=== PATIENT | male | born 1945 | race Caucasian/White ===

== ENCOUNTER → 2018-02-27 | Outpatient (CLI) | payer MEDICARE ==
[2018-02-27 18:03] LABS: Hemoglobin A1C 5.1 % (4.0-6.0)
== END | disposition home or self-care (01) ==
LOC: LABWHC1 11:28
PROVIDERS: ATTEND Podiatrist
DX: I87.2 Venous insufficiency (chronic) (peripheral) (principal)
CPT/HCPCS: 36415; 83036

== ENCOUNTER → 2018-03-05 | Outpatient (CLI) | payer MEDICARE ==
--- NOTE | 2018-03-05 16:19 | US ---
EXAMINATION TYPE: US venous doppler duplex LE DATE OF EXAM: 03/05/2018 2:00 PM COMPARISON: NONE CLINICAL HISTORY: M79.604,M79.605. Slow to heal lower extremity ulcerations x 6 months with left leg worse than right leg. SIDE PERFORMED: Bilateral Exam is technically limited due to very large body habitus at HT 6'3, and WT 459lbs. TECHNIQUE: The lower extremity deep venous system is examined utilizing real time linear array sonog robert with graded compression, Doppler sonography and color-flow sonography. VESSELS IMAGED: Common Femoral Vein Deep Femoral Vein Greater Saphenous Vein * Femoral Vein Popliteal Vein - limited left popliteal vein access due to very large leg Small Saphenous Vein * Proximal Calf Veins (* superficial vessels) Right Leg: Venous reflux noted in Right Greater Saphenous Vein. Left Leg: Venous reflux is noted in Left Greater Saphenous Vein. IMPRESSION: 1. Lower extremity ultrasound with bilateral greater saphenous vein reflux. 2. Popliteal vein on the left is limited due to the patient's body habitus.
--- NOTE | 2018-03-10 10:46 | P.ARTDOP ---
Arterial Doppler LOWER EXTREMITY ARTERIAL DOPPLER: DATE OF SERVICE: 03/05/2018 Reason for study: Bilateral lower leg ulcers. Doppler waveforms: Doppler waveforms only done at femoral and dorsalis pedis level bilaterally. At the left femoral it is multiphasic. At the right femoral and dorsalis pedis it is blunted but multiphasic. The left dorsalis pedis is more monophasic.. Pulse volume recording:. Pressure gradients: None recorded. Ankle-brachial indices: Greater than 1 bilaterally. Toe pressures:. Impression: Suspect at least moderate disease on the left. Cannot be more specific due to limitations of the study. Clinical correlation recommended..
== END | disposition home or self-care (01) ==
LOC: RADUSWWP 13:17
PROVIDERS: ATTEND Podiatrist
DX: I87.2 Venous insufficiency (chronic) (peripheral) (principal); M79.604 Pain in right leg
CPT/HCPCS: 93922; 93970

== ENCOUNTER 2020-12-31 12:47 | Inpatient (IN) | payer MEDICARE ==
[2020-12-31] MEDS ORDERED: FUROSEMIDE 10 MG/ML 4 ML VIAL IV STA (13:00)
--- NOTE | 2020-12-31 13:05 | ED ---
SOB HPI - General Chief Complaint: Shortness of Breath Stated Complaint: MARIELA Time Seen by Provider: 12/31/20 12:47 Source: patient, EMS, RN notes reviewed, old records reviewed Mode of arrival: EMS Limitations: no limitations - History of Present Illness Initial Comments: This is a 75-year-old male who presents by EMS with complaints of shortness of breath. His been getting progressively worse over the last 2 months. EMS was called today for lift assist he could not get up off the floor he could not seem he cannot ambulate he has exertional dyspnea. He denies any fevers chills or sweats was found upon arrival have a temperature 101.2. Initially had a pulse oximetry of 62% on room air. This did improve after oxygen was applied. He denies any chest pain he does have peripheral edema which she states is fairly chronic. Patient does state that he had the 'which shot Alexandre and Alexandre about a month ago MD Complaint: shortness of breath - Related Data Home Medications Medication Instructions Recorded Confirmed Furosemide [Lasix] 40 mg PO BID 12/09/14 12/31/20 Potassium Chloride [K-Tab ER] 20 meq PO DAILY 12/09/14 12/31/20 Atenolol [Tenormin] 50 mg PO BID 12/31/20 12/31/20 Multivitamins, Thera [Multivitamin 1 tab PO DAILY 12/31/20 12/31/20 (formulary)] Allergies Allergy/AdvReac Type Severity Reaction Status Date / Time No Known Allergies Allergy Verified 12/31/20 13:41 Review of Systems ROS Statement: Those systems with pertinent positive or pertinent negative responses have been documented in the HPI. ROS Other: All systems not noted in ROS Statement are negative. Past Medical History Past Medical History: Cancer, Hypertension, Skin Disorder Additional Past Medical History / Comment(s): hx prostate cancer, , hx rheumatic fever; lymphedema to bilateral legs. History of Any Multi-Drug Resistant Organisms: None Reported Past Surgical History: Hernia Repair, Tonsillectomy Additional Past Surgical History / Comment(s): pacemaker, heart ablation Past Anesthesia/Blood Transfusion Reactions: No Reported Reaction Past Psychological History: No Psychological Hx Reported Past Alcohol Use History: None Reported Past Drug Use History: None Reported - Past Family History Father Family Medical History: Cancer Mother Family Medical History: Cancer General Exam - General Exam Comments Initial Comments: Is a well-developed well-nourished awake alert oriented times 3 male Limitations: no limitations General appearance: alert, anxious, in distress Head exam: Present: atraumatic, normocephalic, normal inspection Eye exam: Present: normal appearance, PERRL, EOMI. Absent: scleral icterus, conjunctival injection, periorbital swelling ENT exam: Present: normal exam, mucous membranes moist Neck exam: Present: normal inspection. Absent: tenderness, meningismus, lymphadenopathy Respiratory exam: Present: rales, rhonchi, accessory muscle use, decreased breath sounds, other (Tachypnea). Absent: respiratory distress, wheezes, stridor Cardiovascular Exam: Present: regular rate, normal rhythm, normal heart sounds. Absent: systolic murmur, diastolic murmur, rubs, gallop, clicks GI/Abdominal exam: Present: soft, normal bowel sounds. Absent: distended, tenderness, guarding, rebound, rigid Extremities exam: Present: normal inspection, full ROM, normal capillary refill, pedal edema. Absent: tenderness, joint swelling, calf tenderness Back exam: Present: normal inspection Neurological exam: Present: alert, oriented X3, CN II-XII intact Psychiatric exam: Present: normal affect, normal mood Skin exam: Present: warm, dry, intact, normal color. Absent: rash Course Vital Signs 12/31/20 12/31/20 12/31/20 12:55 13:53 13:58 Temperature 101.2 F H Pulse Rate 96 95 Respiratory 28 H 26 H 26 H Rate Blood Pressure 124/92 117/70 O2 Sat by Pulse 85 L 89 L Oximetry 12/31/20 14:37 Temperature 100.1 F H Pulse Rate 93 Respiratory 26 H Rate Blood Pressure 149/73 O2 Sat by Pulse 92 L Oximetry Medical Decision Making - Medical Decision Making I did discuss findings with the patient also with Dr. Glaser patient will be admitted with pulmonary consultation presentation consistent with Coban 19 pneumonia additionally evidence of CHF - Lab Data Result diagrams: 12/31/20 13:06 12/31/20 13:06 Lab Results 12/31/20 12/31/20 12/31/20 Range/Units 13:06 13:06 13:06 WBC 11.4 H (3.8-10.6) k/uL RBC 4.58 (4.30-5.90) m/uL Hgb 13.4 (13.0-17.5) gm/dL Hct 40.6 (39.0-53.0) % MCV 88.8 (80.0-100.0) fL MCH 29.4 (25.0-35.0) pg MCHC 33.1 (31.0-37.0) g/dL RDW 13.6 (11.5-15.5) % Plt Count 72 L (150-450) k/uL MPV 11.8 Neutrophils % (Manual) 76 % Band Neuts % (Manual) 2 % Lymphocytes % (Manual) 5 % Monocytes % (Manual) 14 % Eosinophils % (Manual) 1 % Metamyelocytes % 1 % Myelocytes % 3 % Promyelocytes % 1 % Other Cells % % Neutrophils # (Manual) 8.80 H (1.3-7.7) k/uL Lymphocytes # (Manual) 0.57 L (1.0-4.8) k/uL Monocytes # (Manual) 1.60 H (0-1.0) k/uL Eosinophils # (Manual) 0.11 (0-0.7) k/uL Metamyelocytes # (Man) 0.11 H (0) k/uL Myelocytes # (Manual) 0.34 H (0) k/uL Promyelocytes # (Man) 0.11 H (0) k/uL Nucleated RBCs 1 H (0-0) /100 WBC Manual Slide Review Performed Polychromasia Present Poikilocytosis (manual Present Anisocytosis (manual) Present PT 13.0 H (9.0-12.0) sec INR 1.3 H (<1.2) APTT 27.0 (22.0-30.0) sec Sodium 133 L (137-145) mmol/L Potassium 4.7 (3.5-5.1) mmol/L Chloride 98 (98-107) mmol/L Carbon Dioxide 26 (22-30) mmol/L Anion Gap 9 mmol/L BUN 51 H (9-20) mg/dL Creatinine 1.51 H (0.66-1.25) mg/dL Est GFR (CKD-EPI)AfAm 52 (>60 ml/min/1.73 sqM) Est GFR (CKD-EPI)NonAf 45 (>60 ml/min/1.73 sqM) Glucose 128 H (74-99) mg/dL Plasma Lactic Acid Mumtaz (0.7-2.0) mmol/L Calcium 9.1 (8.4-10.2) mg/dL Magnesium 2.6 H (1.6-2.3) mg/dL Total Bilirubin 1.6 H (0.2-1.3) mg/dL AST 81 H (17-59) U/L ALT 47 (4-49) U/L Alkaline Phosphatase 76 (38-126) U/L Creatine Kinase 418 H (55-170) U/L Troponin I (0.000-0.034) ng/mL NT-Pro-B Natriuret Pep pg/mL Total Protein 6.7 (6.3-8.2) g/dL Albumin 3.8 (3.5-5.0) g/dL Urine Color Urine Appearance (Clear) Urine pH (5.0-8.0) Ur Specific [place] (1.001-1.035) Urine Protein (Negative) Urine Glucose (UA) (Negative) Urine Ketones (Negative) Urine Blood (Negative) Urine Nitrite (Negative) Urine Bilirubin (Negative) Urine Urobilinogen (<2.0) mg/dL Ur Leukocyte Esterase (Negative) Urine RBC (0-5) /hpf Urine WBC (0-5) /hpf Ur Squamous Epith Cells (0-4) /hpf Urine Bacteria (None) /hpf Hyaline Casts (0-2) /lpf Granular Casts (0) /lpf Urine Mucus (None) /hpf Coronavirus (PCR) (Not Detectd) 12/31/20 12/31/20 12/31/20 Range/Units 13:06 13:06 13:06 WBC (3.8-10.6) k/uL RBC (4.30-5.90) m/uL Hgb (13.0-17.5) gm/dL Hct (39.0-53.0) % MCV (80.0-100.0) fL MCH (25.0-35.0) pg MCHC (31.0-37.0) g/dL RDW (11.5-15.5) % Plt Count (150-450) k/uL MPV Neutrophils % (Manual) % Band Neuts % (Manual) % Lymphocytes % (Manual) % Monocytes % (Manual) % Eosinophils % (Manual) % Metamyelocytes % % Myelocytes % % Promyelocytes % % Other Cells % % Neutrophils # (Manual) (1.3-7.7) k/uL Lymphocytes # (Manual) (1.0-4.8) k/uL Monocytes # (Manual) (0-1.0) k/uL Eosinophils # (Manual) (0-0.7) k/uL Metamyelocytes # (Man) (0) k/uL Myelocytes # (Manual) (0) k/uL Promyelocytes # (Man) (0) k/uL Nucleated RBCs (0-0) /100 WBC Manual Slide Review Polychromasia Poikilocytosis (manual Anisocytosis (manual) PT (9.0-12.0) sec INR (<1.2) APTT (22.0-30.0) sec Sodium (137-145) mmol/L Potassium (3.5-5.1) mmol/L Chloride (98-107) mmol/L Carbon Dioxide (22-30) mmol/L Anion Gap mmol/L BUN (9-20) mg/dL Creatinine (0.66-1.25) mg/dL Est GFR (CKD-EPI)AfAm (>60 ml/min/1.73 sqM) Est GFR (CKD-EPI)NonAf (>60 ml/min/1.73 sqM) Glucose (74-99) mg/dL Plasma Lactic Acid Mumtaz 1.8 (0.7-2.0) mmol/L Calcium (8.4-10.2) mg/dL Magnesium (1.6-2.3) mg/dL Total Bilirubin (0.2-1.3) mg/dL AST (17-59) U/L ALT (4-49) U/L Alkaline Phosphatase (38-126) U/L Creatine Kinase (55-170) U/L Troponin I 0.074 H* (0.000-0.034) ng/mL NT-Pro-B Natriuret Pep 5860 pg/mL Total Protein (6.3-8.2) g/dL Albumin (3.5-5.0) g/dL Urine Color Urine Appearance (Clear) Urine pH (5.0-8.0) Ur Specific [place] (1.001-1.035) Urine Protein (Negative) Urine Glucose (UA) (Negative) Urine Ketones (Negative) Urine Blood (Negative) Urine Nitrite (Negative) Urine Bilirubin (Negative) Urine Urobilinogen (<2.0) mg/dL Ur Leukocyte Esterase (Negative) Urine RBC (0-5) /hpf Urine WBC (0-5) /hpf Ur Squamous Epith Cells (0-4) /hpf Urine Bacteria (None) /hpf Hyaline Casts (0-2) /lpf Granular Casts (0) /lpf Urine Mucus (None) /hpf Coronavirus (PCR) (Not Detectd) 12/31/20 12/31/20 Range/Units 13:06 13:22 WBC (3.8-10.6) k/uL RBC (4.30-5.90) m/uL Hgb (13.0-17.5) gm/dL Hct (39.0-53.0) % MCV (80.0-100.0) fL MCH (25.0-35.0) pg MCHC (31.0-37.0) g/dL RDW (11.5-15.5) % Plt Count (150-450) k/uL MPV Neutrophils % (Manual) % Band Neuts % (Manual) % Lymphocytes % (Manual) % Monocytes % (Manual) % Eosinophils % (Manual) % Metamyelocytes % % Myelocytes % % Promyelocytes % % Other Cells % % Neutrophils # (Manual) (1.3-7.7) k/uL Lymphocytes # (Manual) (1.0-4.8) k/uL Monocytes # (Manual) (0-1.0) k/uL Eosinophils # (Manual) (0-0.7) k/uL Metamyelocytes # (Man) (0) k/uL Myelocytes # (Manual) (0) k/uL Promyelocytes # (Man) (0) k/uL Nucleated RBCs (0-0) /100 WBC Manual Slide Review Polychromasia Poikilocytosis (manual Anisocytosis (manual) PT (9.0-12.0) sec INR (<1.2) APTT (22.0-30.0) sec Sodium (137-145) mmol/L Potassium (3.5-5.1) mmol/L Chloride (98-107) mmol/L Carbon Dioxide (22-30) mmol/L Anion Gap mmol/L BUN (9-20) mg/dL Creatinine (0.66-1.25) mg/dL Est GFR (CKD-EPI)AfAm (>60 ml/min/1.73 sqM) Est GFR (CKD-EPI)NonAf (>60 ml/min/1.73 sqM) Glucose (74-99) mg/dL Plasma Lactic Acid Mumtaz (0.7-2.0) mmol/L Calcium (8.4-10.2) mg/dL Magnesium (1.6-2.3) mg/dL Total Bilirubin (0.2-1.3) mg/dL AST (17-59) U/L ALT (4-49) U/L Alkaline Phosphatase (38-126) U/L Creatine Kinase (55-170) U/L Troponin I (0.000-0.034) ng/mL NT-Pro-B Natriuret Pep pg/mL Total Protein (6.3-8.2) g/dL Albumin (3.5-5.0) g/dL Urine Color Yellow Urine Appearance Cloudy (Clear) Urine pH 5.5 (5.0-8.0) Ur Specific [place] 1.021 (1.001-1.035) Urine Protein 1+ H (Negative) Urine Glucose (UA) Negative (Negative) Urine Ketones Negative (Negative) Urine Blood Small H (Negative) Urine Nitrite Negative (Negative) Urine Bilirubin 1+ H (Negative) Urine Urobilinogen 8.0 (<2.0) mg/dL Ur Leukocyte Esterase Negative (Negative) Urine RBC 1 (0-5) /hpf Urine WBC <1 (0-5) /hpf Ur Squamous Epith Cells <1 (0-4) /hpf Urine Bacteria Rare H (None) /hpf Hyaline Casts 17 H (0-2) /lpf Granular Casts 3 (0) /lpf Urine Mucus Rare H (None) /hpf Coronavirus (PCR) Detected A (Not Detectd) - EKG Data -: EKG Interpreted by Me EKG Comments: Rate of 97 FL interval 350 to QRS 128 QT since QTC 350/444 left exodeviation LVH nonspecific lateral and anterior configuration's - Radiology Data Radiology results: report reviewed (Reviewing she bilateral infiltrates noted area please see complete report), image reviewed Critical Care Time Critical Care Time: Yes Total Critical Care Time: 35 Critical Care Time: Critical care time includes initial presentation with history physical labs x- rays discussed with paramedics upon arrival multiple reevaluation the patient discussed with the patient regarding findings discussed with the admitting physician review of old charting was available admission orders documentation the above Disposition Clinical Impression: Pneumonia due to COVID-19 virus, Hypoxemia, Febrile illness, acute, Congestive heart failure, Elevated troponin Disposition: ADMITTED IP TO THIS [facility] Condition: Fair Referrals: Uriah Tsang DO [Primary Care Provider] - 1-2 days
[2020-12-31 13:48] LABS: Albumin 3.8 g/dL (3.5-5.0); Calcium 9.1 mg/dL (8.4-10.2); Magnesium 2.6 mg/dL (1.6-2.3); Potassium 4.7 mmol/L (3.5-5.1); Total Bilirubin 1.6 mg/dL (0.2-1.3); Total Protein 6.7 g/dL (6.3-8.2)
[2020-12-31 13:54] LABS: HCT 40.6 % (39.0-53.0); HGB 13.4 gm/dL (13.0-17.5); MCH 29.4 pg (25.0-35.0); MCHC 33.1 g/dL (31.0-37.0); MCV 88.8 fL (80.0-100.0); RBC 4.58 m/uL (4.30-5.90); RDW 13.6 % (11.5-15.5)
--- NOTE | 2020-12-31 13:54 | XR ---
EXAMINATION TYPE: XR chest 2V DATE OF EXAM: 12/31/2020 COMPARISON: Chest x-ray 12/31/2014 HISTORY: Difficulty breathing, shortness breath TECHNIQUE: Frontal and lateral views of the chest are obtained. FINDINGS: There is no focal air space opacity, pleural effusion, or pneumothorax seen. The cardiac silhouette size is within normal limits. There is a generator present in the left pectoral region. Le ads are again noted within the right atrium and ventricle. Patient is rotated. Bilateral airspace dis ease has developed. There is no pneumothorax or pleural effusion. Cardiac mediastinal silhouette is l ikely stable. The osseous structures are intact. IMPRESSION: Correlate for pneumonia, edema.
[2020-12-31 14:07] LABS: Appearance,Urine Cloudy (Clear); Bacteria,Urine Rare /hpf; Bilirubin,Urine 1+ (Negative); Blood,Urine Small (Negative); Color,Urine Yellow; Glucose,Urine (UA) Negative (Negative); Granular Casts,Urine 3 /lpf (0); Hyaline Casts,Urine 17 /lpf (0-2); Ketones,Urine Negative (Negative); Leukocyte Esterase,Urine Negative (Negative); Mucus,Urine Rare /hpf; Nitrite,Urine Negative (Negative); PH, Urine 5.5 (5.0-8.0); Protein,Urine 1+ (Negative); RBC,Urine 1 /hpf (0-5); Specific Gravity,Urine 1.021 (1.001-1.035); Squamous Epithelial Cell,Urine <1 /hpf (0-4); WBC,Urine <1 /hpf (0-5)
[2020-12-31 14:18] LABS: INR 1.3 (<1.2)
[2020-12-31 14:24] LABS: Band Neutrophils % 2 %; Eosinophils # (M) 0.11 k/uL (0-0.7); Lymphocytes # (M) 0.57 k/uL (1.0-4.8); Metamyelocytes # (M) 0.11 k/uL (0); Metamyelocytes % 1 %; Myelocytes # (M) 0.34 k/uL (0); Myelocytes % 3 %; Neutrophils % (M) 76 %; Nucleated Red Blood Cells 1 /100 WBC (0-0); Promyelocytes # (M) 0.11 k/uL (0); Promyelocytes % 1 %; Total Cells Counted 200; WBC 11.4 k/uL (3.8-10.6)
[2020-12-31 14:25] LABS: Polychromasia Present
[2020-12-31 14:26] LABS: Anisocytosis (M) Present; Poikilocytosis (M) Present
[2020-12-31] MEDS ORDERED: PNEUMONIA PROTOCOL UTILIZED 1 EACH MISC PO PRN (15:05)
[2020-12-31] MEDS ORDERED: dexAMETHasone 2 MG TAB PO STA (15:10)
[2020-12-31] MEDS: SODIUM CHLORIDE 0.9% 1,000 ML IV SCH (15:34)
[2020-12-31] MEDS: ALBUTEROL HFA INHALER INHALATION SCH ×3 (18:30→19:19)
[2020-12-31 19:17] LABS: Glucose,Whole Blood 156 mg/dL (75-99)
[2020-12-31] MEDS: FUROSEMIDE 40 MG TAB PO SCH (20:00)
[2020-12-31] MEDS: atenoloL 50 MG TAB PO SCH (22:05)
--- NOTE | 2020-12-31 22:45 | HP ---
HISTORY AND PHYSICAL CHIEF COMPLAINT: Shortness of breath and cough. HISTORY OF PRESENT ILLNESS: This 75-year-old gentleman with a past medical history of hypertension, history of prostate cancer, history of rheumatic fever, history of lymphedema of the legs being followed by Dr. Tsang in the outpatient setting. The patient apparently took Alexandre and Alexandre vaccine in end of November. The patient is complaining of apparently shortness of breath and some cough worsening over the last 2 months. The exact date of the onset of current symptoms are unknown. In any case, the patient had paroxysmal exertional dyspnea and pulse ox only 62 percent on room air. The patient taken to [facility] and patient had extensive bilateral pneumonia, which is highly suggestive of Covid 19 pneumonia. Covid 19 test was positive and patient admitted to the hospital for further evaluation and treatment. Currently the patient is on non- rebreather mask, saturating around 90%. There is no history of fever, rigors or chills. No history of headache, loss of consciousness, seizures at this time. PAST MEDICAL HISTORY: Hypertension, history of prostate cancer, rheumatic fever. MEDICATIONS: Prior to admission include home medications are: K-Tab ER 20 mg p.o. daily, multivitamins and Lasix, Tenormin. ALLERGIES: None. FAMILY HISTORY: History of cancer in the family. SOCIAL HISTORY: Previous history of smoking. No history of current smoking or alcohol. REVIEW OF SYSTEMS: ENT: No diminished vision. No diminished hearing. CARDIOVASCULAR system: As mentioned earlier. Respiration as mentioned earlier. GI no nausea. No vomiting. : No dysuria. NERVOUS SYSTEM: No numbness or weakness. ALLERGY/IMMUNOLOGY: No asthma or hayfever. MUSCULOSKELETAL as mentioned earlier. HEMATOLOGY/ONCOLOGY: No history of anemia. ENDOCRINE: No history of diabetes or hypothyroidism. CONSTITUTIONAL: As mentioned earlier. DERMATOLOGY: Negative. RHEUMATOLOGY: Negative. PSYCHIATRY as mentioned earlier. PHYSICAL EXAMINATION: Alert and oriented x3. Pulse 85. Blood pressure 127/90, respirations 22, temperature 99.9, pulse ox 98% on 15 L nonrebreather mask. HEENT: Conjunctivae normal. NECK: No JVD. CARDIOVASCULAR: S1, S2 muffled. RESPIRATORY SYSTEM: Breath sounds diminished at the bases. Bilateral scattered rhonchi and crackles. ABDOMEN: Soft, obese, nontender. LEGS: No edema. No swelling. NERVOUS SYSTEM: Higher functions as mentioned earlier. Moves all 4 limbs. No focal motor or sensory deficits. LYMPHATICS: No lymph nodes palpable in the neck, axillae or groin. SKIN: No ulcer, rashes or bleeding. JOINTS: No active deforming arthropathy. LABS: At this time shows: WBC 11.4, platelets 72, and INR is 1.3. D-dimer is not available. Creatinine is 1.51. Other labs are noted. Troponin 0.074. ASSESSMENT: 1. Acute COVID-19 infection with acute bilateral interstitial pneumonia with acute hypoxic respiratory failure with sepsis, present on admission. 2. Increased WBC. 3. Thrombocytopenia. 4. Lymphopenia. 5. Elevated PT/INR. 6. Hyponatremia. 7. Increased creatinine with acute renal failure with acute tubular necrosis. 8. Increased random blood sugar. 9. Elevated bilirubin. 10.Increased AST. 11.Troponin 0.075, indeterminate. 12.Elevated creatinine kinase. 13.Hypertension. 14.History of prostate cancer. 15.History of rheumatic fever. 16.History of lymphedema. 17.History of tonsillectomy. 18.Morbid obesity with BMI 52.5. 19.FULL CODE. RECOMMENDATIONS AND DISCUSSION: This 75-year-old gentleman who presented with multiple complex medical issues, we will monitor the patient closely. Continue the current medications, management and symptomatic treatment. We will initiate the patient with Lovenox. The patient is definitely out of the window for Remdesivir. Steroids will be initiated. Broad- spectrum IV antibiotics and zinc and other conservative line of management also will be initiated. I would also consult Dr. Browne and Dr. Guzman also. The patient had multiple features suggestive of acute COVID-19 infection inflammatory markers. The troponin is also elevated. Exact etiology unknown. I would also recommend a 2D echo with Doppler to rule out myocardial involvement. Otherwise, overall prognosis guarded. Further recommendations to follow. A copy of dictation forwarded to Dr. Tsang who is the primary physician. We will also consider Actemra in this patient after consulting with Infectious Disease. MMODL / IJN: [id number] /
[2020-12-31] MEDS: DEXAMETHASONE SOD PHOSPHATE 10 MG/ML 1 ML VIAL IV SCH (23:37)
--- NOTE | 2021-01-01 08:06 | XR ---
EXAMINATION TYPE: XR chest 1V DATE OF EXAM: 01/01/2021 COMPARISON: Chest x-ray 12/31/2020 HISTORY: Pneumonia, Covid TECHNIQUE: Single frontal view of the chest is obtained. FINDINGS: Bilateral airspace disease is present but improved. Cardiac mediastinal silhouette is stab le. Generator is present in left pectoral region, there are leads in right atrium and ventricle. No p neumothorax or pleural effusion. IMPRESSION: There is some improvement in patient's airspace disease. Correlate for pneumonia versus edema.
[2021-01-01 08:19] LABS: Calcium 9.2 mg/dL (8.4-10.2); Potassium 4.9 mmol/L (3.5-5.1)
[2021-01-01] MEDS: ALBUTEROL HFA INHALER INHALATION SCH ×4 (08:25→20:25)
[2021-01-01 08:43] LABS: HCT 41.9 % (39.0-53.0); HGB 13.5 gm/dL (13.0-17.5); MCH 29.4 pg (25.0-35.0); MCHC 32.1 g/dL (31.0-37.0); MCV 91.6 fL (80.0-100.0); Mean Platelet Volume 11.8; RBC 4.58 m/uL (4.30-5.90); RDW 13.6 % (11.5-15.5)
[2021-01-01 08:44] LABS: Platelet Count 74 k/uL (150-450)
[2021-01-01] MEDS: POTASSIUM CHLORIDE ER 20 MEQ TAB.ER PO SCH (08:56)
[2021-01-01] MEDS: ZINC SULFATE 220 MG CAP PO SCH (08:56)
[2021-01-01] MEDS: atenoloL 50 MG TAB PO SCH ×2 (08:56→20:24)
[2021-01-01] MEDS: DEXAMETHASONE SOD PHOSPHATE 10 MG/ML 1 ML VIAL IV SCH ×2 (08:56→20:23)
[2021-01-01] MEDS: ASCORBIC ACID 500 MG TAB PO SCH (08:56)
[2021-01-01] MEDS: CHOLECALCIFEROL 25 MCG (1000 IU) TABLET PO SCH (08:56)
[2021-01-01] MEDS: FUROSEMIDE 40 MG TAB PO SCH ×2 (08:56→18:11)
[2021-01-01] MEDS: MULTIVITAMINS, THERA 1 EACH TAB PO SCH (08:56)
[2021-01-01 09:11] LABS: C Reactive Protein 22.7 mg/dL (<1.0)
[2021-01-01 09:31] LABS: Band Neutrophils % 4 %; Metamyelocytes # (M) 0.14 k/uL (0); Metamyelocytes % 1 %; Myelocytes # (M) 0.14 k/uL (0); Myelocytes % 1 %; Neutrophils % (M) 82 %; Promyelocytes # (M) 0.14 k/uL (0); Promyelocytes % 1 %
[2021-01-01 09:33] LABS: Nucleated Red Blood Cells 4 /100 WBC (0-0); Total Cells Counted 200
[2021-01-01 09:34] LABS: Blast Cells # (M) 0.27 k/uL (0); Lymphocytes # (M) 0.69 k/uL (1.0-4.8); Monocytes # (M) 0.82 k/uL (0-1.0); WBC 13.7 k/uL (3.8-10.6)
[2021-01-01 09:35] LABS: Polychromasia Present
[2021-01-01 09:36] LABS: Anisocytosis (M) Present; Poikilocytosis (M) Present
--- NOTE | 2021-01-01 09:54 | P.CNPUL ---
History of Present Illness Consult date: 01/01/21 Reason for consult: dyspnea, hypoxemia, pneumonia History of present illness: 75-year-old male patient was being seen for acute hypoxic respiratory failure and COVID-19 associated pneumonia. The patient came into the emergency department because of worsening shortness of breath is been going on for the past month. He is not sure of the exact timing of his symptoms. He is been sick for several weeks probably a month or 2 according to him. He did not realize his breathing was this bad. On the day of his admission condition got worse to the point where he was unable to ambulate. He came into the hospital accordingly. Denies having any fever chills or sweats. Nevertheless, he was found to have a temperature of 101.2. Initial pulse ox was 62% on room air oxygen. He was placed on 100% on a beta facemask. No angina. No palpitations. Apparently has taken BCKSTGR showed approximately a month ago. He has a white cell count of 11, lymphocyte count of 0.5, normal coagulation profile, d-dimer of 3.3, troponin 0.07, his proBNP level was 5860, sodium level was 133, BUN was 51 with a creatinine of 1.5. Lactic acid level was 1.8. 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 Other comorbidities include prostate cancer, obesity and chronic lower extremity edema/lymphedema with venous ulcers being treated at the wound center in the past. Review of Systems Constitutional: Reports fatigue, Reports fever, Reports weakness Eyes: denies as per HPI, denies blurred vision, denies bulging eye, denies dec reased vision, denies diplopia, denies discharge, denies dry eye, denies irritation, denies itching, denies pain, denies photophobia, denies loss of peripheral vision, denies loss of vision, denies tunnel vision/blind spots Ears: deny: decreased hearing, ear discharge, earache, tinnitus Ears, nose, mouth and throat: Reports as per HPI Breasts: absent: as per HPI, gynecomastia Cardiovascular: Reports decreased exercise tolerance, Reports dyspnea on exertion, Reports edema Respiratory: Reports dyspnea Gastrointestinal: Reports as per HPI Genitourinary: Reports as per HPI Musculoskeletal: Reports as per HPI Musculoskeletal: bilateral: ankle swelling, absent: ankle pain, ankle stiffness Integumentary: Reports as per HPI, Reports darkening of skin, Reports wounds Neurological: Reports as per HPI Psychiatric: Reports as per HPI Endocrine: Reports as per HPI Hematologic/Lymphatic: Reports as per HPI Allergic/Immunologic: Reports as per HPI Past Medical History Past Medical History: Cancer, Hypertension, Skin Disorder Additional Past Medical History / Comment(s): hx prostate cancer, , hx rheumatic fever; lymphedema to bilateral legs. History of Any Multi-Drug Resistant Organisms: None Reported Past Surgical History: Hernia Repair, Tonsillectomy Additional Past Surgical History / Comment(s): pacemaker, heart ablation Past Anesthesia/Blood Transfusion Reactions: No Reported Reaction Past Psychological History: No Psychological Hx Reported Smoking Status: Former smoker Past Alcohol Use History: None Reported Additional Past Alcohol Use History / Comment(s): smoked from teens until 30's; started up again when 61 until 63 Past Drug Use History: None Reported - Past Family History Father Family Medical History: Cancer Mother Family Medical History: Cancer Medications and Allergies Home Medications Medication Instructions Recorded Confirmed Type Furosemide [Lasix] 40 mg PO BID 12/09/14 12/31/20 History Potassium Chloride [K-Tab ER] 20 meq PO DAILY 12/09/14 12/31/20 History Atenolol [Tenormin] 50 mg PO BID 12/31/20 12/31/20 History Multivitamins, Thera [Multivitamin 1 tab PO DAILY 12/31/20 12/31/20 History (formulary)] Allergies Allergy/AdvReac Type Severity Reaction Status Date / Time No Known Allergies Allergy Verified 12/31/20 13:41 Physical Exam Vitals: Vital Signs Temp Pulse Pulse Resp BP BP Pulse Ox 01/01/21 04:00 99.0 F 61 24 129/71 92 L 01/01/21 02:00 78 24 01/01/21 00:00 97.8 F 78 24 117/69 89 L 12/31/20 20:00 98.0 F 85 80 22 127/90 127/74 94 L 12/31/20 19:00 99.9 F H 89 24 116/85 92 L 12/31/20 16:00 83 24 152/75 93 L 12/31/20 15:32 98.0 F 80 22 127/74 94 L 12/31/20 15:30 99.3 F 90 24 140/77 90 L 12/31/20 14:37 100.1 F H 93 26 H 149/73 92 L 12/31/20 13:58 26 H 12/31/20 13:53 95 26 H 117/70 89 L 12/31/20 12:55 101.2 F H 96 28 H 124/92 85 L Intake and Output 12/31/20 01/01/21 01/01/21 22:59 06:59 14:59 Intake Total 100 Output Total 700 500 Balance -600 -500 Intake: Oral 100 Output: Urine 700 500 Other: Weight 180 kg 179.5 kg General appearance: alert, anxious, in distress mild degree of respiratory distress because of his underlying pneumonia currently on on the percent nonrebreather facemask Head exam: Present: atraumatic, normocephalic, normal inspection Eye exam: Present: normal appearance, PERRL, EOMI. Absent: scleral icterus, conjunctival injection, periorbital swelling ENT exam: Present: normal exam, mucous membranes moist Neck exam: Present: normal inspection. Absent: tenderness, meningismus, lymphadenopathy Respiratory exam: Present: rales, rhonchi, accessory muscle use, decreased nasir th sounds, other (Tachypnea). Absent: respiratory distress, wheezes, stridor Cardiovascular Exam: Present: regular rate, normal rhythm, normal heart sounds. Absent: systolic murmur, diastolic murmur, rubs, gallop, clicks GI/Abdominal exam: Present: soft, normal bowel sounds. Absent: distended, tenderness, guarding, rebound, rigid Extremities exam: Present: normal inspection, full ROM, normal capillary refill, pedal edema. Absent: tenderness, joint swelling, calf tenderness Back exam: Present: normal inspection Neurological exam: Present: alert, oriented X3, CN II-XII intact Psychiatric exam: Present: normal affect, normal mood Skin exam: Present: warm, dry, intact, normal color. Absent: rash Results - Laboratory Findings CBC and BMP: 01/01/21 07:35 01/01/21 07:35 PT/INR, D-dimer PT 13.0 sec (9.0-12.0) H 12/31/20 13:06 INR 1.3 (<1.2) H 12/31/20 13:06 D-Dimer 3.32 mg/L FEU (<0.60) H 12/31/20 20:25 Abnormal lab findings: Abnormal Labs 12/31/20 12/31/20 12/31/20 13:06 13:06 13:06 WBC 11.4 H Plt Count 72 L Neutrophils # (Manual) 8.80 H Lymphocytes # (Manual) 0.57 L Monocytes # (Manual) 1.60 H Metamyelocytes # (Man) 0.11 H Myelocytes # (Manual) 0.34 H Promyelocytes # (Man) 0.11 H Nucleated RBCs 1 H PT 13.0 H INR 1.3 H D-Dimer Sodium 133 L Carbon Dioxide BUN 51 H Creatinine 1.51 H Glucose 128 H POC Glucose (mg/dL) Magnesium 2.6 H Total Bilirubin 1.6 H AST 81 H Lactate Dehydrogenase Creatine Kinase 418 H Troponin I C-Reactive Protein Urine Protein Urine Blood Urine Bilirubin Urine Bacteria Hyaline Casts Urine Mucus Coronavirus (PCR) 12/31/20 12/31/20 12/31/20 13:06 13:06 13:22 WBC Plt Count Neutrophils # (Manual) Lymphocytes # (Manual) Monocytes # (Manual) Metamyelocytes # (Man) Myelocytes # (Manual) Promyelocytes # (Man) Nucleated RBCs PT INR D-Dimer Sodium Carbon Dioxide BUN Creatinine Glucose POC Glucose (mg/dL) Magnesium Total Bilirubin AST Lactate Dehydrogenase Creatine Kinase Troponin I 0.074 H* C-Reactive Protein Urine Protein 1+ H Urine Blood Small H Urine Bilirubin 1+ H Urine Bacteria Rare H Hyaline Casts 17 H Urine Mucus Rare H Coronavirus (PCR) Detected A 12/31/20 12/31/20 01/01/21 19:16 20:25 07:35 WBC Plt Count Neutrophils # (Manual) Lymphocytes # (Manual) Monocytes # (Manual) Metamyelocytes # (Man) Myelocytes # (Manual) Promyelocytes # (Man) Nucleated RBCs PT INR D-Dimer 3.32 H Sodium Carbon Dioxide 31 H BUN 53 H Creatinine 1.40 H Glucose 149 H POC Glucose (mg/dL) 156 H Magnesium Total Bilirubin AST Lactate Dehydrogenase 2111 H Creatine Kinase Troponin I C-Reactive Protein 22.7 H Urine Protein Urine Blood Urine Bilirubin Urine Bacteria Hyaline Casts Urine Mucus Coronavirus (PCR) - Diagnostic Findings Chest x-ray: image reviewed Assessment and Plan Plan: 1 acute hypoxic respiratory failure currently on the percent nonrebreather facemask due to bilateral diffuse pneumonia attributed to COVID-19 infection. The exact onset of symptoms is not known as the patient is not clear when he started having the symptoms. Limited is been progressively getting worse over the past several weeks. He apparently took his Alexandre & Alexandre vaccination and end of November 2020. 2 acute COVID-19 infection, post vaccination with a Alexandre & Alexandre COVID-19 vaccine 3 shortness of breath secondary to above 4 acute kidney injury, likely secondary to intravascular volume depletion 5 chronic lymphedema involving lower extremities 6 obesity 7 history of SVT post-ablation, post ablation induced bradyarrhythmia requiring permanent pacemaker insertion 8 prostate cancer 9 chronic thrombocytopenia Plan Keep the patient 100% nonrebreather facemask and titrate FiO2 to maintain a saturation above 90% Check inflammatory markers including LDH and CRP Put the patient Decadron 6 mg IV every 12 hours Put the patient on Lovenox 40 mg subcu every 24 hours Check pro calcitonin level Not candidate for Remdesivir May consider anti-interleukin therapy, although he seems to be out of the window for that knowing that his symptoms have been present for more than 2 weeks. Monitor renal function Monitor electrolytes Monitor platelet count
[2021-01-01 10:23] LABS: Platelet Count 72 k/uL (150-450)
[2021-01-01 10:25] LABS: Mean Platelet Volume 11.8
[2021-01-01] MEDS: ENOXAPARIN 40 MG/0.4 ML SYRINGE SQ SCH (13:25)
--- NOTE | 2021-01-01 13:39 | P.CRDCN ---
History of Present Illness Consult date: 01/01/21 Reason for Consult (text): Cardiac history History of present illness: The patient is a 75-year-old male with past medical history of hypertension, SVT status post ablation, and heart block status post permanent pacemaker, who presents to the hospital with worsening shortness of breath and Covid pneumonia. We are consulted for congestive heart failure and elevated troponins. DIAGNOSTICS: EKG shows prolonged MO interval and left axis deviation. Patient has biventricular pacemaker Telemetry shows paced rhythm Chest x-ray shows bilateral airspace disease Laboratory data: WBC 13.7, hemoglobin 13.5, hematocrit 41.9, platelets 74, d- dimer 3.32, sodium 139, potassium 4.9, BUN 53, creatinine 1.40, magnesium 2.6, AST 81, ALT 47, lactate dehydrogenase 2111, CK 418, troponin 0.07 CRP 22, BNP 5860, Mcwilliams PCR positive Vitals: Blood pressure 129/73, respiratory rate 20, pulse rate 65, temperature 98.0F, SpO2 91% on nonrebreather Extensive chart review. Exam limited to COVID-19 pandemic. FINAL ASSESSMENT AND PLAN: Congestive heart failure, elevated BNP Acute hypoxic respiratory failure, on nonrebreather Covid 19 pneumonia Elevated troponin, likely secondary to acute infection Elevated d-dimer Hypertension Acute kidney injury Thrombocytopenia PLAN: Continue Lasix per pulmonology Continue DVT prophylaxis with enoxaparin Limited echocardiogram to assess LV function Further recommendations will be on clinical course The patient has been seen and evaluated. Plan of care has been reviewed and agreed upon by Dr Leahy. Past Medical History Past Medical History: Cancer, Hypertension, Skin Disorder Additional Past Medical History / Comment(s): hx prostate cancer, , hx rheumatic fever; lymphedema to bilateral legs. History of Any Multi-Drug Resistant Organisms: None Reported Past Surgical History: Hernia Repair, Tonsillectomy Additional Past Surgical History / Comment(s): pacemaker, heart ablation Past Anesthesia/Blood Transfusion Reactions: No Reported Reaction Past Psychological History: No Psychological Hx Reported Smoking Status: Former smoker Past Alcohol Use History: None Reported Additional Past Alcohol Use History / Comment(s): smoked from teens until 30's; started up again when 61 until 63 Past Drug Use History: None Reported - Past Family History Father Family Medical History: Cancer Mother Family Medical History: Cancer Medications and Allergies Home Medications Medication Instructions Recorded Confirmed Type Furosemide [Lasix] 40 mg PO BID 05/08/15 05/30/21 History Potassium Chloride [K-Tab ER] 20 meq PO DAILY 12/09/14 12/31/20 History Atenolol [Tenormin] 50 mg PO BID 12/31/20 12/31/20 History Multivitamins, Thera [Multivitamin 1 tab PO DAILY 12/31/20 12/31/20 History (formulary)] Allergies Allergy/AdvReac Type Severity Reaction Status Date / Time No Known Allergies Allergy Verified 12/31/20 13:41 Physical Exam Vitals: Vital Signs Temp Pulse Pulse Resp BP BP Pulse Ox 01/01/21 08:00 98.0 F 65 20 129/73 91 L 01/01/21 04:00 99.0 F 61 24 129/71 92 L 01/01/21 02:00 78 24 01/01/21 00:00 97.8 F 78 24 117/69 89 L 12/31/20 20:00 98.0 F 85 80 22 127/90 127/74 94 L 12/31/20 19:00 99.9 F H 89 24 116/85 92 L 12/31/20 16:00 83 24 152/75 93 L 12/31/20 15:32 98.0 F 80 22 127/74 94 L 12/31/20 15:30 99.3 F 90 24 140/77 90 L 12/31/20 14:37 100.1 F H 93 26 H 149/73 92 L 12/31/20 13:58 26 H 12/31/20 13:53 95 26 H 117/70 89 L Intake and Output 12/31/20 01/01/21 01/01/21 22:59 06:59 14:59 Intake Total 100 240 Output Total 700 500 Balance -600 -500 240 Intake: Oral 100 240 Output: Urine 700 500 Other: Voiding Method Indwelling Catheter Weight 180 kg 179.5 kg Results 01/01/21 07:35 01/01/21 07:35 Cardiac Enzymes 12/31/20 12/31/20 01/01/21 Range/Units 13:06 13:06 07:35 AST 81 H (17-59) U/L Lactate Dehydrogenase 2111 H (313-618) U/L Troponin I 0.074 H* (0.000-0.034) ng/mL Coagulation 12/31/20 Range/Units 13:06 PT 13.0 H (9.0-12.0) sec APTT 27.0 (22.0-30.0) sec CBC 12/31/20 01/01/21 Range/Units 13:06 07:35 WBC 11.4 H 13.7 H (3.8-10.6) k/uL RBC 4.58 4.58 (4.30-5.90) m/uL Hgb 13.4 13.5 (13.0-17.5) gm/dL Hct 40.6 41.9 (39.0-53.0) % Plt Count 72 L 74 L (150-450) k/uL Comprehensive Metabolic Panel 12/31/20 01/01/21 Range/Units 13:06 07:35 Sodium 133 L 139 (137-145) mmol/L Potassium 4.7 4.9 (3.5-5.1) mmol/L Chloride 98 101 (98-107) mmol/L Carbon Dioxide 26 31 H (22-30) mmol/L BUN 51 H 53 H (9-20) mg/dL Creatinine 1.51 H 1.40 H (0.66-1.25) mg/dL Glucose 128 H 149 H (74-99) mg/dL Calcium 9.1 9.2 (8.4-10.2) mg/dL AST 81 H (17-59) U/L ALT 47 (4-49) U/L Alkaline Phosphatase 76 (38-126) U/L Total Protein 6.7 (6.3-8.2) g/dL Albumin 3.8 (3.5-5.0) g/dL Current Medications Generic Name Dose Route Start Last Admin Trade Name Freq PRN Reason Stop Dose Admin Albuterol Sulfate 2 puff 12/31/20 20:00 01/01/21 11:52 Albuterol Hfa Inhaler INHALATION 2 puff RT-QID CATHERINE Administration Ascorbic Acid 1,000 mg 01/01/21 09:00 01/01/21 08:56 Ascorbic Acid 500 Mg Tab PO 1,000 mg DAILY CATHERINE Administration Atenolol 50 mg 12/31/20 21:00 01/01/21 08:56 Atenolol 50 Mg Tab PO 50 mg BID CATHERINE Administration Cholecalciferol 125 mcg 01/01/21 09:00 01/01/21 08:56 Cholecalciferol 25 Mcg (1000 Iu) Tablet PO 125 mcg DAILY CATHERINE Administration Dexamethasone Sodium Phosphate 6 mg 12/31/20 22:15 01/01/21 08:56 Dexamethasone Sod Phosphate 10 Mg/Ml 1 Ml Vial IV 6 mg Q12H CATHERINE Administration Enoxaparin Sodium 40 mg 01/01/21 10:00 01/01/21 13:25 Enoxaparin 40 Mg/0.4 Ml Syringe SQ 40 mg DAILY CATHERINE Administration Furosemide 40 mg 12/31/20 18:00 01/01/21 08:56 Furosemide 40 Mg Tab PO 40 mg 0900,1800 CATHERINE Administration Sodium Chloride 1,000 mls @ 75 mls/hr 12/31/20 15:15 12/31/20 15:34 Saline 0.9% IV 20 mls/hr .[id number] CATHERINE Administration Tocilizumab 800 mg/ Sodium 100 mls @ 100 mls/hr 01/01/21 14:00 Chloride IV 01/01/21 14:59 ONCE ONE Miscellaneous Information 1 each 12/31/20 15:05 Pneumonia Protocol Utilized 1 Each Misc PO ONCE PRN Per Protocol Multivitamins 1 each 01/01/21 09:00 01/01/21 08:56 Multivitamins, Thera 1 Each Tab PO 1 each DAILY CATHERINE Administration Potassium Chloride 20 meq 01/01/21 09:00 01/01/21 08:56 Potassium Chloride Er 20 Meq Tab.Er PO 20 meq DAILY CATHERINE Administration Zinc Sulfate 220 mg 01/01/21 09:00 01/01/21 08:56 Zinc Sulfate 220 Mg Cap PO 220 mg DAILY CATHERINE Administration Intake and Output 12/31/20 01/01/21 01/01/21 22:59 06:59 14:59 Intake Total 100 240 Output Total 700 500 Balance -600 -500 240 Intake: Oral 100 240 Output: Urine 700 500 Other: Voiding Method Indwelling Catheter Weight 180 kg 179.5 kg 01/01/21 07:35 01/01/21 07:35
[2021-01-01] MEDS ORDERED: TOCILIZUMAB 800 MG in SODIUM CHLORIDE 0.9% 60 ML IV ONE (14:00)
[2021-01-01] MEDS: SODIUM CHLORIDE 0.9% 1,000 ML IV SCH (17:07)
[2021-01-01 20:34] LABS: Albumin 3.3 g/dL (3.5-5.0); Calcium 9.1 mg/dL (8.4-10.2); Potassium 4.8 mmol/L (3.5-5.1); Total Protein 6.2 g/dL (6.3-8.2)
--- NOTE | 2021-01-01 22:28 | PN ---
PROGRESS NOTE DATE OF SERVICE: January 01, 2021 This 75-year-old gentleman who was admitted with shortness of breath and cough had significant bilateral pneumonia suggestive of acute COVID-19 pneumonia. The patient apparently had Covid 19 Alexandre and Alexandre vaccination about 2 months ago. According to the , the patient asymptomatic for the last 9 days. No chest pain. No palpitations. No fever. The patient is extremely short of breath. The patient is on nonrebreather mask at this time. The chest x-ray showed bilateral lesions. The patient also had some 2 blast cells also. D-dimer is 3.32. PAST MEDICAL HISTORY: Reviewed. REVIEW OF SYSTEMS: CARDIOVASCULAR SYSTEM: No angina. RESPIRATION: As mentioned. GI: As mentioned earlier. as mentioned. NERVOUS SYSTEM: No numbness or weakness. CURRENT MEDICATIONS: Reviewed and include: Ventolin, vitamin C, Tenormin, Decadron Lovenox, Lasix, oral zinc. PHYSICAL EXAMINATION: Patient is alert, oriented x3. Pulse 62. Blood pressure 130/60, respiration 20, temperature 98.2, pulse ox 94% on room air. HEENT: Conjunctivae normal. NECK: No JVD. CARDIOVASCULAR: S1, S2 muffled. RESPIRATORY: Breath sounds diminished in the bases. A few scattered rhonchi and crackles. ABDOMEN: Soft, obese, nontender. LEGS: Bilateral leg edema and varicose lesions also present. NERVOUS SYSTEM: Higher functions as mentioned. Moves all four limbs. No focal motor or sensory deficits. LYMPHATICS: No lymph nodes palpable in the neck, axillae or groin. SKIN: No ulcers, rashes or bleeding. JOINTS: No active deforming arthropathy. LABS: WBC 13.7, hemoglobin 13.5, sodium 139, potassium 4.9. Creatinine is 1.4. D-dimer is 3.32. COVID-19 is positive. ASSESSMENT: 1. Acute COVID-19 infection with acute bilateral interstitial pneumonia with acute hypoxic respiratory failure with sepsis present on admission on nonrebreather mask. 2. Increased WBC. 3. Thrombocytopenia. 4. Lymphopenia. 5. Elevated PT/INR. 6. Elevated D-dimer. 7. Hyponatremia. 8. Increased creatinine with acute renal failure with acute tubular necrosis. 9. Increased random blood glucose. 10.Elevated bilirubin. 11.Increased AST. 12.Troponin 0.07, indeterminate. 13.Elevated creatinine kinase. 14.Hypertension. 15.History of prostate cancer. 16.History of rheumatic fever. 17.History of lymphedema. 18.History of tonsillectomy. 19.Morbid obesity with body mass index of 52.6. 20.FULL CODE. RECOMMENDATIONS AND DISCUSSION: Continue the current medications, continue symptomatic treatment. Continue Lovenox. Continue steroids. I would also recommend a V/Q scan and CT chest without any contrast because of elevated creatinine. Prognosis guarded because of multiple complex medical history. Procalcitonin is elevated. Cultures are obtained which is negative at this time. The patient also recommended Infectious Disease evaluation for possible Actemra or Remdesivir. The prognosis is guarded. Further recommendations to follow. See orders for details. MMODL / IJN: [id number] /
[2021-01-01] MEDS ORDERED: LEVOFLOXACIN 750MG-D5W PMX 750 MG in DEXTROSE/WATER 1 150ML.BAG IVPB STA (23:31)
[2021-01-02] MEDS: SODIUM CHLORIDE 0.9% 1,000 ML IV SCH ×2 (01:35→17:25)
--- NOTE | 2021-01-02 06:37 | CONS ---
CONSULTATION DATE OF SERVICE: 01/01/2021 REASON FOR CONSULTATION: Pneumonia. HISTORY OF PRESENT ILLNESS: The patient is a 75-year-old male who apparently did have his COVID-19 vaccination on October 31, 2020. The patient was brought into the ER at [facility] yesterday afternoon for evaluation of generalized weakness and shortness of breath. Apparently the patient has been progressively getting worse for the last 2 months. EMS was called to the home for lift assist, as the patient was unable to get up off the floor. Patient complaining he cannot ambulate and has exertional dyspnea. Denies having any chest pain. Did have a cough, moderate in intensity, not bringing up any sputum. No vomiting or choking on food. No abdominal pain or diarrhea. The patient on arrival to the ER did have fever of 101.2 degrees Fahrenheit and he was hypoxic with O2 sats of 62% on room air. Further workup in the ER did include the patient did have white count of 11.4, and did have a left shift with some lymphopenia. D-dimer was elevated at 3.32 and BUN of 51, creatinine 1.51. Liver enzymes are mildly elevated. Troponin was mildly elevated. CRP is 22.7. Procalcitonin 0.45. Mcwilliams PCR came back positive. Chest x-ray with bilateral multifocal infiltrate concerning for pneumonia. The patient did have COVID-19 that came back positive. The patient was admitted to the hospital and has been started on dexamethasone, Lovenox, zinc and ascorbic acid and received a dose of Actemra per Pulmonary. Infectious Disease was consulted for further management. Most of the information has been obtained from review of the chart. The patient was not a very good historian. REVIEW OF SYSTEMS: Positive points have been mentioned in HPI. Complete review could not be obtain. PAST MEDICAL HISTORY: Significant for a hypertension, history of prostate cancer, rheumatic fever. PAST SURGICAL HISTORY: Hernia repair, tonsillectomy, pacemaker placement. SOCIAL HISTORY: No history of smoking, drinking or drug use. FAMILY HISTORY: Both parents with history of cancer. ALLERGIES: No known drug allergies. MEDICATIONS: The patient is currently on vitamin C, Tenormin, vitamin D3, Decadron, Lovenox, Lasix, Theragran, K-Dur, and received a dose of Rocephin and Actemra. PHYSICAL EXAMINATION: VITAL SIGNS: Blood pressure 151/67, pulse of 63, temperature 96.9. He is 93% on 15 L high-flow oxygen. GENERAL DESCRIPTION: Patient is an elderly male lying in bed in no distress. No tachypnea or accessory muscles of respiration use. HEENT: Examination shows slight pallor, no scleral icterus. Oral mucous membrane is dry. NECK: Trachea central, no thyromegaly. LUNGS: Unlabored breathing, coarse breath sounds bilaterally, no wheeze. HEART: S1-S2, regular rate and rhythm. ABDOMEN: Soft, no tenderness. No guarding or rigidity. EXTREMITIES: Some swelling, no redness. SKIN: No rash or mass palpable. NEUROLOGICAL: Patient is lethargic, arousable. Orientation could not be determined. LAB: Hemoglobin is 13.5, white count of 13.7, BUN of 53, creatinine 1.40. Mcwilliams PCR is positive. Chest x-ray report as mentioned above. DIAGNOSTIC IMPRESSION: 1. Patient presented to hospital with sepsis in this patient who did have a fever, elevated white count, tachycardia with evidence of pneumonia likely related to COVID-19 infection. It is really hard to get the exact timing of his symptom onset. However, in view of significant hypoxemia requiring high-flow nasal oxygen, the patient was considered not to be a candidate for Remdesivir and has received a dose of Actemra per Pulmonary. 2. With the elevated white count and left shift, possible Gram-negative bacteremia not excluded either. PLAN: 1. We will check sputum for Gram stain and culture and check urine for Legionella antigen. 2. We will start the patient on Levaquin 750 mg daily while waiting for the workup to be completed. 3. Continue with Lovenox, Decadron, zinc, ascorbic acid and respiratory support. 4. We will follow up on clinical condition to further adjust medication if needed. Thank you for this consultation. Will follow this patient along with you. MMODL / IJN: [id number] / [facility]ITAL[facility]artha
[2021-01-02] MEDS: MULTIVITAMINS, THERA 1 EACH TAB PO SCH (07:57)
[2021-01-02] MEDS: ASCORBIC ACID 500 MG TAB PO SCH (07:57)
[2021-01-02] MEDS: FUROSEMIDE 40 MG TAB PO SCH ×2 (07:57→17:25)
[2021-01-02] MEDS: ENOXAPARIN 40 MG/0.4 ML SYRINGE SQ SCH (07:57)
[2021-01-02] MEDS: POTASSIUM CHLORIDE ER 20 MEQ TAB.ER PO SCH (07:57)
[2021-01-02] MEDS: atenoloL 50 MG TAB PO SCH ×2 (07:58→21:27)
[2021-01-02] MEDS: CHOLECALCIFEROL 25 MCG (1000 IU) TABLET PO SCH (07:58)
[2021-01-02] MEDS: ZINC SULFATE 220 MG CAP PO SCH (07:58)
[2021-01-02 08:53] LABS: HCT 36.7 % (39.0-53.0); HGB 12.4 gm/dL (13.0-17.5); MCH 30.8 pg (25.0-35.0); MCHC 33.7 g/dL (31.0-37.0); MCV 91.4 fL (80.0-100.0); Mean Platelet Volume 11.5; RBC 4.01 m/uL (4.30-5.90); RDW 13.3 % (11.5-15.5)
[2021-01-02 08:55] LABS: Platelet Count 77 k/uL (150-450)
[2021-01-02] MEDS: ALBUTEROL HFA INHALER INHALATION SCH ×4 (09:49→20:14)
[2021-01-02] MEDS: DEXAMETHASONE SOD PHOSPHATE 10 MG/ML 1 ML VIAL IV SCH ×2 (10:16→21:27)
--- NOTE | 2021-01-02 10:51 | CT ---
EXAMINATION TYPE: CT chest wo con DATE OF EXAM: 01/02/2021 COMPARISON: X-ray 01/01/2021 HISTORY: COVID CT DLP: 1088 mGycm. Automated Exposure Control for Dose Reduction was Utilized. TECHNIQUE: CT scan of the thorax is performed without IV contrast. FINDINGS: LUNGS: There are diffuse bilateral infiltrates correlate for multifocal no sizable pneumothorax. Trac e amount of pleural fluid bilaterally.. MEDIASTINUM: Lack of IV contrast is noted to limit evaluation for mediastinal and especially hilar ad enopathy. There are no definitive greater than 1 cm hilar or mediastinal lymph nodes. Cardiac device noted. Assessment for adenopathy limited due to lack of contrast. OTHER: Correlate for cholelithiasis. Hypertrophic and degenerative changes of the spine. Chronic rib cage deformity in the right suggestive of remote trauma. IMPRESSION: 1. Diffuse bilateral infiltrate correlate for multifocal pneumonia. ARDS or pulmonary edema also in t he differential diagnosis. 2. Cholelithiasis.
--- NOTE | 2021-01-02 13:35 | P.PN ---
Subjective Progress Note Date: 01/02/21 HISTORY OF PRESENT ILLNESS: The patient is a 75-year-old male with past medical history of hypertension, SVT status post ablation, and heart block status post permanent pacemaker, who presents to the hospital with worsening shortness of breath and Covid pneumonia. We are consulted for congestive heart failure and elevated troponins. DIAGNOSTICS: EKG shows prolonged HI interval and left axis deviation. Patient has biventricular pacemaker Telemetry shows paced rhythm Chest x-ray shows bilateral airspace disease Laboratory data: WBC 13.7, hemoglobin 13.5, hematocrit 41.9, platelets 74, d- dimer 3.32, sodium 139, potassium 4.9, BUN 53, creatinine 1.40, magnesium 2.6, AST 81, ALT 47, lactate dehydrogenase 2111, CK 418, troponin 0.07 CRP 22, BNP 5860, Mcwilliams PCR positive Vitals: Blood pressure 129/73, respiratory rate 20, pulse rate 65, temperature 98.0F, SpO2 91% on nonrebreather 01/02/2021 Patient examined this morning at the bedside. Patient states he had a good night and is "bored" this morning. Patient denies chest pain or pressure. He reports shortness of breath. He is on 15L NC with oxygen saturations greater than 90%. Blood pressure 146/69. PHYSICAL EXAM: VITAL SIGNS: Reviewed. GENERAL: Well-developed in no acute distress. NECK: Supple. No JVD or thyromegaly LUNGS: Respirations even and unlabored. Lungs essentially clear to auscultation bilaterally. HEART: Regular rate and rhythm. S1 and S2 heard. EXTREMITIES: Normal range of motion. No clubbing or cyanosis. Peripheral pulses intact. No lower extremity edema ASSESSMENT: Acute on chronic congestive heart failure, type unknown echo pending Acute hypoxic respiratory failure Covid 19 pneumonia Elevated troponin, likely secondary to acute infection Elevated d-dimer Hypertension Acute kidney injury Thrombocytopenia History of biventricular pacemaker PLAN: Continue current cardiac medications 2D echo ordered. Await results. Wean oxygen as tolerated. Pulmonary following Further recommendations pending patient course Nurse practitioner note has been reviewed by physician. Signing provider agrees with the documented findings, assessment, and plan of care. Objective - Vital Signs Vital signs: Vital Signs Temp 96.7 F L 01/02/21 12:00 Pulse 63 01/02/21 12:00 Resp 18 01/02/21 12:00 BP 146/69 01/02/21 12:00 Pulse Ox 90 L 01/02/21 12:00 Intake & Output 01/01/21 01/02/21 01/02/21 18:59 06:59 18:59 Intake Total 1050 Output Total 1100 625 475 Balance -875 655 Weight 162 kg Intake: Intake, IV Titration 810 Amount Sodium Chloride 0.9% 1, 750 000 ml @ 20 mls/hr IV . Q24H [facility] Rx#:[id number] Tocilizumab 800 mg In 60 Sodium Chloride 0.9% 60 ml @ 100 mls/hr IV ONCE ONE Rx#:[id number] Oral 240 Output: Urine 1100 625 475 Other: Voiding Method Indwelling Catheter Indwelling Catheter Indwelling Catheter - Labs CBC & Chem 7: 01/02/21 07:32 01/01/21 19:37 Labs: Abnormal Lab Results - Last 24 Hours (Table) 12/31/20 01/01/21 01/02/21 Range/Units 13:06 19:37 07:32 WBC 12.3 H (3.8-10.6) k/uL RBC 4.01 L (4.30-5.90) m/uL Hgb 12.4 L (13.0-17.5) gm/dL Hct 36.7 L (39.0-53.0) % Plt Count 77 L (150-450) k/uL BUN 54 H (9-20) mg/dL Glucose 142 H (74-99) mg/dL Total Protein 6.2 L (6.3-8.2) g/dL Albumin 3.3 L (3.5-5.0) g/dL Procalcitonin 0.45 H (0.02-0.09) ng/mL Microbiology - Last 24 Hours (Table) 12/31/20 13:06 Blood Culture - Preliminary Blood No Growth after 24 hours 12/31/20 13:06 Blood Culture - Preliminary Blood No Growth after 24 hours
--- NOTE | 2021-01-02 13:38 | P.PN ---
Subjective Progress Note Date: 01/02/21 Principal diagnosis: Acute gastric perforation, status post laparotomy antrectomy and gastrojejunostomy postoperative day #1 A 57-year-old alcoholic male patient who arrived from the operating room after having a complicated gastric surgery. The patient underwent expiratory lap arotomy and appendectomy and Gastro jejunostomy as the surgeon was unable to oversew the perforated gastric ulcer. Currently the patient is sedated with propofol and is calm and comfortable and propofol is running at 50 mcg/kg per minute. He is hemodynamically stable with a BP of 120/70. Pulse ox is 89% and he is on a mechanical ventilator on assist control mode at the rate of 12 with tidal volume of 450 and FiO2 of 100% with a PEEP of 5. Chest x-ray showing adequate expansion of both lungs. No pneumothorax. ET tube is in a good location. There is adequate expansion of both lungs and there is some limited atelectatic changes/effusion in the left lung base. Right lung is essentially c lear. Currently is receiving IV fluids 125 cc/hr LR and he has received 2 liters fluid in the OR. The patient is currently producing adequate amount of urine output. No pressors are being utilized Patient was evaluated today in the ICU on 01/02/2021, patient is still in the ICU, intubated, and mechanically ventilated. Sedated, on propofol at 60 mcg/kg/m. Not requiring any other sedatives, but he is on pain medication when necessary. He is on assist control rate of 12 tidal volume 450 FiO2 40% PEEP of 5 his ABG showed a pO2 of 123 pCO2 of 34 pH of 7.45 and this is on 40% FiO2. His FiO2 was decreased down to 35%. Patient is sedated, however when the sedation is cut down the patient wakes up and gets extremely agitated hence I decided not to wean him and extubate him today. I will let him rest for the next 24 hours, patient is known to have history of alcoholic abuse, and I have a feeling he will not do well if extubated today. Antibiotics wells the patient is on Diflucan and Zosyn. His CBC today showed hemoglobin of 7.3, no plans to transfuse him yet, however if his hemoglobin goes below 7 patient will receive at least a unit of packed RBCs. He is hemodynamically stable, not requiring any pressors. We will address TPN on this patient, possibly in the next 24 hours patient is known to have history of alcoholism, he drinks on the average of 8-10 drinks per day. Hence it is best to keep him sedated for now. Chest x-ray today showed no evidence of active disease. Minimal atelectasis. WBC count is 23.9 hemoglobin is 7 hematocrit is 21.4. Lactic acid is 2.3. Electrolytes are normal renal profile is normal. Serum alcohol on admission was 129. Patient is receiving lactated Ringer's at 1 25 mL per hour. Objective - Vital Signs Vital signs: Vital Signs Temp 97.3 F L 01/02/21 12:14 Pulse 63 01/02/21 12:00 Resp 18 01/02/21 12:00 BP 146/69 01/02/21 12:00 Pulse Ox 90 L 01/02/21 12:00 Intake & Output 01/01/21 01/02/21 01/02/21 18:59 06:59 18:59 Intake Total 1050 Output Total 1100 625 475 Balance -50 -713 -600 Weight 162 kg Intake: Intake, IV Titration 810 Amount Sodium Chloride 0.9% 1, 750 000 ml @ 20 mls/hr IV . Q24H [facility] Rx#:[id number] Tocilizumab 800 mg In 60 Sodium Chloride 0.9% 60 ml @ 100 mls/hr IV ONCE ONE Rx#:[id number] Oral 240 Output: Urine 1100 625 475 Other: Voiding Method Indwelling Catheter Indwelling Catheter Indwelling Catheter - Exam Physical Exam: Revealed a 75-year-old white male intubated and mechanically ventilated, Head: Atraumatic, normocephalic. Endotracheal tube and orogastric tube are in tact. HEENT:[Neck is supple.] [No neck masses.] [No thyromegaly.] [No JVD.] Chest: [[employer] P[employer] breath sounds and crackles at the bases, symmetrical chest expansion. Cardiac Exam: [Normal S1 and S2, no S3 gallop, no murmur.] Abdomen: Post surgical, surgical site is dry and clean, KAVON drain is in place, bowel sounds are hypoactive. Extremities: [No clubbing, no edema, no cyanosis.] Neurological Exam: Could not be fully assessed, patient is sedated, however as we cut down on the sedation he became extremely agitated and restless, had to increase the sedation back again. Psychiatric: Could not assess. Skin: No rashes. - Labs CBC & Chem 7: 01/02/21 07:32 01/01/21 19:37 Labs: Abnormal Lab Results - Last 24 Hours (Table) 12/31/20 01/01/21 01/01/21 Range/Units 13:06 07:35 19:37 WBC (3.8-10.6) k/uL RBC (4.30-5.90) m/uL Hgb (13.0-17.5) gm/dL Hct (39.0-53.0) % Plt Count (150-450) k/uL Pathologist Review See comment A BUN 54 H (9-20) mg/dL Glucose 142 H (74-99) mg/dL Total Protein 6.2 L (6.3-8.2) g/dL Albumin 3.3 L (3.5-5.0) g/dL Procalcitonin 0.45 H (0.02-0.09) ng/mL 01/02/21 Range/Units 07:32 WBC 12.3 H (3.8-10.6) k/uL RBC 4.01 L (4.30-5.90) m/uL Hgb 12.4 L (13.0-17.5) gm/dL Hct 36.7 L (39.0-53.0) % Plt Count 77 L (150-450) k/uL Pathologist Review BUN (9-20) mg/dL Glucose (74-99) mg/dL Total Protein (6.3-8.2) g/dL Albumin (3.5-5.0) g/dL Procalcitonin (0.02-0.09) ng/mL Microbiology - Last 24 Hours (Table) 12/31/20 13:06 Blood Culture - Preliminary Blood No Growth after 24 hours 12/31/20 13:06 Blood Culture - Preliminary Blood No Growth after 24 hours Assessment and Plan Assessment: Impression: Perforated gastric ulcer, status post exploratory laparotomy, antrectomy, gastrojejunostomy, postoperative day #1. Acute hypoxic respiratory failure, post surgery as noted above, expected. History of alcoholism. Questionable history of CVA. Acute blood loss anemia Will monitor and likely transfuse if hemoglobin below 7. This is expected Recommendation: Continue ventilatory support, patient is not quite ready to be fully weaned and extubated this point mostly because of the extreme agitation and history of underlying alcoholism. Continue antibiotics and antifungal in the form of Diflucan and Zosyn. CIWA protocol. Transfuse if hemoglobin below 7. GI and DVT prophylaxis. Address nutritional support/TPN with surgery and the cook ship on the case. Patient will likely benefit from TPN. Cut down her FiO2 to 35%. Continue IV fluids, INR at 1 25 mL per hour. Daily assessment for weaning, but not today. Continue propofol for now and use Dilaudid when necessary. Patient is critically ill. not ready for weaning. Slight weaning today was done however patient was noted to be extremely agitated and restless hence had to be placed back on propofol. We'll continue to follow. Critical care time is over 30 minutes. Time with Patient: Greater than 30
[2021-01-02 14:10] LABS: Band Neutrophils % 4 %; Blast Cells # (M) 0.12 k/uL (0); Eosinophils # (M) 0.12 k/uL (0-0.7); Metamyelocytes % 2 %; Myelocytes % 3 %; Neutrophils % (M) 74 %; Nucleated Red Blood Cells 3 /100 WBC (0-0); Promyelocytes # (M) 0.12 k/uL (0); Promyelocytes % 1 %; Total Cells Counted 200
[2021-01-02 14:17] LABS: Metamyelocytes # (M) 0.24 k/uL (0); Monocytes # (M) 1.31 k/uL (0-1.0); Myelocytes # (M) 0.36 k/uL (0); WBC 11.9 k/uL (3.8-10.6)
[2021-01-02 14:19] LABS: Poikilocytosis (M) Present; Polychromasia Present
--- NOTE | 2021-01-02 15:21 | P.PN ---
Subjective Progress Note Date: 01/02/21 Principal diagnosis: Dyspnea, hypoxia, pneumonia 75-year-old male patient was being seen for acute hypoxic respiratory failure and COVID-19 associated pneumonia. The patient came into the emergency department because of worsening shortness of breath is been going on for the past month. He is not sure of the exact timing of his symptoms. He is been sick for several weeks probably a month or 2 according to him. He did not realize his breathing was this bad. On the day of his admission condition got worse to the point where he was unable to ambulate. He came into the hospital accordingly. Denies having any fever chills or sweats. Nevertheless, he was found to have a temperature of 101.2. Initial pulse ox was 62% on room air oxygen. He was placed on 100% on a beta facemask. No angina. No palpitations. Apparently has taken Alexandre DocDep Alexandre showed approximately a month ago. He has a white cell count of 11, lymphocyte count of 0.5, normal coagulation profile, d-dimer of 3.3, troponin 0.07, his proBNP level was 5860, sodium level was 133, BUN was 51 with a creatinine of 1.5. Lactic acid level was 1.8. 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 Other comorbidities include prostate cancer, obesity and chronic lower extremity edema/lymphedema with venous ulcers being treated at the wound center in the past. On 01/02/2021 patient seen in follow-up on selective care unit, he is awake and alert, oriented 3, he is currently on 15 L of oxygen has pulse ox is ranging between 90-94%, his been afebrile, hemodynamically has been stable. His CT chest without contrast was completed showing diffuse bilateral infiltrates related to possibility of ARDS and possibly pulmonary edema in the differential diagnosis. There was cholelithiasis noted. Patient is currently on Decadron 6 mg every 12 hours, he status post Tocilizumab 800 mg on 01/01/2021, later in the evening antibiotics in the form of Levaquin were added by ID service. Patient continues on his home dose of Lasix 40 mg twice daily. Today's labs have been reviewed showing white blood cell count of 11.9, hemoglobin is 12.4, his last d- dimer from a 12/31/2020 was 3.31, his electrolytes were unremarkable, BUN was 54, and creatinine has improved and is down to 1.2 on today's labs, his last LDH yesterday was 2110, and CRP was 22.7. Objective - Vital Signs Vital signs: Vital Signs Temp 97.9 F 01/02/21 14:27 Pulse 63 01/02/21 12:00 Resp 18 01/02/21 14:27 BP 146/69 01/02/21 12:00 Pulse Ox 94 L 01/02/21 14:27 Intake & Output 01/01/21 01/02/21 01/02/21 18:59 06:59 18:59 Intake Total 1050 60 Output Total 1100 625 475 Balance -50 -625 -415 Weight 162 kg Intake: Intake, IV Titration 810 Amount Sodium Chloride 0.9% 1, 750 000 ml @ 20 mls/hr IV . Q24H [facility] Rx#:[id number] Tocilizumab 800 mg In 60 Sodium Chloride 0.9% 60 ml @ 100 mls/hr IV ONCE ONE Rx#:[id number] Oral 240 60 Output: Urine 1100 625 475 Other: Voiding Method Indwelling Catheter Indwelling Catheter Indwelling Catheter - Exam GENERAL EXAM: Alert, pleasant, cooperative, 75-year-old morbidly obese white male, on 15 L of high flow oxygen, with a pulse ox of 90-94% comfortable in no apparent distress. HEAD: Normocephalic/atraumatic. EYES: Normal reaction of pupils, equal size. Conjunctiva pink, sclera white. NOSE: Clear with pink turbinates. THROAT: No erythema or exudates. NECK: No masses, no JVD, no thyroid enlargement, no adenopathy. CHEST: No chest wall deformity. Symmetrical expansion. LUNGS: Equal air entry with diminished breath sounds with diffuse crackles CVS: Regular rate and rhythm, normal S1 and S2, no gallops, no murmurs, no rubs ABDOMEN: Soft, nontender. No hepatosplenomegaly, normal bowel sounds, no guarding or rigidity. EXTREMITIES: No clubbing, chronic lower extremity edema with chronic lymphedema involving his feet no cyanosis, 2+ pulses and upper and lower extremities. MUSCULOSKELETAL: Muscle strength and tone normal. SPINE: No scoliosis or deformity SKIN: No rashes CENTRAL NERVOUS SYSTEM: Alert and oriented -3. No focal deficits, tone is normal in all 4 extremities. PSYCHIATRIC: Alert and oriented -3. Appropriate affect. Intact judgment and insight. - Labs CBC & Chem 7: 01/02/21 07:32 01/01/21 19:37 Labs: Abnormal Lab Results - Last 24 Hours (Table) 01/01/21 01/01/21 01/02/21 Range/Units 07:35 19:37 07:32 WBC 11.9 H (3.8-10.6) k/uL RBC 4.01 L (4.30-5.90) m/uL Hgb 12.4 L (13.0-17.5) gm/dL Hct 36.7 L (39.0-53.0) % Plt Count 77 L (150-450) k/uL Blast Cells % 1 H* % Neutrophils # (Manual) 9.20 H (1.3-7.7) k/uL Lymphocytes # (Manual) 0.60 L (1.0-4.8) k/uL Monocytes # (Manual) 1.31 H (0-1.0) k/uL Metamyelocytes # (Man) 0.24 H (0) k/uL Myelocytes # (Manual) 0.36 H (0) k/uL Promyelocytes # (Man) 0.12 H (0) k/uL Blast Cells # (Man) 0.12 H (0) k/uL Nucleated RBCs 3 H (0-0) /100 WBC Pathologist Review See comment A BUN 54 H (9-20) mg/dL Glucose 142 H (74-99) mg/dL Total Protein 6.2 L (6.3-8.2) g/dL Albumin 3.3 L (3.5-5.0) g/dL Microbiology - Last 24 Hours (Table) 12/31/20 13:06 Blood Culture - Preliminary Blood No Growth after 24 hours 12/31/20 13:06 Blood Culture - Preliminary Blood No Growth after 24 hours Assessment and Plan Plan: Assessment: #1. acute hypoxic respiratory failure currently on the percent nonrebreather facemask due to bilateral diffuse pneumonia attributed to COVID-19 infection. The exact onset of symptoms is not known as the patient is not clear when he started having the symptoms. Limited is been progressively getting worse over the past several weeks. He apparently took his Alexandre & Alexandre vaccination and end of November 2020. status post Tocilizumab on 01/01/2021, currently on Decadron 6 mg twice daily #2. acute COVID-19 infection, post vaccination with a Alexandre & Alexandre COVID-19 vaccine #3. shortness of breath secondary to above #4. acute kidney injury, likely secondary to intravascular volume depletion #5. chronic lymphedema involving lower extremities #6. obesity #7. history of SVT post-ablation, post ablation induced bradyarrhythmia requirin g permanent pacemaker insertion #8. prostate cancer #9. chronic thrombocytopenia #10. Mildly elevated procalcitonin, rule out possibility of Legionella pneumonia Plan: Continue Decadron Patient is on Levaquin for possibility of Legionella pneumonia Continue home dose Lasix Currently at 15 L of oxygen Patient is a high risk for further worsening of his oxygenation May require BiPAP support or Airvo We'll continue to closely follow his clinical course Overall prognosis is guarded I performed a history & physical examination of the patient and discussed their management with my nurse practitioner, Barbara Juarez. I reviewed the nurse practitioner's note and agree with the documented findings and plan of care. Lung sounds are positive for diminished breath sounds. The findings and the impression was discussed with the patient. I attest to the documentation by the nurse practitioner. Time with Patient: Less than 30
[2021-01-02 17:12] LABS: Glucose,Whole Blood 123 mg/dL (75-99)
--- NOTE | 2021-01-02 17:53 | PN ---
PROGRESS NOTE DATE OF SERVICE: 01/02/2021 This 75-year-old gentleman who was admitted with acute COVID-19 infection with bilateral interstitial pneumonia with hypoxic respiratory failure also had some blasts in the ( ). The possibility of myelodysplastic disease was considered by pathology. A CT scan of the chest showed diffuse bilateral infiltrates with multifocal interstitial COVID-19 pneumonia as well as cholelithiasis, which was reviewed personally by me. The patient is on supplemental oxygen at this time. Dr. Guzman and as well as Dr. Cee is following the patient closely. The patient is given tocilizumab. PAST MEDICAL HISTORY: Reviewed. REVIEW OF SYSTEMS: CARDIOVASCULAR SYSTEM: As mentioned earlier. RESPIRATORY: As mentioned earlier. GI: No nausea. NERVOUS SYSTEM: No numbness or weakness. CURRENT MEDICATIONS: Reviewed include Ventolin, Tenormin, vitamin D3, Lovenox, Lasix, Levaquin, multivitamins, K-Dur. Doses are reviewed. PHYSICAL EXAMINATION: Alert and oriented x3. Pulse 63, blood pressure 114/60, respiration 18, temperature 98.7, pulse ox 90% on 15 L. HEENT: Conjunctivae normal. Oral mucosa moist. NECK: No jugular venous distention. No lymph node enlargement. CARDIOVASCULAR: S1, S2, muffled. No S3, no S4, RESPIRATORY: Diminished breath sounds at the bases. A few scattered rhonchi. ABDOMEN: Soft, obese, nontender. LEGS: Bilateral leg edema. NERVOUS SYSTEM: No focal deficits. LABS: WBC 12.2, hemoglobin 12.6. Otherwise, the differential count is noted. Albumin is 3.3. ASSESSMENT: 1. Acute COVID-19 infection with acute bilateral interstitial pneumonia with acute hypoxic respiratory failure with possible sepsis, present on admission, on non- rebreather mask. Status post tocilizumab. 2. Increased WBC. 3. Thrombocytopenia. 4. Lymphopenia. 5. Rule out myelodysplastic syndrome with blasts in the peripheral smear. 6. Elevated PT/INR. 7. Elevated D-dimer. 8. Hyponatremia. 9. Increased creatinine with acute renal failure with acute tubular necrosis. 10.Increased random glucose. 11.Elevated bilirubin. 12.Increased AST. 13.Troponin 0.06, indeterminate. 14.Elevated creatine kinase. 15.Hypertension. 16.History of prostate cancer. 17.History rheumatic fever. 18.History of lymphedema. 19.History of tonsillectomy. 20.Morbid obesity with body mass index of 52.6. 21.FULL CODE. RECOMMENDATIONS AND DISCUSSION: I recommend to continue current management and continue empiric antibiotics. Follow the cultures. The patient also received tocilizumab. The patient is probably not a candidate for Remdesivir at this time. The peripheral blood smear abnormality is also concerning. I would recommend consultation with Dr. Magana to rule out the possibility of primary hematological issue. Could be related to extreme COVID as well. Otherwise, continue to monitor. Prognosis guarded because of multiple complex medical issues as listed above. Repeat labs. Further recommendations to follow. MMODL / IJN: [id number] /
--- NOTE | 2021-01-02 17:53 | ECHOF ---
Referral Reason:chf MEASUREMENTS -------- HEIGHT: 190.5 cm WEIGHT: 161.9 kg BP: 108/51 IVSd: 1.5 cm (0.6 - 1.1) LVIDd: 3.8 cm (3.9 - 5.3) LVPWd: 2.5 cm (0.6 - 1.1) IVSs: 1.8 cm LVIDs: 2.9 cm LVPWs: 2.0 cm MV E Shabbir: 1.03 m/s MV DecT: 235 ms MV A Shabbir: 0.72 m/s MV E/A Ratio: 1.43 FINDINGS -------- This was a technically difficult study with suboptimal views. The left ventricular size is normal. There is moderate concentric left ventricular hypertrophy. O verall left ventricular systolic function is low-normal with, an EF between 50 - 55 %. The RV was not well visualized. The left atrium was not well visualized. The right atrium was not well visualized. 5.0mg of Lumason was utilized for enhancement of images The aortic valve was not well visualized. There is no evidence of aortic regurgitation. There is no evidence of aortic stenosis. The mitral valve was not well visualized. No mitral regurgitation. The tricuspid valve was not well visualized. Unable to estimate RVSP due to inadequate TR jet spect ral doppler profile. The pulmonic valve was not well visualized. IVC Not well visulized. There is no pericardial effusion. CONCLUSIONS -------- 1. The left ventricular size is normal. 2. There is moderate concentric left ventricular hypertrophy. 3. Overall left ventricular systolic function is low-normal with, an EF between 50 - 55 %. TRAVEL SALES CONSULTANT: Juana Paul CAMILLE
[2021-01-02] MEDS: LEVOFLOXACIN 750 MG TAB PO SCH (21:27)
--- NOTE | 2021-01-03 02:13 | PN ---
PROGRESS NOTE DATE OF SERVICE: 01/02/2021 REASON FOR FOLLOWUP: Pneumonia. INTERVAL HISTORY: The patient is currently afebrile. The patient is more awake and alert. He is breathing slightly comfortably on high-flow nasal oxygen. Denies having any chest pain. Did have a cough, not bringing up any sputum. No abdominal pain, no diarrhea. PHYSICAL EXAMINATION: Blood pressure 134/70 with a pulse of 70, temperature 97.5. He is 90% on 15 L high- flow oxygen. General description is an elderly male lying in bed in no distress. Respiratory system: Unlabored breathing, decreased breath sounds in the bases. Heart S1, S2. Regular rate and rhythm. Abdomen soft, no tenderness. LABS: Hemoglobin is 12.4, white count of 11.9, BUN of 24, creatinine is 1.20. Blood culture has been negative. DIAGNOSTIC IMPRESSION AND PLAN: Patient admitted to the hospital with fever, shortness of breath and cough in this patient who did have a multifocal pneumonia secondary to Covid-19. Has received a dose of Actemra. Did have elevated procalcitonin, covered with Levaquin. Currently waiting for the sputum. Continue with current treatment protocol along with Levaquin and monitor clinical course closely. Continue supportive care. MMODL / IJN: [id number] / MTDD
[2021-01-03] MEDS: PANTOPRAZOLE 40 MG TABLET PO SCH ×2 (06:47→17:20)
[2021-01-03] MEDS: ZINC SULFATE 220 MG CAP PO SCH (09:48)
[2021-01-03] MEDS: atenoloL 50 MG TAB PO SCH ×2 (09:49→21:06)
[2021-01-03] MEDS: FUROSEMIDE 40 MG TAB PO SCH ×2 (09:49→17:20)
[2021-01-03] MEDS: CHOLECALCIFEROL 25 MCG (1000 IU) TABLET PO SCH (09:49)
[2021-01-03] MEDS: ASCORBIC ACID 500 MG TAB PO SCH (09:49)
[2021-01-03] MEDS: MULTIVITAMINS, THERA 1 EACH TAB PO SCH (09:49)
[2021-01-03] MEDS: POTASSIUM CHLORIDE ER 20 MEQ TAB.ER PO SCH (09:49)
[2021-01-03] MEDS: ENOXAPARIN 40 MG/0.4 ML SYRINGE SQ SCH (09:49)
[2021-01-03] MEDS: DEXAMETHASONE SOD PHOSPHATE 10 MG/ML 1 ML VIAL IV SCH ×2 (09:49→21:05)
--- NOTE | 2021-01-03 11:36 | P.PN ---
Subjective Progress Note Date: 01/03/21 HISTORY OF PRESENT ILLNESS: The patient is a 75-year-old male with past medical history of hypertension, SVT status post ablation, and heart block status post permanent pacemaker, who presents to the hospital with worsening shortness of breath and Covid pneumonia. We are consulted for congestive heart failure and elevated troponins. DIAGNOSTICS: EKG shows prolonged MD interval and left axis deviation. Patient has biventricular pacemaker Telemetry shows paced rhythm Chest x-ray shows bilateral airspace disease Laboratory data: WBC 13.7, hemoglobin 13.5, hematocrit 41.9, platelets 74, d- dimer 3.32, sodium 139, potassium 4.9, BUN 53, creatinine 1.40, magnesium 2.6, AST 81, ALT 47, lactate dehydrogenase 2111, CK 418, troponin 0.07 CRP 22, BNP 5860, Mcwilliams PCR positive Vitals: Blood pressure 129/73, respiratory rate 20, pulse rate 65, temperature 98.0F, SpO2 91% on nonrebreather 01/02/2021 Patient examined this morning at the bedside. Patient states he had a good night and is "bored" this morning. Patient denies chest pain or pressure. He reports shortness of breath. He is on 15L NC with oxygen saturations greater than 90%. Blood pressure 146/69. 01/03/2021 Patient examined this morning at bedside. Patient denies chest pain or pressure. He denies shortness of breath. He remains on 15 L nasal cannula. Echocardiogram revealed ejection fraction 50-55%. PHYSICAL EXAM: VITAL SIGNS: Reviewed. GENERAL: Well-developed in no acute distress. NECK: Supple. No JVD or thyromegaly LUNGS: Respirations even and unlabored. Lungs diminished bilaterally. HEART: Regular rate and rhythm. S1 and S2 heard. EXTREMITIES: Normal range of motion. No clubbing or cyanosis. Peripheral pulses intact. No lower extremity edema. Chronic skin changes noted. ASSESSMENT: Acute on chronic diastolic congestive heart failure Acute hypoxic respiratory failure Covid 19 pneumonia Elevated troponin, likely secondary to acute infection Elevated d-dimer Hypertension Acute kidney injury Thrombocytopenia History of biventricular pacemaker PLAN: Continue current cardiac medications Wean oxygen as tolerated. Pulmonary following We will sign off. Please reconsult if needed. Nurse practitioner note has been reviewed by physician. Signing provider agrees with the documented findings, assessment, and plan of care. Objective - Vital Signs Vital signs: Vital Signs Temp 97.1 F L 01/03/21 08:00 Pulse 75 01/03/21 08:00 Resp 20 01/03/21 08:00 BP 131/76 01/03/21 08:00 Pulse Ox 94 L 01/03/21 08:00 Intake & Output 01/02/21 01/03/21 01/03/21 18:59 06:59 18:59 Intake Total 60 Output Total 475 1620 Balance -415 -1620 Weight 185.5 kg Intake: Oral 60 Output: Urine 475 1620 Uretheral (Tanner) 500 Other: Voiding Method Indwelling Catheter Indwelling Catheter Indwelling Catheter - Labs CBC & Chem 7: 01/02/21 07:32 01/01/21 19:37 Labs: Abnormal Lab Results - Last 24 Hours (Table) 01/01/21 01/02/21 01/02/21 Range/Units 07:35 07:32 17:10 WBC 11.9 H (3.8-10.6) k/uL Blast Cells % 1 H* % Neutrophils # (Manual) 9.20 H (1.3-7.7) k/uL Lymphocytes # (Manual) 0.60 L (1.0-4.8) k/uL Monocytes # (Manual) 1.31 H (0-1.0) k/uL Metamyelocytes # (Man) 0.24 H (0) k/uL Myelocytes # (Manual) 0.36 H (0) k/uL Promyelocytes # (Man) 0.12 H (0) k/uL Blast Cells # (Man) 0.12 H (0) k/uL Nucleated RBCs 3 H (0-0) /100 WBC Pathologist Review See comment A POC Glucose (mg/dL) 123 H (75-99) mg/dL Microbiology - Last 24 Hours (Table) 01/01/21 19:37 Blood Culture - Preliminary Blood No Growth after 24 hours 12/31/20 13:06 Blood Culture - Preliminary Blood No Growth after 48 hours 12/31/20 13:06 Blood Culture - Preliminary Blood No Growth after 48 hours
[2021-01-03 12:14] LABS: Albumin 3.2 g/dL (3.5-5.0); Calcium 9.6 mg/dL (8.4-10.2); Potassium 4.8 mmol/L (3.5-5.1); Total Bilirubin 0.7 mg/dL (0.2-1.3); Total Protein 6.2 g/dL (6.3-8.2)
[2021-01-03 12:29] LABS: INR 1.3 (<1.2); Partial Thromboplastin Time 24.3 sec (22.0-30.0)
[2021-01-03] MEDS: ALBUTEROL HFA INHALER INHALATION SCH ×4 (12:33→19:47)
[2021-01-03 13:10] LABS: Basophils # (A) 0.1 k/uL (0-0.2); Basophils % (A) 2 %; Eosinophils % (A) 0 %; HCT 36.5 % (39.0-53.0); HGB 11.8 gm/dL (13.0-17.5); Lymphocytes # (A) 0.4 k/uL (1.0-4.8); Lymphocytes % (A) 5 %; MCH 29.9 pg (25.0-35.0); MCHC 32.4 g/dL (31.0-37.0); MCV 92.3 fL (80.0-100.0); Mean Platelet Volume 11.4; Monocytes # (A) 0.8 k/uL (0-1.0); Monocytes % (A) 10 %; Neutrophils # (A) 6.9 k/uL (1.3-7.7); Neutrophils % (A) 81 %; RBC 3.95 m/uL (4.30-5.90); RDW 13.7 % (11.5-15.5); WBC 8.5 k/uL (3.8-10.6)
[2021-01-03 13:22] LABS: Platelet Count 90 k/uL (150-450)
--- NOTE | 2021-01-03 14:41 | P.PN ---
Subjective Progress Note Date: 01/03/21 Principal diagnosis: Dyspnea, hypoxia, pneumonia 75-year-old male patient was being seen for acute hypoxic respiratory failure and COVID-19 associated pneumonia. The patient came into the emergency department because of worsening shortness of breath is been going on for the past month. He is not sure of the exact timing of his symptoms. He is been sick for several weeks probably a month or 2 according to him. He did not realize his breathing was this bad. On the day of his admission condition got worse to the point where he was unable to ambulate. He came into the hospital accordingly. Denies having any fever chills or sweats. Nevertheless, he was found to have a temperature of 101.2. Initial pulse ox was 62% on room air oxygen. He was placed on 100% on a beta facemask. No angina. No palpitations. Apparently has taken Alexandre [employer] Alexandre showed approximately a month ago. He has a white cell count of 11, lymphocyte count of 0.5, normal coagulation profile, d-dimer of 3.3, troponin 0.07, his proBNP level was 5860, sodium level was 133, BUN was 51 with a creatinine of 1.5. Lactic acid level was 1.8. 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 Other comorbidities include prostate cancer, obesity and chronic lower extremity edema/lymphedema with venous ulcers being treated at the wound center in the past. On 01/02/2021 patient seen in follow-up on selective care unit, he is awake and alert, oriented 3, he is currently on 15 L of oxygen has pulse ox is ranging between 90-94%, his been afebrile, hemodynamically has been stable. His CT chest without contrast was completed showing diffuse bilateral infiltrates related to possibility of ARDS and possibly pulmonary edema in the differential diagnosis. There was cholelithiasis noted. Patient is currently on Decadron 6 mg every 12 hours, he status post Tocilizumab 800 mg on 01/01/2021, later in the evening antibiotics in the form of Levaquin were added by ID service. Patient continues on his home dose of Lasix 40 mg twice daily. Today's labs have been reviewed showing white blood cell count of 11.9, hemoglobin is 12.4, his last d- dimer from a 12/31/2020 was 3.31, his electrolytes were unremarkable, BUN was 54, and creatinine has improved and is down to 1.2 on today's labs, his last LDH yesterday was 2110, and CRP was 22.7. On 01/03/2021 patient seen in follow-up on selective care unit. Patient is a bit more awake today, and a bit more interactive, she reports slight improvement in his breathing, he is still on high flow oxygen, currently on 15 L, his pulse ox is 94%, his status post Tocilizumab, and she remains on Decadron 6 mg twice daily. He is on oral Lasix 40 mg twice daily, she is also on Levaquin for possibility of underlying bacterial pneumonia, he has been afebrile, his blood pressure is been stable, no worsening dyspnea, no complaints of chest discomfort, or worsening cough. There is a echocardiogram that was completed sh owing low-normal EF of 50-55%, no evidence of aortic stenosis or aortic regurgitation, no mitral regurgitation. He remains on Lovenox 40 mg daily, his follow-up d-dimer has increased and is currently is at 6.07 on today's labs. He is urine Legionella antigen was found to be negative. His white count has improved and is down to 8.5, hemoglobin is 11.8, his platelet count is 90, CO2 is up to 35, the rest of the electrolytes are unremarkable, BUN is 46, creatinine is 1.15. Objective - Vital Signs Vital signs: Vital Signs Temp 97.6 F 01/03/21 12:00 Pulse 62 01/03/21 12:00 Resp 20 01/03/21 12:00 BP 129/67 01/03/21 12:00 Pulse Ox 94 L 01/03/21 12:00 Intake & Output 01/02/21 01/03/21 01/03/21 18:59 06:59 18:59 Intake Total 60 340 Output Total 475 1620 Balance -415 -1620 340 Weight 185.5 kg Intake: Intake, IV Titration 100 Amount Sodium Chloride 0.9% 1, 100 000 ml @ 20 mls/hr IV . Q24H [facility] Rx#:[id number] Oral 60 240 Output: Urine 475 1620 Uretheral (Tanner) 500 Other: Voiding Method Indwelling Catheter Indwelling Catheter Indwelling Catheter - Exam GENERAL EXAM: Alert, pleasant, cooperative, 75-year-old morbidly obese white male, on 15 L of high flow oxygen, with a pulse ox of 90-94% comfortable in no apparent distress. HEAD: Normocephalic/atraumatic. EYES: Normal reaction of pupils, equal size. Conjunctiva pink, sclera white. NOSE: Clear with pink turbinates. THROAT: No erythema or exudates. NECK: No masses, no JVD, no thyroid enlargement, no adenopathy. CHEST: No chest wall deformity. Symmetrical expansion. LUNGS: Equal air entry with diminished breath sounds with diffuse crackles CVS: Regular rate and rhythm, normal S1 and S2, no gallops, no murmurs, no rubs ABDOMEN: Soft, nontender. No hepatosplenomegaly, normal bowel sounds, no guarding or rigidity. EXTREMITIES: No clubbing, chronic lower extremity edema with chronic lymphedema involving his feet no cyanosis, 2+ pulses and upper and lower extremities. MUSCULOSKELETAL: Muscle strength and tone normal. SPINE: No scoliosis or deformity SKIN: No rashes CENTRAL NERVOUS SYSTEM: Alert and oriented -3. No focal deficits, tone is normal in all 4 extremities. PSYCHIATRIC: Alert and oriented -3. Appropriate affect. Intact judgment and insight. - Labs CBC & Chem 7: 01/03/21 11:18 01/03/21 11:18 Labs: Abnormal Lab Results - Last 24 Hours (Table) 01/02/21 01/03/21 01/03/21 Range/Units 17:10 11:18 11:18 RBC 3.95 L (4.30-5.90) m/uL Hgb 11.8 L (13.0-17.5) gm/dL Hct 36.5 L (39.0-53.0) % Plt Count 90 L (150-450) k/uL Lymphocytes # 0.4 L (1.0-4.8) k/uL PT 13.0 H (9.0-12.0) sec INR 1.3 H (<1.2) D-Dimer 6.07 H (<0.60) mg/L FEU Carbon Dioxide (22-30) mmol/L BUN (9-20) mg/dL Glucose (74-99) mg/dL POC Glucose (mg/dL) 123 H (75-99) mg/dL Magnesium (1.6-2.3) mg/dL ALT (4-49) U/L Total Protein (6.3-8.2) g/dL Albumin (3.5-5.0) g/dL 01/03/21 Range/Units 11:18 RBC (4.30-5.90) m/uL Hgb (13.0-17.5) gm/dL Hct (39.0-53.0) % Plt Count (150-450) k/uL Lymphocytes # (1.0-4.8) k/uL PT (9.0-12.0) sec INR (<1.2) D-Dimer (<0.60) mg/L FEU Carbon Dioxide 35 H (22-30) mmol/L BUN 46 H (9-20) mg/dL Glucose 108 H (74-99) mg/dL POC Glucose (mg/dL) (75-99) mg/dL Magnesium 3.0 H (1.6-2.3) mg/dL ALT 50 H (4-49) U/L Total Protein 6.2 L (6.3-8.2) g/dL Albumin 3.2 L (3.5-5.0) g/dL Microbiology - Last 24 Hours (Table) 01/01/21 19:37 Blood Culture - Preliminary Blood No Growth after 24 hours 12/31/20 13:06 Blood Culture - Preliminary Blood No Growth after 48 hours 12/31/20 13:06 Blood Culture - Preliminary Blood No Growth after 48 hours Assessment and Plan Plan: Assessment: #1. acute hypoxic respiratory failure currently on the percent nonrebreather facemask due to bilateral diffuse pneumonia attributed to COVID-19 infection. The exact onset of symptoms is not known as the patient is not clear when he started having the symptoms. Limited is been progressively getting worse over the past several weeks. He apparently took his [employer] Alexandre vaccination and end of November 2020. status post Tocilizumab on 01/01/2021, currently on Decadron 6 mg twice daily #2. acute COVID-19 infection, post vaccination with a [employer] Alexandre COVID-19 vaccine #3. shortness of breath secondary to above #4. acute kidney injury, likely secondary to intravascular volume depletion #5. chronic lymphedema involving lower extremities #6. obesity #7. 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 prostate cancer #9. chronic thrombocytopenia #10. Mildly elevated procalcitonin, Legionella pneumonia has been ruled out. Negative Legionella urine antigen #11. Elevated d-dimer, rule out possibility of DVT, Doppler of lower extremities has been ordered and pending at this time, in the meantime patient will continue on Lovenox, we will increase the dose to 50 mg subcutaneously twice daily Plan: Continue Decadron Continue Lasix We will increase the Lovenox to 50 mg twice daily Lower extremity Dopplers will be checked Follow-up d-dimer tomorrow, follow up inflammatory markers Continues on Levaquin, Legionella pneumonia was ruled out We'll continue to closely follow We'll continue to closely follow his clinical course I performed a history & physical examination of the patient and discussed their management with my nurse practitioner, Barbara Juarez. I reviewed the nurse practitioner's note and agree with the documented findings and plan of care. Lung sounds are positive for diminished breath sounds. The findings and the impression was discussed with the patient. I attest to the documentation by the nurse practitioner. Time with Patient: Less than 30
--- NOTE | 2021-01-03 15:32 | US ---
EXAMINATION TYPE: US venous doppler duplex LE BI DATE OF EXAM: 01/03/2021 3:18 PM COMPARISON: 03/05/2018 CLINICAL HISTORY: elevated d-dimer. SOB, Covid, elevated D-Dimer SIDE PERFORMED: Bilateral TECHNIQUE: The lower extremity deep venous system is examined utilizing real time linear array sonog robert with graded compression, doppler sonography and color-flow sonography. VESSELS IMAGED: Common Femoral Vein Deep Femoral Vein Greater Saphenous Vein * Femoral Vein Popliteal Vein Small Saphenous Vein * Proximal Calf Veins (* superficial vessels) Right Leg: Positive for DVT, Mid-Distal popliteal vein to proximal calf veins Left Leg: Negative for DVT IMPRESSION: 1. There is acute deep venous thrombosis at the mid to distal popliteal vein to the proximal calf vei ns of the right lower extremity. 2. No evidence of deep venous thrombosis of the left lower extremity veins.
[2021-01-03] MEDS: SODIUM CHLORIDE 0.9% 1,000 ML IV SCH (16:23)
--- NOTE | 2021-01-03 19:50 | P.CONS ---
History of Present Illness - Reason for Consult Consult date: 01/02/21 HIgh Blasts Requesting physician: Jeff Bansal - Chief Complaint COVID - History of Present Illness We were asked to evaluate this patient with COVID 19 infection for abnormal CBC, POsitive blasts in peripheral blood and immature blood cells Review of Systems All systems: negative Constitutional: Reports as per HPI Past Medical History Past Medical History: Cancer, Hypertension, Skin Disorder Additional Past Medical History / Comment(s): hx prostate cancer, , hx rheumatic fever; lymphedema to bilateral legs. History of Any Multi-Drug Resistant Organisms: None Reported Past Surgical History: Hernia Repair, Tonsillectomy Additional Past Surgical History / Comment(s): pacemaker, heart ablation Past Anesthesia/Blood Transfusion Reactions: No Reported Reaction Past Psychological History: No Psychological Hx Reported Smoking Status: Former smoker Past Alcohol Use History: None Reported Additional Past Alcohol Use History / Comment(s): smoked from teens until 30's; started up again when 61 until 63 Past Drug Use History: None Reported - Past Family History Father Family Medical History: Cancer Mother Family Medical History: Cancer Medications and Allergies Home Medications Medication Instructions Recorded Confirmed Type Furosemide [Lasix] 40 mg PO BID 12/09/14 12/31/20 History Potassium Chloride [K-Tab ER] 20 meq PO DAILY 12/09/14 12/31/20 History Atenolol [Tenormin] 50 mg PO BID 12/31/20 12/31/20 History Multivitamins, Thera [Multivitamin 1 tab PO DAILY 12/31/20 12/31/20 History (formulary)] Allergies Allergy/AdvReac Type Severity Reaction Status Date / Time No Known Allergies Allergy Verified 12/31/20 13:41 Physical Exam Vitals: Vital Signs Temp Pulse Resp BP Pulse Ox 01/02/21 16:00 97.3 F L 67 16 139/64 94 L 01/02/21 15:00 94 L 01/02/21 14:27 97.9 F 18 94 L 01/02/21 12:14 97.3 F L 01/02/21 12:00 96.7 F L 63 18 146/69 90 L 01/02/21 08:00 97.2 F L 63 22 137/63 94 L 01/02/21 04:00 96.8 F L 60 22 108/51 92 L 06/01/21 01:54 61 22 01/02/21 00:00 96.3 F L 61 22 131/61 93 L 01/01/21 20:00 96.2 F L 62 24 129/60 94 L Intake and Output 01/02/21 01/02/21 01/02/21 06:59 14:59 22:59 Intake Total 60 Output Total 625 475 Balance -625 -415 Intake: Oral 60 Output: Urine 625 475 Other: Voiding Method Indwelling Catheter Indwelling Catheter Weight 162 kg - Constitutional General appearance: cooperative, no acute distress - EENT Eyes: EOMI - Respiratory Respiratory: bilateral: diminished (hi flow oxygen) - Cardiovascular Rhythm: regularly irregular - Gastrointestinal General gastrointestinal: soft - Integumentary Integumentary: pale - Neurologic Neurologic: CNII-XII intact - Musculoskeletal Musculoskeletal: generalized weakness - Psychiatric Psychiatric: A&O x's 3, appropriate affect Results CBC & Chem 7: 01/03/21 11:18 01/03/21 11:18 Labs: Abnormal Lab Results - Last 24 Hours (Table) 01/01/21 01/01/21 01/02/21 Range/Units 07:35 19:37 07:32 WBC 11.9 H (3.8-10.6) k/uL RBC 4.01 L (4.30-5.90) m/uL Hgb 12.4 L (13.0-17.5) gm/dL Hct 36.7 L (39.0-53.0) % Plt Count 77 L (150-450) k/uL Blast Cells % 1 H* % Neutrophils # (Manual) 9.20 H (1.3-7.7) k/uL Lymphocytes # (Manual) 0.60 L (1.0-4.8) k/uL Monocytes # (Manual) 1.31 H (0-1.0) k/uL Metamyelocytes # (Man) 0.24 H (0) k/uL Myelocytes # (Manual) 0.36 H (0) k/uL Promyelocytes # (Man) 0.12 H (0) k/uL Blast Cells # (Man) 0.12 H (0) k/uL Nucleated RBCs 3 H (0-0) /100 WBC Pathologist Review See comment A BUN 54 H (9-20) mg/dL Glucose 142 H (74-99) mg/dL POC Glucose (mg/dL) (75-99) mg/dL Total Protein 6.2 L (6.3-8.2) g/dL Albumin 3.3 L (3.5-5.0) g/dL 01/02/21 Range/Units 17:10 WBC (3.8-10.6) k/uL RBC (4.30-5.90) m/uL Hgb (13.0-17.5) gm/dL Hct (39.0-53.0) % Plt Count (150-450) k/uL Blast Cells % % Neutrophils # (Manual) (1.3-7.7) k/uL Lymphocytes # (Manual) (1.0-4.8) k/uL Monocytes # (Manual) (0-1.0) k/uL Metamyelocytes # (Man) (0) k/uL Myelocytes # (Manual) (0) k/uL Promyelocytes # (Man) (0) k/uL Blast Cells # (Man) (0) k/uL Nucleated RBCs (0-0) /100 WBC Pathologist Review BUN (9-20) mg/dL Glucose (74-99) mg/dL POC Glucose (mg/dL) 123 H (75-99) mg/dL Total Protein (6.3-8.2) g/dL Albumin (3.5-5.0) g/dL Microbiology - Last 24 Hours (Table) 12/31/20 13:06 Blood Culture - Preliminary Blood No Growth after 48 hours 12/31/20 13:06 Blood Culture - Preliminary Blood No Growth after 48 hours Chest x-ray: report reviewed CT scan - chest: report reviewed Assessment and Plan (1) Febrile illness, acute Current Visit: Yes Status: Acute Code(s): R50.9 - FEVER, UNSPECIFIED SNOMED Code(s): 244768093 (2) Lymphedema of both lower extremities Current Visit: No Status: Acute Code(s): I89.0 - LYMPHEDEMA, NOT ELSEWHERE CLASSIFIED SNOMED Code(s): 02635476317660321 (3) COVID-19 Current Visit: Yes Status: Acute Code(s): U07.1 - COVID-19 SNOMED Code(s): 811793560 Plan: Assessment and Recommendations: COVID-19: - Per ID, Pulmonary and Primary Teams Abnormal CBC with immature cells on peripheral blood - Patient cbc reveals myelocytes, blasts and other immature WBC that are likely representing a reactive scenario - Further work-up has been ordered and will continue to monitor and evaluate. Thrombocytopenia: - Likely secondary to COVID infection - Hold AC therapy if platelet count less than 50K - HIT ANtibodies.
--- NOTE | 2021-01-03 19:51 | PN ---
PROGRESS NOTE DATE OF SERVICE: 01/03/2021 This 75-year-old gentleman was admitted with acute COVID-19 infection, acute bilateral interstitial pneumonia and hypoxia. Patient also had change in mental status. A CT scan showed bilateral interstitial shadows highly suggestive of Covid 19 pneumonia. The patient has received tocilizumab. No chest pain. No palpitations. No fever. PHYSICAL EXAMINATION: Alert and oriented. Pulse 69. PAST MEDICAL HISTORY: Reviewed. REVIEW OF SYSTEMS: CARDIOVASCULAR: No angina. RESPIRATION: As mentioned earlier. GI: As mentioned earlier. : No dysuria. NERVOUS SYSTEM: No numbness or weakness. CURRENT MEDICATIONS: Reviewed and include: Vitamin C, Ventolin, Tenormin. Vitamin D3, dexamethasone, Lovenox, Lasix, Levaquin, doses reviewed. PHYSICAL EXAMINATION: Patient is alert, oriented x2. Pulse 69. Blood pressure 120/64, respiration 20, temperature 97.6, pulse ox 97% on 15 L high-flow nasal cannula. HEENT: Conjunctivae normal. NECK: No JVD. CARDIOVASCULAR: S1, S2 muffled. RESPIRATORY: Breath sounds diminished in the bases. A few scattered rhonchi and crackles. ABDOMEN: Soft, obese. LEGS: Bilateral leg edema. Lymphedema present. LABS: WBC 8.3, hemoglobin 11.8. Otherwise, sodium 140, potassium 4.8. INR is 1.3. AST and ALT noted. ASSESSMENT: 1. Acute COVID-19 infection with acute bilateral interstitial pneumonia with acute hypoxic respiratory failure with possible sepsis, present on admission on high-flow oxygen, status post tocilizumab. 2. Increased WBC. 3. Thrombocytopenia. 4. Change in mental status, acute metabolic encephalopathy multifactorial. 5. Lymphopenia. 6. Rule out myelodysplastic syndrome with blasts in the peripheral smear. 7. Elevated PT/INR. 8. Increased D-dimer. 9. Hyponatremia. 10.Increased creatinine with mild acute tubular necrosis and acute renal failure. 11.Increased random glucose. 12.Elevated bilirubin. 13.Increased AST with troponin 0.06 indeterminate. 14.Elevated creatinine kinase. 15.Hypertension. 16.History of prostate cancer. 17.History of rheumatic fever. 18.History of lymphedema. 19.History of tonsillectomy. 20.Morbid obesity with body mass index of 52.6. 21.FULL CODE. RECOMMENDATIONS AND DISCUSSION: I recommend to continue current medications, continue with monitoring, symptomatic treatment. Otherwise at this time, I would recommend continue the bronchodilators. Empiric antibiotics. The cultures are negative so far. The labs showed hemoglobin 11.8. Otherwise, the peripheral smear shows some blasts. Remote possibility of myelodysplastic syndrome and Hematology/Oncology consultation has been sought. Otherwise, overall prognosis still extremely guarded because of multiple complex medical issues and severe hypoxia as documented above and further recommendations to follow. Closely follow with multiple consultants. NAOMY / ABRAHAMN: [id number] /
--- NOTE | 2021-01-03 19:57 | P.PN ---
Subjective Progress Note Date: 01/03/21 Principal diagnosis: COVID and Thrombocytopenia platelets have started to trend up today 90K Objective - Vital Signs Vital signs: Vital Signs Temp 97.6 F 01/03/21 12:00 Pulse 69 01/03/21 16:00 Resp 20 01/03/21 16:00 BP 120/65 01/03/21 16:00 Pulse Ox 96 01/03/21 16:00 Intake & Output 01/03/21 01/03/21 01/04/21 06:59 18:59 06:59 Intake Total 340 Output Total 1620 650 Balance -1620 -310 Weight 185.5 kg Intake: Intake, IV Titration 100 Amount Sodium Chloride 0.9% 1, 100 000 ml @ 20 mls/hr IV . Q24H [facility] Rx#:[id number] Oral 240 Output: Urine 1620 650 Uretheral (Tanner) 500 Other: Voiding Method Indwelling Catheter Indwelling Catheter - Exam - Constitutional General appearance: cooperative, no acute distress - EENT Eyes: EOMI - Respiratory Respiratory: bilateral: diminished (hi flow oxygen) - Cardiovascular Rhythm: regularly irregular - Gastrointestinal General gastrointestinal: soft - Integumentary Integumentary: pale - Neurologic Neurologic: CNII-XII intact - Musculoskeletal Musculoskeletal: generalized weakness - Psychiatric Psychiatric: A&O x's 3, appropriate affect - Labs CBC & Chem 7: 01/03/21 11:18 01/03/21 11:18 Labs: Abnormal Lab Results - Last 24 Hours (Table) 01/03/21 01/03/21 01/03/21 Range/Units 11:18 11:18 11:18 RBC 3.95 L (4.30-5.90) m/uL Hgb 11.8 L (13.0-17.5) gm/dL Hct 36.5 L (39.0-53.0) % Plt Count 90 L (150-450) k/uL Lymphocytes # 0.4 L (1.0-4.8) k/uL PT 13.0 H (9.0-12.0) sec INR 1.3 H (<1.2) D-Dimer 6.07 H (<0.60) mg/L FEU Carbon Dioxide 35 H (22-30) mmol/L BUN 46 H (9-20) mg/dL Glucose 108 H (74-99) mg/dL Magnesium 3.0 H (1.6-2.3) mg/dL ALT 50 H (4-49) U/L Total Protein 6.2 L (6.3-8.2) g/dL Albumin 3.2 L (3.5-5.0) g/dL Microbiology - Last 24 Hours (Table) 12/31/20 13:06 Blood Culture - Preliminary Blood No Growth after 72 hours 12/31/20 13:06 Blood Culture - Preliminary Blood No Growth after 72 hours 01/01/21 19:37 Blood Culture - Preliminary Blood No Growth after 24 hours Assessment and Plan (1) Febrile illness, acute Current Visit: Yes Status: Acute Code(s): R50.9 - FEVER, UNSPECIFIED SNOMED Code(s): 634523423 (2) Lymphedema of both lower extremities Current Visit: No Status: Acute Code(s): I89.0 - LYMPHEDEMA, NOT ELSEWHERE CLASSIFIED SNOMED Code(s): 66650953310821262 (3) COVID-19 Current Visit: Yes Status: Acute Code(s): U07.1 - COVID-19 SNOMED Code(s): 909871258 Plan: Assessment and Recommendations: COVID-19: - Per ID, Pulmonary and Primary Teams Abnormal CBC with immature cells on peripheral blood - Patient cbc reveals myelocytes, blasts and other immature WBC that are likely representing a reactive scenario - Further work-up has been ordered and will continue to monitor and evaluate. Thrombocytopenia: - Likely secondary to COVID infection - Hold AC therapy if platelet count less than 50K - Improved today 90K MOnitor daily CBC, and for s/s DIC. Periodic D-dimer, COags Physician attest: I have completed the full history and physical and agree with above dictation, dictated as a ascribe.
[2021-01-03] MEDS: ENOXAPARIN 60 MG/0.6 ML SYRINGE SQ SCH (21:05)
[2021-01-03] MEDS: LEVOFLOXACIN 750 MG TAB PO SCH (21:06)
--- NOTE | 2021-01-03 22:39 | PN ---
PROGRESS NOTE DATE OF SERVICE: 01/03/2021 REASON FOR FOLLOWUP: Pneumonia. INTERVAL HISTORY: The patient is afebrile. The patient is breathing slightly comfortably, however, still requiring 15 L high-flow oxygen. Denies any chest pain. He continues to have a cough and is bringing up some sputum. He did collect a sample, however, has not been sent down to the lab. No nausea, no vomiting. No abdominal pain. No diarrhea. PHYSICAL EXAMINATION: Blood pressure is 123/56, pulse of 66. Temperature of 98. He is 95% on 15 L high-flow oxygen. General description is an elderly male lying in bed in no distress. Respiratory system: Unlabored breathing, decreased breath sounds in the bases. No wheeze. Heart S1, S2. Regular rate and rhythm. Abdomen soft, No tenderness. Extremities: No edema of the feet. LABS: Hemoglobin is 11.8, white count 8.5, BUN of 46, creatinine 1.15. DIAGNOSTIC IMPRESSION/PLAN: Patient with admission to the hospital with pneumonia in this patient who did have a COVID-19 infection, concern for possible secondary bacterial pneumonia. Unfortunately sputum was not sent though collected. Urine cultures were negative. Patient to continue with current treatment protocol, Dexamethasone, Lovenox, Levaquin and monitor clinical course closely. MMODL / IJN: [id number] /
[2021-01-04] MEDS: PANTOPRAZOLE 40 MG TABLET PO SCH ×2 (06:46→17:51)
[2021-01-04 09:01] LABS: C Reactive Protein 2.8 mg/dL (<1.0)
[2021-01-04] MEDS: ALBUTEROL HFA INHALER INHALATION SCH ×4 (09:17→20:28)
[2021-01-04] MEDS: ENOXAPARIN 60 MG/0.6 ML SYRINGE SQ SCH (09:49)
[2021-01-04] MEDS: POTASSIUM CHLORIDE ER 20 MEQ TAB.ER PO SCH (09:49)
[2021-01-04] MEDS: ASCORBIC ACID 500 MG TAB PO SCH (09:49)
[2021-01-04] MEDS: FUROSEMIDE 40 MG TAB PO SCH ×2 (09:49→17:51)
[2021-01-04] MEDS: ZINC SULFATE 220 MG CAP PO SCH (09:49)
[2021-01-04] MEDS: MULTIVITAMINS, THERA 1 EACH TAB PO SCH (09:49)
[2021-01-04] MEDS: CHOLECALCIFEROL 25 MCG (1000 IU) TABLET PO SCH (09:49)
[2021-01-04] MEDS: atenoloL 50 MG TAB PO SCH ×2 (09:49→20:51)
[2021-01-04] MEDS: DEXAMETHASONE SOD PHOSPHATE 10 MG/ML 1 ML VIAL IV SCH ×2 (09:51→20:51)
[2021-01-04] MEDS: APIXABAN 5 MG TAB PO SCH ×2 (12:50→20:50)
--- NOTE | 2021-01-04 13:37 | PN ---
PROGRESS NOTE DATE OF SERVICE: 01/04/2021 REASON FOR FOLLOWUP: Pneumonia. INTERVAL HISTORY: The patient is currently afebrile. The patient is breathing comfortably. Still requiring 15 L high -flow oxygen. Patient complaining of significant cough with occasional sputum. However, sputum sample has not been sent. No nausea, no vomiting. No abdominal pain. No diarrhea. PHYSICAL EXAMINATION: Blood pressure 136/56, pulse of 62, temperature 97.5. He is 97% on 2 L high-flow oxygen. General description is an elderly male lying in in no distress. Respiratory system: Unlabored breathing, decreased intensity of breath sounds. No wheeze. Heart S1, S2. Regular rate and rhythm. Abdomen soft, no tenderness. LABS: Hemoglobin 11.1, white count 8.5. BUN of 46, creatinine 1.15, did have a slightly elevated, LDH is down. DIAGNOSTIC IMPRESSION AND PLAN: Patient with acute respiratory failure secondary to COVID-19 infection possible component secondary bacterial pneumonia. The patient has received dose of Actemra. Currently on Decadron, Lovenox, zinc and ascorbic acid along with Levaquin to continue. We will monitor to clinical course closely. Continue supportive care. MMODL / IJN: [id number] /
--- NOTE | 2021-01-04 13:45 | P.PN ---
Subjective Progress Note Date: 01/04/21 Principal diagnosis: Dyspnea, hypoxia, pneumonia 75-year-old male patient was being seen for acute hypoxic respiratory failure and COVID-19 associated pneumonia. The patient came into the emergency department because of worsening shortness of breath is been going on for the past month. He is not sure of the exact timing of his symptoms. He is been sick for several weeks probably a month or 2 according to him. He did not realize his breathing was this bad. On the day of his admission condition got worse to the point where he was unable to ambulate. He came into the hospital accordingly. Denies having any fever chills or sweats. Nevertheless, he was found to have a temperature of 101.2. Initial pulse ox was 62% on room air oxygen. He was placed on 100% on a beta facemask. No angina. No palpitations. Apparently has taken Alexandre Dep-Xplora Alexandre showed approximately a month ago. He has a white cell count of 11, lymphocyte count of 0.5, normal coagulation profile, d-dimer of 3.3, troponin 0.07, his proBNP level was 5860, sodium level was 133, BUN was 51 with a creatinine of 1.5. Lactic acid level was 1.8. 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 Other comorbidities include prostate cancer, obesity and chronic lower extremity edema/lymphedema with venous ulcers being treated at the wound center in the past. On 01/02/2021 patient seen in follow-up on selective care unit, he is awake and alert, oriented 3, he is currently on 15 L of oxygen has pulse ox is ranging between 90-94%, his been afebrile, hemodynamically has been stable. His CT chest without contrast was completed showing diffuse bilateral infiltrates related to possibility of ARDS and possibly pulmonary edema in the differential diagnosis. There was cholelithiasis noted. Patient is currently on Decadron 6 mg every 12 hours, he status post Tocilizumab 800 mg on 01/01/2021, later in the evening antibiotics in the form of Levaquin were added by ID service. Patient continues on his home dose of Lasix 40 mg twice daily. Today's labs have been reviewed showing white blood cell count of 11.9, hemoglobin is 12.4, his last d- dimer from a 12/31/2020 was 3.31, his electrolytes were unremarkable, BUN was 54, and creatinine has improved and is down to 1.2 on today's labs, his last LDH yesterday was 2110, and CRP was 22.7. On 01/03/2021 patient seen in follow-up on selective care unit. Patient is a bit more awake today, and a bit more interactive, she reports slight improvement in his breathing, he is still on high flow oxygen, currently on 15 L, his pulse ox is 94%, his status post Tocilizumab, and she remains on Decadron 6 mg twice daily. He is on oral Lasix 40 mg twice daily, she is also on Levaquin for possibility of underlying bacterial pneumonia, he has been afebrile, his blood pressure is been stable, no worsening dyspnea, no complaints of chest discomfort, or worsening cough. There is a echocardiogram that was completed sh owing low-normal EF of 50-55%, no evidence of aortic stenosis or aortic regurgitation, no mitral regurgitation. He remains on Lovenox 40 mg daily, his follow-up d-dimer has increased and is currently is at 6.07 on today's labs. He is urine Legionella antigen was found to be negative. His white count has improved and is down to 8.5, hemoglobin is 11.8, his platelet count is 90, CO2 is up to 35, the rest of the electrolytes are unremarkable, BUN is 46, creatinine is 1.15. On 01/04/2021 patient seen in follow-up on selective care unit. He is resting in bed, currently on 15 L of oxygen, pulse ox was 97%, with cutback his FiO2 to 10 L and patient continues with O2 saturations at 93-95%, no worsening dyspnea, he appears fatigued, but appears to be in no respiratory distress. Afebrile, hemodynamically stable. No chest discomfort, occasional cough. No phlegm production. Yesterday his d-dimer was found to be uptrending and was up to 6.07. Lower extremity Dopplers showed evidence of acute right leg DVT, yesterday we increased the patient's Lovenox to 50 mg twice daily. His follow-up d-dimer remains elevated at 6.17, patient also continues on Levaquin, oral Lasix, and Decadron 6 mg twice daily. Inflammatory markers are improving Objective - Vital Signs Vital signs: Vital Signs Temp 97.5 F L 01/04/21 08:00 Pulse 61 01/04/21 12:00 Resp 18 01/04/21 12:00 BP 134/60 01/04/21 12:00 Pulse Ox 93 L 01/04/21 12:00 Intake & Output 01/03/21 01/04/21 01/04/21 18:59 06:59 18:59 Intake Total 340 Output Total 650 1420 Balance -310 -1420 Weight 181.5 kg Intake: Intake, IV Titration 100 Amount Sodium Chloride 0.9% 1, 100 000 ml @ 20 mls/hr IV . Q24H [facility] Rx#:[id number] Oral 240 Output: Urine 650 1420 Other: Voiding Method Indwelling Catheter Indwelling Catheter Indwelling Catheter - Exam GENERAL EXAM: Alert, pleasant, cooperative, 75-year-old morbidly obese white male, on 15 L of high flow oxygen, with a pulse ox of 97% comfortable in no apparent distress. HEAD: Normocephalic/atraumatic. EYES: Normal reaction of pupils, equal size. Conjunctiva pink, sclera white. NOSE: Clear with pink turbinates. THROAT: No erythema or exudates. NECK: No masses, no JVD, no thyroid enlargement, no adenopathy. CHEST: No chest wall deformity. Symmetrical expansion. LUNGS: Equal air entry with diminished breath sounds with diffuse crackles CVS: Regular rate and rhythm, normal S1 and S2, no gallops, no murmurs, no rubs ABDOMEN: Soft, nontender. No hepatosplenomegaly, normal bowel sounds, no guarding or rigidity. EXTREMITIES: No clubbing, chronic lower extremity edema with chronic lymphedema involving his feet no cyanosis, 2+ pulses and upper and lower extremities. MUSCULOSKELETAL: Muscle strength and tone normal. SPINE: No scoliosis or deformity SKIN: No rashes CENTRAL NERVOUS SYSTEM: Alert and oriented -3. No focal deficits, tone is normal in all 4 extremities. PSYCHIATRIC: Alert and oriented -3. Appropriate affect. Intact judgment and insight. - Labs CBC & Chem 7: 01/03/21 11:18 01/03/21 11:18 Labs: Abnormal Lab Results - Last 24 Hours (Table) 01/04/21 01/04/21 Range/Units 07:42 07:42 D-Dimer 6.17 H (<0.60) mg/L FEU Lactate Dehydrogenase 1391 H (313-618) U/L C-Reactive Protein 2.8 H (<1.0) mg/dL Microbiology - Last 24 Hours (Table) 01/01/21 19:37 Blood Culture - Preliminary Blood No Growth after 48 hours 12/31/20 13:06 Blood Culture - Preliminary Blood No Growth after 72 hours 12/31/20 13:06 Blood Culture - Preliminary Blood No Growth after 72 hours Assessment and Plan Plan: Assessment: #1. acute hypoxic respiratory failure currently on the percent nonrebreather facemask due to bilateral diffuse pneumonia attributed to COVID-19 infection. The exact onset of symptoms is not known as the patient is not clear when he started having the symptoms. Limited is been progressively getting worse over the past several weeks. He apparently took his Alexandre & Alexandre vaccination and end of November 2020. status post Tocilizumab on 01/01/2021, currently on Dec adron 6 mg twice daily #2. acute COVID-19 infection, post vaccination with a Alexandre & Alexandre COVID-19 vaccine #3. shortness of breath secondary to above #4. acute kidney injury, likely secondary to intravascular volume depletion #5. chronic lymphedema involving lower extremities #6. obesity #7. 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 prostate cancer #9. chronic thrombocytopenia #10. Mildly elevated procalcitonin, Legionella pneumonia has been ruled out. Negative Legionella urine antigen #11. Elevated d-dimer, rule out possibility of DVT, Doppler of lower extremities has been ordered and pending at this time, in the meantime patient will continue on Lovenox, we will increase the dose to 50 mg subcutaneously twice daily Plan: Continue Decadron 6 milligram twice daily Continue oral Lasix We'll start the patient on Eliquis 10 mg twice daily for 7 days, and 5 mg twice daily thereafter for evidence of acute right lower extremity DVT No need to proceed with VQ scan, the patient will be placed on anticoagulation anyway Inflammatory markers are improving Continue with Levaquin We'll continue to closely follow his clinical course I performed a history & physical examination of the patient and discussed their management with my nurse practitioner, Barbara Juarez. I reviewed the nurse practitioner's note and agree with the documented findings and plan of care. Lung sounds are positive for diminished breath sounds. The findings and the impression was discussed with the patient. I attest to the documentation by the nurse practitioner. Time with Patient: Less than 30
[2021-01-04 16:07] LABS: Folate, Serum 11.8 ng/mL
[2021-01-04] MEDS: SODIUM CHLORIDE 0.9% 1,000 ML IV SCH (17:51)
--- NOTE | 2021-01-04 20:39 | PN ---
PROGRESS NOTE DATE OF SERVICE: 01/04/2021 This 75-year-old gentleman was admitted acute COVID-19 infection with interstitial pneumonia, significant acute hypoxic respiratory failure. Venous Doppler study was done today. Infectious Disease and Pulmonary following the patient closely. Venous Doppler showed acute DVT of the distal part of the proximal calf veins of the right lower extremity. The patient is being closely monitored at this time. The patient is currently on 10 L high-flow oxygen. The patient received tocilizumab. The patient is also being treated with the usual current medications. Apixaban and ( ) were also started. PAST MEDICAL HISTORY: Reviewed. REVIEW OF SYSTEMS: CARDIOVASCULAR: No angina. RESPIRATORY: As mentioned earlier. GI: As mentioned earlier. : No dysuria. NEURO: No numbness or weakness. CURRENT MEDICATIONS: Reviewed include Ventolin, Eliquis, vitamin C, Tenormin, vitamin D3, Lasix Levaquin. Doses reviewed. PHYSICAL EXAMINATION: Patient is alert and oriented x2. Pulse 67, blood pressure 130/60, respiration 18, temperature normal, pulse ox 94% on 10 L high-flow oxygen. HEENT: Conjunctivae normal. Oral mucosa moist. NECK: No jugular venous distention. No lymph node enlargement. CARDIOVASCULAR: S1, S2, muffled. No S3, no S4, RESPIRATORY: Diminished breath sounds at the bases. Scattered rhonchi and crackles. ABDOMEN: Soft, nontender, obese. LEGS: Bilateral leg edema. NERVOUS SYSTEM: No focal deficits. LABS: WBC 8.2, hemoglobin 11.8, and D-dimer is 6.07. ASSESSMENT: 1. Acute COVID-19 infection with acute bilateral interstitial pneumonia with acute hypoxic respiratory failure with possible sepsis, present on admission with high- flow oxygen status post tocilizumab. 2. Right leg deep vein thrombosis. 3. Increased WBC. 4. Elevated D-dimer. 5. Thrombocytopenia. 6. Change in mental status, acute metabolic encephalopathy, multifactorial. 7. Lymphedema. 8. Rule out myelodysplastic syndrome with blasts in the peripheral smear. 9. Elevated PT/INR. 10.Hyponatremia. 11.Increased creatinine with mild acute tubular necrosis, acute renal failure, present on admission. 12.Increased random glucose. 13.Increased bilirubin. 14.Increased AST with troponin 0.06, indeterminate. 15.Elevated creatine kinase. 16.Hypertension. 17.History of prostate cancer. 18.History of rheumatic fever. 19.History of lymphedema. 20.History of tonsillectomy. 21.Cholelithiasis. 22.Morbid obesity with body mass index of 52.6. 23.FULL CODE. RECOMMENDATIONS AND DISCUSSION: I recommend to continue current medications, continue to monitor, continue symptomatic treatment. Otherwise, at this time continue with Eliquis. Continue the rest of medications. Continue bronchodilators. The patient is on extremely high level of oxygen. Prognosis guarded. Further recommendations to follow. We will repeat a chest x-ray as well. Chest CT showed cholelithiasis. A 2D echo with Doppler showed ejection fraction about 50-55%. MMODL / IJN: [id number] /
[2021-01-04] MEDS: LEVOFLOXACIN 750 MG TAB PO SCH (20:51)
[2021-01-05] MEDS: PANTOPRAZOLE 40 MG TABLET PO SCH ×2 (06:44→17:05)
[2021-01-05] MEDS: ALBUTEROL HFA INHALER INHALATION SCH ×5 (08:15→20:03)
[2021-01-05 09:32] LABS: African American GFR (CKD) >90 (>60 ml/min/1.73 sqM); Anion Gap 1 mmol/L; Blood Urea Nitrogen 39 mg/dL (9-20); Calcium 9.7 mg/dL (8.4-10.2); Carbon Dioxide 37 mmol/L (22-30); Chloride 102 mmol/L (98-107); Glucose 113 mg/dL (74-99); Non-African American GFR(CKD) 85 (>60 ml/min/1.73 sqM); Sodium 140 mmol/L (137-145)
[2021-01-05 09:34] LABS: HCT 38.3 % (39.0-53.0); HGB 12.8 gm/dL (13.0-17.5); MCH 30.9 pg (25.0-35.0); MCHC 33.4 g/dL (31.0-37.0); MCV 92.7 fL (80.0-100.0); Mean Platelet Volume 10.6; Platelet Count 82 k/uL (150-450); RBC 4.14 m/uL (4.30-5.90); RDW 13.4 % (11.5-15.5)
[2021-01-05] MEDS: ASCORBIC ACID 500 MG TAB PO SCH (09:34)
[2021-01-05] MEDS: POTASSIUM CHLORIDE ER 20 MEQ TAB.ER PO SCH (09:34)
[2021-01-05] MEDS: CHOLECALCIFEROL 25 MCG (1000 IU) TABLET PO SCH (09:34)
[2021-01-05] MEDS: FUROSEMIDE 40 MG TAB PO SCH ×2 (09:34→17:05)
[2021-01-05] MEDS: APIXABAN 5 MG TAB PO SCH ×2 (09:34→20:21)
[2021-01-05] MEDS: MULTIVITAMINS, THERA 1 EACH TAB PO SCH (09:34)
[2021-01-05] MEDS: ZINC SULFATE 220 MG CAP PO SCH (09:34)
[2021-01-05] MEDS: atenoloL 50 MG TAB PO SCH ×2 (09:34→20:22)
[2021-01-05] MEDS: DEXAMETHASONE SOD PHOSPHATE 10 MG/ML 1 ML VIAL IV SCH ×2 (09:35→20:22)
[2021-01-05 09:51] LABS: Potassium 6.5 mmol/L (3.5-5.1)
[2021-01-05 12:38] LABS: Band Neutrophils % 5 %; Eosinophils # (M) 0.12 k/uL (0-0.7); Metamyelocytes # (M) 0.18 k/uL (0); Metamyelocytes % 3 %; Monocytes # (M) 0.24 k/uL (0-1.0); Myelocytes # (M) 0.18 k/uL (0); Myelocytes % 3 %; Neutrophils % (M) 73 %; Nucleated Red Blood Cells 1 /100 WBC (0-0); Total Cells Counted 200
--- NOTE | 2021-01-05 12:40 | P.PN ---
Subjective Progress Note Date: 01/05/21 Principal diagnosis: Dyspnea, hypoxia, pneumonia 75-year-old male patient was being seen for acute hypoxic respiratory failure and COVID-19 associated pneumonia. The patient came into the emergency department because of worsening shortness of breath is been going on for the past month. He is not sure of the exact timing of his symptoms. He is been sick for several weeks probably a month or 2 according to him. He did not realize his breathing was this bad. On the day of his admission condition got worse to the point where he was unable to ambulate. He came into the hospital accordingly. Denies having any fever chills or sweats. Nevertheless, he was found to have a temperature of 101.2. Initial pulse ox was 62% on room air oxygen. He was placed on 100% on a beta facemask. No angina. No palpitations. Apparently has taken Alexandre e-channel Alexandre showed approximately a month ago. He has a white cell count of 11, lymphocyte count of 0.5, normal coagulation profile, d-dimer of 3.3, troponin 0.07, his proBNP level was 5860, sodium level was 133, BUN was 51 with a creatinine of 1.5. Lactic acid level was 1.8. 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 Other comorbidities include prostate cancer, obesity and chronic lower extremity edema/lymphedema with venous ulcers being treated at the wound center in the past. On 01/02/2021 patient seen in follow-up on selective care unit, he is awake and alert, oriented 3, he is currently on 15 L of oxygen has pulse ox is ranging between 90-94%, his been afebrile, hemodynamically has been stable. His CT chest without contrast was completed showing diffuse bilateral infiltrates related to possibility of ARDS and possibly pulmonary edema in the differential diagnosis. There was cholelithiasis noted. Patient is currently on Decadron 6 mg every 12 hours, he status post Tocilizumab 800 mg on 01/01/2021, later in the evening antibiotics in the form of Levaquin were added by ID service. Patient continues on his home dose of Lasix 40 mg twice daily. Today's labs have been reviewed showing white blood cell count of 11.9, hemoglobin is 12.4, his last d- dimer from a 12/31/2020 was 3.31, his electrolytes were unremarkable, BUN was 54, and creatinine has improved and is down to 1.2 on today's labs, his last LDH yesterday was 2110, and CRP was 22.7. On 01/03/2021 patient seen in follow-up on selective care unit. Patient is a bit more awake today, and a bit more interactive, she reports slight improvement in his breathing, he is still on high flow oxygen, currently on 15 L, his pulse ox is 94%, his status post Tocilizumab, and she remains on Decadron 6 mg twice daily. He is on oral Lasix 40 mg twice daily, she is also on Levaquin for possibility of underlying bacterial pneumonia, he has been afebrile, his blood pressure is been stable, no worsening dyspnea, no complaints of chest discomfort, or worsening cough. There is a echocardiogram that was completed sh owing low-normal EF of 50-55%, no evidence of aortic stenosis or aortic regurgitation, no mitral regurgitation. He remains on Lovenox 40 mg daily, his follow-up d-dimer has increased and is currently is at 6.07 on today's labs. He is urine Legionella antigen was found to be negative. His white count has improved and is down to 8.5, hemoglobin is 11.8, his platelet count is 90, CO2 is up to 35, the rest of the electrolytes are unremarkable, BUN is 46, creatinine is 1.15. On 01/04/2021 patient seen in follow-up on selective care unit. He is resting in bed, currently on 15 L of oxygen, pulse ox was 97%, with cutback his FiO2 to 10 L and patient continues with O2 saturations at 93-95%, no worsening dyspnea, he appears fatigued, but appears to be in no respiratory distress. Afebrile, hemodynamically stable. No chest discomfort, occasional cough. No phlegm production. Yesterday his d-dimer was found to be uptrending and was up to 6.07. Lower extremity Dopplers showed evidence of acute right leg DVT, yesterday we increased the patient's Lovenox to 50 mg twice daily. His follow-up d-dimer remains elevated at 6.17, patient also continues on Levaquin, oral Lasix, and Decadron 6 mg twice daily. Inflammatory markers are improving On 01/06/2000, patient seen in follow-up on selective care unit. He is resting comfortably in bed, FiO2 down to 6 L, pulse ox is 93%, he is afebrile, hemodynamically stable, he just appears weak and fatigued, but no evidence of any respiratory distress, lung sounds are diminished at the bases, occasional nonproductive cough, no hemoptysis, no chest discomfort. Remains on IV Decadron 6 mg twice daily, yesterday we started him on Eliquis for evidence of DVT in his right lower extremity. Lovenox has been discontinued, he remains on Levaquin fo r possibility of secondary bacterial infection. His inflammatory markers were improving, no acute events overnight. Objective - Vital Signs Vital signs: Vital Signs Temp 97.4 F L 01/05/21 08:00 Pulse 66 01/05/21 11:54 Resp 20 01/05/21 11:54 BP 136/81 01/05/21 11:54 Pulse Ox 90 L 01/05/21 11:54 Intake & Output 01/04/21 01/05/21 01/05/21 18:59 06:59 18:59 Intake Total 380 118 Output Total 450 2480 Balance -70 -2480 118 Weight 178 kg Intake: Intake, IV Titration 140 Amount Sodium Chloride 0.9% 1, 140 000 ml @ 20 mls/hr IV . Q24H [facility] [place] Rx#:[id number] Oral 240 118 Output: Urine 450 2480 Other: Voiding Method Indwelling Catheter Indwelling Catheter Indwelling Catheter - Exam GENERAL EXAM: Alert, pleasant, cooperative, 75-year-old morbidly obese white male, on 6 L of high flow oxygen, with a pulse ox of 93% comfortable in no apparent distress. HEAD: Normocephalic/atraumatic. EYES: Normal reaction of pupils, equal size. Conjunctiva pink, sclera white. NOSE: Clear with pink turbinates. THROAT: No erythema or exudates. NECK: No masses, no JVD, no thyroid enlargement, no adenopathy. CHEST: No chest wall deformity. Symmetrical expansion. LUNGS: Equal air entry with diminished breath sounds with diffuse crackles CVS: Regular rate and rhythm, normal S1 and S2, no gallops, no murmurs, no rubs ABDOMEN: Soft, nontender. No hepatosplenomegaly, normal bowel sounds, no guarding or rigidity. EXTREMITIES: No clubbing, chronic lower extremity edema with chronic lymphedema involving his feet no cyanosis, 2+ pulses and upper and lower extremities. MUSCULOSKELETAL: Muscle strength and tone normal. SPINE: No scoliosis or deformity SKIN: No rashes CENTRAL NERVOUS SYSTEM: Alert and oriented -3. No focal deficits, tone is normal in all 4 extremities. PSYCHIATRIC: Alert and oriented -3. Appropriate affect. Intact judgment and insight. - Labs CBC & Chem 7: 01/05/21 08:35 01/05/21 10:13 Labs: Abnormal Lab Results - Last 24 Hours (Table) 01/03/21 01/05/21 01/05/21 Range/Units 11:18 08:04 08:35 RBC 4.14 L (4.30-5.90) m/uL Hgb 12.8 L (13.0-17.5) gm/dL Hct 38.3 L (39.0-53.0) % Plt Count 82 L (150-450) k/uL Potassium 6.5 H* (3.5-5.1) mmol/L Carbon Dioxide 37 H (22-30) mmol/L BUN 39 H (9-20) mg/dL Glucose 113 H (74-99) mg/dL Vitamin B12 1334.0 H (200.0-944.0) pg/mL Microbiology - Last 24 Hours (Table) 01/01/21 19:37 Blood Culture - Preliminary Blood No Growth after 72 hours 12/31/20 13:06 Blood Culture - Preliminary Blood No Growth after 96 hours 12/31/20 13:06 Blood Culture - Preliminary Blood No Growth after 96 hours Assessment and Plan Plan: Assessment: #1. acute hypoxic respiratory failure currently on the percent nonrebreather facemask due to bilateral diffuse pneumonia attributed to COVID-19 infection. The exact onset of symptoms is not known as the patient is not clear when he started having the symptoms. Limited is been progressively getting worse over the past several weeks. He apparently took his Alexandre & Alexandre vaccination and end of November 2020. status post Tocilizumab on 01/01/2021, currently on Decadron 6 mg twice daily #2. acute COVID-19 infection, post vaccination with a Alexandre & Alexandre COVID-19 vaccine #3. shortness of breath secondary to above #4. acute kidney injury, likely secondary to intravascular volume depletion #5. chronic lymphedema involving lower extremities #6. obesity #7. 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 prostate cancer #9. chronic thrombocytopenia #10. Mildly elevated procalcitonin, Legionella pneumonia has been ruled out. Negative Legionella urine antigen #11. Elevated d-dimer, rule out possibility of DVT, Doppler of lower extremities has been ordered and pending at this time, in the meantime patient will continue on Lovenox, we will increase the dose to 50 mg subcutaneously twice daily Plan: Oxygenation is improving, and FiO2 is currently down to 6 L Continue weaning FiO2 to maintain O2 saturation at or above 90% Continue Decadron 6 milligram twice daily Continue oral Lasix Continue oral anticoagulation Inflammatory markers are improving Continue with Levaquin Follow-up chest x-ray in the morning We'll continue to closely follow his clinical course I performed a history & physical examination of the patient and discussed their management with my nurse practitioner, Barbara Juarez. I reviewed the nurse practitioner's note and agree with the documented findings and plan of care. Lung sounds are positive for diminished breath sounds. The findings and the impression was discussed with the patient. I attest to the documentation by the nurse practitioner. Time with Patient: Less than 30
[2021-01-05 12:42] LABS: Lymphocytes # (M) 0.78 k/uL (1.0-4.8)
[2021-01-05] MEDS: SODIUM CHLORIDE 0.9% 1,000 ML IV SCH (17:31)
--- NOTE | 2021-01-05 17:58 | P.PN ---
Subjective Progress Note Date: 01/05/21 Principal diagnosis: COVID and Thrombocytopenia Platelet count 82K today, family at bedside. No signs of bleeding. COntinue to monitor cbc and signs of DIC. Currently stable Objective - Vital Signs Vital signs: Vital Signs Temp 97.0 F L 01/05/21 16:00 Pulse 60 01/05/21 16:00 Resp 18 01/05/21 16:00 BP 141/65 01/05/21 16:00 Pulse Ox 91 L 01/05/21 16:00 Intake & Output 01/04/21 01/05/21 01/05/21 18:59 06:59 18:59 Intake Total 380 278 Output Total 450 2480 900 Balance -70 -2480 -622 Weight 178 kg 178 kg Intake: IV 160 Sodium Chloride 0.9% 1, 160 000 ml @ 20 mls/hr IV . Q24H [facility] Rx#:[id number] Intake, IV Titration 140 Amount Sodium Chloride 0.9% 1, 140 000 ml @ 20 mls/hr IV . Q24H [facility] Rx#:[id number] Oral 240 118 Output: Urine 450 2480 900 Other: Voiding Method Indwelling Catheter Indwelling Catheter Indwelling Catheter - Exam - Constitutional General appearance: cooperative, no acute distress - EENT Eyes: EOMI - Respiratory Respiratory: bilateral: diminished (hi flow oxygen) - Cardiovascular Rhythm: regularly irregular - Gastrointestinal General gastrointestinal: soft - Integumentary Integumentary: pale - Neurologic Neurologic: CNII-XII intact - Musculoskeletal Musculoskeletal: generalized weakness - Psychiatric Psychiatric: A&O x's 3, appropriate affect - Labs CBC & Chem 7: 01/05/21 08:35 01/05/21 10:13 Labs: Abnormal Lab Results - Last 24 Hours (Table) 01/05/21 01/05/21 Range/Units 08:04 08:35 RBC 4.14 L (4.30-5.90) m/uL Hgb 12.8 L (13.0-17.5) gm/dL Hct 38.3 L (39.0-53.0) % Plt Count 82 L (150-450) k/uL Lymphocytes # (Manual) 0.78 L (1.0-4.8) k/uL Metamyelocytes # (Man) 0.18 H (0) k/uL Myelocytes # (Manual) 0.18 H (0) k/uL Nucleated RBCs 1 H (0-0) /100 WBC Potassium 6.5 H* (3.5-5.1) mmol/L Carbon Dioxide 37 H (22-30) mmol/L BUN 39 H (9-20) mg/dL Glucose 113 H (74-99) mg/dL Microbiology - Last 24 Hours (Table) 12/31/20 13:06 Blood Culture - Preliminary Blood No Growth after 120 hours 12/31/20 13:06 Blood Culture - Preliminary Blood No Growth after 120 hours 01/01/21 19:37 Blood Culture - Preliminary Blood No Growth after 72 hours Assessment and Plan (1) Febrile illness, acute Current Visit: Yes Status: Acute Code(s): R50.9 - FEVER, UNSPECIFIED SNOMED Code(s): 755816008 (2) Lymphedema of both lower extremities Current Visit: No Status: Acute Code(s): I89.0 - LYMPHEDEMA, NOT ELSEWHERE CLASSIFIED SNOMED Code(s): 76321834273141460 (3) COVID-19 Current Visit: Yes Status: Acute Code(s): U07.1 - COVID-19 SNOMED Code(s): 476256541 Plan: Assessment and Recommendations: COVID-19: - Per ID, Pulmonary and Primary Teams Hypoxic Respiratory Failure due to COVID: - HIgh flow and this was improved slightly today with oxygenation >90% 6-7 lite rs Abnormal CBC with immature cells on peripheral blood - Patient cbc reveals myelocytes, blasts and other immature WBC that are likely representing a reactive scenario - Further work-up has been ordered and will continue to monitor and evaluate. Thrombocytopenia: - Likely secondary to COVID infection - Hold AC therapy if platelet count less than 50K - stable no intervention needed 82K today Monitor daily CBC, and for s/s DIC. Periodic D-dimer, COags
--- NOTE | 2021-01-05 18:53 | PN ---
PROGRESS NOTE DATE OF SERVICE: 01/05/2021 REASON FOR FOLLOWUP: Pneumonia. INTERVAL HISTORY: The patient is afebrile. The patient is breathing more comfortably. The patient down to 5 L nasal cannula. The patient denies having any chest pain. He did have a cough which is mostly dry in nature. No nausea, no vomiting. No abdominal pain. No diarrhea. PHYSICAL EXAMINATION: Blood pressure 136/81, pulse of 66, temperature 97.4. He is 90% on 5 L nasal cannula. General description is an elderly male lying in bed in no distress. Respiratory system: Unlabored breathing, decreased intensity of breath sounds. No wheeze. HEART: S1, S2. Regular rate and rhythm. ABDOMEN: Soft, no tenderness. LABS: Hemoglobin is 12.1, white count 6.0. Blood culture negative. Sputum unfortunately not obtained. DIAGNOSTIC IMPRESSION AND PLAN: Patient with acute COVID-19 pneumonia in this patient has received a dose of Actemra. Patient is currently on dexamethasone, Lovenox, zinc and ascorbic acid to continue along with respiratory support. Monitor clinical course closely. MMODL / IJN: [id number] /
--- NOTE | 2021-01-05 19:26 | PN ---
PROGRESS NOTE DATE OF SERVICE: 01/25/2021 This 75-year-old gentleman admitted with COVID-19 pneumonia also had acute hypoxic respiratory failure. The patient also had acute DVT. Patient is being closely monitored. No chest pain. No palpitations. No fever. The patient is saturating about 93% on 5 L high-flow. HEENT: Conjunctivae normal. Oral mucosa moist. NECK: No jugular venous distention. No lymph node enlargement. CARDIOVASCULAR: S1, S2, muffled. No S3, no S4, RESPIRATORY: Diminished breath sounds at the bases. A few scattered rhonchi. ABDOMEN: Soft, obese. LEGS: Bilateral leg edema. NERVOUS SYSTEM: No focal deficits. LABS: WBC 6, hemoglobin 12.8, potassium 6.3, improved to 4.8. ASSESSMENT: 1. Acute COVID-19 infection with acute bilateral interstitial pneumonia with acute hypoxic respiratory failure with possible sepsis present on admission, on the high- flow oxygen, status post tocilizumab. 2. Right leg acute DVT. 3. Gait dysfunction. 4. Increased WBC. 5. Elevated D-dimer. 6. Thrombocytopenia. 7. Change in mental status, acute metabolic encephalopathy, multifactorial. 8. Lymphedema. 9. Rule out myelodysplastic syndrome with blasts in the peripheral smear or due to COVID-19. 10.Elevated PT/INR. 11.Hyponatremia. 12.Increased creatinine with mild acute tubular necrosis acute renal failure, present on admission. 13.Increased random glucose. 14.Increased bilirubin. 15.Increased AST with troponin 0.06, indeterminate. 16.Elevated creatine kinase. 17.Hypertension. 18.History of prostate cancer. 19.History of rheumatic fever. 20.History of lymphedema. 21.History of tonsillectomy. 22.Cholelithiasis. 23.Morbid obesity with body mass index 52.6. 24.FULL CODE. RECOMMENDATIONS: Recommend to continue current management, continue symptomatic treatment. Continue the bronchodilators. Continue the rest of medications. Repeat labs. PT/OT evaluation, possible ECF re[facility]. Guarded prognosis. Further recommendations to follow. MMODL / IJN: [id number] /
[2021-01-05] MEDS: LEVOFLOXACIN 750 MG TAB PO SCH (20:21)
[2021-01-06] MEDS: PANTOPRAZOLE 40 MG TABLET PO SCH ×2 (06:15→17:00)
--- NOTE | 2021-01-06 07:33 | XR ---
EXAMINATION TYPE: XR chest 1V portable DATE OF EXAM: 01/06/2021 COMPARISON: 01/01/2021 HISTORY: Covid TECHNIQUE: Single frontal view of the chest is obtained. FINDINGS: There are diffuse interstitial and airspace opacities right greater than left but unchange d compared to the prior study. There is no pneumothorax. No definite large pleural effusions although small left effusion cannot be excluded. Heart size is normal. There is a 2-lead cardiac pacemaker. Osteophytic change of the left glenohumeral joint otherwise the osseous structures are intact IMPRESSION: Acute bilateral infiltrates unchanged compared to the prior study. Infiltrates are worse on the right than the left.
[2021-01-06] MEDS: CHOLECALCIFEROL 25 MCG (1000 IU) TABLET PO SCH (10:08)
[2021-01-06] MEDS: POTASSIUM CHLORIDE ER 20 MEQ TAB.ER PO SCH (10:08)
[2021-01-06] MEDS: ASCORBIC ACID 500 MG TAB PO SCH (10:08)
[2021-01-06] MEDS: FUROSEMIDE 40 MG TAB PO SCH ×2 (10:09→17:00)
[2021-01-06] MEDS: atenoloL 50 MG TAB PO SCH ×2 (10:09→21:03)
[2021-01-06] MEDS: ZINC SULFATE 220 MG CAP PO SCH (10:09)
[2021-01-06] MEDS: DEXAMETHASONE SOD PHOSPHATE 10 MG/ML 1 ML VIAL IV SCH ×2 (10:09→21:03)
[2021-01-06] MEDS: APIXABAN 5 MG TAB PO SCH ×2 (10:09→21:03)
[2021-01-06] MEDS: MULTIVITAMINS, THERA 1 EACH TAB PO SCH (10:09)
[2021-01-06 10:50] LABS: HCT 39.5 % (39.0-53.0); HGB 12.7 gm/dL (13.0-17.5); MCH 29.5 pg (25.0-35.0); MCHC 32.1 g/dL (31.0-37.0); MCV 92.1 fL (80.0-100.0); Mean Platelet Volume 10.9; Platelet Count 107 k/uL (150-450); RBC 4.29 m/uL (4.30-5.90)
[2021-01-06 10:59] LABS: INR 1.4 (<1.2); Partial Thromboplastin Time 24.9 sec (22.0-30.0); Prothrombin Time 14.4 sec (9.0-12.0)
[2021-01-06] MEDS: ALBUTEROL HFA INHALER INHALATION SCH ×3 (11:09→19:11)
--- NOTE | 2021-01-06 12:19 | P.PN ---
Subjective Progress Note Date: 01/06/21 Principal diagnosis: COVID-19 pneumonia 75-year-old male patient was being seen for acute hypoxic respiratory failure and COVID-19 associated pneumonia. The patient came into the emergency department because of worsening shortness of breath is been going on for the past month. He is not sure of the exact timing of his symptoms. He is been sick for several weeks probably a month or 2 according to him. He did not realize his breathing was this bad. On the day of his admission condition got worse to the point where he was unable to ambulate. He came into the hospital accordingly. Denies having any fever chills or sweats. Nevertheless, he was found to have a temperature of 101.2. Initial pulse ox was 62% on room air oxygen. He was placed on 100% on a beta facemask. No angina. No palpitations. Apparently has taken Alexandre [employer] Alexandre showed approximately a month ago. He has a white cell count of 11, lymphocyte count of 0.5, normal coagulation profile, d-dimer of 3.3, troponin 0.07, his proBNP level was 5860, sodium level was 133, BUN was 51 with a creatinine of 1.5. Lactic acid level was 1.8. 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 Other comorbidities include prostate cancer, obesity and chronic lower extremity edema/lymphedema with venous ulcers being treated at the wound center in the past. On 01/02/2021 patient seen in follow-up on selective care unit, he is awake and alert, oriented 3, he is currently on 15 L of oxygen has pulse ox is ranging between 90-94%, his been afebrile, hemodynamically has been stable. His CT chest without contrast was completed showing diffuse bilateral infiltrates related to possibility of ARDS and possibly pulmonary edema in the differential diagnosis. There was cholelithiasis noted. Patient is currently on Decadron 6 mg every 12 hours, he status post Tocilizumab 800 mg on 01/01/2021, later in the evening antibiotics in the form of Levaquin were added by ID service. Patient continues on his home dose of Lasix 40 mg twice daily. Today's labs have been reviewed showing white blood cell count of 11.9, hemoglobin is 12.4, his last d- dimer from a 12/31/2020 was 3.31, his electrolytes were unremarkable, BUN was 54, and creatinine has improved and is down to 1.2 on today's labs, his last LDH yesterday was 2110, and CRP was 22.7. On 01/03/2021 patient seen in follow-up on selective care unit. Patient is a bit more awake today, and a bit more interactive, she reports slight improvement in his breathing, he is still on high flow oxygen, currently on 15 L, his pulse ox is 94%, his status post Tocilizumab, and she remains on Decadron 6 mg twice daily. He is on oral Lasix 40 mg twice daily, she is also on Levaquin for possibility of underlying bacterial pneumonia, he has been afebrile, his blood pressure is been stable, no worsening dyspnea, no complaints of chest discomfort, or worsening cough. There is a echocardiogram that was completed showing low-normal EF of 50-55%, no evidence of aortic stenosis or aortic regurgitation, no mitral regurgitation. He remains on Lovenox 40 mg daily, his follow-up d-dimer has increased and is currently is at 6.07 on today's labs. He is urine Legionella antigen was found to be negative. His white count has improved and is down to 8.5, hemoglobin is 11.8, his platelet count is 90, CO2 is up to 35, the rest of the electrolytes are unremarkable, BUN is 46, creatinine is 1.15. On 01/04/2021 patient seen in follow-up on selective care unit. He is resting in bed, currently on 15 L of oxygen, pulse ox was 97%, with cutback his FiO2 to 10 L and patient continues with O2 saturations at 93-95%, no worsening dyspnea, he appears fatigued, but appears to be in no respiratory distress. Afebrile, hemodynamically stable. No chest discomfort, occasional cough. No phlegm production. Yesterday his d-dimer was found to be uptrending and was up to 6.07. Lower extremity Dopplers showed evidence of acute right leg DVT, yesterday we increased the patient's Lovenox to 50 mg twice daily. His follow- up d-dimer remains elevated at 6.17, patient also continues on Levaquin, oral Lasix, and Decadron 6 mg twice daily. Inflammatory markers are improving On 01/06/2000, patient seen in follow-up on selective care unit. He is resting comfortably in bed, FiO2 down to 6 L, pulse ox is 93%, he is afebrile, hemody namically stable, he just appears weak and fatigued, but no evidence of any respiratory distress, lung sounds are diminished at the bases, occasional nonproductive cough, no hemoptysis, no chest discomfort. Remains on IV Decadron 6 mg twice daily, yesterday we started him on Eliquis for evidence of DVT in his right lower extremity. Lovenox has been discontinued, he remains on Levaquin for possibility of secondary bacterial infection. His inflammatory markers were improving, no acute events overnight. The patient is seen today 01/06/2021 in follow-up on the selective care unit. He is currently sitting up in bed. Awake and alert in no acute distress. He is breathing easier today compared to yesterday. Continues with a loose nonproductive cough. He is maintaining O2 saturations in the low 90s on 5 L high flow nasal cannula. He's afebrile. Hemodynamically stable. Chest x-ray reveals acute bilateral infiltrates right greater than left, unchanged compared to previous. Blood cultures reveal no growth. White count 8.4. Hemoglobin 12.7. Platelets 107. INR 1.4. D-dimer 4.98. He is anticoagulated with Eliquis. Remains on Decadron, vitamin supplements. Antibiotics in the form of Levaquin. Working well with the incentive spirometer. Pulling approximately 1000 mls. Objective - Vital Signs Vital signs: Vital Signs Temp 97.0 F L 01/06/21 10:03 Pulse 63 01/06/21 10:03 Resp 18 01/06/21 10:03 BP 118/59 01/06/21 10:03 Pulse Ox 92 L 01/06/21 10:03 Intake & Output 01/05/21 01/06/21 01/06/21 18:59 06:59 18:59 Intake Total 396 118 Output Total 900 820 Balance -504 -820 118 Weight 178 kg 181 kg Intake: IV 160 Sodium Chloride 0.9% 1, 160 000 ml @ 20 mls/hr IV . Q24H [facility] Rx#:[id number] Oral 236 118 Output: Urine 900 820 Other: Voiding Method Indwelling Catheter Indwelling Catheter Indwelling Catheter - Exam GENERAL EXAM: Alert, pleasant 75-year-old morbidly obese male patient, on 5 L of high flow oxygen, with a pulse ox of 92% comfortable in no apparent distress. HEAD: Normocephalic/atraumatic. EYES: Normal reaction of pupils, equal size. Conjunctiva pink, sclera white. NOSE: Clear with pink turbinates. THROAT: No erythema or exudates. NECK: No masses, no JVD, no thyroid enlargement, no adenopathy. CHEST: No chest wall deformity. Symmetrical expansion. LUNGS: Equal air entry with diminished breath sounds with diffuse crackles CVS: Regular rate and rhythm, normal S1 and S2, no gallops, no murmurs, no rubs ABDOMEN: Soft, nontender. No hepatosplenomegaly, normal bowel sounds, no guarding or rigidity. EXTREMITIES: No clubbing, chronic lower extremity edema with chronic lymphedema involving his feet no cyanosis, 2+ pulses and upper and lower extremities. MUSCULOSKELETAL: Muscle strength and tone normal. SPINE: No scoliosis or deformity SKIN: No rashes CENTRAL NERVOUS SYSTEM: No focal deficits, tone is normal in all 4 extremities. PSYCHIATRIC: Alert and oriented -3. Appropriate affect. Intact judgment and insight. - Labs CBC & Chem 7: 01/06/21 09:46 01/05/21 10:13 Labs: Abnormal Lab Results - Last 24 Hours (Table) 01/05/21 01/06/21 01/06/21 Range/Units 08:35 09:46 09:46 RBC 4.29 L (4.30-5.90) m/uL Hgb 12.7 L (13.0-17.5) gm/dL Plt Count 107 L (150-450) k/uL Lymphocytes # (Manual) 0.78 L (1.0-4.8) k/uL Metamyelocytes # (Man) 0.18 H (0) k/uL Myelocytes # (Manual) 0.18 H (0) k/uL Nucleated RBCs 1 H (0-0) /100 WBC PT 14.4 H (9.0-12.0) sec INR 1.4 H (<1.2) D-Dimer 4.98 H (<0.60) mg/L FEU Microbiology - Last 24 Hours (Table) 01/01/21 19:37 Blood Culture - Preliminary Blood No Growth after 96 hours 12/31/20 13:06 Blood Culture - Preliminary Blood No Growth after 120 hours 12/31/20 13:06 Blood Culture - Preliminary Blood No Growth after 120 hours Assessment and Plan Assessment: 1 Acute hypoxic respiratory failure currently on the percent nonrebreather facemask due to bilateral diffuse pneumonia attributed to COVID-19 infection. The exact onset of symptoms is not known as the patient is not clear when he started having the symptoms. Limited is been progressively getting worse over the past several weeks. He apparently took his Alexandre [employer] Alexandre vaccination and end of November 2020. status post Tocilizumab on 01/01/2021, currently on Decadron 6 mg twice daily 2 Acute COVID-19 infection, post vaccination with a [employer]re COVID-19 vaccine 3 Shortness of breath secondary to above 4 Acute kidney injury, likely secondary to intravascular volume depletion 5 Chronic lymphedema involving lower extremities 6 Obesity 7 History of SVT post-ablation, post ablation induced bradyarrhythmia requiring permanent pacemaker insertion 8 Prostate cancer 9 Chronic thrombocytopenia 10 Mildly elevated procalcitonin, Legionella pneumonia has been ruled out. Negative Legionella urine antigen 11 Elevated d-dimer, positive for right lower extremity DVT, anticoagulated with Eliquis Plan: The patient was seen and evaluated by Dr. South Oxygen requirements continued to improve Continue Decadron, Eliquis, vitamin supplement Remains on antibiotics in the form of Levaquin Continue diuretics Increase his activity as tolerate Encourage increased use of the incentive spirometer We will continue to follow I, the cosigning physician, performed a history & physical examination of the patient. Lungs sounds bibasilar crackles. Maintaining good O2 saturations in the 90s on 5 L high flow nasal cannula. I discussed the assessment and plan of care with my nurse practitioner, Coral Epps. I attest to the above note as dictated by her.
--- NOTE | 2021-01-06 12:25 | PN ---
PROGRESS NOTE DATE OF SERVICE: 01/06/2021 CHIEF COMPLAINT: Short of breath. INTERVAL HISTORY: Viraj is seen today as a followup. He still has some shortness of breath, but overall he feels better. No fever or chills. His shortness of breath is better and his cough is better. CURRENT MEDICATION: Reviewed in electronic medical records. PHYSICAL EXAMINATION: He is alert and x3. No distress. Temperature 98, afebrile, pulse 63, regular, respirations 18, blood pressure 118/59. HEENT: Normocephalic, atraumatic. CHEST: Equal expansion bilaterally. LUNGS: Clear. HEART: Regular. ABDOMEN: Soft. EXTREMITIES: Reveal trace edema. LABORATORY DATA: From today, WBC of 6.0, hemoglobin 12.8, hematocrit 38.1, platelets are 82. IMPRESSION: Thrombocytopenia and also he has a left shift on his peripheral blood smear. Although this all could be related to recent COVID-19 infection however his left shift on peripheral smear is also concerning that he may have underlying bone marrow pathologies such as in particular myelodysplastic syndrome. Upon reviewing the previous blood count in his electronic medical records, he has had thrombocytopenia even prior to his diagnosis of COVID-19. His platelet count back in May of 2020 was 77 as well. Based on that I believed he would require further outpatient workup to rule out underlying myelodysplastic syndrome. Once the patient is fully recovered from COVID- 19, we can evaluate him in the outpatient setting and consider a bone marrow evaluation. The above was discussed in detail with the patient. I have answered all his questions. MMODL / IJN: [id number] /
[2021-01-06 14:27] LABS: Band Neutrophils % 3 %; Metamyelocytes # (M) 0.25 k/uL (0); Metamyelocytes % 3 %; Myelocytes % 9 %; Neutrophils % (M) 65 %; Nucleated Red Blood Cells 1 /100 WBC (0-0); Total Cells Counted 200
[2021-01-06 14:28] LABS: Lymphocytes # (M) 0.75 k/uL (1.0-4.8); Myelocytes # (M) 0.75 k/uL (0); WBC 8.3 k/uL (3.8-10.6)
[2021-01-06] MEDS: SODIUM CHLORIDE 0.9% 1,000 ML IV SCH (17:00)
--- NOTE | 2021-01-06 17:26 | PN ---
PROGRESS NOTE DATE OF SERVICE: 01/06/2021. HISTORY: This 75-year-old gentleman was admitted with acute recurrent pneumonia with acute respiratory failure. Most recent chest x-ray showed acute bilateral interstitial shadows highly suggestive of COVID-19. The patient has also had gait dysfunction. PT/OT evaluated the patient for possible ECF rehab at this time. Dr. Taylor is following the patient regarding left as well as possible myelodysplastic syndrome. Recommend outpatient followup. No chest pain. No palpitations. No fever. PHYSICAL EXAMINATION: Alert, oriented x3. VITAL SIGNS: Pulse 61, blood pressure 120/56, respirations 18, temperature 97.9, pulse ox 98% on 8 L. HEENT: Normocephalic. NECK: No lymph node enlargement. CHEST: Respirations diminished at the bases. Bilateral scattered rhonchi and crackles. ABDOMEN: Soft nontender. NERVOUS: No focal deficits. LABS: D-dimer is 4.98. ASSESSMENT: 1. Acute COVID-19 infection with bilateral interstitial pneumonia with acute hypoxic respiratory failure with possible sepsis present on admission, on high-flow oxygen, status post . 2. Right leg acute DVT. 3. Gait dysfunction. 4. Increased WBC. 5. Elevated D-dimer. 6. Thrombocytopenia. 7. Change in mental status secondary to metabolic encephalopathy multifactorial. 8. Lymphedema of bilateral legs. 9. Possible myelodysplastic syndrome with blast with left-shift in the peripheral smear or hematology changes due to. 10.Elevated PT/INR. 11.Hyponatremia. 12.Increased creatinine with mild acute tubular necrosis with acute renal failure present on admission. 13.Increased random glucose. 14.Increased bilirubin. 15.Increased AST with troponin 0.06 indeterminate. 16.Elevated creatine kinase. 17.Hypertension. 18.History of prostate cancer. 19.History of rheumatic fever. 20.History of lymphedema. 21.History of tonsillectomy. 22.Cholelithiasis. 23.Morbid obesity with body mass index of 50.6. 24.Full code. RECOMMENDATIONS: Continue current management and treatment. Otherwise at this time PT OT evaluation. Potassium improved to 4.8. Repeat labs in the morning. Otherwise possible ECF rehab per Dr. Taylor's opinion. The patient will require outpatient followup regarding evaluation for MDS and peripheral smear which might include a bone marrow. Otherwise, currently we are working with the patient for possible ECF rehab. Prognosis extremely guarded. Patient is on high-flow oxygen as mentioned earlier, but symptomatically the patient seems to be slightly better from time of admission and sensorium is also improved. MMODL / IJN: [id number] / MTDD
--- NOTE | 2021-01-06 19:50 | PN ---
PROGRESS NOTE DATE OF SERVICE: 01/06/2021 REASON FOR FOLLOWUP: COVID-19 pneumonia. INTERVAL HISTORY: Patient is afebrile. The patient is breathing more comfortably today. The patient denies having any chest pain. He did have a cough, not bringing up any sputum. No vomiting. No abdominal pain or diarrhea. PHYSICAL EXAMINATION: Blood pressure is 118/59, pulse of 73, temperature 97. He is 92% on 2 L nasal cannula. General description is an elderly male lying in in no distress. Respiratory system: Unlabored breathing with diminished breath sounds on the bases. Heart: S1-S2 regular rate and rhythm. ABDOMEN: Soft, no tenderness. EXTREMITIES: 2+ edema. LABS: Hemoglobin is 12.1, white count 8.3. DIAGNOSTIC IMPRESSION AND PLAN: Patient with acute pneumonia secondary to Covid 19 infection, has received a dose of Actemra, currently on Dexamethasone, Eliquis, zinc and ascorbic acid. Continue along with respiratory support. Monitor clinical course closely. Continue supportive care. MMODL / IJN: [id number] /
[2021-01-06] MEDS: LEVOFLOXACIN 750 MG TAB PO SCH (21:03)
[2021-01-07] MEDS: PANTOPRAZOLE 40 MG TABLET PO SCH ×2 (06:48→17:42)
[2021-01-07] MEDS: ALBUTEROL HFA INHALER INHALATION SCH ×4 (07:43→21:15)
[2021-01-07] MEDS: POTASSIUM CHLORIDE ER 20 MEQ TAB.ER PO SCH (08:27)
[2021-01-07] MEDS: MULTIVITAMINS, THERA 1 EACH TAB PO SCH (08:27)
[2021-01-07] MEDS: FUROSEMIDE 40 MG TAB PO SCH ×2 (08:27→17:42)
[2021-01-07] MEDS: CHOLECALCIFEROL 25 MCG (1000 IU) TABLET PO SCH (08:27)
[2021-01-07] MEDS: atenoloL 50 MG TAB PO SCH ×2 (08:27→21:04)
[2021-01-07] MEDS: ZINC SULFATE 220 MG CAP PO SCH (08:27)
[2021-01-07] MEDS: ASCORBIC ACID 500 MG TAB PO SCH (08:27)
[2021-01-07] MEDS: APIXABAN 5 MG TAB PO SCH ×2 (08:28→21:04)
[2021-01-07 08:55] LABS: Potassium 4.6 mmol/L (3.5-5.1)
[2021-01-07 08:56] LABS: Calcium 10.1 mg/dL (8.4-10.2)
[2021-01-07 09:19] LABS: HCT 41.1 % (39.0-53.0); MCH 29.4 pg (25.0-35.0); MCHC 31.7 g/dL (31.0-37.0); MCV 92.7 fL (80.0-100.0); Platelet Count 107 k/uL (150-450); RBC 4.43 m/uL (4.30-5.90); RDW 14.1 % (11.5-15.5); WBC 9.5 k/uL (3.8-10.6)
[2021-01-07 10:23] LABS: Band Neutrophils % 5 %; Lymphocytes # (M) 1.05 k/uL (1.0-4.8); Metamyelocytes # (M) 0.48 k/uL (0); Metamyelocytes % 5 %; Monocytes # (M) 0.57 k/uL (0-1.0); Myelocytes # (M) 0.57 k/uL (0); Myelocytes % 6 %; Neutrophils % (M) 68 %; Nucleated Red Blood Cells 0 /100 WBC (0-0); Total Cells Counted 200
[2021-01-07] MEDS: DEXAMETHASONE SOD PHOSPHATE 10 MG/ML 1 ML VIAL IV SCH ×2 (10:27→21:04)
--- NOTE | 2021-01-07 13:36 | P.PN ---
Subjective Progress Note Date: 01/07/21 Principal diagnosis: COVID-19 pneumonia 75-year-old male patient was being seen for acute hypoxic respiratory failure and COVID-19 associated pneumonia. The patient came into the emergency department because of worsening shortness of breath is been going on for the past month. He is not sure of the exact timing of his symptoms. He is been sick for several weeks probably a month or 2 according to him. He did not realize his breathing was this bad. On the day of his admission condition got worse to the point where he was unable to ambulate. He came into the hospital accordingly. Denies having any fever chills or sweats. Nevertheless, he was found to have a temperature of 101.2. Initial pulse ox was 62% on room air oxygen. He was placed on 100% on a beta facemask. No angina. No palpitations. Apparently has taken [employer] showed approximately a month ago. He has a white cell count of 11, lymphocyte count of 0.5, normal coagulation profile, d-dimer of 3.3, troponin 0.07, his proBNP level was 5860, sodium level was 133, BUN was 51 with a creatinine of 1.5. Lactic acid level was 1.8. 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 Other comorbidities include prostate cancer, obesity and chronic lower extremity edema/lymphedema with venous ulcers being treated at the wound center in the past. On 01/02/2021 patient seen in follow-up on selective care unit, he is awake and alert, oriented 3, he is currently on 15 L of oxygen has pulse ox is ranging between 90-94%, his been afebrile, hemodynamically has been stable. His CT chest without contrast was completed showing diffuse bilateral infiltrates related to possibility of ARDS and possibly pulmonary edema in the differential diagnosis. There was cholelithiasis noted. Patient is currently on Decadron 6 mg every 12 hours, he status post Tocilizumab 800 mg on 01/01/2021, later in the evening antibiotics in the form of Levaquin were added by ID service. Patient continues on his home dose of Lasix 40 mg twice daily. Today's labs have been reviewed showing white blood cell count of 11.9, hemoglobin is 12.4, his last d- dimer from a 12/31/2020 was 3.31, his electrolytes were unremarkable, BUN was 54, and creatinine has improved and is down to 1.2 on today's labs, his last LDH yesterday was 2110, and CRP was 22.7. On 01/03/2021 patient seen in follow-up on selective care unit. Patient is a bit more awake today, and a bit more interactive, she reports slight improvement in his breathing, he is still on high flow oxygen, currently on 15 L, his pulse ox is 94%, his status post Tocilizumab, and she remains on Decadron 6 mg twice daily. He is on oral Lasix 40 mg twice daily, she is also on Levaquin for possibility of underlying bacterial pneumonia, he has been afebrile, his blood pressure is been stable, no worsening dyspnea, no complaints of chest discomfort, or worsening cough. There is a echocardiogram that was completed showing low-normal EF of 50-55%, no evidence of aortic stenosis or aortic regurgitation, no mitral regurgitation. He remains on Lovenox 40 mg daily, his follow-up d-dimer has increased and is currently is at 6.07 on today's labs. He is urine Legionella antigen was found to be negative. His white count has improved and is down to 8.5, hemoglobin is 11.8, his platelet count is 90, CO2 is up to 35, the rest of the electrolytes are unremarkable, BUN is 46, creatinine is 1.15. On 01/04/2021 patient seen in follow-up on selective care unit. He is resting in bed, currently on 15 L of oxygen, pulse ox was 97%, with cutback his FiO2 to 10 L and patient continues with O2 saturations at 93-95%, no worsening dyspnea, he appears fatigued, but appears to be in no respiratory distress. Afebrile, hemodynamically stable. No chest discomfort, occasional cough. No phlegm production. Yesterday his d-dimer was found to be uptrending and was up to 6.07. Lower extremity Dopplers showed evidence of acute right leg DVT, yesterday we increased the patient's Lovenox to 50 mg twice daily. His follow- up d-dimer remains elevated at 6.17, patient also continues on Levaquin, oral Lasix, and Decadron 6 mg twice daily. Inflammatory markers are improving On 01/06/2000, patient seen in follow-up on selective care unit. He is resting comfortably in bed, FiO2 down to 6 L, pulse ox is 93%, he is afebrile, hemody namically stable, he just appears weak and fatigued, but no evidence of any respiratory distress, lung sounds are diminished at the bases, occasional nonproductive cough, no hemoptysis, no chest discomfort. Remains on IV Decadron 6 mg twice daily, yesterday we started him on Eliquis for evidence of DVT in his right lower extremity. Lovenox has been discontinued, he remains on Levaquin for possibility of secondary bacterial infection. His inflammatory markers were improving, no acute events overnight. The patient is seen today 01/06/2021 in follow-up on the selective care unit. He is currently sitting up in bed. Awake and alert in no acute distress. He is breathing easier today compared to yesterday. Continues with a loose nonproductive cough. He is maintaining O2 saturations in the low 90s on 5 L high flow nasal cannula. He's afebrile. Hemodynamically stable. Chest x-ray reveals acute bilateral infiltrates right greater than left, unchanged compared to previous. Blood cultures reveal no growth. White count 8.4. Hemoglobin 12.7. Platelets 107. INR 1.4. D-dimer 4.98. He is anticoagulated with Eliquis. Remains on Decadron, vitamin supplements. Antibiotics in the form of Levaquin. Working well with the incentive spirometer. Pulling approximately 1000 mls. The patient is seen today 01/07/2021 in follow-up on the selective care unit. Remains awake, alert in no acute distress. He is requiring 8 L high flow nasal cannula to maintain O2 saturation in the 90s. He has a loose nonproductive cough. Working with the incentive spirometer. No fever, chills or night sweats. Blood cultures reveal no growth. White count 9.5. Hemoglobin 13.0. Platelets 107. Lymphocytes 1.05. D-dimer 4.98. Sodium 136. Potassium 4.6. Creatinine 1.11. He remains on dexamethasone, Eliquis, vitamin supplements. Antibiotics in the form of Levaquin. Objective - Vital Signs Vital signs: Vital Signs Temp 97.5 F L 01/07/21 08:05 Pulse 61 01/07/21 08:05 Resp 20 01/07/21 08:05 BP 118/56 01/07/21 08:05 Pulse Ox 94 L 01/07/21 08:05 Intake & Output 01/06/21 01/07/21 01/07/21 18:59 06:59 18:59 Intake Total 354 240 Output Total 200 2440 250 Balance 154 -2440 -10 Weight 180.5 kg Intake: Oral 354 240 Output: Urine 200 2440 250 Other: Voiding Method Indwelling Catheter Indwelling Catheter Indwelling Catheter - Exam GENERAL EXAM: Alert, pleasant 75-year-old morbidly obese male patient, on 8 L of high flow oxygen, with a pulse ox of 94% comfortable in no apparent distress. HEAD: Normocephalic/atraumatic. EYES: Normal reaction of pupils, equal size. Conjunctiva pink, sclera white. NOSE: Clear with pink turbinates. THROAT: No erythema or exudates. NECK: No masses, no JVD, no thyroid enlargement, no adenopathy. CHEST: No chest wall deformity. Symmetrical expansion. LUNGS: Equal air entry with diminished breath sounds with diffuse crackles CVS: Regular rate and rhythm, normal S1 and S2, no gallops, no murmurs, no rubs ABDOMEN: Soft, nontender. No hepatosplenomegaly, normal bowel sounds, no guar ding or rigidity. EXTREMITIES: No clubbing, chronic lower extremity edema with chronic lymphedema involving his feet no cyanosis, 2+ pulses and upper and lower extremities. MUSCULOSKELETAL: Muscle strength and tone normal. SPINE: No scoliosis or deformity SKIN: No rashes CENTRAL NERVOUS SYSTEM: No focal deficits, tone is normal in all 4 extremities. PSYCHIATRIC: Alert and oriented -3. Appropriate affect. Intact judgment and insight. - Labs CBC & Chem 7: 01/07/21 08:08 01/07/21 08:08 Labs: Abnormal Lab Results - Last 24 Hours (Table) 01/06/21 01/07/21 01/07/21 Range/Units 09:46 08:08 08:08 Plt Count 107 L (150-450) k/uL Lymphocytes # (Manual) 0.75 L (1.0-4.8) k/uL Metamyelocytes # (Man) 0.25 H 0.48 H (0) k/uL Myelocytes # (Manual) 0.75 H 0.57 H (0) k/uL Nucleated RBCs 1 H (0-0) /100 WBC Sodium 136 L (137-145) mmol/L Chloride 94 L (98-107) mmol/L Carbon Dioxide 39 H (22-30) mmol/L BUN 40 H (9-20) mg/dL Glucose 123 H (74-99) mg/dL Microbiology - Last 24 Hours (Table) 01/01/21 19:37 Blood Culture - Preliminary Blood No Growth after 120 hours 12/31/20 13:06 Blood Culture - Final Blood No Growth after 144 hours 12/31/20 13:06 Blood Culture - Final Blood No Growth after 144 hours Assessment and Plan Assessment: 1 Acute hypoxic respiratory failure currently on the percent nonrebreather facemask due to bilateral diffuse pneumonia attributed to COVID-19 infection. The exact onset of symptoms is not known as the patient is not clear when he started having the symptoms. Limited is been progressively getting worse over the past several weeks. He apparently took his [employer] vaccination and end of November 2020. 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 Negative Legionella urine antigen 11 Elevated d-dimer, positive for right lower extremity DVT, anticoagulated with Eliquis Plan: The patient was seen and evaluated by Dr. South Oxygen requirements waxing and waning Back up to 8 L high flow nasal cannula Continue Decadron, Eliquis, vitamin supplement Remains on antibiotics in the form of Levaquin Continue diuretics Increase his activity as tolerated Increase use of the incentive spirometer We will continue to follow I, the cosigning physician, performed a history & physical examination of the patient. Lungs sounds bibasilar crackles. Maintaining good O2 saturations in the 90s on 8 L high flow nasal cannula. I discussed the assessment and plan of care with my nurse practitioner, Coral Epps. I attest to the above note as dictated by her.
[2021-01-07] MEDS: SODIUM CHLORIDE 0.9% 1,000 ML IV SCH (16:28)
--- NOTE | 2021-01-07 18:45 | PN ---
PROGRESS NOTE DATE OF SERVICE: 01/07/2021 REASON FOR FOLLOWUP: COVID-19 pneumonia. INTERVAL HISTORY: Patient is afebrile. The patient is breathing comfortably on nasal cannula oxygen. Patient denies having any chest pain. He did have a cough, not bringing any sputum. No vomiting. No abdominal pain. No diarrhea. PHYSICAL EXAMINATION: Blood pressure is 118/56, pulse of 61. Temperature 97.5. He is 94% on 2 L nasal cannula. General description is an elderly male lying in bed in no distress. Respiratory system: Unlabored breathing with diminished breath sounds. Occasional crackles. Heart S1-S2 regular rate and rhythm. Abdomen: Soft. No tenderness. LABS: Hemoglobin 13.1, white count 9.5, BUN of 40, creatinine 1.11. DIAGNOSTIC IMPRESSION/PLAN: Patient with acute COVID-19 pneumonia in this patient seems to have shown overall clinical improvement, has received dose of Actemra. Currently on dexamethasone, Eliquis, zinc and ascorbic acid to continue and monitor clinical course closely. Continue supportive care. MMODL / IJN: [id number] /
--- NOTE | 2021-01-07 20:39 | PN ---
PROGRESS NOTE DATE OF SERVICE: 01/07/2021 INTERVAL HISTORY: This is a 75-year-old gentleman who was admitted with acute COVID-19 infection with bilateral interstitial pneumonia and acute hypoxic respiratory failure is being closely monitored at this time. No chest pain. No palpitations. No fever. The patient is requiring about 8 L nasal cannula. Chest x-ray noted. No chest. No palpitations. No fever. The patient is being closely monitored. PT OT to evaluate the patient for possible ECF rehab. PHYSICAL EXAMINATION: GENERAL: Patient is alert and oriented times three. VITAL SIGNS: Pulse 64, blood pressure 136/70, respirations 20, temperature 98.1, pulse ox 94% on 6 liters. HEENT: Conjunctivae normal. NECK: No jugular venous distention. No carotid bruits. No lymph node enlargement. RESPIRATORY: Breath sounds diminished at the bases. A few scattered rhonchi and crackles. HEART: S1 and S2, muffled. ABDOMEN: Soft, no tenderness. EXTREMITIES: No edema, no swelling. NERVOUS: No focal deficits. LAB: D-dimer is 4.98, otherwise other labs are noted. Potassium is improved to 4.6, sodium 133. ASSESSMENT: 1. Acute COVID-19 infection with bilateral interstitial pneumonia with acute hypoxic respiratory failure with possible sepsis present on admission, high-flow oxygen, status post. 2. Right leg the acute deep venous thrombosis. 3. Gait dysfunction. 4. Increased WBC. 5. Elevated D-dimer. 6. Thrombocytopenia. 7. Change in mental status secondary to acute metabolic encephalopathy, multifactorial. 8. Lymphedema of bilateral legs. 9. Possible myelodysplastic syndrome with blast and left-shifted in the peripheral smear or hematology changes due to COVID-19. 10.Elevated PT/INR. 11.Hyponatremia. 12.Increased creatinine with mild acute tubular necrosis, acute renal failure present on admission. 13.Increased random blood glucose. 14.Increased bilirubin. 15.Increased AST with troponin 0.06, indeterminate. 16.Elevated creatine kinase. 17.Hypertension. 18.History of prostate cancer. 19.History of rheumatic fever. 20.History of lymphedema. 21.History of tonsillectomy. 22.History of cholelithiasis. 23.Morbid obesity with body mass index of 50.6. 24.FULL CODE. RECOMMENDATION AND DISCUSSION: Continue current management and continue symptomatic treatment. Continue with incentive spirometer and bronchodilators. Otherwise ensure oxygenation. I will add albuterol. We will also add Advair to the current regimen. Further recommendations to follow. The patient is also on Eliquis. MMODL / IJN: [id number] /
[2021-01-07] MEDS: LEVOFLOXACIN 750 MG TAB PO SCH (21:04)
[2021-01-07] MEDS: SYMBICORT 160-4.5 MCG INHALER INHALATION SCH (21:15)
[2021-01-08] MEDS: PANTOPRAZOLE 40 MG TABLET PO SCH ×2 (06:21→18:14)
[2021-01-08] MEDS: FUROSEMIDE 40 MG TAB PO SCH ×2 (07:58→18:14)
[2021-01-08] MEDS: CHOLECALCIFEROL 25 MCG (1000 IU) TABLET PO SCH (07:58)
[2021-01-08] MEDS: ZINC SULFATE 220 MG CAP PO SCH (07:58)
[2021-01-08] MEDS: MULTIVITAMINS, THERA 1 EACH TAB PO SCH (07:58)
[2021-01-08] MEDS: ASCORBIC ACID 500 MG TAB PO SCH (07:59)
[2021-01-08] MEDS: atenoloL 50 MG TAB PO SCH ×2 (07:59→20:18)
[2021-01-08] MEDS: POTASSIUM CHLORIDE ER 20 MEQ TAB.ER PO SCH (07:59)
[2021-01-08] MEDS: APIXABAN 5 MG TAB PO SCH ×2 (07:59→20:18)
[2021-01-08] MEDS: ALBUTEROL HFA INHALER INHALATION SCH ×4 (08:27→19:13)
[2021-01-08] MEDS: SYMBICORT 160-4.5 MCG INHALER INHALATION SCH ×2 (08:28→19:13)
[2021-01-08] MEDS ORDERED: TAMSULOSIN 0.4 MG CAP.ER.24H PO STA (10:02)
--- NOTE | 2021-01-08 10:04 | XR ---
EXAMINATION TYPE: XR chest 1V portable DATE OF EXAM: 01/08/2021 COMPARISON: 01/06/2021 HISTORY: Cough TECHNIQUE: Single frontal view of the chest is obtained. FINDINGS: A cardiac device seen with bilateral consolidation and small effusion. There is a coarsene d interstitial pattern with no pneumothorax. Arthropathy of the shoulders. IMPRESSION: 1. Bilateral infiltrate and small effusion stable.
[2021-01-08] MEDS: DEXAMETHASONE SOD PHOSPHATE 10 MG/ML 1 ML VIAL IV SCH ×2 (10:51→11:19)
--- NOTE | 2021-01-08 13:35 | P.DS ---
Providers Date of admission: 12/31/20 15:05 Expected date of discharge: 01/08/21 Attending physician: Naga Glaser MD Consults: 12/31/20 15:05 Consult Physician Routine Consulting Provider: Veronica Browne Consult Reason/Comments: COVID-19 pneumonia Do you want consulting provider notified?: Yes 12/31/20 20:39 Consult Physician Routine Consulting Provider: Hansel Guzman Consult Reason/Comments: coivd, actemra? Do you want consulting provider notified?: Yes 01/02/21 13:01 Consult Physician Routine Consulting Provider: Jj Magana Consult Reason/Comments: high blasts, ? mds per path [email or web address] Do you want consulting provider notified?: Yes Primary care physician: Uriah Tsang Hospital Course: Final diagnosis Acute COVID-19 infection with bilateral interstitial pneumonia with acute hypoxic respiratory failure with possible sepsis, present on admission, status post high flow oxygen Right leg acute DVT Gait dysfunction increased white blood count elevated d-dimer Thrombocytopenia Change in mental status secondary to acute metabolic encephalopathy, multifactorial Lymphedema bilateral legs Possible myelodysplastic syndrome with blast and left shifted in the peripheral smear hematology changes due to COVID-19 Elevated PT/INR Hyponatremia increased creatinine with mild acute tubular necrosis, acute renal failure, present on admission Increased random blood sugar Increased bilirubin Increased AST with troponin 0.06, indeterminate Elevated creatinine kinase Hypertension History of prostate cancer history of rheumatic fever history of lymphedema History of tonsillectomy History of cholelithiasis morbid obesity with a BMI of 50.6 Full code Discharge disposition Patient is being discharged in a stable condition with guarded prognosis to [facility] for continued PT/OT therapy. Patient will follow-up with Dr. Tsang in the outpatient setting upon discharge. Patient will follow-up with pulmonary Dr. South in the outpatient setting. Patient also to follow-up with Dr. Taylor outpatient. Continue with Levaquin daily for the next 5 days and then may discontinue. Patient also to continue with breathing inhalational treatments along with Decadron upon discharge. He should continue with Decadron for the next 4 days to complete the course and then may discontinue. Also continue with vitamin C and D supplements along with zinc supplements in the outpatient setting. Recommend repeat labs to monitor CBC along with BMP. Total time taken is greater than 35 minutes. Hospital course This is an 75-year-old male who was recently admitted with acute hypoxic respiratory failure and was found to have acute COVID-19 infection with bilateral interstitial pneumonia and was being closely monitored. Patient being followed by pulmonary and infectious disease and will be following up with pulmonary outpatient. Patient is to continue with oral antibiotics in the form of Levaquin daily for the next 5 days along with dexamethasone 6 mg daily for the next 4 days and then may discontinue outpatient. Recommended repeat labs in a few days to monitor kidney functions and CBC. Continue continue with breathing inhalational treatments scheduled and as needed. Patient is also on Eliquis 10 mg twice daily and will continue until 01/11/2021 and then may start decreased dose of 5 mg twice daily thereafter. Patient continues to be weak and was evaluated by PT/OT therapy recommending rehab for continued PT/OT therapy. Patient will continue to be on oxygen via nasal cannula at 4 L and continue to wean as tolerated. Currently no reports of chest pain, worsening shortness of breath, or palpitations. Patient is afebrile. No reports of nausea or vomiting and patient is tolerating diet. Patient will be going to [facility] today. On exam vital signs are stable. Cardio S1, S2 are muffled. Respiratory system shows diminished breath sounds at the bases with no wheezing or rhonchi noted. Abdomen is soft and obese, and nontender. Nervous system shows diffuse weakness. Please refer to medication reconciliation sheet for a list of medications. Patient Condition at Discharge: Fair Plan - Discharge Summary Discharge Rx Participant: No New Discharge Prescriptions: New Levofloxacin [Levaquin] 750 mg PO DAILY@2200 5 Days #5 tab Zinc Sulfate [Orazinc] 220 mg PO DAILY cap Pantoprazole [Protonix] 40 mg PO AC-BID tablet. Albuterol Inhaler [Ventolin Hfa Inhaler] 2 puff INHALATION RT-QID puff Cholecalciferol [Vitamin D3 (25 Mcg = 1000 Iu)] 125 mcg PO DAILY tablet Dexamethasone [Decadron] 6 mg PO DAILY 4 Days #4 tablet Apixaban [Eliquis] 10 mg PO BID tab Budesonide-Formot 160-4.5 Mcg [Symbicort 160-4.5 Mcg Inhaler] 2 puff INHALATION RT-BID puff Ascorbic Acid [Vitamin C] 1,000 mg PO DAILY tab Continue Furosemide [Lasix] 40 mg PO BID Potassium Chloride [K-Tab ER] 20 meq PO DAILY Atenolol [Tenormin] 50 mg PO BID Multivitamins, Thera [Multivitamin (formulary)] 1 tab PO DAILY Discharge Medication List Furosemide [Lasix] 40 mg PO BID 12/09/14 [History] Potassium Chloride [K-Tab ER] 20 meq PO DAILY 12/09/14 [History] Atenolol [Tenormin] 50 mg PO BID 12/31/20 [History] Multivitamins, Thera [Multivitamin (formulary)] 1 tab PO DAILY 12/31/20 [History] Albuterol Inhaler [Ventolin Hfa Inhaler] 2 puff INHALATION RT-QID puff 01/08/21 [Rx] Apixaban [Eliquis] 10 mg PO BID tab 01/08/21 [Rx] Ascorbic Acid [Vitamin C] 1,000 mg PO DAILY tab 01/08/21 [Rx] Budesonide-Formot 160-4.5 Mcg [Symbicort 160-4.5 Mcg Inhaler] 2 puff INHALATION RT-BID puff 01/08/21 [Rx] Cholecalciferol [Vitamin D3 (25 Mcg = 1000 Iu)] 125 mcg PO DAILY tablet 01/08/21 [Rx] Dexamethasone [Decadron] 6 mg PO DAILY 4 Days #4 tablet 01/08/21 [Rx] Levofloxacin [Levaquin] 750 mg PO DAILY@2200 5 Days #5 tab 01/08/21 [Rx] Pantoprazole [Protonix] 40 mg PO AC-BID tablet. 01/08/21 [Rx] Zinc Sulfate [Orazinc] 220 mg PO DAILY cap 01/08/21 [Rx] Follow up Appointment(s)/Referral(s): Coleman South MD [STAFF PHYSICIAN] - 02/09/21 1:00 pm Uriah Tsang DO [Primary Care Provider] - 01/11/21 9:20 am (Appointment is with Kristina in [place].) Jaja Taylor MD [STAFF PHYSICIAN] - 4 Weeks (The office will give you a call with appointment date and time.) Ambulatory/Diagnostic Orders: Complete Blood Count w/diff [LAB.AMB] Time Frame: 2 Days, Location: None Selected Activity/Diet/Wound Care/Special Instructions: Patient is going to [facility] Activity as tolerated Continue with antibiotics for the next 5 days and then may discontinue Continue with Decadron 6 mg daily for the next 4 days and then may discontinue Continue with oxygen via nasal cannula and wean as tolerated Follow-up with primary care provider upon discharge Follow-up with Dr. Beyer outpatient in 4 weeks Follow-up with pulmonary outpatient in 2-3 weeks Continue with incentive spirometer at least 10 times every hour while awake Continue heart healthy diet Continue with ensure enliv 3 times a day with meals, patient prefers chocolate Repeat labs in 2-3 days to monitor CBC and BMP Continue with Eliquis 10 mg twice daily until 01/11/2021 and then decrease the dose to 5 mg twice a day thereafter Discharge Disposition: TRANSFER TO SNF/ECF
--- NOTE | 2021-01-08 13:46 | P.PN ---
Subjective Progress Note Date: 01/08/21 Principal diagnosis: Dyspnea, hypoxia, pneumonia 75-year-old male patient was being seen for acute hypoxic respiratory failure and COVID-19 associated pneumonia. The patient came into the emergency department because of worsening shortness of breath is been going on for the past month. He is not sure of the exact timing of his symptoms. He is been sick for several weeks probably a month or 2 according to him. He did not realize his breathing was this bad. On the day of his admission condition got worse to the point where he was unable to ambulate. He came into the hospital accordingly. Denies having any fever chills or sweats. Nevertheless, he was found to have a temperature of 101.2. Initial pulse ox was 62% on room air oxygen. He was placed on 100% on a beta facemask. No angina. No palpitations. Apparently has taken Alexandre Wakozi Alexandre showed approximately a month ago. He has a white cell count of 11, lymphocyte count of 0.5, normal coagulation profile, d-dimer of 3.3, troponin 0.07, his proBNP level was 5860, sodium level was 133, BUN was 51 with a creatinine of 1.5. Lactic acid level was 1.8. 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 Other comorbidities include prostate cancer, obesity and chronic lower extremity edema/lymphedema with venous ulcers being treated at the wound center in the past. On 01/02/2021 patient seen in follow-up on selective care unit, he is awake and alert, oriented 3, he is currently on 15 L of oxygen has pulse ox is ranging between 90-94%, his been afebrile, hemodynamically has been stable. His CT chest without contrast was completed showing diffuse bilateral infiltrates related to possibility of ARDS and possibly pulmonary edema in the differential diagnosis. There was cholelithiasis noted. Patient is currently on Decadron 6 mg every 12 hours, he status post Tocilizumab 800 mg on 01/01/2021, later in the evening antibiotics in the form of Levaquin were added by ID service. Patient continues on his home dose of Lasix 40 mg twice daily. Today's labs have been reviewed showing white blood cell count of 11.9, hemoglobin is 12.4, his last d- dimer from a 12/31/2020 was 3.31, his electrolytes were unremarkable, BUN was 54, and creatinine has improved and is down to 1.2 on today's labs, his last LDH yesterday was 2110, and CRP was 22.7. On 01/03/2021 patient seen in follow-up on selective care unit. Patient is a bit more awake today, and a bit more interactive, she reports slight improvement in his breathing, he is still on high flow oxygen, currently on 15 L, his pulse ox is 94%, his status post Tocilizumab, and she remains on Decadron 6 mg twice daily. He is on oral Lasix 40 mg twice daily, she is also on Levaquin for possibility of underlying bacterial pneumonia, he has been afebrile, his blood pressure is been stable, no worsening dyspnea, no complaints of chest discomfort, or worsening cough. There is a echocardiogram that was completed sh owing low-normal EF of 50-55%, no evidence of aortic stenosis or aortic regurgitation, no mitral regurgitation. He remains on Lovenox 40 mg daily, his follow-up d-dimer has increased and is currently is at 6.07 on today's labs. He is urine Legionella antigen was found to be negative. His white count has improved and is down to 8.5, hemoglobin is 11.8, his platelet count is 90, CO2 is up to 35, the rest of the electrolytes are unremarkable, BUN is 46, creatinine is 1.15. On 01/04/2021 patient seen in follow-up on selective care unit. He is resting in bed, currently on 15 L of oxygen, pulse ox was 97%, with cutback his FiO2 to 10 L and patient continues with O2 saturations at 93-95%, no worsening dyspnea, he appears fatigued, but appears to be in no respiratory distress. Afebrile, hemodynamically stable. No chest discomfort, occasional cough. No phlegm production. Yesterday his d-dimer was found to be uptrending and was up to 6.07. Lower extremity Dopplers showed evidence of acute right leg DVT, yesterday we increased the patient's Lovenox to 50 mg twice daily. His follow-up d-dimer remains elevated at 6.17, patient also continues on Levaquin, oral Lasix, and Decadron 6 mg twice daily. Inflammatory markers are improving On 01/06/2000, patient seen in follow-up on selective care unit. He is resting comfortably in bed, FiO2 down to 6 L, pulse ox is 93%, he is afebrile, hemodynamically stable, he just appears weak and fatigued, but no evidence of any respiratory distress, lung sounds are diminished at the bases, occasional nonproductive cough, no hemoptysis, no chest discomfort. Remains on IV Decadron 6 mg twice daily, yesterday we started him on Eliquis for evidence of DVT in his right lower extremity. Lovenox has been discontinued, he remains on Levaquin fo r possibility of secondary bacterial infection. His inflammatory markers were improving, no acute events overnight. On 01/08/2021 patient seen in follow-up on selective care unit. He is currently down to 6 L of oxygen has pulse ox is 94-95%. Seems to be breathing comfortably, no evidence of any distress. He is afebrile, hemodynamically has been stable, his FiO2 has been continuously being weaned down. His chest x-ray today shows bilateral infiltrates and small pleural effusions that are stable in appearance. He is status post Toci, his been treated with IV Decadron 6 mg twice daily which we will cut back to once a day, he has completed empiric antibiotics in the form of Levaquin, his been started on Eliquis for oral anticoagulation for evidence of DVT in his right lower extremity. Yesterday's labs have been reviewed. This had no worsening dyspnea no cough and chest discomfort. His blood cultures have shown no growth. He has had no fever or chills. No nausea vomiting or diarrhea. Currently FiO2 has been brought down even further to 4 L, and patient is maintaining stable O2 saturation above 92%. Patient is awaiting discharge to [facility] today Objective - Vital Signs Vital signs: Vital Signs Temp 98 F 01/08/21 11:01 Pulse 61 01/08/21 11:01 Resp 16 01/08/21 11:01 BP 125/59 01/08/21 11:01 Pulse Ox 95 01/08/21 11:01 Intake & Output 01/07/21 01/08/21 01/08/21 18:59 06:59 18:59 Intake Total 660 240 360 Output Total 750 2024 0 Balance -90 -1785 360 Weight 180 kg Intake: Oral 660 240 360 Output: Urine 750 2024 0 Stool 0 Other: Voiding Method Indwelling Catheter Indwelling Catheter Indwelling Catheter # Voids 0 # Bowel Movements 0 - Exam GENERAL EXAM: Alert, pleasant, cooperative, 75-year-old morbidly obese white male, on 4 L of high flow oxygen, with a pulse ox of 95% comfortable in no apparent distress. HEAD: Normocephalic/atraumatic. EYES: Normal reaction of pupils, equal size. Conjunctiva pink, sclera white. NOSE: Clear with pink turbinates. THROAT: No erythema or exudates. NECK: No masses, no JVD, no thyroid enlargement, no adenopathy. CHEST: No chest wall deformity. Symmetrical expansion. LUNGS: Equal air entry with diminished breath sounds with diffuse crackles CVS: Regular rate and rhythm, normal S1 and S2, no gallops, no murmurs, no rubs ABDOMEN: Soft, nontender. No hepatosplenomegaly, normal bowel sounds, no guarding or rigidity. EXTREMITIES: No clubbing, chronic lower extremity edema with chronic lymphedema involving his feet no cyanosis, 2+ pulses and upper and lower extremities. MUSCULOSKELETAL: Muscle strength and tone normal. SPINE: No scoliosis or deformity SKIN: No rashes CENTRAL NERVOUS SYSTEM: Alert and oriented -3. No focal deficits, tone is normal in all 4 extremities. PSYCHIATRIC: Alert and oriented -3. Appropriate affect. Intact judgment and insight. - Labs CBC & Chem 7: 01/07/21 08:08 01/07/21 08:08 Labs: Microbiology - Last 24 Hours (Table) 01/01/21 19:37 Blood Culture - Final Blood No Growth after 144 hours Assessment and Plan Plan: Assessment: #1. acute hypoxic respiratory failure currently on the percent nonrebreather facemask due to bilateral diffuse pneumonia attributed to COVID-19 infection. The exact onset of symptoms is not known as the patient is not clear when he started having the symptoms. Limited is been progressively getting worse over the past several weeks. He apparently took his Alexandre & Alexandre vaccination and end of November 2020. status post Tocilizumab on 01/01/2021, currently on Decadron 6 mg twice daily #2. acute COVID-19 infection, post vaccination with a Alexandre & Alexandre COVID-19 vaccine #3. shortness of breath secondary to above #4. acute kidney injury, likely secondary to intravascular volume depletion #5. chronic lymphedema involving lower extremities #6. obesity #7. 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 prostate cancer #9. chronic thrombocytopenia #10. Mildly elevated procalcitonin, Legionella pneumonia has been ruled out. Negative Legionella urine antigen #11. Elevated d-dimer, rule out possibility of DVT, Doppler of lower extremities has been ordered and pending at this time, in the meantime patient will continue on Lovenox, we will increase the dose to 50 mg subcutaneously twice daily Plan: Oxygenation continues to improve, and FiO2 is currently down to 4 L Continue weaning FiO2 to maintain O2 saturation at or above 90% Decrease Decadron to 6 mg daily Continue oral anticoagulation Patient has completed Levaquin Clinically patient is improving Awaiting discharge to ECF I performed a history & physical examination of the patient and discussed their management with my nurse practitioner, Barbara Juarez. I reviewed the nurse practitioner's note and agree with the documented findings and plan of care. Lung sounds are positive for diminished breath sounds. The findings and the impression was discussed with the patient. I attest to the documentation by the nurse practitioner. Time with Patient: Less than 30
--- NOTE | 2021-01-08 14:20 | PN ---
PROGRESS NOTE DATE OF SERVICE: 01/08/2021 REASON FOR FOLLOWUP: COVID-19 pneumonia. INTERVAL HISTORY: The patient is afebrile. The patient is breathing comfortably on nasal cannula oxygen. Denies any chest pain. Minimal cough, not bringing any sputum. No nausea, no vomiting. No abdominal pain or diarrhea. PHYSICAL EXAMINATION: VITAL SIGNS: Blood pressure is 125/59, pulse of 61, temperature 98, he is 95% on 4 L nasal cannula. GENERAL DESCRIPTION: An elderly male lying in bed in no distress. RESPIRATORY SYSTEM: Unlabored breathing, decreased intensity of breath sounds. HEART: S1, S2. Regular rate and rhythm. ABDOMEN: Soft, no tenderness. LABS: Chest x-ray some effusion. No new changes. DIAGNOSTIC IMPRESSION AND PLAN: Patient admitted to the hospital with acute COVID-19 pneumonia. This patient has shown overall clinical improvement. The patient will be treated with a short course of steroids, Eliquis, zinc and ascorbic acid. No need for antibiotic on discharge. MMODL / IJN: [id number] / MTDD
--- NOTE | 2021-01-08 15:50 | P.PN ---
Subjective Progress Note Date: 01/08/21 This is a 75-year-old male who was recently admitted with acute COVID-19 infection with bilateral interstitial pneumonia with acute hypoxic respiratory failure and is being closely monitored. Pulmonary and infectious disease following As well. Patient is maintained on 4 L of oxygen via nasal cannula and maintaining oxygen saturations of 94-96% and will continue at this time with weaning FiO2 as tolerated. Patient continues to be weak and has been working with physical therapy and social work is following working on placement at an accepting facility along with insurance authorization. Patient is maintained on Eliquis 10 mg twice daily along with vitamin and zinc and dexamethasone and will continue. Review of systems: Constitutional: No reports of fatigue, fever, or chills Cardiovascular: No reports of chest pain or palpitations Respiratory: Reports intermittent shortness of breath with occasional cough and minimal phlegm production GI: No reports of nausea, vomiting, or diarrhea : No reports of dysuria or retention Neurovascular: Reports generalized weakness All medications have been reviewed Objective - Vital Signs Vital signs: Vital Signs Temp 98 F 01/08/21 11:01 Pulse 61 01/08/21 11:01 Resp 16 01/08/21 11:01 BP 125/59 01/08/21 11:01 Pulse Ox 95 01/08/21 11:01 Intake & Output 01/07/21 01/08/21 01/08/21 18:59 06:59 18:59 Intake Total 660 240 360 Output Total 750 5 1050 Balance -90 -1785 -690 Weight 180 kg Intake: Oral 660 240 360 Output: Urine 750 2024 1050 Stool 0 Other: Voiding Method Indwelling Catheter Indwelling Catheter Urinal # Voids 0 # Bowel Movements 0 - Exam Gen: This is a 75-year-old male awake and alert and oriented 3, well-developed, well-nourished, obese. There is 98F, pulse is 61, respirations are 16, blood pressure is 125/59, oxygen saturation is 95% on 4 L via nasal cannula. HEENT: Head is atraumatic, normocephalic. Pupils equal, round. Sclerae is ani cteric. NECK: Supple. No JVD. No lymphadenopathy. No thyromegaly. LUNGS: Diminished breath sounds at the bases with a few scattered rhonchi and crackles noted HEART: S1, S2 are muffled ABDOMEN: Soft. Bowel sounds are present. No masses. No tenderness. EXTREMITIES: No pedal edema. No calf tenderness. NEUROLOGICAL: Patient is awake, alert and oriented x3. Diffusely weak - Labs CBC & Chem 7: 01/07/21 08:08 01/07/21 08:08 Labs: Microbiology - Last 24 Hours (Table) 01/01/21 19:37 Blood Culture - Final Blood No Growth after 144 hours Assessment and Plan Assessment: Acute COVID-19 infection with bilateral interstitial pneumonia with acute hypoxic respiratory failure with possible sepsis, present on admission, status post high flow oxygen Right leg acute DVT Gait dysfunction increased white blood count elevated d-dimer Thrombocytopenia Change in mental status secondary to acute metabolic encephalopathy, multifactorial Lymphedema bilateral legs Possible myelodysplastic syndrome with blast and left shifted in the peripheral smear hematology changes due to COVID-19 Elevated PT/INR Hyponatremia increased creatinine with mild acute tubular necrosis, acute renal failure, present on admission Increased random blood sugar Increased bilirubin Increased AST with troponin 0.06, indeterminate Elevated creatinine kinase Hypertension History of prostate cancer history of rheumatic fever history of lymphedema History of tonsillectomy History of cholelithiasis morbid obesity with a BMI of 50.6 Full code Recommendations and discussion: Commend continue with current medications and current management. Pulmonary and infectious disease following. Patient is maintained on oral antibiotics along with oral anticoagulants and vitamin and zinc supplements and dexamethasone and will continue. Social work also following as patient continues to be weak requiring ECF placement for rehab and working on accepting facility along with authorization from insurance. We'll continue to monitor closely and continue to wean FIO2 as tolerated. Due to multiple complex medical issues, prognosis is guarded. Further recommendations to follow. Possible discharge in 24-48 hours.
[2021-01-08] MEDS: SODIUM CHLORIDE 0.9% 1,000 ML IV SCH (18:14)
[2021-01-08 23:36] VITALS: RESP 18
[2021-01-09 05:09] VITALS: PULSE 62
[2021-01-09] MEDS: PANTOPRAZOLE 40 MG TABLET PO SCH (06:36)
[2021-01-09] MEDS: ALBUTEROL HFA INHALER INHALATION SCH ×2 (09:14→11:47)
[2021-01-09] MEDS: SYMBICORT 160-4.5 MCG INHALER INHALATION SCH (09:14)
[2021-01-09] MEDS: DEXAMETHASONE SOD PHOSPHATE 10 MG/ML 1 ML VIAL IV SCH (09:27)
[2021-01-09] MEDS: FUROSEMIDE 40 MG TAB PO SCH (09:27)
[2021-01-09] MEDS: ZINC SULFATE 220 MG CAP PO SCH (09:28)
[2021-01-09] MEDS: atenoloL 50 MG TAB PO SCH (09:28)
[2021-01-09] MEDS: CHOLECALCIFEROL 25 MCG (1000 IU) TABLET PO SCH (09:28)
[2021-01-09] MEDS: MULTIVITAMINS, THERA 1 EACH TAB PO SCH (09:28)
[2021-01-09] MEDS: ASCORBIC ACID 500 MG TAB PO SCH (09:28)
[2021-01-09] MEDS: POTASSIUM CHLORIDE ER 20 MEQ TAB.ER PO SCH (09:28)
[2021-01-09] MEDS: APIXABAN 5 MG TAB PO SCH (09:34)
[2021-01-09 10:28] VITALS: BMI 48.6
[2021-01-09 10:30] VITALS: BP 116/57; TEMP 96.8
--- NOTE | 2021-01-09 10:36 | P.PN ---
Subjective Progress Note Date: 01/09/21 Principal diagnosis: Dyspnea, hypoxia, pneumonia 75-year-old male patient was being seen for acute hypoxic respiratory failure and COVID-19 associated pneumonia. The patient came into the emergency department because of worsening shortness of breath is been going on for the past month. He is not sure of the exact timing of his symptoms. He is been sick for several weeks probably a month or 2 according to him. He did not realize his breathing was this bad. On the day of his admission condition got worse to the point where he was unable to ambulate. He came into the hospital accordingly. Denies having any fever chills or sweats. Nevertheless, he was found to have a temperature of 101.2. Initial pulse ox was 62% on room air oxygen. He was placed on 100% on a beta facemask. No angina. No palpitations. Apparently has taken [facility] showed approximately a month ago. He has a white cell count of 11, lymphocyte count of 0.5, normal coagulation profile, d-dimer of 3.3, troponin 0.07, his proBNP level was 5860, sodium level was 133, BUN was 51 with a creatinine of 1.5. Lactic acid level was 1.8. 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 Other comorbidities include prostate cancer, obesity and chronic lower extremity edema/lymphedema with venous ulcers being treated at the wound center in the past. On 01/02/2021 patient seen in follow-up on selective care unit, he is awake and alert, oriented 3, he is currently on 15 L of oxygen has pulse ox is ranging between 90-94%, his been afebrile, hemodynamically has been stable. His CT chest without contrast was completed showing diffuse bilateral infiltrates related to possibility of ARDS and possibly pulmonary edema in the differential diagnosis. There was cholelithiasis noted. Patient is currently on Decadron 6 mg every 12 hours, he status post Tocilizumab 800 mg on 01/01/2021, later in the evening antibiotics in the form of Levaquin were added by ID service. Patient continues on his home dose of Lasix 40 mg twice daily. Today's labs have been reviewed showing white blood cell count of 11.9, hemoglobin is 12.4, his last d- dimer from a 12/31/2020 was 3.31, his electrolytes were unremarkable, BUN was 54, and creatinine has improved and is down to 1.2 on today's labs, his last LDH yesterday was 2110, and CRP was 22.7. On 01/03/2021 patient seen in follow-up on selective care unit. Patient is a bit more awake today, and a bit more interactive, she reports slight improvement in his breathing, he is still on high flow oxygen, currently on 15 L, his pulse ox is 94%, his status post Tocilizumab, and she remains on Decadron 6 mg twice daily. He is on oral Lasix 40 mg twice daily, she is also on Levaquin for possibility of underlying bacterial pneumonia, he has been afebrile, his blood pressure is been stable, no worsening dyspnea, no complaints of chest discomfort, or worsening cough. There is a echocardiogram that was completed sh owing low-normal EF of 50-55%, no evidence of aortic stenosis or aortic regurgitation, no mitral regurgitation. He remains on Lovenox 40 mg daily, his follow-up d-dimer has increased and is currently is at 6.07 on today's labs. He is urine Legionella antigen was found to be negative. His white count has improved and is down to 8.5, hemoglobin is 11.8, his platelet count is 90, CO2 is up to 35, the rest of the electrolytes are unremarkable, BUN is 46, creatinine is 1.15. On 01/04/2021 patient seen in follow-up on selective care unit. He is resting in bed, currently on 15 L of oxygen, pulse ox was 97%, with cutback his FiO2 to 10 L and patient continues with O2 saturations at 93-95%, no worsening dyspnea, he appears fatigued, but appears to be in no respiratory distress. Afebrile, hemodynamically stable. No chest discomfort, occasional cough. No phlegm production. Yesterday his d-dimer was found to be uptrending and was up to 6.07. Lower extremity Dopplers showed evidence of acute right leg DVT, yesterday we increased the patient's Lovenox to 50 mg twice daily. His follow-up d-dimer remains elevated at 6.17, patient also continues on Levaquin, oral Lasix, and Decadron 6 mg twice daily. Inflammatory markers are improving On 01/06/2000, patient seen in follow-up on [facility] care unit. He is resting comfortably in bed, FiO2 down to 6 L, pulse ox is 93%, he is afebrile, hemodynamically stable, he just appears weak and fatigued, but no evidence of any respiratory distress, lung sounds are diminished at the bases, occasional nonproductive cough, no hemoptysis, no chest discomfort. Remains on IV Decadron 6 mg twice daily, yesterday we started him on Eliquis for evidence of DVT in his right lower extremity. Lovenox has been discontinued, he remains on Levaquin fo r possibility of secondary bacterial infection. His inflammatory markers were improving, no acute events overnight. On 01/08/2021 patient seen in follow-up on [facility] care unit. He is currently down to 6 L of oxygen has pulse ox is 94-95%. Seems to be breathing comfortably, no evidence of any distress. He is afebrile, hemodynamically has been stable, his FiO2 has been continuously being weaned down. His chest x-ray today shows bilateral infiltrates and small pleural effusions that are stable in appearance. He is status post Toci, his been treated with IV Decadron 6 mg twice daily which we will cut back to once a day, he has completed empiric antibiotics in the form of Levaquin, his been started on Eliquis for oral anticoagulation for evidence of DVT in his right lower extremity. Yesterday's labs have been reviewed. This had no worsening dyspnea no cough and chest discomfort. His blood cultures have shown no growth. He has had no fever or chills. No nausea vomiting or diarrhea. Currently FiO2 has been brought down even further to 4 L, and patient is maintaining stable O2 saturation above 92%. Patient is awaiting discharge to [facility] today On 01/09/2021 patient seen in follow-up on [facility] care unit. He is currently resting comfortably in bed, he is down to 4 L of oxygen is pulse ox is 92-93%. Breathing comfortably, he is afebrile, hemodynamically his been stable. His follow-up chest x-ray yesterday showed bilateral infiltrates and small pleural effusions that are stable in appearance. A few chest x-rays and no new labs today. No cough, no chest discomfort. He has remained on bed rest for the most part. He was started on Eliquis 10 mg twice daily for anticoagulation and acute right lower extremity DVT, he remains on multivitamins. Objective - Vital Signs Vital signs: Vital Signs Temp 96.8 F L 01/09/21 08:00 Pulse 62 01/09/21 08:00 Resp 18 01/09/21 08:00 BP 116/57 01/09/21 08:00 Pulse Ox 92 L 01/09/21 08:00 Intake & Output 01/08/21 01/09/21 01/09/21 18:59 06:59 18:59 Intake Total 540 Output Total 1200 400 300 Balance -660 -400 -300 Weight 176.5 kg 176.5 kg Intake: Oral 540 Output: Urine 1200 400 300 Stool 0 Other: Voiding Method Urinal Urinal # Voids 0 1 # Bowel Movements 0 1 - Exam GENERAL EXAM: Alert, pleasant, cooperative, 75-year-old morbidly obese white male, on 4 L of high flow oxygen, with a pulse ox of 95% comfortable in no apparent distress. HEAD: Normocephalic/atraumatic. EYES: Normal reaction of pupils, equal size. Conjunctiva pink, sclera white. NOSE: Clear with pink turbinates. THROAT: No erythema or exudates. NECK: No masses, no JVD, no thyroid enlargement, no adenopathy. CHEST: No chest wall deformity. Symmetrical expansion. LUNGS: Equal air entry with diminished breath sounds with diffuse crackles CVS: Regular rate and rhythm, normal S1 and S2, no gallops, no murmurs, no rubs ABDOMEN: Soft, nontender. No hepatosplenomegaly, normal bowel sounds, no guarding or rigidity. EXTREMITIES: No clubbing, chronic lower extremity edema with chronic lymphedema involving his feet no cyanosis, 2+ pulses and upper and lower extremities. MUSCULOSKELETAL: Muscle strength and tone normal. SPINE: No scoliosis or deformity SKIN: No rashes CENTRAL NERVOUS SYSTEM: Alert and oriented -3. No focal deficits, tone is normal in all 4 extremities. PSYCHIATRIC: Alert and oriented -3. Appropriate affect. Intact judgment and insight. - Labs CBC & Chem 7: 01/07/21 08:08 01/07/21 08:08 Assessment and Plan Plan: Assessment: #1. acute hypoxic respiratory failure currently on the percent nonrebreather facemask due to bilateral diffuse pneumonia attributed to COVID-19 infection. The exact onset of symptoms is not known as the patient is not clear when he started having the symptoms. Limited is been progressively getting worse over the past several weeks. He apparently took his [employer] vaccination and end of November 2020. status post Tocilizumab on 01/01/2021, currently on Decadron 6 mg twice daily #2. acute COVID-19 infection, post vaccination with a [employer] COVID-19 vaccine #3. shortness of breath secondary to above #4. acute kidney injury, likely secondary to intravascular volume depletion #5. chronic lymphedema involving lower extremities #6. obesity #7. 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 prostate cancer #9. chronic thrombocytopenia #10. Mildly elevated procalcitonin, Legionella pneumonia has been ruled out. Negative Legionella urine antigen #11. Elevated d-dimer, rule out possibility of DVT, Doppler of lower extremities has been ordered and pending at this time, in the meantime patient will continue on Lovenox, we will increase the dose to 50 mg subcutaneously twice daily Plan: Continue weaning FiO2 to maintain O2 saturation at or above 90% Decrease Decadron to 6 mg daily Continue oral anticoagulation Patient has completed Levaquin Clinically patient is improving Awaiting discharge to [facility] I performed a history & physical examination of the patient and discussed their management with my nurse practitioner, Barbara Juarez. I reviewed the nurse practitioner's note and agree with the documented findings and plan of care. Lung sounds are positive for diminished breath sounds. The findings and the impression was discussed with the patient. I attest to the documentation by the nurse practitioner. Time with Patient: Less than 30
--- NOTE | 2021-01-09 11:15 | P.DS ---
Providers Date of admission: 12/31/20 15:05 Expected date of discharge: 01/09/21 Attending physician: Naga Glaser MD Consults: 12/31/20 15:05 Consult Physician Routine Consulting Provider: Veronica Browne Consult Reason/Comments: COVID-19 pneumonia Do you want consulting provider notified?: Yes 12/31/20 20:39 Consult Physician Routine Consulting Provider: Hansel Guzman Consult Reason/Comments: coivd, actemra? Do you want consulting provider notified?: Yes 01/02/21 13:01 Consult Physician Routine Consulting Provider: Jj Magana Consult Reason/Comments: high blasts, ? mds per path [email or web address] Do you want consulting provider notified?: Yes Primary care physician: Uriah Tsang Hospital Course: Final diagnosis Acute COVID-19 infection with bilateral interstitial pneumonia with acute hypoxic respiratory failure with possible sepsis, present on admission, status post high flow oxygen Right leg acute DVT Gait dysfunction increased white blood count elevated d-dimer Thrombocytopenia Change in mental status secondary to acute metabolic encephalopathy, multifactorial Lymphedema bilateral legs Possible myelodysplastic syndrome with blast and left shifted in the peripheral smear hematology changes due to COVID-19 Elevated PT/INR Hyponatremia increased creatinine with mild acute tubular necrosis, acute renal failure, present on admission Increased random blood sugar Increased bilirubin Increased AST with troponin 0.06, indeterminate Elevated creatinine kinase Hypertension History of prostate cancer history of rheumatic fever history of lymphedema History of tonsillectomy History of cholelithiasis morbid obesity with a BMI of 50.6 Full code Discharge disposition Patient is being discharged in a stable condition with guarded prognosis to [facility] for continued PT/OT therapy. Patient will soon transferred to [facility]. Patient will follow-up with Dr. Tsang in the outpatient setting upon discharge. Patient will follow-up with pulmonary Dr. South in the outpatient setting. Patient also to follow-up with Dr. Taylor outpatient. Continue with Levaquin daily for the next 5 days and then may discontinue. Patient also to continue with breathing inhalational treatments along with Decadron upon discharge. He should continue with Decadron for the next 4 days to complete the course and then may discontinue. Also continue with vitamin C and D supplements along with zinc supplements in the outpatient setting. Recommend repeat labs to monitor CBC along with BMP. Total time taken is greater than 35 minutes. Hospital course This is an 75-year-old male who was recently admitted with acute hypoxic respiratory failure and was found to have acute COVID-19 infection with bilateral interstitial pneumonia and was being closely monitored. Patient being followed by pulmonary and infectious disease and will be following up with pulmonary outpatient. Patient is to continue with oral antibiotics in the form of Levaquin daily for the next 5 days along with dexamethasone 6 mg daily for the next 4 days and then may discontinue outpatient. Recommended repeat labs in a few days to monitor kidney functions and CBC. Continue continue with breathing inhalational treatments scheduled and as needed. Patient is also on Eliquis 10 mg twice daily and will continue until 01/11/2021 and then may start decreased dose of 5 mg twice daily thereafter. Patient continues to be weak and was evaluated by PT/OT therapy recommending rehab for continued PT/OT therapy. Patient will continue to be on oxygen via nasal cannula at 4 L and continue to wean as tolerated. Currently no reports of chest pain, worsening shortness of breath, or palpitations. Patient is afebrile. No reports of nausea or vomiting and patient is tolerating diet. Patient was unable to be discharged on 01/08/2021 as originally planned as we're waiting for insurance authorization which was received this morning. Patient will be discharged to [facility] with possible transfer to [place] in the outpatient setting. On exam vital signs are stable. Cardio S1, S2 are muffled. Respiratory system shows diminished breath sounds at the bases with no wheezing or rhonchi noted. Abdomen is soft and obese, and nontender. Nervous system shows diffuse weakness. Please refer to medication reconciliation sheet for a list of medications. Patient Condition at Discharge: Fair Plan - Discharge Summary Discharge Rx Participant: No New Discharge Prescriptions: New Levofloxacin [Levaquin] 750 mg PO DAILY@2200 5 Days #5 tab Zinc Sulfate [Orazinc] 220 mg PO DAILY cap Pantoprazole [Protonix] 40 mg PO AC-BID tablet. Albuterol Inhaler [Ventolin Hfa Inhaler] 2 puff INHALATION RT-QID puff Cholecalciferol [Vitamin D3 (25 Mcg = 1000 Iu)] 125 mcg PO DAILY tablet Dexamethasone [Decadron] 6 mg PO DAILY 4 Days #4 tablet Apixaban [Eliquis] 10 mg PO BID tab Budesonide-Formot 160-4.5 Mcg [Symbicort 160-4.5 Mcg Inhaler] 2 puff INHALATION RT-BID puff Ascorbic Acid [Vitamin C] 1,000 mg PO DAILY tab Continue Furosemide [Lasix] 40 mg PO BID Potassium Chloride [K-Tab ER] 20 meq PO DAILY Atenolol [Tenormin] 50 mg PO BID Multivitamins, Thera [Multivitamin (formulary)] 1 tab PO DAILY Discharge Medication List Furosemide [Lasix] 40 mg PO BID 12/09/14 [History] Potassium Chloride [K-Tab ER] 20 meq PO DAILY 12/09/14 [History] Atenolol [Tenormin] 50 mg PO BID 12/31/20 [History] Multivitamins, Thera [Multivitamin (formulary)] 1 tab PO DAILY 12/31/20 [History] Albuterol Inhaler [Ventolin Hfa Inhaler] 2 puff INHALATION RT-QID puff 01/08/21 [Rx] Apixaban [Eliquis] 10 mg PO BID tab 01/08/21 [Rx] Ascorbic Acid [Vitamin C] 1,000 mg PO DAILY tab 01/08/21 [Rx] Budesonide-Formot 160-4.5 Mcg [Symbicort 160-4.5 Mcg Inhaler] 2 puff INHALATION RT-BID puff 01/08/21 [Rx] Cholecalciferol [Vitamin D3 (25 Mcg = 1000 Iu)] 125 mcg PO DAILY tablet 01/08/21 [Rx] Dexamethasone [Decadron] 6 mg PO DAILY 4 Days #4 tablet 01/08/21 [Rx] Levofloxacin [Levaquin] 750 mg PO DAILY@2200 5 Days #5 tab 01/08/21 [Rx] Pantoprazole [Protonix] 40 mg PO AC-BID tablet. 01/08/21 [Rx] Zinc Sulfate [Orazinc] 220 mg PO DAILY cap 01/08/21 [Rx] Follow up Appointment(s)/Referral(s): Coleman South MD [STAFF PHYSICIAN] - 02/09/21 1:00 pm Uriah Tsang DO [Primary Care Provider] - 01/11/21 9:20 am (Appointment is with Kristina in [place].) Jaja Taylor MD [STAFF PHYSICIAN] - 4 Weeks (The office will give you a call with appointment date and time.) Ambulatory/Diagnostic Orders: Complete Blood Count w/diff [LAB.AMB] Time Frame: 2 Days, Location: None Selected Activity/Diet/Wound Care/Special Instructions: Patient is going to [facility] Activity as tolerated Continue with antibiotics for the next 5 days and then may discontinue Continue with Decadron 6 mg daily for the next 4 days and then may discontinue Continue with oxygen via nasal cannula and wean as tolerated Follow-up with primary care provider upon discharge Follow-up with Dr. Beyer outpatient in 4 weeks Follow-up with pulmonary outpatient in 2-3 weeks Continue with incentive spirometer at least 10 times every hour while awake Continue heart healthy diet Continue with ensure enliv 3 times a day with meals, patient prefers chocolate Repeat labs in 2-3 days to monitor CBC and BMP Continue with Eliquis 10 mg twice daily until 01/11/2021 and then decrease the dose to 5 mg twice a day thereafter Discharge Disposition: TRANSFER TO [facility]
--- NOTE | 2021-01-09 17:48 | P.PN ---
Subjective Progress Note Date: 01/09/21 Principal diagnosis: covid infection, thrombocytopenia In f/u pt is starting to wean off O2, no bleeding to report. Objective - Vital Signs Vital signs: Vital Signs Temp 96.8 F L 01/09/21 08:00 Pulse 62 01/09/21 08:00 Resp 18 01/09/21 08:00 BP 116/57 01/09/21 08:00 Pulse Ox 92 L 01/09/21 08:00 Intake & Output 01/08/21 01/09/21 01/09/21 18:59 06:59 18:59 Intake Total 540 Output Total 1200 400 300 Balance -660 -400 -300 Weight 176.5 kg 176.5 kg Intake: Oral 540 Output: Urine 1200 400 300 Stool 0 Other: Voiding Method Urinal Urinal # Voids 0 1 # Bowel Movements 0 1 - Constitutional General appearance: Present: cooperative, mild distress, obese - EENT Eyes: Present: anicteric sclerae, edentulous ENT: Present: hearing grossly normal - Respiratory Respiratory: bilateral: diminished - Cardiovascular Heart sounds: normal: S1, S2 Abnormal Heart Sounds: Absent: systolic murmur, diastolic murmur, rub, S3 Gal lop, S4 Gallop, click, other - Peripheral edema leg Peripheral Edema: bilateral: None - Gastrointestinal General gastrointestinal: Present: normal bowel sounds, soft - Neurologic Neurologic: Present: CNII-XII intact - Musculoskeletal Musculoskeletal: Present: generalized weakness - Psychiatric Psychiatric: Present: A&O x's 3, appropriate affect, intact judgment & insight - Labs CBC & Chem 7: 01/07/21 08:08 01/07/21 08:08 Assessment and Plan (1) Thrombocytopenia Narrative/Plan: Present since prior to admission. Pt has not been below 50,000 in this medical record. Ok for anticoagulation as long as plt >50,000 Status: Chronic Priority: Medium Code(s): D69.6 - THROMBOCYTOPENIA, UNSPECIFIED SNOMED Code(s): 332199606 Plan: Blasts on Pathologists review of peripheral smear. Not progressive at this time on lab review Plan is for pt to f/u with Dr. Taylor after release from rehab for CBC review and possible Bone marrow biopsy. Pt verbalized understanding Recommend CBC monitoring while at rehab as pt is on anticoagulation.
== END 2021-01-09 11:50 | DRG 871 ==
LOC: EC 12:47 → 3SCARD 15:05
PROVIDERS: ADMIT Internal Medicine; ATTEND Internal Medicine
PROC: XW033H5 Introduction of Tocilizumab into Peripheral Vein, Percutaneous Approach, New Technology Group 5 (ICD-10-PCS; principal; 2021-01-01)
PROC: 5A0945A Assistance with Respiratory Ventilation, 24-96 Consecutive Hours, High Flow/Velocity Cannula (ICD-10-PCS; 2021-01-02)
DX: A41.89 Other specified sepsis (principal); U07.1 COVID-19; G93.41 Metabolic encephalopathy; I50.33 Acute on chronic diastolic (congestive) heart failure; J12.82 Pneumonia due to coronavirus disease 2019; J96.01 Acute respiratory failure with hypoxia; N17.0 Acute kidney failure with tubular necrosis; E87.1 Hypo-osmolality and hyponatremia; I82.431 Acute embolism and thrombosis of right popliteal vein; I82.4Z1 Acute embolism and thrombosis of unspecified deep veins of right distal lower extremity; Z68.43 Body mass index [BMI] 50.0-59.9, adult; L97.929 Non-pressure chronic ulcer of unspecified part of left lower leg with unspecified severity; L97.919 Non-pressure chronic ulcer of unspecified part of right lower leg with unspecified severity; D69.6 Thrombocytopenia, unspecified; D72.810 Lymphocytopenia; E66.01 Morbid (severe) obesity due to excess calories; E86.9 Volume depletion, unspecified; I11.0 Hypertensive heart disease with heart failure; R77.8 Other specified abnormalities of plasma proteins; R74.8 Abnormal levels of other serum enzymes; I89.0 Lymphedema, not elsewhere classified; I44.0 Atrioventricular block, first degree; Z85.46 Personal history of malignant neoplasm of prostate; R79.1 Abnormal coagulation profile; Z79.01 Long term (current) use of anticoagulants; Z79.899 Other long term (current) drug therapy; Z80.9 Family history of malignant neoplasm, unspecified; Z87.891 Personal history of nicotine dependence; Z95.0 Presence of cardiac pacemaker; Z98.890 Other specified postprocedural states; Z90.89 Acquired absence of other organs
CPT/HCPCS: 36415; 71045; 71046; 71250; 80048; 80053; 81001; 82306; 82550; 82607; 82746; 83605; 83615; 83735; 83880; 84132; 84145; 84484; 85025; 85379; 85384; 85610; 85730; 86140; 87040; 87449; 87635; 93005; 93306; 93970; 94640; 94760; 96374; 99291

== ENCOUNTER 2021-02-09 11:20 | Observation (INO) | payer MEDICARE ==
[2021-02-09] MEDS ORDERED: FUROSEMIDE 10 MG/ML 10 ML VIAL IV STA (11:58)
--- NOTE | 2021-02-09 12:05 | ED ---
General Adult HPI - General Chief complaint: Skin/Abscess/Foreign Body Stated complaint: leg swelling Time Seen by Provider: 02/09/21 11:25 Source: patient, EMS, RN notes reviewed, old records reviewed Mode of arrival: EMS Limitations: no limitations - History of Present Illness Initial comments: This is a 75-year-old male presents emergency department with past medical history significant for lymphedema. Patient states she was hospitalized for about a month with COVID and during that time as lymphedema got significantly worse. Patient states that this time he can barely stand up at all and the pain from the lymphedema is getting worse and he can't deal with at home anymore. Patient denies any shortness of breath or difficulty breathing. Patient has any palpitations. Patient denies any fever chills or cough per patient denies lightheadedness or dizziness. Patient denies any abdominal pain. Patient states the redness is about the same as it was but is getting bigger and is weeping a lot more. Patient states she's not able to sit at home with his legs up - Related Data Home Medications Medication Instructions Recorded Confirmed Furosemide [Lasix] 40 mg PO BID 12/09/14 12/31/20 Potassium Chloride [K-Tab ER] 20 meq PO DAILY 12/09/14 12/31/20 Atenolol [Tenormin] 50 mg PO BID 12/31/20 12/31/20 Multivitamins, Thera [Multivitamin 1 tab PO DAILY 12/31/20 12/31/20 (formulary)] Previous Rx's Medication Instructions Recorded Albuterol Inhaler [Ventolin Hfa 2 puff INHALATION RT-QID puff 01/08/21 Inhaler] Apixaban [Eliquis] 10 mg PO BID tab 01/08/21 Ascorbic Acid [Vitamin C] 1,000 mg PO DAILY tab 01/08/21 Budesonide-Formot 160-4.5 Mcg 2 puff INHALATION RT-BID puff 01/08/21 [Symbicort 160-4.5 Mcg Inhaler] Cholecalciferol [Vitamin D3 (25 125 mcg PO DAILY tablet 01/08/21 Mcg = 1000 Iu)] Dexamethasone [Decadron] 6 mg PO DAILY 4 Days #4 tablet 01/08/21 Levofloxacin [Levaquin] 750 mg PO DAILY@2200 5 Days #5 tab 01/08/21 Pantoprazole [Protonix] 40 mg PO AC-BID tablet. 01/08/21 Zinc Sulfate [Orazinc] 220 mg PO DAILY cap 01/08/21 Allergies Allergy/AdvReac Type Severity Reaction Status Date / Time No Known Allergies Allergy Verified 02/09/21 11:25 Review of Systems ROS Statement: Those systems with pertinent positive or pertinent negative responses have been documented in the HPI. ROS Other: All systems not noted in ROS Statement are negative. Past Medical History Past Medical History: Cancer, Hypertension, Skin Disorder Additional Past Medical History / Comment(s): hx prostate cancer, , hx rheumatic fever; lymphedema to bilateral legs. History of Any Multi-Drug Resistant Organisms: None Reported Past Surgical History: Hernia Repair, Tonsillectomy Additional Past Surgical History / Comment(s): pacemaker, heart ablation Past Anesthesia/Blood Transfusion Reactions: No Reported Reaction Past Psychological History: No Psychological Hx Reported Smoking Status: Former smoker Past Alcohol Use History: None Reported Past Drug Use History: None Reported - Past Family History Father Family Medical History: Cancer Mother Family Medical History: Cancer General Exam - General Exam Comments Initial Comments: GENERAL: Patient is well-developed and well-nourished. Patient is nontoxic and well- hydrated and is in mild distress. ENT: Neck is soft and supple. No significant lymphadenopathy is noted. Oropharynx is clear. Moist mucous membranes. Neck has full range of motion without eliciting any pain. EYES: The sclera were anicteric and conjunctiva were pink and moist. Extraocular movements were intact and pupils were equal round and reactive to light. Eyelids were unremarkable. PULMONARY: Unlabored respirations. Good breath sounds bilaterally. No audible rales rhonchi or wheezing was noted. CARDIOVASCULAR: There is a regular rate and rhythm without any murmurs gallops or rubs. ABDOMEN: Soft and nontender with normal bowel sounds. SKIN: Skin is clear with no lesions or rashes and otherwise unremarkable. NEUROLOGIC: Patient is alert and oriented x3. Cranial nerves II through XII are grossly intact. MUSCULOSKELETAL: Massive lymphedema bilaterally PSYCHIATRIC: Normal psychiatric evaluation Limitations: no limitations Course Vital Signs 02/09/21 11:25 Temperature 98.2 F Pulse Rate 64 Respiratory 16 Rate Blood Pressure 132/84 O2 Sat by Pulse 98 Oximetry Medical Decision Making - Medical Decision Making Patient received Lasix in the emergency department. I spoke with Dr. Wagner she agreed to admit the patient admitted the patient I consult infectious disease. - Lab Data Result diagrams: 02/09/21 11:58 02/09/21 11:58 Lab Results 02/09/21 02/09/21 Range/Units 11:58 11:58 WBC 7.4 (3.8-10.6) k/uL RBC 3.36 L (4.30-5.90) m/uL Hgb 10.2 L (13.0-17.5) gm/dL Hct 30.7 L (39.0-53.0) % MCV 91.3 (80.0-100.0) fL MCH 30.4 (25.0-35.0) pg MCHC 33.3 (31.0-37.0) g/dL RDW 14.9 (11.5-15.5) % Plt Count 158 (150-450) k/uL MPV 11.2 Neutrophils % 70 % Lymphocytes % 12 % Monocytes % 15 % Eosinophils % 1 % Basophils % 1 % Neutrophils # 5.1 (1.3-7.7) k/uL Lymphocytes # 0.9 L (1.0-4.8) k/uL Monocytes # 1.1 H (0-1.0) k/uL Eosinophils # 0.1 (0-0.7) k/uL Basophils # 0.1 (0-0.2) k/uL Sodium 136 L (137-145) mmol/L Potassium 4.2 (3.5-5.1) mmol/L Chloride 102 (98-107) mmol/L Carbon Dioxide 28 (22-30) mmol/L Anion Gap 6 mmol/L BUN 24 H (9-20) mg/dL Creatinine 1.14 (0.66-1.25) mg/dL Est GFR (CKD-EPI)AfAm 73 (>60 ml/min/1.73 sqM) Est GFR (CKD-EPI)NonAf 63 (>60 ml/min/1.73 sqM) Glucose 100 H (74-99) mg/dL Calcium 9.8 (8.4-10.2) mg/dL Magnesium 2.2 (1.6-2.3) mg/dL Total Bilirubin 0.8 (0.2-1.3) mg/dL AST 34 (17-59) U/L ALT 46 (4-49) U/L Alkaline Phosphatase 134 H (38-126) U/L Total Protein 6.4 (6.3-8.2) g/dL Albumin 3.5 (3.5-5.0) g/dL Disposition Clinical Impression: Lymphedema Disposition: ADMITTED IP TO THIS HOSP Referrals: Uriah Tsang DO [Primary Care Provider] - 1-2 days Time of Disposition: 13:13
[2021-02-09 12:25] LABS: Albumin 3.5 g/dL (3.5-5.0); Calcium 9.8 mg/dL (8.4-10.2); Magnesium 2.2 mg/dL (1.6-2.3); Potassium 4.2 mmol/L (3.5-5.1); Total Bilirubin 0.8 mg/dL (0.2-1.3); Total Protein 6.4 g/dL (6.3-8.2)
[2021-02-09 12:53] LABS: Basophils # (A) 0.1 k/uL (0-0.2); Basophils % (A) 1 %; Eosinophils # (A) 0.1 k/uL (0-0.7); Eosinophils % (A) 1 %; HCT 30.7 % (39.0-53.0); HGB 10.2 gm/dL (13.0-17.5); Lymphocytes # (A) 0.9 k/uL (1.0-4.8); Lymphocytes % (A) 12 %; MCH 30.4 pg (25.0-35.0); MCHC 33.3 g/dL (31.0-37.0); MCV 91.3 fL (80.0-100.0); Mean Platelet Volume 11.2; Monocytes # (A) 1.1 k/uL (0-1.0); Monocytes % (A) 15 %; Neutrophils # (A) 5.1 k/uL (1.3-7.7); Neutrophils % (A) 70 %; Platelet Count 158 k/uL (150-450); RBC 3.36 m/uL (4.30-5.90); RDW 14.9 % (11.5-15.5); WBC 7.4 k/uL (3.8-10.6)
[2021-02-09] MEDS: HYDROcodone/APAP 5-325MG 1 EACH TAB PO PRN (15:15)
[2021-02-09] MEDS ORDERED: BACLOFEN 10 MG TAB PO PRN (16:54)
[2021-02-09] MEDS ORDERED: ALBUTEROL NEBULIZED 2.5 MG/3 ML INHALATION PRN (16:54)
--- NOTE | 2021-02-09 17:10 | P.HPIM ---
History of Present Illness H&P Date: 02/09/21 Chief Complaint: Swelling of bilateral lower extremities Mr. Cooper is a 75-year-old male with a past medical history of prostate cancer, hypertension, skin disorder, coronary artery disease with pacemaker, status post ablation, chronic lymphedema of bilateral lower extremities, recent COVID 19 infection into the hospital with a chief complaint of increased swelling of bilateral lower extremities. Patient mentions he has history of chronic lymphedema bilateral lower ex tremities, he does wrap them and does physical therapy but since being hospitalized for Covid infection, he states he was not able to take good care of his legs and feet. Patient was hospitalized for almost 26 days(hospital and rehab) for COVID-19 infection in the last week of December. Since being discharged from the rehab facility patient noticed that the lower extremity swelling has worsened. He states he tried to take Keflex couple of days back but did not have any effect on his swelling so he came in to the hospital for further evaluation. Patient states that he lives with his who helps him with his daily activities since worsening of his condition. On reviewing the recent hospital visit, patient was found to have acute DVT in the right lower extremity and was discharged home on Eliquis 5 mg twice a day. In the ER patient's vitals at the time of admission temperature 98.2, heart rate 64, respiratory 16, blood pressure 132/84, saturating at 98% on room air. On reviewing labs white count of 7.4, hemoglobin 10.2, platelets 158. Sodium 1:30 systolic pressure 1.2, chloride 102, bicarbonate 28, B and 24, creatinine 1.14. AST 34, ALT 46, temp 34,albumin3.5. Review of Systems REVIEW OF SYSTEMS: CONSTITUTIONAL: No fever, no malaise, no fatigue. HEENT: No headache, no neck stiffness, no blurring of vision CARDIOVASCULAR: no chest pain or palpitations PULMONARY: No cough or difficulty in breathing GASTROINTESTINAL: No Abdominal pain nausea vomiting or diarrhea NEUROLOGICAL: No weakness of extremities HEMATOLOGICAL: Denies any bleeding or petechiae. GENITOURINARY: Denies any burning micturition, frequency, or urgency. MUSCULOSKELETAL/RHEUMATOLOGICAL: Chronic lymphedema ENDOCRINE: Denies polyuria polydipsia or heat or cold intolerance The rest of the 14-point review of systems is negative. Past Medical History Past Medical History: Cancer, Hypertension, Skin Disorder Additional Past Medical History / Comment(s): hx prostate cancer, , hx rheumatic fever; lymphedema to bilateral legs. History of Any Multi-Drug Resistant Organisms: None Reported Past Surgical History: Hernia Repair, Tonsillectomy Additional Past Surgical History / Comment(s): pacemaker, heart ablation Past Anesthesia/Blood Transfusion Reactions: No Reported Reaction Past Psychological History: No Psychological Hx Reported Smoking Status: Former smoker Past Alcohol Use History: None Reported Past Drug Use History: None Reported - Past Family History Father Family Medical History: Cancer Mother Family Medical History: Cancer Medications and Allergies Home Medications Medication Instructions Recorded Confirmed Type Potassium Chloride [K-Tab ER] 20 meq PO DAILY 12/09/14 02/09/21 History Atenolol [Tenormin] 50 mg PO BID@0400,1600 12/31/20 02/09/21 History Multivitamins, Thera [Multivitamin 1 tab PO DAILY 12/31/20 02/09/21 History (formulary)] Ascorbic Acid [Vitamin C] 1,000 mg PO DAILY tab 01/08/21 02/09/21 Rx Cholecalciferol [Vitamin D3 (25 125 mcg PO DAILY tablet 01/08/21 02/09/21 Rx Mcg = 1000 Iu)] Zinc Sulfate [Orazinc] 220 mg PO DAILY cap 01/08/21 02/09/21 Rx Albuterol Inhaler [Ventolin Hfa 2 puff INHALATION RT-QID PRN 02/09/21 02/09/21 History Inhaler] Apixaban [Eliquis] 5 mg PO BID@0400,1600 02/09/21 02/09/21 History Baclofen [Lioresal] 10 mg PO Q6H PRN 02/09/21 02/09/21 History Cephalexin [Keflex] 500 mg PO BID@0400,1600 02/09/21 02/09/21 History Furosemide [Lasix] 40 mg PO BID@0400,1600 02/09/21 02/09/21 History Pantoprazole [Protonix] 40 mg PO BID@0400,1600 02/09/21 02/09/21 History Allergies Allergy/AdvReac Type Severity Reaction Status Date / Time No Known Allergies Allergy Verified 02/09/21 13:44 Physical Exam Vitals: Vital Signs Temp Pulse Resp BP Pulse Ox 02/09/21 15:10 98.2 F 76 18 118/105 96 02/09/21 13:32 67 18 135/64 100 02/09/21 11:25 98.2 F 64 16 132/84 98 Intake and Output 02/09/21 02/09/21 02/09/21 06:59 14:59 22:59 Output Total 530 575 Balance -530 -575 Output: Urine 530 575 Other: # Voids 2 Weight 181.981 kg PHYSICAL EXAMINATION: GENERAL: no acute distress. Morbidly obese HEENT: Pupils are round and equally reacting to light. EOMI. No scleral icterus. No conjunctival pallor. CARDIOVASCULAR: S1 and S2 present. No murmurs, rubs, or gallops. PULMONARY: Bilateral breath sounds positive. Diminished at the lower lung bases ABDOMEN: Soft,non -tender, normal bowel sounds. No guarding or rigidity. MUSCULOSKELETAL: No joint swelling or deformity. EXTREMITIES: Redness, warmth, swelling of bilateral lower extremities with chronic lymphedematous changes Massive swelling with distortion of his toes embedded in the swelling Peeling of the skin, with serous discharge in both lower extremities NEUROLOGICAL: Gross neurological examination did not reveal any focal deficits. Results CBC & Chem 7: 02/09/21 11:58 02/09/21 11:58 Labs: Abnormal Lab Results - Last 24 Hours (Table) 02/09/21 02/09/21 Range/Units 11:58 11:58 RBC 3.36 L (4.30-5.90) m/uL Hgb 10.2 L (13.0-17.5) gm/dL Hct 30.7 L (39.0-53.0) % Lymphocytes # 0.9 L (1.0-4.8) k/uL Monocytes # 1.1 H (0-1.0) k/uL Sodium 136 L (137-145) mmol/L BUN 24 H (9-20) mg/dL Glucose 100 H (74-99) mg/dL Alkaline Phosphatase 134 H (38-126) U/L Assessment and Plan Assessment: ASSESSMENT Cellulitis bilateral lower extremities Chronic lymphedema of bilateral lower extremities Recent right lower extremity DVT on Eliquis Recent COVID-19 infection Anemia History of prostate cancer Former smoker Morbid obesity with BMI of 50 Mild protein calorie malnutrition PLAN Patient has cellulitis on chronic lymphedema of both his extremities-will consult ID Dr. Guzman for antibiotic stewardship Wound care consult Patient restarted on anticoagulation with Eliquis due to recent history of DVT Started on home medications GI DVT prophylaxis Further recommendations to follow depending on the progress of the patient
[2021-02-09] MEDS: ceFAZolin 3 GM in SODIUM CHLORIDE 0.9% 100 ML IVPB SCH (18:17)
[2021-02-10] MEDS: ceFAZolin 3 GM in SODIUM CHLORIDE 0.9% 100 ML IVPB SCH ×4 (01:06→23:49)
[2021-02-10] MEDS: PANTOPRAZOLE 40 MG TABLET PO SCH ×2 (05:14→16:06)
[2021-02-10] MEDS: APIXABAN 5 MG TAB PO SCH ×2 (05:15→16:06)
[2021-02-10] MEDS: atenoloL 50 MG TAB PO SCH ×2 (05:15→16:06)
[2021-02-10] MEDS: FUROSEMIDE 40 MG TAB PO SCH ×2 (05:15→16:06)
[2021-02-10] MEDS: HYDROcodone/APAP 5-325MG 1 EACH TAB PO PRN ×2 (05:22→13:21)
[2021-02-10 06:50] LABS: Basophils % (A) 0 %; Eosinophils # (A) 0.1 k/uL (0-0.7); Eosinophils % (A) 1 %; HCT 26.6 % (39.0-53.0); HGB 9.2 gm/dL (13.0-17.5); Lymphocytes # (A) 0.7 k/uL (1.0-4.8); Lymphocytes % (A) 10 %; MCH 31.6 pg (25.0-35.0); MCHC 34.7 g/dL (31.0-37.0); MCV 91.1 fL (80.0-100.0); Mean Platelet Volume 8.4; Monocytes # (A) 0.8 k/uL (0-1.0); Monocytes % (A) 13 %; Neutrophils # (A) 5.1 k/uL (1.3-7.7); Neutrophils % (A) 76 %; Platelet Count 132 k/uL (150-450); RBC 2.92 m/uL (4.30-5.90); RDW 14.4 % (11.5-15.5); WBC 6.7 k/uL (3.8-10.6)
[2021-02-10 07:04] LABS: African American GFR (CKD) 78 (>60 ml/min/1.73 sqM); Anion Gap 4 mmol/L; Blood Urea Nitrogen 22 mg/dL (9-20); Calcium 9.1 mg/dL (8.4-10.2); Carbon Dioxide 30 mmol/L (22-30); Chloride 103 mmol/L (98-107); Glucose 92 mg/dL (74-99); Non-African American GFR(CKD) 67 (>60 ml/min/1.73 sqM); Potassium 3.6 mmol/L (3.5-5.1); Sodium 137 mmol/L (137-145)
--- NOTE | 2021-02-10 07:40 | CONS ---
CONSULTATION DATE OF SERVICE: 02/09/2021 REASON FOR CONSULTATION: Bilateral lower extremity cellulitis. HISTORY OF PRESENT ILLNESS: Patient is a 75-year-old male with a past medical history significant for lymphedema. The patient mentioned apparently about a month ago he was hospitalized with COVID and during that time, the patient has been mostly bed-bound and did not get any treatment for his lymphedema. Subsequently the patient noticed to have worsening swelling of the lower extremity that has proceeded to get more swollen, red over the last 1 week becoming more painful. Describes the pain to be more sharp in nature about 7-8/10, no radiation. The patient did have multiple blisters that had ruptured and led to some superficial ulcerations and clear drainage. Did have some chills but denies high-grade fever. With these symptoms, the patient was evaluated by the ER physician. On arrival to the ER, the patient was afebrile. The patient did have a normal white count, slight lymphopenia. Creatinine was normal. The patient has been admitted to the hospital. Infectious Disease was consulted for further management of antibiotic therapy. REVIEW OF SYSTEMS: Positive points have been mentioned in HPI. Rest of systems are negative. PAST MEDICAL HISTORY: Lymphedema, chronic history of lower extremity cellulitis, prostate cancer, hypertension, rheumatic fever and COVID-19 infection. PAST SURGICAL HISTORY: Hernia repair, tonsillectomy, pacemaker, heart ablation. SOCIAL HISTORY: Remote history of smoking. No drinking or drug use. FAMILY HISTORY: No pertinent findings noticed. Both parents with history of history of cancer. ALLERGIES: No known drug allergies. MEDICATIONS: The patient is currently on [place], Ventolin, Eliquis, vitamin C, Tenormin, Baclofen, Lasix, Theragran, Protonix, iron sulfate. PHYSICAL EXAMINATION: VITAL SIGNS: Blood pressure 132/72 with a pulse of 61, temperature 98.8. He is 95% on room air. GENERAL DESCRIPTION: Patient is an elderly male lying in bed in no distress. No tachypnea or accessory muscles of respiration use. HEENT: Examination shows pallor, no scleral icterus. Oral mucous membrane is dry. NECK: Trachea central, no thyromegaly. LUNGS: Unlabored breathing, clear to auscultation anteriorly. HEART: S1-S2, regular rate and rhythm. ABDOMEN: Soft, no tenderness. No guarding or rigidity. EXTREMITIES: Bilateral lower extremities with significant swelling, redness and some superficial ulceration and drainage and warm to touch. NEUROLOGICAL: Patient is awake, alert, oriented times three. Mood and affect normal. LABS: Hemoglobin is 10.8, hemoglobin 7.5, BUN of 24, creatinine 1.14. DIAGNOSTIC IMPRESSION: Patient with bilateral lower extremity cellulitis in this patient who does have diffuse swelling and redness. The patient did have a component of cellulitis with diffuse swelling and redness, likely streptococcal cellulitis. Clinically doubt MRSA or any gram-negative infection. PLAN: 1. Rufus the area of redness. 2. Aquacel Silver dressing to the open area followed by Moshe wrap from just above the toe to below the knee. 3. We will follow on clinical condition and culture to further adjust medication if needed. Thank you for this consultation. Will follow this patient along with you. MMODL / IJN: [id number] /
[2021-02-10] MEDS: ASCORBIC ACID 500 MG TAB PO SCH (09:44)
[2021-02-10] MEDS: ZINC SULFATE 220 MG CAP PO SCH (09:44)
[2021-02-10] MEDS: MULTIVITAMINS, THERA 1 EACH TAB PO SCH (09:44)
[2021-02-10] MEDS: CHOLECALCIFEROL 25 MCG (1000 IU) TABLET PO SCH (09:44)
--- NOTE | 2021-02-10 14:52 | PN ---
PROGRESS NOTE DATE OF SERVICE: 02/10/2021 REASON FOR FOLLOWUP: Bilateral lower extremity cellulitis. INTERVAL HISTORY: Patient is afebrile. The patient is breathing comfortably. The patient denies having any chest pain, shortness of breath, abdominal pain. Overall pain ( ) in the leg has decreased. PHYSICAL EXAMINATION: Blood pressure 138/72 with a pulse of 63, temperature 98.7. He is 92% on room air. GENERAL DESCRIPTION: The patient is an elderly male, lying in bed, in no distress. RESPIRATORY SYSTEM: Unlabored breathing, clear to auscultation anteriorly. HEART: S1, S2. Regular rate and rhythm. EXTREMITIES: Bilateral leg swelling, has slightly decreased. No drainage. LABS: Hemoglobin 9.1, white count 6.7, creatinine 1.3. DIAGNOSTIC IMPRESSION AND PLAN: Patient with bilateral lower extremity cellulitis, diffuse swelling and lymphedema, likely streptococcal disease. Plan at this time is to continue with cefazolin 2 grams q.8 hours. Local care with Aquacel Silver and Moshe wrap. Continue supportive care. MMODL / IJN: [id number] /
--- NOTE | 2021-02-10 15:42 | P.PN ---
Subjective Chief Complaint: Swelling of bilateral lower extremities Mr. Cooper is a 75-year-old male with a past medical history of prostate cancer, hypertension, skin disorder, coronary artery disease with pacemaker, status post ablation, chronic lymphedema of bilateral lower extremities, recent COVID 19 infection into the hospital with a chief complaint of increased swelling of bilateral lower extremities. Patient mentions he has history of chronic lymphedema bilateral lower extremities, he does wrap them and does physical therapy but since being hospitalized for Covid infection, he states he was not able to take good care of his legs and feet. Patient was hospitalized for almost 26 days(hospital and rehab) for COVID-19 infection in the last week of December. Since being discharged from the rehab facility patient noticed that the lower extremity swelling has worsened. He states he tried to take Keflex couple of days back but did not have any effect on his swelling so he came in to the hospital for further evaluation. Patient states that he lives with his who helps him with his daily activities since worsening of his condition. On reviewing the recent hospital visit, patient was found to have acute DVT in the right lower extremity and was discharged home on Eliquis 5 mg twice a day. In the ER patient's vitals at the time of admission temperature 98.2, heart rate 64, respiratory 16, blood pressure 132/84, saturating at 98% on room air. On reviewing labs white count of 7.4, hemoglobin 10.2, platelets 158. Sodium 1:30 systolic pressure 1.2, chloride 102, bicarbonate 28, B and 24, creatinine 1.14. AST 34, ALT 46, temp 34,albumin3.5. 02/10/2021 Patient still has significant redness and bilateral lower extremities, patient is on ceftezolin, patient is on Lasix as well patient has significant de formities and chronic stasis dermatosis as well as extensive deformities of bilateral lower extremities because of lymphedema and soft tissue hypertrophy. Patient probably has sleep apnea as well patient is morbidly obese PHYSICAL EXAMINATION: GENERAL: no acute distress. Morbidly obese HEENT: Pupils are round and equally reacting to light. EOMI. No scleral icterus. No conjunctival pallor. CARDIOVASCULAR: S1 and S2 present. No murmurs, rubs, or gallops. PULMONARY: Bilateral breath sounds positive. Diminished at the lower lung bases ABDOMEN: Soft,non -tender, normal bowel sounds. No guarding or rigidity. MUSCULOSKELETAL: No joint swelling or deformity. EXTREMITIES: Redness, warmth, swelling of bilateral lower extremities with chronic lymphedematous changes Massive swelling with distortion of his toes embedded in the swelling Peeling of the skin, with serous discharge in both lower extremities NEUROLOGICAL: Gross neurological examination did not reveal any focal deficits. ASSESSMENT Cellulitis bilateral lower extremities Chronic lymphedema of bilateral lower extremities Recent right lower extremity DVT on Eliquis Recent COVID-19 infection Anemia History of prostate cancer Former smoker Morbid obesity with BMI of 50 PLAN Patient has cellulitis on chronic lymphedema of both his extremities-will consult ID Dr. Guzman for antibiotic stewardship Wound care consulted Patient is on anticoagulation with Eliquis due to recent history of DVT Started on home medications GI DVT prophylaxis Objective - Vital Signs Vital signs: Vital Signs Temp 98.2 F 02/10/21 14:00 Pulse 61 02/10/21 14:00 Resp 16 02/10/21 14:00 BP 145/64 02/10/21 14:00 Pulse Ox 90 L 02/10/21 14:00 Intake & Output 02/09/21 02/10/21 02/10/21 18:59 06:59 18:59 Intake Total 240 Output Total 1105 900 Balance -1105 -660 Weight 181.981 kg Intake: IV 240 0.9 NS 240 Output: Urine 1105 900 Other: Voiding Method Urinal Urinal Urinal # Voids 2 1 - Labs CBC & Chem 7: 02/10/21 06:08 02/10/21 06:08 Labs: Abnormal Lab Results - Last 24 Hours (Table) 02/10/21 02/10/21 Range/Units 06:08 06:08 RBC 2.92 L (4.30-5.90) m/uL Hgb 9.2 L (13.0-17.5) gm/dL Hct 26.6 L (39.0-53.0) % Plt Count 132 L (150-450) k/uL Lymphocytes # 0.7 L (1.0-4.8) k/uL BUN 22 H (9-20) mg/dL
[2021-02-11] MEDS: FUROSEMIDE 40 MG TAB PO SCH (04:43)
[2021-02-11] MEDS: APIXABAN 5 MG TAB PO SCH ×2 (04:43→16:08)
[2021-02-11] MEDS: HYDROcodone/APAP 5-325MG 1 EACH TAB PO PRN (04:43)
[2021-02-11] MEDS: atenoloL 50 MG TAB PO SCH ×2 (04:43→16:08)
[2021-02-11] MEDS: PANTOPRAZOLE 40 MG TABLET PO SCH ×2 (04:48→16:07)
[2021-02-11] MEDS: CHOLECALCIFEROL 25 MCG (1000 IU) TABLET PO SCH (09:37)
[2021-02-11] MEDS: ASCORBIC ACID 500 MG TAB PO SCH (09:37)
--- NOTE | 2021-02-11 09:37 | P.PN ---
Subjective Chief Complaint: Swelling of bilateral lower extremities Mr. Cooper is a 75-year-old male with a past medical history of prostate cancer, hypertension, skin disorder, coronary artery disease with pacemaker, status post ablation, chronic lymphedema of bilateral lower extremities, recent COVID 19 infection into the hospital with a chief complaint of increased swelling of bilateral lower extremities. Patient mentions he has history of chronic lymphedema bilateral lower extremities, he does wrap them and does physical therapy but since being hospitalized for Covid infection, he states he was not able to take good care of his legs and feet. Patient was hospitalized for almost 26 days(hospital and rehab) for COVID-19 infection in the last week of December. Since being discharged from the rehab facility patient noticed that the lower extremity swelling has worsened. He states he tried to take Keflex couple of days back but did not have any effect on his swelling so he came in to the hospital for further evaluation. Patient states that he lives with his who helps him with his daily activities since worsening of his condition. On reviewing the recent hospital visit, patient was found to have acute DVT in the right lower extremity and was discharged home on Eliquis 5 mg twice a day. In the ER patient's vitals at the time of admission temperature 98.2, heart rate 64, respiratory 16, blood pressure 132/84, saturating at 98% on room air. On reviewing labs white count of 7.4, hemoglobin 10.2, platelets 158. Sodium 1:30 systolic pressure 1.2, chloride 102, bicarbonate 28, B and 24, creatinine 1.14. AST 34, ALT 46, temp 34,albumin3.5. 02/10/2021 Patient still has significant redness and bilateral lower extremities, patient is on ceftezolin, patient is on Lasix as well patient has significant de formities and chronic stasis dermatosis as well as extensive deformities of bilateral lower extremities because of lymphedema and soft tissue hypertrophy. Patient probably has sleep apnea as well patient is morbidly obese 02/11/2021 The patient redness did improve compared to yesterday still has significant redness patient has some mild chronic venous stasis dermatosis as well. Patient still has significant swelling will try IV Lasix instead of oral Lasix. Lymphedema will not improve but some edema will improve with IV Lasix. Will monitor kidney function and electrolytes with IV Lasix. Will order basic metabolic profile for today and tomorrow. Constitutional: Denied any fatigue denied any fever. Cardio vascular: denied any chest pain, palpitations Gastrointestinal denied any nausea vomiting Pulmonary: Denied any shortness of breath cough Neurologic denied any new focal deficits All inpatient medications were reviewed and appropriate changes in these medications as dictated in the interval history and assessment and plan. PHYSICAL EXAMINATION: GENERAL: no acute distress. Morbidly obese HEENT: Pupils are round and equally reacting to light. EOMI. No scleral icterus. No conjunctival pallor. CARDIOVASCULAR: S1 and S2 present. No murmurs, rubs, or gallops. PULMONARY: Bilateral breath sounds positive. Diminished at the lower lung bases ABDOMEN: Soft,non -tender, normal bowel sounds. No guarding or rigidity. MUSCULOSKELETAL: No joint swelling or deformity. EXTREMITIES: Redness, warmth, swelling of bilateral lower extremities with chronic lymphedematous changes Massive swelling with distortion of his toes embedded in the swelling Peeling of the skin, with serous discharge in both lower extremities NEUROLOGICAL: Gross neurological examination did not reveal any focal deficits. ASSESSMENT Cellulitis bilateral lower extremities Chronic lymphedema of bilateral lower extremities Recent right lower extremity DVT on Eliquis Recent COVID-19 infection Anemia History of prostate cancer Former smoker Morbid obesity with BMI of 50 possibility of obstructive sleep apnea PLAN Patient has cellulitis on chronic lymphedema of both his patient is presently on Cafazolin Wound care consulted Patient is on anticoagulation with Eliquis due to recent history of DVT Started on home medications GI DVT prophylaxis Objective - Vital Signs Vital signs: Vital Signs Temp 98.8 F 02/11/21 07:44 Pulse 67 02/11/21 07:44 Resp 18 02/11/21 07:44 BP 130/64 02/11/21 07:44 Pulse Ox 95 02/11/21 07:44 Intake & Output 02/10/21 02/11/21 02/11/21 18:59 06:59 18:59 Output Total 750 600 Balance -750 -600 Output: Urine 750 600 Other: Voiding Method Urinal # Voids 1 - Labs CBC & Chem 7: 02/10/21 06:08 02/10/21 06:08
[2021-02-11] MEDS: MULTIVITAMINS, THERA 1 EACH TAB PO SCH (09:38)
[2021-02-11] MEDS: ZINC SULFATE 220 MG CAP PO SCH (09:38)
[2021-02-11] MEDS: FUROSEMIDE 10 MG/ML 4 ML VIAL IV SCH ×2 (09:38→19:38)
[2021-02-11] MEDS: ceFAZolin 3 GM in SODIUM CHLORIDE 0.9% 100 ML IVPB SCH ×3 (10:54→23:46)
[2021-02-11 11:10] LABS: African American GFR (CKD) 75 (>60 ml/min/1.73 sqM); Anion Gap 1 mmol/L; Blood Urea Nitrogen 21 mg/dL (9-20); Calcium 9.2 mg/dL (8.4-10.2); Carbon Dioxide 32 mmol/L (22-30); Chloride 102 mmol/L (98-107); Glucose 123 mg/dL (74-99); Non-African American GFR(CKD) 65 (>60 ml/min/1.73 sqM); Sodium 135 mmol/L (137-145)
[2021-02-12] MEDS: APIXABAN 5 MG TAB PO SCH ×2 (04:52→16:06)
[2021-02-12] MEDS: PANTOPRAZOLE 40 MG TABLET PO SCH ×2 (04:52→16:06)
[2021-02-12] MEDS: atenoloL 50 MG TAB PO SCH ×2 (04:52→16:06)
--- NOTE | 2021-02-12 07:01 | PN ---
PROGRESS NOTE DATE OF SERVICE: 02/11/2021 REASON FOR FOLLOWUP: Bilateral lower extremity ulcers and cellulitis. INTERIM HISTORY: Patient is afebrile. The patient is breathing comfortably. The patient denies having any chest pain, shortness of breath or cough. No nausea, vomiting, abdominal pain, or any worsening pain to the lower extremities. PHYSICAL EXAMINATION: Blood pressure 124/67, pulse of 65, temperature 98.4. He is 95% on 3 L nasal cannula. General description is an elderly male lying in bed in no distress. Respiratory system: Unlabored breathing, clear to auscultation anteriorly. Heart S1, S2. Regular rate and rhythm. Abdomen is soft, no tenderness. Legs are currently wrapped up. Overall redness has decreased. LABS: BUN of 21, creatinine 1.12. DIAGNOSTIC IMPRESSION AND PLAN: Patient with bilateral lower extremity cellulitis in this patient who did have diffuse swelling and redness with fluid overload, likely streptococcal disease, responding to cefepime and to continue for another 24 hours before transitioning to oral antibiotics. Continue local wound care with Aquacel Silver dressing and Moshe wrap. Continue supportive care. MMODL / IJN: [id number] /
[2021-02-12 07:41] LABS: HCT 25.5 % (39.0-53.0); HGB 8.8 gm/dL (13.0-17.5); MCH 31.6 pg (25.0-35.0); MCHC 34.5 g/dL (31.0-37.0); MCV 91.8 fL (80.0-100.0); Mean Platelet Volume 8.3; Platelet Count 158 k/uL (150-450); RBC 2.77 m/uL (4.30-5.90); RDW 14.7 % (11.5-15.5); WBC 8.8 k/uL (3.8-10.6)
[2021-02-12 08:05] LABS: African American GFR (CKD) 84 (>60 ml/min/1.73 sqM); Anion Gap 2 mmol/L; Blood Urea Nitrogen 22 mg/dL (9-20); Calcium 8.8 mg/dL (8.4-10.2); Carbon Dioxide 32 mmol/L (22-30); Chloride 102 mmol/L (98-107); Glucose 108 mg/dL (74-99); Non-African American GFR(CKD) 72 (>60 ml/min/1.73 sqM); Potassium 3.8 mmol/L (3.5-5.1); Sodium 136 mmol/L (137-145)
[2021-02-12] MEDS: FUROSEMIDE 10 MG/ML 4 ML VIAL IV SCH ×2 (08:17→21:06)
[2021-02-12] MEDS: ZINC SULFATE 220 MG CAP PO SCH (08:17)
[2021-02-12] MEDS: ceFAZolin 3 GM in SODIUM CHLORIDE 0.9% 100 ML IVPB SCH ×2 (08:17→16:05)
[2021-02-12] MEDS: CHOLECALCIFEROL 25 MCG (1000 IU) TABLET PO SCH (08:17)
[2021-02-12] MEDS: MULTIVITAMINS, THERA 1 EACH TAB PO SCH (08:18)
[2021-02-12] MEDS: ASCORBIC ACID 500 MG TAB PO SCH (08:18)
--- NOTE | 2021-02-12 12:45 | P.PN ---
Subjective Chief Complaint: Swelling of bilateral lower extremities Mr. Cooper is a 75-year-old male with a past medical history of prostate cancer, hypertension, skin disorder, coronary artery disease with pacemaker, status post ablation, chronic lymphedema of bilateral lower extremities, recent COVID 19 infection into the hospital with a chief complaint of increased swelling of bilateral lower extremities. Patient mentions he has history of chronic lymphedema bilateral lower extremities, he does wrap them and does physical therapy but since being hospitalized for Covid infection, he states he was not able to take good care of his legs and feet. Patient was hospitalized for almost 26 days(hospital and rehab) for COVID-19 infection in the last week of December. Since being discharged from the rehab facility patient noticed that the lower extremity swelling has worsened. He states he tried to take Keflex couple of days back but did not have any effect on his swelling so he came in to the hospital for further evaluation. Patient states that he lives with his who helps him with his daily activities since worsening of his condition. On reviewing the recent hospital visit, patient was found to have acute DVT in the right lower extremity and was discharged home on Eliquis 5 mg twice a day. In the ER patient's vitals at the time of admission temperature 98.2, heart rate 64, respiratory 16, blood pressure 132/84, saturating at 98% on room air. On reviewing labs white count of 7.4, hemoglobin 10.2, platelets 158. Sodium 1:30 systolic pressure 1.2, chloride 102, bicarbonate 28, B and 24, creatinine 1.14. AST 34, ALT 46, temp 34,albumin3.5. 02/10/2021 Patient still has significant redness and bilateral lower extremities, patient is on ceftezolin, patient is on Lasix as well patient has significant de formities and chronic stasis dermatosis as well as extensive deformities of bilateral lower extremities because of lymphedema and soft tissue hypertrophy. Patient probably has sleep apnea as well patient is morbidly obese 02/11/2021 The patient redness did improve compared to yesterday still has significant redness patient has some mild chronic venous stasis dermatosis as well. Patient still has significant swelling will try IV Lasix instead of oral Lasix. Lymphedema will not improve but some edema will improve with IV Lasix. Will monitor kidney function and electrolytes with IV Lasix. Will order basic metabolic profile for today and tomorrow. 02/12/2021 Patient is clinically doing well patient is on IV Lasix which will be continued and patient is serum sodium did improve after IV Lasix and patient's creatinine did improve as well. She remains on ceftezole and which will be continued. Constitutional: Denied any fatigue denied any fever. Cardio vascular: denied any chest pain, palpitations Gastrointestinal denied any nausea vomiting Pulmonary: Denied any shortness of breath cough Neurologic denied any new focal deficits All inpatient medications were reviewed and appropriate changes in these medications as dictated in the interval history and assessment and plan. PHYSICAL EXAMINATION: GENERAL: no acute distress. Morbidly obese HEENT: Pupils are round and equally reacting to light. EOMI. No scleral icterus. No conjunctival pallor. CARDIOVASCULAR: S1 and S2 present. No murmurs, rubs, or gallops. PULMONARY: Bilateral breath sounds positive. Diminished at the lower lung bases ABDOMEN: Soft,non -tender, normal bowel sounds. No guarding or rigidity. MUSCULOSKELETAL: No joint swelling or deformity. EXTREMITIES: Redness, warmth, swelling of bilateral lower extremities with chronic lymphedematous changes Massive swelling with distortion of his toes embedded in the swelling Peeling of the skin, with serous discharge in both lower extremities NEUROLOGICAL: Gross neurological examination did not reveal any focal deficits. ASSESSMENT Cellulitis bilateral lower extremities Chronic lymphedema of bilateral lower extremities Recent right lower extremity DVT on Eliquis Recent COVID-19 infection Anemia History of prostate cancer Former smoker Morbid obesity with BMI of 50 possibility of obstructive sleep apnea -Acute renal failure renal azotemia secondary to hypervolemia which is improving at this time with IV Lasix IV Lasix will be continued with close monitoring of kidney function. PLAN Patient has cellulitis on chronic lymphedema of both his patient is presently on Cafazolin Wound care consulted Patient is on anticoagulation with Eliquis due to recent history of DVT GI DVT prophylaxis Objective - Vital Signs Vital signs: Vital Signs Temp 98.5 F 02/12/21 07:46 Pulse 63 02/12/21 08:18 Resp 16 02/12/21 08:18 BP 115/53 02/12/21 07:46 Pulse Ox 94 L 02/12/21 07:46 Intake & Output 02/11/21 02/12/21 02/12/21 18:59 06:59 18:59 Intake Total 480 236 Output Total 550 600 Balance -70 -364 Intake: Oral 480 236 Output: Urine 550 600 Other: Voiding Method Urinal # Voids 1 - Labs CBC & Chem 7: 02/12/21 07:15 02/12/21 07:15 Labs: Abnormal Lab Results - Last 24 Hours (Table) 02/12/21 02/12/21 Range/Units 07:15 07:15 RBC 2.77 L (4.30-5.90) m/uL Hgb 8.8 L (13.0-17.5) gm/dL Hct 25.5 L (39.0-53.0) % Sodium 136 L (137-145) mmol/L Carbon Dioxide 32 H (22-30) mmol/L BUN 22 H (9-20) mg/dL Glucose 108 H (74-99) mg/dL
[2021-02-12] MEDS: HYDROcodone/APAP 5-325MG 1 EACH TAB PO PRN (16:09)
--- NOTE | 2021-02-12 23:21 | PN ---
PROGRESS NOTE DATE OF SERVICE: 02/12/2021 REASON FOR FOLLOWUP: Bilateral lower extremity venostasis ulcer and cellulitis. INTERVAL HISTORY: Patient is afebrile. The patient is breathing comfortably. The patient denies having any chest pain, shortness of breath or cough. No abdominal pain. Pain of leg has decreased. PHYSICAL EXAMINATION: Blood pressure 129/66, pulse of 80, temperature 98.1. He is 95% on 3 L nasal cannula. GENERAL DESCRIPTION: Is a middle-aged male, lying in bed, in no distress. RESPIRATORY SYSTEM: Unlabored breathing, clear to auscultation anteriorly. HEART: S1, S2. Regular. ABDOMEN: Soft, no tenderness. LEGS: Are currently wrapped up. Overall, redness has slightly decreased, no drainage. LABS: Creatinine is 8.8 with white count of 8.9, BUN of 22, creatinine 1.02. DIAGNOSTIC IMPRESSION AND PLAN: Patient with bilateral lower extremity venostasis ulcer and cellulitis. Overall improvement with cefazolin. Plan to finish therapy with oral Keflex 500 mg q.6 hours for 10 days. Local care with dry Aquacel dressing and Moshe wrap and close outpatient followup. MMODL / IJN: [id number] /
[2021-02-13] MEDS: ceFAZolin 3 GM in SODIUM CHLORIDE 0.9% 100 ML IVPB SCH ×2 (00:20→07:23)
[2021-02-13] MEDS: PANTOPRAZOLE 40 MG TABLET PO SCH (04:38)
[2021-02-13] MEDS: atenoloL 50 MG TAB PO SCH (04:38)
[2021-02-13] MEDS: APIXABAN 5 MG TAB PO SCH (04:38)
[2021-02-13] MEDS: ASCORBIC ACID 500 MG TAB PO SCH (07:23)
[2021-02-13] MEDS: ZINC SULFATE 220 MG CAP PO SCH (07:23)
[2021-02-13] MEDS: HYDROcodone/APAP 5-325MG 1 EACH TAB PO PRN (07:23)
[2021-02-13] MEDS: FUROSEMIDE 10 MG/ML 4 ML VIAL IV SCH (07:23)
[2021-02-13] MEDS: CHOLECALCIFEROL 25 MCG (1000 IU) TABLET PO SCH (07:24)
[2021-02-13] MEDS: MULTIVITAMINS, THERA 1 EACH TAB PO SCH (07:24)
--- NOTE | 2021-02-13 13:49 | PN ---
PROGRESS NOTE DATE OF SERVICE: 02/13/2021 REASON FOR FOLLOWUP: Bilateral lower extremity venostasis ulcer and cellulitis. INTERVAL HISTORY: Patient is afebrile. The patient is breathing comfortably. The patient denies having any chest pain, shortness of breath or cough. No abdominal pain or any worsening pain to the lower extremity. PHYSICAL EXAMINATION: Blood pressure 130/60 with a pulse of 81, temperature 97.9. He is 97% on 2 L nasal cannula. GENERAL DESCRIPTION: Is an elderly male, lying in bed, in no distress. RESPIRATORY SYSTEM: Unlabored breathing, clear to auscultation. HEART: S1, S2. Regular. ABDOMEN: Soft, nontender. LEGS: Are currently wrapped up, overall redness decreased. LABS: No new labs have been obtained today. DIAGNOSTIC IMPRESSION AND PLAN: Patient with bilateral lower extremity venostasis ulcer and cellulitis. Overall improvement on cefazolin. Plan to finish therapy with oral Keflex 500 mg p.o. q.6 hours for 10 days. Local care with dry Aquacel dressing and Moshe wrap and close outpatient followup. MMODL / IJN: [id number] /
[2021-02-13 14:13] VITALS: BP 131/73; PULSE 63; RESP 20; TEMP 98
--- NOTE | 2021-02-13 15:21 | P.DS ---
Providers Date of admission: 02/09/21 17:24 Expected date of discharge: 02/13/21 Attending physician: Lucia Wagner Consults: 02/09/21 13:14 Consult Physician Urgent Consulting Provider: Hansel Guzman Consult Reason/Comments: Lymphedema Do you want consulting provider notified?: Yes Primary care physician: Uriah Starks Hospital Course: Final diagnosis Cellulitis bilateral lower extremities Chronic lymphedema of bilateral lower extremities Recent right lower extremity DVT on Eliquis Recent COVID-19 infection Anemia History of prostate cancer Former smoker Morbid obesity with BMI of 50 possibility of obstructive sleep apnea Acute renal failure pre-renal azotemia secondary to hypervolemia which is improving No code Discharge disposition Patient is being discharged in a stable condition with guarded prognosis to [facility] for continued PT/OT therapy. Patient will follow-up with Dr. Starks upon discharge. Patient will continue with a short course of oral antibiotics in the form of Keflex 500 mg every 6 hours for the next 10 days and then may discontinue. Patient will need follow-up at the wound care center with infectious disease in 1-2 weeks. Total time taken is greater than 35 minutes. Hospital course Chief Complaint: Swelling of bilateral lower extremities Mr. Cooper is a 75-year-old male with a past medical history of prostate cancer, hypertension, skin disorder, coronary artery disease with pacemaker, status post ablation, chronic lymphedema of bilateral lower extremities, recent COVID 19 infection into the hospital with a chief complaint of increased swelling of bilateral lower extremities. Patient mentions he has history of chronic lymphedema bilateral lower extremities, he does wrap them and does physical therapy but since being hospitalized for Covid infection, he states he was not able to take good care of his legs and feet. Patient was hospitalized for almost 26 days(hospital and r ehab) for COVID-19 infection in the last week of December. Since being discharged from the rehab facility patient noticed that the lower extremity swelling has worsened. He states he tried to take Keflex couple of days back but did not have any effect on his swelling so he came in to the hospital for further evaluation. Patient states that he lives with his who helps him with his daily activities since worsening of his condition. On reviewing the recent hospital visit, patient was found to have acute DVT in the right lower extremity and was discharged home on Eliquis 5 mg twice a day. In the ER patient's vitals at the time of admission temperature 98.2, heart rate 64, respiratory 16, blood pressure 132/84, saturating at 98% on room air. On reviewing labs white count of 7.4, hemoglobin 10.2, platelets 158. Sodium 1:30 systolic pressure 1.2, chloride 102, bicarbonate 28, B and 24, creatinine 1.14. AST 34, ALT 46, temp 34,albumin3.5. 02/10/2021 Patient still has significant redness and bilateral lower extremities, patient is on ceftezolin, patient is on Lasix as well patient has significant deformities and chronic stasis dermatosis as well as extensive deformities of bilateral lower extremities because of lymphedema and soft tissue hypertrophy. Patient probably has sleep apnea as well patient is morbidly obese 02/11/2021 The patient redness did improve compared to yesterday still has significant redness patient has some mild chronic venous stasis dermatosis as well. Patient still has significant swelling will try IV Lasix instead of oral Lasix. Lymphedema will not improve but some edema will improve with IV Lasix. Will monitor kidney function and electrolytes with IV Lasix. Will order basic metabolic profile for today and tomorrow. 02/12/2021 Patient is clinically doing well patient is on IV Lasix which will be continued and patient is serum sodium did improve after IV Lasix and patient's creatinine did improve as well. She remains on ceftezole and which will be continued. 02/13/2021 Patient is seen in follow-up with no acute overnight issues. Patient continues on IV cefazolin and will transition to oral Keflex 500 mg 4 times daily for the next 10 days. Infectious disease following an recommend close outpatient follow-up in the clinic in 1-2 weeks. Patient will also continue with local wound care to bilateral lower extremities with dry Aquacel dressing and Moshe wraps and elevating while at rest. Patient continues to be weak requiring assistance and will need rehab for continued PT/OT therapy which he is now agreeable to and authorization has been obtained and [facility]. Currently no reports of chest pain, shortness of breath, or palpitations. Patient is afebrile. No reports of nausea or vomiting and deny ent is tolerating diet. Patient may need outpatient follow-up with pulmonary for further function testing and possible sleep apnea testing. On exam vital signs are stable. Cardio S1, S2 are muffled. Respiratory shows diminished breath sounds at the bases with a few scattered rhonchi noted. Abdomen is soft, obese, and nontender. Nervous system shows mild diffuse weakness. Please refer to medication reconciliation sheet for a list of medications. Patient Condition at Discharge: Stable Plan - Discharge Summary Discharge Rx Participant: No New Discharge Prescriptions: New HYDROcodone/APAP 5-325MG [Bonnyman 5-325] 1 each PO Q6HR PRN #10 tab PRN Reason: Pain Continue Potassium Chloride [K-Tab ER] 20 meq PO DAILY Zinc Sulfate [Orazinc] 220 mg PO DAILY cap Cholecalciferol [Vitamin D3 (25 Mcg = 1000 Iu)] 125 mcg PO DAILY tablet Apixaban [Eliquis] 5 mg PO BID@0400,1600 Furosemide [Lasix] 40 mg PO BID@0400,1600 Baclofen [Lioresal] 10 mg PO Q6H PRN PRN Reason: BACK PAIN Atenolol [Tenormin] 50 mg PO BID@0400,1600 Multivitamins, Thera [Multivitamin (formulary)] 1 tab PO DAILY Ascorbic Acid [Vitamin C] 1,000 mg PO DAILY tab Albuterol Inhaler [Ventolin Hfa Inhaler] 2 puff INHALATION RT-QID PRN PRN Reason: Shortness Of Breath Pantoprazole [Protonix] 40 mg PO BID@0400,1600 Changed Cephalexin [Keflex] 500 mg PO Q6H 10 Days #40 cap Discharge Medication List Potassium Chloride [K-Tab ER] 20 meq PO DAILY 12/09/14 [History] Atenolol [Tenormin] 50 mg PO BID@0400,1600 12/31/20 [History] Multivitamins, Thera [Multivitamin (formulary)] 1 tab PO DAILY 12/31/20 [History] Ascorbic Acid [Vitamin C] 1,000 mg PO DAILY tab 01/08/21 [Rx] Cholecalciferol [Vitamin D3 (25 Mcg = 1000 Iu)] 125 mcg PO DAILY tablet 01/08/21 [Rx] Zinc Sulfate [Orazinc] 220 mg PO DAILY cap 01/08/21 [Rx] Albuterol Inhaler [Ventolin Hfa Inhaler] 2 puff INHALATION RT-QID PRN 02/09/21 [History] Apixaban [Eliquis] 5 mg PO BID@0400,1600 02/09/21 [History] Baclofen [Lioresal] 10 mg PO Q6H PRN 02/09/21 [History] Furosemide [Lasix] 40 mg PO BID@0400,1600 02/09/21 [History] Pantoprazole [Protonix] 40 mg PO BID@0400,1600 02/09/21 [History] Cephalexin [Keflex] 500 mg PO Q6H 10 Days #40 cap 02/13/21 [Rx] HYDROcodone/APAP 5-325MG [Bonnyman 5-325] 1 each PO Q6HR PRN #10 tab 02/13/21 [Rx] Follow up Appointment(s)/Referral(s): [facility], [NON-STAFF] - As Needed [facility], [NON-STAFF] - As Needed Uriah Starks DO [Primary Care Provider] - 1-2 days Hansel Guzman MD [STAFF PHYSICIAN] - 10 Days Activity/Diet/Wound Care/Special Instructions: Patient is going to [facility] Activity as tolerated Continue with antibiotics 500 mg every 6 hours for 10 days follow up outpatient with wound care Center outpatient in 1-2 weeks Continue with local wound care with dry Aquacel dressing and Moshe wraps and dressing changes if becomes soiled or wet bilateral lower extremities Continue with heart healthy diet Discharge Disposition: TRANSFER TO SNF/ECF
== END 2021-02-13 18:00 ==
LOC: EC 11:20 → 6NMEDSUR 13:14 → INTOOBSV 17:24 → OBSVTOIN 17:24 → 4SSUR 02-10 19:01 → UNDODISIN 02-13 18:00
PROVIDERS: ADMIT Internal Medicine; ATTEND Internal Medicine
DX: L03.116 Cellulitis of left lower limb (principal); L03.115 Cellulitis of right lower limb; E44.1 Mild protein-calorie malnutrition; I82.401 Acute embolism and thrombosis of unspecified deep veins of right lower extremity; N17.9 Acute kidney failure, unspecified; I89.0 Lymphedema, not elsewhere classified; L97.829 Non-pressure chronic ulcer of other part of left lower leg with unspecified severity; L97.819 Non-pressure chronic ulcer of other part of right lower leg with unspecified severity; I87.2 Venous insufficiency (chronic) (peripheral); E87.70 Fluid overload, unspecified; I10 Essential (primary) hypertension; I25.10 Atherosclerotic heart disease of native coronary artery without angina pectoris; D64.9 Anemia, unspecified; E66.01 Morbid (severe) obesity due to excess calories; Z68.43 Body mass index [BMI] 50.0-59.9, adult; Z79.01 Long term (current) use of anticoagulants; Z79.51 Long term (current) use of inhaled steroids; Z79.899 Other long term (current) drug therapy; Z86.16 Personal history of COVID-19; Z85.46 Personal history of malignant neoplasm of prostate; Z86.19 Personal history of other infectious and parasitic diseases; Z95.0 Presence of cardiac pacemaker; Z98.890 Other specified postprocedural states; Z87.891 Personal history of nicotine dependence; Z80.9 Family history of malignant neoplasm, unspecified
CPT/HCPCS: 96365; 96366 ×5; 96376 ×3; 96375; 99285; 36415; 97530 ×2; 97162; 97166; 80053; 80048 ×3; 83735; 85025 ×2; 85027; G0378 ×6; J1940 ×4; J0690 ×5; 96374

== ENCOUNTER 2021-03-05 11:06 | Inpatient (IN) | payer MEDICARE ==
--- NOTE | 2021-03-05 12:00 | ED ---
General Adult HPI - General Chief complaint: Shortness of Breath Stated complaint: MARIELA Time Seen by Provider: 03/05/21 11:10 Source: patient, EMS, RN notes reviewed, old records reviewed Mode of arrival: EMS Limitations: no limitations - History of Present Illness Initial comments: This is a 75-year-old male who presents emergency Department complaining of difficulty breathing. Patient has a history of his congestive heart failure. Patient states that he woke up this morning and was very short of breath and he was post to physical therapy but he knew there was no way he could possibly physical therapy. Patient denies any chest pain or palpitations. Patient denies any recent fever chills or cough. Patient states he always has swelling to the legs it's difficult for him to nose if he is having much more. Patient denies any increased pain to light. Patient denies any abdominal pain. Patient denies any other around site shortness of breath. - Related Data Home Medications Medication Instructions Recorded Confirmed Potassium Chloride [K-Tab ER] 20 meq PO DAILY 12/09/14 02/09/21 Atenolol [Tenormin] 50 mg PO BID@0400,1600 12/31/20 02/09/21 Multivitamins, Thera [Multivitamin 1 tab PO DAILY 12/31/20 02/09/21 (formulary)] Albuterol Inhaler [Ventolin Hfa 2 puff INHALATION RT-QID PRN 02/09/21 02/09/21 Inhaler] Apixaban [Eliquis] 5 mg PO BID@0400,1600 02/09/21 02/09/21 Baclofen [Lioresal] 10 mg PO Q6H PRN 02/09/21 02/09/21 Furosemide [Lasix] 40 mg PO BID@0400,1600 02/09/21 02/09/21 Pantoprazole [Protonix] 40 mg PO BID@0400,1600 02/09/21 02/09/21 Previous Rx's Medication Instructions Recorded Ascorbic Acid [Vitamin C] 1,000 mg PO DAILY tab 01/08/21 Cholecalciferol [Vitamin D3 (25 125 mcg PO DAILY tablet 01/08/21 Mcg = 1000 Iu)] Zinc Sulfate [Orazinc] 220 mg PO DAILY cap 01/08/21 Cephalexin [Keflex] 500 mg PO Q6H 10 Days #40 cap 02/13/21 HYDROcodone/APAP 5-325MG [[place] 1 each PO Q6HR PRN #10 tab 02/13/21 5-325] Allergies Allergy/AdvReac Type Severity Reaction Status Date / Time No Known Allergies Allergy Verified 03/05/21 11:13 Review of Systems ROS Statement: Those systems with pertinent positive or pertinent negative responses have been documented in the HPI. ROS Other: All systems not noted in ROS Statement are negative. Past Medical History Past Medical History: Cancer, Hypertension, Skin Disorder Additional Past Medical History / Comment(s): hx prostate cancer, , hx rheumatic fever; lymphedema to bilateral legs. History of Any Multi-Drug Resistant Organisms: None Reported Past Surgical History: Hernia Repair, Tonsillectomy Additional Past Surgical History / Comment(s): pacemaker, heart ablation Past Anesthesia/Blood Transfusion Reactions: No Reported Reaction Past Psychological History: No Psychological Hx Reported Smoking Status: Former smoker Past Alcohol Use History: None Reported Past Drug Use History: None Reported - Past Family History Father Family Medical History: Cancer Mother Family Medical History: Cancer General Exam - General Exam Comments Initial Comments: GENERAL: Patient is well-developed and well-nourished. Patient is nontoxic and well- hydrated and is in mild distress. Patient normally wears oxygen at the facility. ENT: Neck is soft and supple. No significant lymphadenopathy is noted. Oropharynx is clear. Moist mucous membranes. Neck has full range of motion without eliciting any pain. EYES: The sclera were anicteric and conjunctiva were pink and moist. Extraocular movements were intact and pupils were equal round and reactive to light. Eyelids were unremarkable. PULMONARY: Diminished breath sounds but no obvious crackles were heard CARDIOVASCULAR: There is a regular rate and rhythm without any murmurs gallops or rubs. ABDOMEN: Soft and nontender with normal bowel sounds. SKIN: Skin is clear with no lesions or rashes and otherwise unremarkable. NEUROLOGIC: Patient is alert and oriented x3. Cranial nerves II through XII are grossly intact. Motor and sensory are also intact. Normal speech, volume and content. Symmetrical smile. MUSCULOSKELETAL: Normal extremities with adequate strength and full range of motion. LYMPHATICS: No significant lymphadenopathy is noted PSYCHIATRIC: Normal psychiatric evaluation. Limitations: no limitations Course Vital Signs 03/05/21 03/05/21 03/05/21 11:09 12:11 13:21 Temperature 98.1 F Pulse Rate 60 63 Respiratory 20 22 Rate Blood Pressure 110/48 114/69 O2 Sat by Pulse 89 L 85 L 100 Oximetry Medical Decision Making - Medical Decision Making EKG shows paced rhythm at 60 bpm QRS 142 QT intervals 42 QTC is 512. It appears to be a ventricular paced rhythm Chest shows congestive heart failure. Patient's oxygenation on 6 L dropped into the 80s so we put him on BiPAP and pedal he felt much more comfortable was able to rest his oxygenation was up in the mid 90s. I spoke with Dr. Niño because he agreed to admit the patient admitted the patient wrote admitting orders. - Lab Data Result diagrams: 03/05/21 11:42 03/05/21 11:42 Lab Results 03/05/21 03/05/21 03/05/21 Range/Units 11:42 11:42 11:42 WBC 12.9 H (3.8-10.6) k/uL RBC 2.73 L (4.30-5.90) m/uL Hgb 8.6 L (13.0-17.5) gm/dL Hct 26.4 L (39.0-53.0) % MCV 96.6 (80.0-100.0) fL MCH 31.5 (25.0-35.0) pg MCHC 32.6 (31.0-37.0) g/dL RDW 18.7 H (11.5-15.5) % Plt Count 169 (150-450) k/uL MPV 9.8 Neutrophils % (Manual) 71 % Band Neuts % (Manual) 5 % Lymphocytes % (Manual) 8 % Monocytes % (Manual) 9 % Eosinophils % (Manual) 1 % Metamyelocytes % 4 % Myelocytes % 4 % Neutrophils # (Manual) 9.80 H (1.3-7.7) k/uL Lymphocytes # (Manual) 1.03 (1.0-4.8) k/uL Monocytes # (Manual) 1.16 H (0-1.0) k/uL Eosinophils # (Manual) 0.13 (0-0.7) k/uL Metamyelocytes # (Man) 0.52 H (0) k/uL Myelocytes # (Manual) 0.52 H (0) k/uL Nucleated RBCs 1 H (0-0) /100 WBC Manual Slide Review Performed Polychromasia Present Hypochromasia Slight Poikilocytosis Moderate Basophilic Stippling Present Anisocytosis Slight Macrocytosis Slight PT 14.8 H (9.0-12.0) sec INR 1.5 H (<1.2) APTT 31.4 H (22.0-30.0) sec Sodium 137 (137-145) mmol/L Potassium 4.5 (3.5-5.1) mmol/L Chloride 89 L (98-107) mmol/L Carbon Dioxide 43 H* (22-30) mmol/L Anion Gap 5 mmol/L BUN 24 H (9-20) mg/dL Creatinine 0.79 (0.66-1.25) mg/dL Est GFR (CKD-EPI)AfAm >90 (>60 ml/min/1.73 sqM) Est GFR (CKD-EPI)NonAf 89 (>60 ml/min/1.73 sqM) Glucose 113 H (74-99) mg/dL Plasma Lactic Acid Mumtaz (0.7-2.0) mmol/L Calcium 9.7 (8.4-10.2) mg/dL Magnesium 2.2 (1.6-2.3) mg/dL Total Bilirubin 1.1 (0.2-1.3) mg/dL AST 32 (17-59) U/L ALT 13 (4-49) U/L Alkaline Phosphatase 100 (38-126) U/L Troponin I (0.000-0.034) ng/mL NT-Pro-B Natriuret Pep pg/mL Total Protein 6.3 (6.3-8.2) g/dL Albumin 3.2 L (3.5-5.0) g/dL 03/05/21 03/05/21 03/05/21 Range/Units 11:42 11:42 11:42 WBC (3.8-10.6) k/uL RBC (4.30-5.90) m/uL Hgb (13.0-17.5) gm/dL Hct (39.0-53.0) % MCV (80.0-100.0) fL MCH (25.0-35.0) pg MCHC (31.0-37.0) g/dL RDW (11.5-15.5) % Plt Count (150-450) k/uL MPV Neutrophils % (Manual) % Band Neuts % (Manual) % Lymphocytes % (Manual) % Monocytes % (Manual) % Eosinophils % (Manual) % Metamyelocytes % % Myelocytes % % Neutrophils # (Manual) (1.3-7.7) k/uL Lymphocytes # (Manual) (1.0-4.8) k/uL Monocytes # (Manual) (0-1.0) k/uL Eosinophils # (Manual) (0-0.7) k/uL Metamyelocytes # (Man) (0) k/uL Myelocytes # (Manual) (0) k/uL Nucleated RBCs (0-0) /100 WBC Manual Slide Review Polychromasia Hypochromasia Poikilocytosis Basophilic Stippling Anisocytosis Macrocytosis PT (9.0-12.0) sec INR (<1.2) APTT (22.0-30.0) sec Sodium (137-145) mmol/L Potassium (3.5-5.1) mmol/L Chloride (98-107) mmol/L Carbon Dioxide (22-30) mmol/L Anion Gap mmol/L BUN (9-20) mg/dL Creatinine (0.66-1.25) mg/dL Est GFR (CKD-EPI)AfAm (>60 ml/min/1.73 sqM) Est GFR (CKD-EPI)NonAf (>60 ml/min/1.73 sqM) Glucose (74-99) mg/dL Plasma Lactic Acid Mumtaz 1.6 (0.7-2.0) mmol/L Calcium (8.4-10.2) mg/dL Magnesium (1.6-2.3) mg/dL Total Bilirubin (0.2-1.3) mg/dL AST (17-59) U/L ALT (4-49) U/L Alkaline Phosphatase (38-126) U/L Troponin I <0.012 (0.000-0.034) ng/mL NT-Pro-B Natriuret Pep 3850 pg/mL Total Protein (6.3-8.2) g/dL Albumin (3.5-5.0) g/dL Disposition Clinical Impression: Pulmonary edema, Pleural effusion Disposition: ADMITTED IP TO THIS HOSP Referrals: Uriah Tsang DO [Primary Care Provider] - 1-2 days Time of Disposition: 13:40
--- NOTE | 2021-03-05 12:03 | XR ---
EXAMINATION TYPE: XR chest 2V DATE OF EXAM: 03/05/2021 COMPARISON: NONE TECHNIQUE: PA and lateral views submitted. HISTORY: Shortness of breath FINDINGS: Cardiac device and cardiomegaly with bilateral pleural effusions and consolidation. Diffuse interstit ial pattern and biapical pleural thickening. Findings similar to the prior exam. Hypertrophic and deg enerative change of the spine. IMPRESSION: 1. CHF with pulmonary edema favored over diffuse pneumonia correlate clinically.
[2021-03-05 12:11] LABS: ALT 13 U/L (4-49); AST 32 U/L (17-59); African American GFR (CKD) >90 (>60 ml/min/1.73 sqM); Albumin 3.2 g/dL (3.5-5.0); Alkaline Phosphatase 100 U/L (38-126); Blood Urea Nitrogen 24 mg/dL (9-20); Calcium 9.7 mg/dL (8.4-10.2); Chloride 89 mmol/L (98-107); Glucose 113 mg/dL (74-99); INR 1.5 (<1.2); Magnesium 2.2 mg/dL (1.6-2.3); Non-African American GFR(CKD) 89 (>60 ml/min/1.73 sqM); Partial Thromboplastin Time 31.4 sec (22.0-30.0); Potassium 4.5 mmol/L (3.5-5.1); Prothrombin Time 14.8 sec (9.0-12.0); Sodium 137 mmol/L (137-145); Total Bilirubin 1.1 mg/dL (0.2-1.3); Total Protein 6.3 g/dL (6.3-8.2)
[2021-03-05 12:17] LABS: Anion Gap 5 mmol/L
[2021-03-05 12:21] LABS: Anisocytosis Slight; HCT 26.4 % (39.0-53.0); HGB 8.6 gm/dL (13.0-17.5); Hypochromasia Slight; MCH 31.5 pg (25.0-35.0); MCHC 32.6 g/dL (31.0-37.0); MCV 96.6 fL (80.0-100.0); Macrocytosis Slight; Mean Platelet Volume 9.8; Platelet Count 169 k/uL (150-450); Poikilocytosis Moderate; RBC 2.73 m/uL (4.30-5.90); RDW 18.7 % (11.5-15.5)
[2021-03-05 12:26] LABS: Carbon Dioxide 43 mmol/L (22-30)
[2021-03-05 13:29] LABS: Band Neutrophils % 5 %; Eosinophils # (M) 0.13 k/uL (0-0.7); Metamyelocytes # (M) 0.52 k/uL (0); Metamyelocytes % 4 %; Myelocytes # (M) 0.52 k/uL (0); Myelocytes % 4 %; Neutrophils % (M) 71 %; Nucleated Red Blood Cells 1 /100 WBC (0-0); Total Cells Counted 200
[2021-03-05 13:36] LABS: Lymphocytes # (M) 1.03 k/uL (1.0-4.8); Monocytes # (M) 1.16 k/uL (0-1.0); WBC 12.9 k/uL (3.8-10.6)
[2021-03-05] MEDS ORDERED: FUROSEMIDE 10 MG/ML 10 ML VIAL IV STA (13:36)
[2021-03-05 13:37] LABS: Basophilic Stippling Present; Polychromasia Present
--- NOTE | 2021-03-05 14:39 | P.HPIM ---
History of Present Illness This is a pleasant 75 his old male with past medical history of hypertension, prostate cancer, bilateral leg lymphedema, status post cardiac ablation and pacemaker Was recently discharged from the hospital 02/09-02/13 for bilateral leg cellulitis of his lymphedema. Recent right lower extremity DVT on [facility] COVID- 19 infection Presents because of dyspnea over the weekend with increased bilateral leg swelling. He lives in a detention. At baseline he has some dyspnea with oxygen requirement 2-4 L/m at baseline. At baseline and also patient is nonmobile for a long time, probably many years as he states. He denies any coughing. No abdominal pain or nausea vomiting. No diarrhea. He states that his urine little short T as he describes but he denies dysuria Now he feels much better after he was placed on BiPAP On admission he was hypoxic with oxygen saturation 89% on 60 to her oxygenation nasal cannula. Breathing at 20/m, afebrile Labs showing leukocytosis of 12.9 K. Hemoglobin 8.6 which is close to baseline. Platelets normal. INR is 1.5. BMP and creatinine are unremarkable. Liver enzymes not elevated. Troponin is negative less than 0.012. EKG showing paced rhythm at 68 Chest x-ray: CHF with pulmonary edema favored over diffuse pneumonia Echocardiogram from 01/2021 showing ejection fraction of 50-55% In the emergency room he was received 1 dose of IV Lasix 80 mg and continued on 40 mg every 8 hours Review of Systems CONSTITUTIONAL: No fever, no malaise, no fatigue. HEENT: No recent visual problems or hearing problems. Denied any sore throat. CARDIOVASCULAR: No orthopnea, PND, no palpitations, no syncope. PULMONARY: No chest wall tenderness, no hemoptysis. GASTROINTESTINAL: No diarrhea, no nausea, no vomiting, no abdominal pain. Normoactive bowel sounds. NEUROLOGICAL: No headaches, no weakness, no numbness. HEMATOLOGICAL: Denies any bleeding or petechiae. GENITOURINARY: Denies any burning micturition, frequency, or urgency. MUSCULOSKELETAL/RHEUMATOLOGICAL: Denies any joint pain, swelling, or any muscle pain. ENDOCRINE: Denies any polyuria or polydipsia. Past Medical History Past Medical History: Cancer, Hypertension, Skin Disorder Additional Past Medical History / Comment(s): hx prostate cancer, , hx rheumatic fever; lymphedema to bilateral legs. History of Any Multi-Drug Resistant Organisms: None Reported Past Surgical History: Hernia Repair, Tonsillectomy Additional Past Surgical History / Comment(s): pacemaker, heart ablation Past Anesthesia/Blood Transfusion Reactions: No Reported Reaction Past Psychological History: No Psychological Hx Reported Smoking Status: Former smoker Past Alcohol Use History: None Reported Past Drug Use History: None Reported - Past Family History Father Family Medical History: Cancer Mother Family Medical History: Cancer Medications and Allergies Home Medications Medication Instructions Recorded Confirmed Type Potassium Chloride [K-Tab ER] 20 meq PO BID 12/09/14 03/05/21 History Atenolol [Tenormin] 50 mg PO BID 12/31/20 03/05/21 History Multivitamins, Thera [Multivitamin 1 tab PO HS 12/31/20 03/05/21 History (formulary)] Ascorbic Acid [Vitamin C] 1,000 mg PO DAILY tab 01/08/21 03/05/21 Rx Albuterol Inhaler [Ventolin Hfa 2 puff INHALATION RT-QID PRN 02/09/21 03/05/21 H istory Inhaler] Apixaban [Eliquis] 5 mg PO BID 02/09/21 03/05/21 History Baclofen [Lioresal] 10 mg PO Q6H PRN 02/09/21 03/05/21 History Pantoprazole [Protonix] 40 mg PO BID 02/09/21 03/05/21 History Cholecalciferol [Vitamin D3 (25 25 mcg PO DAILY 03/05/21 03/05/21 History Mcg = 1000 Iu)] Furosemide [Lasix] 80 mg PO BID 03/05/21 03/05/21 History HYDROcodone/APAP 5-325MG [[place] 1 tab PO Q6HR PRN 03/05/21 03/05/21 History 5-325] Allergies Allergy/AdvReac Type Severity Reaction Status Date / Time No Known Allergies Allergy Verified 03/05/21 13:55 Physical Exam Vitals: Vital Signs Temp Pulse Resp BP Pulse Ox 03/05/21 13:21 63 22 114/69 100 03/05/21 12:11 85 L 03/05/21 11:09 98.1 F 60 20 110/48 89 L Intake and Output 03/04/21 03/05/21 03/05/21 22:59 06:59 14:59 Other: Weight 199.581 kg -GENERAL: The patient is alert and oriented x3, not in any acute distress. Well morbidly obese HEENT: Pupils are round and equally reacting to light. EOMI. No scleral icterus. No conjunctival pallor. Normocephalic, atraumatic. No pharyngeal erythema. No thyromegaly. CARDIOVASCULAR: S1 and S2 present. No murmurs, rubs, or gallops. -PULMONARY: Chest is clear to auscultation, Distant heart sounds secondary to obesity ABDOMEN: Soft, nontender, nondistended, normoactive bowel sounds. No palpable organomegaly. MUSCULOSKELETAL: No joint swelling or deformity. -EXTREMITIES: No cyanosis, clubbing,. Bilateral lymphedema, associated with bilateral pelvic and leg edema NEUROLOGICAL: Gross neurological examination did not reveal any focal deficits. SKIN: No rashes. No petechiae Results CBC & Chem 7: 03/05/21 11:42 03/05/21 11:42 Labs: Abnormal Lab Results - Last 24 Hours (Table) 03/05/21 03/05/21 03/05/21 Range/Units 11:42 11:42 11:42 WBC 12.9 H (3.8-10.6) k/uL RBC 2.73 L (4.30-5.90) m/uL Hgb 8.6 L (13.0-17.5) gm/dL Hct 26.4 L (39.0-53.0) % RDW 18.7 H (11.5-15.5) % Neutrophils # (Manual) 9.80 H (1.3-7.7) k/uL Monocytes # (Manual) 1.16 H (0-1.0) k/uL Metamyelocytes # (Man) 0.52 H (0) k/uL Myelocytes # (Manual) 0.52 H (0) k/uL Nucleated RBCs 1 H (0-0) /100 WBC PT 14.8 H (9.0-12.0) sec INR 1.5 H (<1.2) APTT 31.4 H (22.0-30.0) sec Chloride 89 L (98-107) mmol/L Carbon Dioxide 43 H* (22-30) mmol/L BUN 24 H (9-20) mg/dL Glucose 113 H (74-99) mg/dL Albumin 3.2 L (3.5-5.0) g/dL Assessment and Plan Assessment: Acute diastolic CHF with ejection fraction 50-55% Hypoxic respiratory failure secondary to above Leukocytosis with no evidence of infection Hypertension Prostatic cancer Chronic bilateral leg lymphedema He is a status post cardiac ablation and pacemaker Obese, morbidly. With BMI of 55 Plan: This is a pleasant 75 years old male who presents with acute CHF and pulmonary edema continue with IV Lasix Then with BiPAP as needed and oxygen as needed to keep saturation above 90% monitor input and output and creatinine/electrolytes Check pro-calcitonin . Check urinalysis and bladder scan Cardiology consult Pulmonary consult Labs and medication were reviewed.. Continue same treatment. Continue with symptomatic treatment. Resume home medication. Monitor lytes and vitals. DVT and GI prophylaxis. Further recommendations depends on the clinical course of the patient DVT prophylaxis: On Eliquis GI Prophylaxis: Pepcid PT/OT: Pending Prognosis is guarded
[2021-03-05] MEDS ORDERED: ALBUTEROL HFA INHALER INHALATION PRN (19:17)
[2021-03-05] MEDS: FUROSEMIDE 10 MG/ML 4 ML VIAL IV SCH (21:56)
[2021-03-05] MEDS: APIXABAN 5 MG TAB PO SCH (21:56)
[2021-03-05] MEDS: POTASSIUM CHLORIDE ER 20 MEQ TAB.ER PO SCH (21:56)
[2021-03-06] MEDS: FUROSEMIDE 10 MG/ML 4 ML VIAL IV SCH ×2 (05:17→16:27)
[2021-03-06] MEDS: PANTOPRAZOLE 40 MG TABLET PO SCH ×2 (06:53→16:28)
[2021-03-06 07:03] LABS: Appearance,Urine Clear (Clear); Bilirubin,Urine Negative (Negative); Blood,Urine Negative (Negative); Color,Urine Yellow; Glucose,Urine (UA) Negative (Negative); Ketones,Urine Negative (Negative); Leukocyte Esterase,Urine Negative (Negative); Nitrite,Urine Negative (Negative); Protein,Urine Negative (Negative); Specific Gravity,Urine 1.012 (1.001-1.035)
[2021-03-06 08:24] LABS: African American GFR (CKD) >90 (>60 ml/min/1.73 sqM); Blood Urea Nitrogen 23 mg/dL (9-20); Calcium 9.7 mg/dL (8.4-10.2); Chloride 87 mmol/L (98-107); Glucose 110 mg/dL (74-99); Magnesium 2.3 mg/dL (1.6-2.3); Non-African American GFR(CKD) 81 (>60 ml/min/1.73 sqM); Potassium 4.4 mmol/L (3.5-5.1); Sodium 137 mmol/L (137-145)
[2021-03-06 08:33] LABS: Anion Gap 5 mmol/L
[2021-03-06] MEDS: APIXABAN 5 MG TAB PO SCH ×2 (08:37→21:09)
[2021-03-06] MEDS: POTASSIUM CHLORIDE ER 20 MEQ TAB.ER PO SCH ×2 (08:38→21:09)
[2021-03-06] MEDS: atenoloL 50 MG TAB PO SCH ×2 (08:38→21:09)
[2021-03-06 08:47] LABS: Anisocytosis Slight; HCT 23.4 % (39.0-53.0); HGB 7.7 gm/dL (13.0-17.5); Hypochromasia Moderate; MCHC 32.7 g/dL (31.0-37.0); MCV 97.9 fL (80.0-100.0); Macrocytosis Slight; Mean Platelet Volume 8.7; Platelet Count 157 k/uL (150-450); Poikilocytosis Slight; RBC 2.39 m/uL (4.30-5.90); RDW 18.9 % (11.5-15.5); WBC 11.1 k/uL (3.8-10.6)
[2021-03-06 09:08] LABS: Carbon Dioxide 45 mmol/L (22-30)
--- NOTE | 2021-03-06 10:06 | P.CRDCN ---
History of Present Illness History of present illness: HISTORY OF PRESENTING ILLNESS This is a pleasant 75-year-old male past medical history significant for SVT s/p ablation, permanent pacemaker implantation ([employer]), hypertension, chronic lower extremity lymphedema, morbid obesity and recent COVID infection (12/2020). He follows in the office with Dr. Garcia. We have been asked to see in consultation for heart failure. He presented to the hospital from [facility] with complaints of weakness, fatigue, cough and shortness of breath that has been getting progressively worse over the last 24-48 hours. He states all he has had the energy to do it lay flat in bed. COVID test pending. He states although he was vaccinated in November 2020 he had COVID in December. His symptoms this time feel similar but not as bad. He denies chest pain, dizziness or palpitations. On arrival to ER he was noted to be hypoxic with pulse ox in the low 80s. Bipap was applied. He states overall his breathing feels much improved this morning. EKG ventricular paced rhythm. Chest xray reveals pulmonary edema vs diffuse pneumonia. Laboratory data reviewed, WBC 12.9 to 11.1 today, hgb 7.7, plt 157, sodium 137, potassium 4.4, CO2 45, creatinine 0.93, magnesium 2.3, troponin negative x2 and BNP 3850. Current daily medications include atenolol 50 mg BID and lasix 80 mg BID. He is on eliquis since having COVID in December. Recent echocardiogram obtained 01/2021 revealed preserved LV systolic function with EF 50-55%. REVIEW OF SYSTEMS At the time of my exam: CONSTITUTIONAL: Complains of weakness and fatigue. Denies fever or chills. CARDIOVASCULAR: Complains of shortness of breath. Denies chest pain, orthopnea, PND or palpitations. RESPIRATORY: Complains of cough. GASTROINTESTINAL: Denies abdominal pain, diarrhea, constipation, nausea or vomiting. MUSCULOSKELETAL: Denies myalgias. NEUROLOGIC: Denies numbness, tingling, headacbe or weakness. ENDOCRINE: Denies fatigue, weight change, polydipsia or polyurina. GENITOURINARY: Denies burning, hematuria or urgency with micturation. HEMATOLOGIC: Denies history of anemia or bleeding. PHYSICAL EXAMINATION Blood pressure 99/64 heart rate 61 afebrile and maintaining oxygen saturation on nasal cannula. CONSTITUTIONAL: No apparent distress. NEUROLOGIC EXAMINATION: Patient is awake, alert and oriented x3. ASSESSMENT Hypoxia and shortness of breath, multifactorial due to heart failure, possible pneumonia and CO2 retention Leukocytosis with chest xray suggestive of pneumonia Anemia, unknown etiology. Has been worsening as noted since January 2021 History of SVT s/p ablation Permanent pacemaker implantation Hypertension History of DVT on eliquis Morbid obesity, BMI 53 PLAN Check COVID test. Resume atenolol as previously ordered. Continue IV diuresis. Consider antibiotics, defer to primary care team. Procalcitonin pending. Document accurate intake and output along with daily weights. Follow renal function and electrolytes in the morning. Anemia work-up per primary care team. Further recommendations to follow based on clinical course. Thank you kindly for this consultation. Nurse Practitioner note has been reviewed, I agree with a documented findings and plan of care. Patient was seen and examined. Past Medical History Past Medical History: Cancer, Hypertension, Skin Disorder Additional Past Medical History / Comment(s): hx prostate cancer, , hx rheumatic fever; lymphedema to bilateral legs. History of Any Multi-Drug Resistant Organisms: None Reported Past Surgical History: Hernia Repair, Tonsillectomy Additional Past Surgical History / Comment(s): pacemaker, heart ablation Past Anesthesia/Blood Transfusion Reactions: No Reported Reaction Past Psychological History: No Psychological Hx Reported Smoking Status: Former smoker Past Alcohol Use History: None Reported Additional Past Alcohol Use History / Comment(s): smoked from teens until 30's; started up again when 61 until 63 Past Drug Use History: None Reported - Past Family History Father Family Medical History: Cancer Mother Family Medical History: Cancer Medications and Allergies Home Medications Medication Instructions Recorded Confirmed Type Potassium Chloride [K-Tab ER] 20 meq PO BID 12/09/14 03/05/21 History Atenolol [Tenormin] 50 mg PO BID 12/31/20 03/05/21 History Multivitamins, Thera [Multivitamin 1 tab PO HS 12/31/20 03/05/21 History (formulary)] Ascorbic Acid [Vitamin C] 1,000 mg PO DAILY tab 01/08/21 03/05/21 Rx Albuterol Inhaler [Ventolin Hfa 2 puff INHALATION RT-QID PRN 02/09/21 03/05/21 History Inhaler] Apixaban [Eliquis] 5 mg PO BID 02/09/21 03/05/21 History Baclofen [Lioresal] 10 mg PO Q6H PRN 02/09/21 03/05/21 History Pantoprazole [Protonix] 40 mg PO BID 02/09/21 03/05/21 History Cholecalciferol [Vitamin D3 (25 25 mcg PO DAILY 03/05/21 03/05/21 History Mcg = 1000 Iu)] Furosemide [Lasix] 80 mg PO BID 03/05/21 03/05/21 History HYDROcodone/APAP 5-325MG [[place] 1 tab PO Q6HR PRN 03/05/21 03/05/21 History 5-325] Allergies Allergy/AdvReac Type Severity Reaction Status Date / Time No Known Allergies Allergy Verified 03/05/21 13:55 Physical Exam Vitals: Vital Signs Temp Pulse Pulse Pulse Resp BP BP 03/06/21 08:00 97.8 F 61 22 99/64 03/06/21 05:00 97.7 F 60 20 108/69 03/05/21 23:35 98 F 62 21 132/69 03/05/21 19:40 98.1 F 60 20 103/56 03/05/21 19:17 03/05/21 15:20 97.5 F L 60 18 96/56 03/05/21 13:21 63 22 114/69 03/05/21 12:11 03/05/21 11:09 98.1 F 60 20 110/48 Pulse Ox 03/06/21 08:00 97 03/06/21 05:00 100 03/05/21 23:35 99 03/05/21 19:40 91 L 03/05/21 19:17 93 L 03/05/21 15:20 03/05/21 13:21 100 03/05/21 12:11 85 L 03/05/21 11:09 89 L Intake and Output 03/05/21 03/06/21 03/06/21 22:59 06:59 14:59 Intake Total 240 180 Output Total 675 Balance 240 -675 180 Intake: Oral 240 180 Output: Urine 675 Other: Voiding Method Urinal Urinal # Voids 2 # Bowel Movements 1 1 Weight 199.581 kg 193.5 kg Results 03/06/21 07:29 03/06/21 07:29 Cardiac Enzymes 03/05/21 03/05/21 03/06/21 Range/Units 11:42 11:42 07:29 AST 32 (17-59) U/L Troponin I <0.012 <0.012 (0.000-0.034) ng/mL Coagulation 03/05/21 Range/Units 11:42 PT 14.8 H (9.0-12.0) sec APTT 31.4 H (22.0-30.0) sec CBC 03/05/21 03/06/21 Range/Units 11:42 07:29 WBC 12.9 H 11.1 H (3.8-10.6) k/uL RBC 2.73 L 2.39 L (4.30-5.90) m/uL Hgb 8.6 L 7.7 L (13.0-17.5) gm/dL Hct 26.4 L 23.4 L (39.0-53.0) % Plt Count 169 157 (150-450) k/uL Comprehensive Metabolic Panel 03/05/21 03/06/21 Range/Units 11:42 07:29 Sodium 137 137 (137-145) mmol/L Potassium 4.5 4.4 (3.5-5.1) mmol/L Chloride 89 L 87 L (98-107) mmol/L Carbon Dioxide 43 H* 45 H* (22-30) mmol/L BUN 24 H 23 H (9-20) mg/dL Creatinine 0.79 0.93 (0.66-1.25) mg/dL Glucose 113 H 110 H (74-99) mg/dL Calcium 9.7 9.7 (8.4-10.2) mg/dL AST 32 (17-59) U/L ALT 13 (4-49) U/L Alkaline Phosphatase 100 (38-126) U/L Total Protein 6.3 (6.3-8.2) g/dL Albumin 3.2 L (3.5-5.0) g/dL Current Medications Generic Name Dose Route Start Last Admin Trade Name Freq PRN Reason Stop Dose Admin Albuterol Sulfate 2 puff 03/05/21 19:17 Albuterol Hfa Inhaler INHALATION RT-QID PRN Shortness Of Breath Apixaban 5 mg 03/05/21 21:00 03/06/21 08:37 Apixaban 5 Mg Tab PO 5 mg BID CATHERINE Administration Protocol Atenolol 50 mg 03/06/21 09:00 03/06/21 08:38 Atenolol 50 Mg Tab PO 50 mg BID CATHERINE Administration Furosemide 40 mg 03/05/21 22:00 03/06/21 05:17 Furosemide 10 Mg/Ml 4 Ml Vial IV 40 mg Q8H CATHERINE Administration Pantoprazole Sodium 40 mg 03/06/21 07:30 03/06/21 06:53 Pantoprazole 40 Mg Tablet PO 40 mg BID@5330,4350 CATHERINE Administration Potassium Chloride 20 meq 03/05/21 21:00 03/06/21 08:38 Potassium Chloride Er 20 Meq Tab.Er PO 20 meq BID CATHERINE Administration Intake and Output 03/05/21 03/06/21 03/06/21 22:59 06:59 14:59 Intake Total 240 180 Output Total 675 Balance 240 -675 180 Intake: Oral 240 180 Output: Urine 675 Other: Voiding Method Urinal Urinal # Voids 2 # Bowel Movements 1 1 Weight 199.581 kg 193.5 kg 03/06/21 07:29 03/06/21 07:29
[2021-03-06] MEDS ORDERED: AZITHROMYCIN 500 MG in SODIUM CHLORIDE 0.9% 250 ML IVPB STA (10:49)
--- NOTE | 2021-03-06 10:52 | P.PN ---
Subjective This is a pleasant 75 his old male with past medical history of hypertension, prostate cancer, bilateral leg lymphedema, status post cardiac ablation and pacemaker Was recently discharged from the hospital 02/09-02/13 for bilateral leg cellulitis of his lymphedema. Recent right lower extremity DVT on [facility] COVID- 19 infection Presents because of dyspnea over the weekend with increased bilateral leg swelling. He lives in a correction. At baseline he has some dyspnea with oxygen requirement 2-4 L/m at baseline. At baseline and also patient is nonmobile for a long time, probably many years as he states. He denies any coughing. No abdominal pain or nausea vomiting. No diarrhea. He states that his urine little short T as he describes but he denies dysuria Now he feels much better after he was placed on BiPAP On admission he was hypoxic with oxygen saturation 89% on 60 to her oxygenation nasal cannula. Breathing at 20/m, afebrile Labs showing leukocytosis of 12.9 K. Hemoglobin 8.6 which is close to baseline. Platelets normal. INR is 1.5. BMP and creatinine are unremarkable. Liver enzymes not elevated. Troponin is negative less than 0.012. EKG showing paced rhythm at 68 Chest x-ray: CHF with pulmonary edema favored over diffuse pneumonia Echocardiogram from 01/2021 showing ejection fraction of 50-55% In the emergency room he was received 1 dose of IV Lasix 80 mg and continued on 40 mg every 8 hours 03/07/2021 Patient states his breathing is better, is awake and alert. He was BiPAP machine last night however currently he is on 5 L of oxygen via nasal cannula. And later on went down to 3 L/m A still has bilateral leg edema and both legs are warm and pink in color. Patient denies chest pain or coughing. No diarrhea or abdominal pain. He is afebrile. Blood pressure is 99/64. Still has leukocytosis of 11.1. Hemoglobin dropped a little bit to 7.7. Platelets are normal. Creatinine and electrolytes are normal. Troponin 2 are negative at less than 0.0 He made about 675 mL of urine output this morning. He is also on fluid restriction. Because of this we will lower his Lasix to twice a day. Chest x-ray today. procalcitonin still pending. Both legs are warm, pink and swollen area from below the knee. Was started on cefazolin and 1 time dose of Zithromax and consult infectious disease team Review of Systems CONSTITUTIONAL: No fever, no malaise, no fatigue. HEENT: No recent visual problems or hearing problems. Denied any sore throat. CARDIOVASCULAR: No orthopnea, PND, no palpitations, no syncope. PULMONARY: No chest wall tenderness, no hemoptysis. GASTROINTESTINAL: No diarrhea, no nausea, no vomiting, no abdominal pain. Normoactive bowel sounds. NEUROLOGICAL: No headaches, no weakness, no numbness. Active Medications Generic Name Dose Route Start Last Admin Trade Name Freq PRN Reason Stop Dose Admin Albuterol Sulfate 2 puff 03/05/21 19:17 Albuterol Hfa Inhaler INHALATION RT-QID PRN Shortness Of Breath Apixaban 5 mg 03/05/21 21:00 03/06/21 08:37 Apixaban 5 Mg Tab PO 5 mg BID CATHERINE Administration Protocol Atenolol 50 mg 03/06/21 09:00 03/06/21 08:38 Atenolol 50 Mg Tab PO 50 mg BID CATHERINE Administration Furosemide 40 mg 03/05/21 22:00 03/06/21 05:17 Furosemide 10 Mg/Ml 4 Ml Vial IV 40 mg Q8H CATHERINE Administration Cefazolin Sodium 2 gm/ Sodium 50 mls @ 100 mls/hr 03/06/21 10:15 Chloride IVPB Q8HR CATHERINE Pantoprazole Sodium 40 mg 03/06/21 07:30 03/06/21 06:53 Pantoprazole 40 Mg Tablet PO 40 mg BID@0730,1730 CATHERINE Administration Potassium Chloride 20 meq 03/05/21 21:00 03/06/21 08:38 Potassium Chloride Er 20 Meq Tab.Er PO 20 meq BID CATHERINE Administration Objective - Vital Signs Vital signs: Vital Signs Temp 97.8 F 03/06/21 08:00 Pulse 61 03/06/21 08:00 Resp 22 03/06/21 08:00 BP 99/64 03/06/21 08:00 Pulse Ox 97 03/06/21 08:00 Intake & Output 03/05/21 03/06/21 03/06/21 18:59 06:59 18:59 Intake Total 240 180 Output Total 675 Balance 240 -675 180 Weight 199.581 kg 193.5 kg Intake: Oral 240 180 Output: Urine 675 Other: Voiding Method Urinal # Voids 1 2 # Bowel Movements 1 1 - Exam -GENERAL: The patient is alert and oriented x3, not in any acute distress. Well morbidly obese HEENT: Pupils are round and equally reacting to light. EOMI. No scleral icterus. No conjunctival pallor. Normocephalic, atraumatic. No pharyngeal erythema. No thyromegaly. CARDIOVASCULAR: S1 and S2 present. No murmurs, rubs, or gallops. -PULMONARY: Chest is clear to auscultation, Distant heart sounds secondary to obesity ABDOMEN: Soft, nontender, nondistended, normoactive bowel sounds. No palpable organomegaly. MUSCULOSKELETAL: No joint swelling or deformity. -EXTREMITIES: No cyanosis, clubbing,. Bilateral lymphedema, associated with bilateral pelvic and leg edema. Both legs are warm and pink below the knee NEUROLOGICAL: Gross neurological examination did not reveal any focal deficits. SKIN: No rashes. No petechiae - Labs CBC & Chem 7: 03/06/21 07:29 03/06/21 07:29 Labs: Abnormal Lab Results - Last 24 Hours (Table) 03/05/21 03/05/21 03/05/21 Range/Units 11:42 11:42 11:42 WBC 12.9 H (3.8-10.6) k/uL RBC 2.73 L (4.30-5.90) m/uL Hgb 8.6 L (13.0-17.5) gm/dL Hct 26.4 L (39.0-53.0) % RDW 18.7 H (11.5-15.5) % Neutrophils # (Manual) 9.80 H (1.3-7.7) k/uL Monocytes # (Manual) 1.16 H (0-1.0) k/uL Metamyelocytes # (Man) 0.52 H (0) k/uL Myelocytes # (Manual) 0.52 H (0) k/uL Nucleated RBCs 1 H (0-0) /100 WBC PT 14.8 H (9.0-12.0) sec INR 1.5 H (<1.2) APTT 31.4 H (22.0-30.0) sec Chloride 89 L (98-107) mmol/L Carbon Dioxide 43 H* (22-30) mmol/L BUN 24 H (9-20) mg/dL Glucose 113 H (74-99) mg/dL Albumin 3.2 L (3.5-5.0) g/dL 03/06/21 03/06/21 Range/Units 07:29 07:29 WBC 11.1 H (3.8-10.6) k/uL RBC 2.39 L (4.30-5.90) m/uL Hgb 7.7 L (13.0-17.5) gm/dL Hct 23.4 L (39.0-53.0) % RDW 18.9 H (11.5-15.5) % Neutrophils # (Manual) (1.3-7.7) k/uL Monocytes # (Manual) (0-1.0) k/uL Metamyelocytes # (Man) (0) k/uL Myelocytes # (Manual) (0) k/uL Nucleated RBCs (0-0) /100 WBC PT (9.0-12.0) sec INR (<1.2) APTT (22.0-30.0) sec Chloride 87 L (98-107) mmol/L Carbon Dioxide 45 H* (22-30) mmol/L BUN 23 H (9-20) mg/dL Glucose 110 H (74-99) mg/dL Albumin (3.5-5.0) g/dL Assessment and Plan Assessment: Acute diastolic CHF with ejection fraction 50-55% Possible pneumonia versus acute bilateral leg cellulitis Hypoxic respiratory failure secondary to above Hypertension Prostatic cancer Chronic bilateral leg lymphedema He is a status post cardiac ablation and pacemaker Obese, morbidly. With BMI of 55 Plan: This is a pleasant 75 years old male who presents with acute CHF and pulmonary edema continue with IV Lasix Then with BiPAP as needed and oxygen as needed to keep saturation above 90% monitor input and output and creatinine/electrolytes Check pro-calcitonin . Cardiology consult Start cefazolin and infectious disease consult Labs and medication were reviewed.. Continue same treatment. Continue with symptomatic treatment. Resume home medication. Monitor lytes and vitals. DVT and GI prophylaxis. Further recommendations depends on the clinical course of the patient DVT prophylaxis: On Eliquis GI Prophylaxis: Pepcid PT/OT: Pending Prognosis is guarded
[2021-03-06 11:59] LABS: Eosinophils # (M) 0.11 k/uL (0-0.7); Lymphocytes # (M) 0.78 k/uL (1.0-4.8); Metamyelocytes # (M) 0.44 k/uL (0); Metamyelocytes % 4 %; Monocytes # (M) 0.78 k/uL (0-1.0); Myelocytes # (M) 0.33 k/uL (0); Myelocytes % 3 %; Neutrophils # (M) 8.88 k/uL (1.3-7.7); Neutrophils % (M) 80 %; Nucleated Red Blood Cells 0 /100 WBC (0-0); Total Cells Counted 200
[2021-03-06 12:01] LABS: Polychromasia Present
--- NOTE | 2021-03-06 12:01 | XR ---
EXAMINATION TYPE: XR chest 1V DATE OF EXAM: 03/06/2021 COMPARISON: 03/05/2021 HISTORY: Shortness of breath FINDINGS: There are bilateral pleural effusions with cardiomegaly and bibasilar infiltrate. There is a diffuse interstitial pattern. Cardiac device noted. No pneumothorax. Arthropathy of the shoulders. Diffuse o steopenia. IMPRESSION: 1. Correlate for CHF otherwise consider pneumonia.
[2021-03-06] MEDS: DEXAMETHASONE SOD PHOSPHATE 10 MG/ML 1 ML VIAL IV SCH (21:08)
[2021-03-06] MEDS: ASCORBIC ACID 500 MG TAB PO SCH (21:08)
[2021-03-06] MEDS: CHOLECALCIFEROL 25 MCG (1000 IU) TABLET PO SCH (21:09)
[2021-03-06] MEDS: ZINC SULFATE 220 MG CAP PO SCH (21:09)
[2021-03-07] MEDS: FUROSEMIDE 10 MG/ML 4 ML VIAL IV SCH ×2 (04:21→16:41)
--- NOTE | 2021-03-07 06:17 | CONS ---
CONSULTATION DATE OF SERVICE: 03/06/2021 REASON FOR CONSULTATION: Lower extremity cellulitis. HISTORY OF PRESENT ILLNESS: The patient is a 75-year-old male with a past medical history significant for congestive heart failure in this patient who did have lower extremity cellulitis. The patient presented to [facility] ER yesterday morning for evaluation of difficulty in breathing in this patient who woke up yesterday morning complaining of increasing shortness of breath. The patient denies having any chest pain or cough. Denies any nausea, no vomiting. No abdominal pain. The patient did have chronic swelling of lower extremity, not sure about any worsening, recently did have some erythema, but no open wound or any drainage. With these symptoms, the patient was evaluated by the ER physician. On arrival to the ER, the patient was afebrile and no fever has been recorded subsequently. The patient did have hypoxemia on presentation. O2 sats 90 percent, currently 98% on 2 L. Patient did have elevated white count with left shift. Also have elevated CO2. Liver enzymes are normal. Urine is negative. Procalcitonin 0.14. The patient did have a chest x-ray, CHF with pulmonary edema, fever or diffuse edema correlate clinically. The patient has been started on cefazolin. Infectious Disease was consulted for further management of antibiotic therapy. REVIEW OF SYSTEMS: Positive points have been mentioned in HPI. Rest of the systems are negative. PAST MEDICAL HISTORY: Congestive heart failure, hypertension, history of prostate cancer, rheumatic fever, both lower extremities and lower extremity cellulitis. PAST SURGICAL HISTORY: Pacemaker placement, heart ablation, tonsillectomy, hernia repair. SOCIAL HISTORY: Remote history of smoking. No drinking or drug use. FAMILY HISTORY: No pertinent findings noticed. ALLERGIES: No known drug allergies. MEDICATIONS: The patient is currently on Ventolin, Eliquis, vitamin C, Tenormin, cefazolin 2 grams q.8 hours. He is on Decadron, Lasix, Protonix, q.8 hours PHYSICAL EXAMINATION: Blood pressure 105/64, pulse is 60, temperature of 97.9. He is 98% 2 L nasal cannula. General description is an elderly male lying in bed in no distress respiratory. HEENT: Examination shows slight pallor. No scleral icterus. Oral mucous membranes dry. NECK: Trachea central. No thyromegaly. LUNGS unlabored breathing, decreased intensity of breath sounds. No wheeze. HEART: S1, S2. Regular rate and rhythm. ABDOMEN: Soft. No tenderness. No guarding. No rigidity. EXTREMITIES: Did have diffuse swelling to the lower extremity with some dry skin, mild erythema and warm to touch. No skin breakdown. No drainage. NEUROLOGICAL: Patient is awake, alert, oriented times three. Mood and affect normal. LABS: Hemoglobin is 7.7, white count 11.1. Admission white count 12.9 with left shift. BUN of 23, creatinine 0.93. Liver enzymes are normal. Procalcitonin 0.14. Urine is negative. DIAGNOSTIC IMPRESSION AND PLAN: Patient admitted to the hospital with increasing shortness of breath which is multifactorial in this patient with possible component of fluid overload. He also has diffuse lower extremity lymphedema, possible component cellulitis with diffuse swelling and redness and concern for possible fluid overload, likely streptococcal disease. PLAN: 1. Cefazolin 2 grams q.8 hours. 2. Moshe wrap to the left leg. 3. We will follow on clinical condition and further adjust medication if needed. Thank you for this consultation. We will follow this patient along with you. MMODL / IJN: [id number] / MTDMartha
[2021-03-07] MEDS: PANTOPRAZOLE 40 MG TABLET PO SCH ×2 (06:35→16:41)
[2021-03-07] MEDS: ASCORBIC ACID 500 MG TAB PO SCH (07:59)
[2021-03-07] MEDS: APIXABAN 5 MG TAB PO SCH ×2 (07:59→20:05)
[2021-03-07] MEDS: DEXAMETHASONE SOD PHOSPHATE 10 MG/ML 1 ML VIAL IV SCH (08:00)
[2021-03-07] MEDS: POTASSIUM CHLORIDE ER 20 MEQ TAB.ER PO SCH ×2 (08:00→20:05)
[2021-03-07] MEDS: ZINC SULFATE 220 MG CAP PO SCH (08:00)
[2021-03-07] MEDS: CHOLECALCIFEROL 25 MCG (1000 IU) TABLET PO SCH (08:00)
[2021-03-07] MEDS: atenoloL 50 MG TAB PO SCH ×2 (08:00→20:05)
[2021-03-07 08:49] LABS: African American GFR (CKD) >90 (>60 ml/min/1.73 sqM); Blood Urea Nitrogen 27 mg/dL (9-20); Calcium 9.6 mg/dL (8.4-10.2); Chloride 89 mmol/L (98-107); Glucose 104 mg/dL (74-99); Non-African American GFR(CKD) 86 (>60 ml/min/1.73 sqM); Potassium 4.5 mmol/L (3.5-5.1); Sodium 137 mmol/L (137-145)
[2021-03-07 09:19] LABS: Anion Gap 5 mmol/L; Carbon Dioxide 43 mmol/L (22-30)
--- NOTE | 2021-03-07 13:03 | P.PN ---
Subjective This is a pleasant 75 his old male with past medical history of hypertension, prostate cancer, bilateral leg lymphedema, status post cardiac ablation and pacemaker Was recently discharged from the hospital 02/09-02/13 for bilateral leg cellulitis of his lymphedema. Recent right lower extremity DVT on [facility] COVID- 19 infection Presents because of dyspnea over the weekend with increased bilateral leg swelling. He lives in a snf. At baseline he has some dyspnea with oxygen requirement 2-4 L/m at baseline. At baseline and also patient is nonmobile for a long time, probably many years as he states. He denies any coughing. No abdominal pain or nausea vomiting. No diarrhea. He states that his urine little short T as he describes but he denies dysuria Now he feels much better after he was placed on BiPAP On admission he was hypoxic with oxygen saturation 89% on 60 to her oxygenation nasal cannula. Breathing at 20/m, afebrile Labs showing leukocytosis of 12.9 K. Hemoglobin 8.6 which is close to baseline. Platelets normal. INR is 1.5. BMP and creatinine are unremarkable. Liver enzymes not elevated. Troponin is negative less than 0.012. EKG showing paced rhythm at 68 Chest x-ray: CHF with pulmonary edema favored over diffuse pneumonia Echocardiogram from 01/2021 showing ejection fraction of 50-55% In the emergency room he was received 1 dose of IV Lasix 80 mg and continued on 40 mg every 8 hours 03/07/2021 ( correct date is 03/06/2021) Patient states his breathing is better, is awake and alert. He was BiPAP machine last night however currently he is on 5 L of oxygen via nasal cannula. And later on went down to 3 L/m A still has bilateral leg edema and both legs are warm and pink in color. Patient denies chest pain or coughing. No diarrhea or abdominal pain. He is afebrile. Blood pressure is 99/64. Still has leukocytosis of 11.1. Hemoglobin dropped a little bit to 7.7. Platelets are normal. Creatinine and electrolytes are normal. Troponin 2 are negative at less than 0.0 He made about 675 mL of urine output this morning. He is also on fluid restriction. Because of this we will lower his Lasix to twice a day. Chest x-ray today. procalcitonin still pending. Both legs are warm, pink and swollen area from below the knee. Was started on cefazolin and 1 time dose of Zithromax and consult infectious disease team 03/07/2021 Patient is awake and alert he's on 4 L oxygen via nasal cannula which is his baseline. He is mildly tachypneic and dyspneic but is improving. No chest radha n. Hemodynamically he is stable. Normal creatinine. 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 So most likely this is just a positive test and his symptoms most likely related to CHF as his oxygen saturation improved on Lasix only before any antibiotics or overt infection treatment. Remains on IV Lasix 40 mg twice daily with fluid restriction Also remains on cefazolin for his bilateral leg cellulitis which are significantly improving with less redness and swelling and warmth. Also they are nontender. Moshe wrap is around them Objective - Vital Signs Vital signs: Vital Signs Temp 97.4 F L 03/07/21 07:57 Pulse 60 03/07/21 07:57 Resp 18 03/07/21 07:57 BP 111/54 03/07/21 07:57 Pulse Ox 87 L 03/07/21 08:23 Intake & Output 03/06/21 03/07/21 03/07/21 18:59 06:59 18:59 Intake Total 660 240 Output Total 500 600 Balance 160 -600 240 Weight 193.5 kg 193.5 kg Intake: Intake, IV Titration 300 Amount Azithromycin 500 mg In 250 Sodium Chloride 0.9% 250 ml @ 250 mls/hr IVPB ONCE STA Rx#:[id number] ceFAZolin 2 gm In Sodium 50 Chloride 0.9% 50 ml @ 100 mls/hr IVPB Q8HR [facility] Rx# :[id number] Oral 360 240 Output: Urine 500 600 Other: Voiding Method Urinal # Bowel Movements 1 - Exam -GENERAL: The patient is alert and oriented x3, not in any acute distress. Well morbidly obese HEENT: Pupils are round and equally reacting to light. EOMI. No scleral icterus. No conjunctival pallor. Normocephalic, atraumatic. No pharyngeal erythema. No thyromegaly. CARDIOVASCULAR: S1 and S2 present. No murmurs, rubs, or gallops. -PULMONARY: Chest is clear to auscultation, Distant heart sounds secondary to obesity ABDOMEN: Soft, nontender, nondistended, normoactive bowel sounds. No palpable organomegaly. MUSCULOSKELETAL: No joint swelling or deformity. -EXTREMITIES: No cyanosis, clubbing,. Bilateral lymphedema, associated with bilateral pelvic and leg edema. Both legs are warm and pink below the knee NEUROLOGICAL: Gross neurological examination did not reveal any focal deficits. SKIN: No rashes. No petechiae - Labs CBC & Chem 7: 03/06/21 07:29 03/07/21 07:20 Labs: Abnormal Lab Results - Last 24 Hours (Table) 03/06/21 03/06/21 03/07/21 Range/Units 07:29 16:26 07:20 Chloride 89 L (98-107) mmol/L Carbon Dioxide 43 H* (22-30) mmol/L BUN 27 H (9-20) mg/dL Glucose 104 H (74-99) mg/dL Procalcitonin 0.14 H (0.02-0.09) ng/mL Coronavirus (PCR) Detected A (Not Detectd) Assessment and Plan Assessment: Acute diastolic CHF with ejection fraction 50-55% Possible pneumonia versus acute bilateral leg cellulitis Hypoxic respiratory failure secondary to above Hypertension Prostatic cancer Chronic bilateral leg lymphedema He is a status post cardiac ablation and pacemaker Obese, morbidly. With BMI of 55 Plan: This is a pleasant 75 years old male who presents with acute CHF and pulmonary edema continue with IV Lasix Then with BiPAP as needed and oxygen as needed to keep saturation above 90% monitor input and output and creatinine/electrolytes Check pro-calcitonin . Cardiology consult Start cefazolin and infectious disease consult Labs and medication were reviewed.. Continue same treatment. Continue with symptomatic treatment. Resume home medication. Monitor lytes and vitals. DVT and GI prophylaxis. Further recommendations depends on the clinical course of the patient DVT prophylaxis: On Eliquis GI Prophylaxis: Pepcid PT/OT: Pending Prognosis is guarded
--- NOTE | 2021-03-07 16:19 | PN ---
PROGRESS NOTE DATE OF SERVICE: 03/07/2021 REASON FOR FOLLOWUP: 1. Bilateral lower extremity cellulitis. 2. Positive Covid test. INTERVAL HISTORY: The patient is afebrile. The patient is feeling better. He is breathing comfortably. Currently on room air. Denies having any chest pain, shortness of breath or cough. No abdominal pain. No pain to the lower extremity. Complaining of some soreness to his low back. PHYSICAL EXAMINATION: Blood pressure 115/55 with a pulse of 50, temperature 98.4. He is 98% on 2 L nasal cannula. General description is an elderly male lying in bed in no distress. Respiratory system: Unlabored breathing, decreased breath sounds at the bases. Heart S1, S2. Regular rate and rhythm. Abdomen soft, no tenderness. Legs currently wrapped up. LABS: BUN of 23, creatinine 0.86. DIAGNOSTIC IMPRESSION AND PLAN: 1. Patient with admission to the hospital with increasing shortness of breath, lower extremity ulcer, fluid overload. The patient is clinically not behaving as Covid pneumonia. Continue with diuresis. 2. Lower extremity cellulitis to continue with cefazolin, Moshe wrap to the leg to keep the swelling down. 3. Monitor clinical course closely. MMODL / IJN: [id number] /
[2021-03-08] MEDS: PANTOPRAZOLE 40 MG TABLET PO SCH ×2 (06:12→17:28)
[2021-03-08] MEDS: FUROSEMIDE 10 MG/ML 4 ML VIAL IV SCH ×2 (06:13→17:28)
[2021-03-08 08:40] LABS: Anisocytosis Slight; HCT 21.4 % (39.0-53.0); HGB 7.1 gm/dL (13.0-17.5); Hypochromasia Moderate; MCH 32.8 pg (25.0-35.0); MCHC 33.1 g/dL (31.0-37.0); MCV 99.3 fL (80.0-100.0); Macrocytosis Moderate; Platelet Count 139 k/uL (150-450); Poikilocytosis Moderate; RBC 2.15 m/uL (4.30-5.90); RDW 19.8 % (11.5-15.5); WBC 8.5 k/uL (3.8-10.6)
[2021-03-08 08:46] LABS: African American GFR (CKD) >90 (>60 ml/min/1.73 sqM); Blood Urea Nitrogen 33 mg/dL (9-20); Calcium 9.8 mg/dL (8.4-10.2); Chloride 88 mmol/L (98-107); Glucose 95 mg/dL (74-99); Non-African American GFR(CKD) 85 (>60 ml/min/1.73 sqM); Potassium 4.3 mmol/L (3.5-5.1); Sodium 138 mmol/L (137-145)
[2021-03-08 08:53] LABS: Anion Gap 3 mmol/L
[2021-03-08] MEDS: ASCORBIC ACID 500 MG TAB PO SCH (08:57)
[2021-03-08] MEDS: POTASSIUM CHLORIDE ER 20 MEQ TAB.ER PO SCH ×2 (08:57→20:15)
[2021-03-08] MEDS: CHOLECALCIFEROL 25 MCG (1000 IU) TABLET PO SCH (08:57)
[2021-03-08] MEDS: APIXABAN 5 MG TAB PO SCH ×2 (08:57→20:15)
[2021-03-08] MEDS: atenoloL 50 MG TAB PO SCH ×2 (08:58→20:15)
[2021-03-08] MEDS: ZINC SULFATE 220 MG CAP PO SCH (08:58)
[2021-03-08 08:59] LABS: Carbon Dioxide 47 mmol/L (22-30)
[2021-03-08] MEDS: DEXAMETHASONE SOD PHOSPHATE 10 MG/ML 1 ML VIAL IV SCH (09:01)
[2021-03-08 10:22] LABS: Band Neutrophils % 2 %; Lymphocytes # (M) 0.94 k/uL (1.0-4.8); Metamyelocytes # (M) 0.34 k/uL (0); Metamyelocytes % 4 %; Monocytes # (M) 0.51 k/uL (0-1.0); Myelocytes # (M) 0.43 k/uL (0); Myelocytes % 5 %; Neutrophils % (M) 73 %; Nucleated Red Blood Cells 0 /100 WBC (0-0); Total Cells Counted 200
--- NOTE | 2021-03-08 10:43 | P.PN ---
Subjective This is a pleasant 75 his old male with past medical history of hypertension, prostate cancer, bilateral leg lymphedema, status post cardiac ablation and pacemaker Was recently discharged from the hospital 02/09-02/13 for bilateral leg cellulitis of his lymphedema. Recent right lower extremity DVT on [facility] COVID- 19 infection Presents because of dyspnea over the weekend with increased bilateral leg swelling. He lives in a longterm. At baseline he has some dyspnea with oxygen requirement 2-4 L/m at baseline. At baseline and also patient is nonmobile for a long time, probably many years as he states. He denies any coughing. No abdominal pain or nausea vomiting. No diarrhea. He states that his urine little short T as he describes but he denies dysuria Now he feels much better after he was placed on BiPAP On admission he was hypoxic with oxygen saturation 89% on 60 to her oxygenation nasal cannula. Breathing at 20/m, afebrile Labs showing leukocytosis of 12.9 K. Hemoglobin 8.6 which is close to baseline. Platelets normal. INR is 1.5. BMP and creatinine are unremarkable. Liver enzymes not elevated. Troponin is negative less than 0.012. EKG showing paced rhythm at 68 Chest x-ray: CHF with pulmonary edema favored over diffuse pneumonia Echocardiogram from 01/2021 showing ejection fraction of 50-55% In the emergency room he was received 1 dose of IV Lasix 80 mg and continued on 40 mg every 8 hours 03/07/2021 ( correct date is 03/06/2021) Patient states his breathing is better, is awake and alert. He was BiPAP machine last night however currently he is on 5 L of oxygen via nasal cannula. And later on went down to 3 L/m A still has bilateral leg edema and both legs are warm and pink in color. Patient denies chest pain or coughing. No diarrhea or abdominal pain. He is afebrile. Blood pressure is 99/64. Still has leukocytosis of 11.1. Hemoglobin dropped a little bit to 7.7. Platelets are normal. Creatinine and electrolytes are normal. Troponin 2 are negative at less than 0.0 He made about 675 mL of urine output this morning. He is also on fluid restriction. Because of this we will lower his Lasix to twice a day. Chest x-ray today. procalcitonin still pending. Both legs are warm, pink and swollen area from below the knee. Was started on cefazolin and 1 time dose of Zithromax and consult infectious disease team 03/07/2021 Patient is awake and alert he's on 4 L oxygen via nasal cannula which is his baseline. He is mildly tachypneic and dyspneic but is improving. No chest radha n. Hemodynamically he is stable. Normal creatinine. 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 So most likely this is just a positive test and his symptoms most likely related to CHF as his oxygen saturation improved on Lasix only before any antibiotics or overt infection treatment. Remains on IV Lasix 40 mg twice daily with fluid restriction Also remains on cefazolin for his bilateral leg cellulitis which are significantly improving with less redness and swelling and warmth. Also they are nontender. Moshe wrap is around them 03/08/2021 Patient dyspnea is improving currently is on 3 L oxygen via nasal cannula. Still have some exertional dyspnea when he talks, he still have orthopnea. His lung issues does not look to come from covert infection which he had from last December and most likely it's persistent positive test. Patient actually improved with diuretics before starting antibiotics and treated for call with infection and is currently better than his baseline, as he told me at the longterm is oxygen was 2 to 4 L/m. However patient still symptomatic today that he'll be keeping him on diuretics. But he is improving for example last night he did not need to use a BiPAP which he is been doing that 2 nights before His vitals are stable. Labs from today show no trending down hemoglobin 7.7 down to 7.1, he is also on Eliquis which is a home medication therefore no anemia workup which is pending now His leukocytosis is back to normal today. This On IV Lasix 40 mg twice daily Bilateral leg cellulitis is improving with cefazolin to continue for now Objective - Vital Signs Vital signs: Vital Signs Temp 98.6 F 03/08/21 08:54 Pulse 60 03/08/21 08:54 Resp 18 03/08/21 08:54 BP 110/55 03/08/21 08:54 Pulse Ox 95 03/08/21 08:54 Intake & Output 03/07/21 03/08/21 03/08/21 18:59 06:59 18:59 Intake Total 720 120 Output Total 300 400 Balance 420 -280 Weight 196.5 kg Intake: Oral 720 120 Output: Urine 300 400 Other: Voiding Method Urinal # Bowel Movements 1 - Exam -GENERAL: The patient is alert and oriented x3, not in any acute distress. Well morbidly obese HEENT: Pupils are round and equally reacting to light. EOMI. No scleral icterus. No conjunctival pallor. Normocephalic, atraumatic. No pharyngeal erythema. No thyromegaly. CARDIOVASCULAR: S1 and S2 present. No murmurs, rubs, or gallops. -PULMONARY: Chest is clear to auscultation, Distant heart sounds secondary to obesity ABDOMEN: Soft, nontender, nondistended, normoactive bowel sounds. No palpable organomegaly. MUSCULOSKELETAL: No joint swelling or deformity. -EXTREMITIES: No cyanosis, clubbing,. Bilateral lymphedema, associated with bilateral pelvic and leg edema. Both legs are warm and pink below the knee NEUROLOGICAL: Gross neurological examination did not reveal any focal deficits. SKIN: No rashes. No petechiae - Labs CBC & Chem 7: 03/08/21 07:48 03/08/21 07:48 Labs: Abnormal Lab Results - Last 24 Hours (Table) 03/06/21 03/08/21 03/08/21 Range/Units 09:30 07:48 07:48 RBC 2.15 L (4.30-5.90) m/uL Hgb 7.1 L (13.0-17.5) gm/dL Hct 21.4 L (39.0-53.0) % RDW 19.8 H (11.5-15.5) % Plt Count 139 L (150-450) k/uL Lymphocytes # (Manual) 0.94 L (1.0-4.8) k/uL Metamyelocytes # (Man) 0.34 H (0) k/uL Myelocytes # (Manual) 0.43 H (0) k/uL Chloride 88 L (98-107) mmol/L Carbon Dioxide 47 H* (22-30) mmol/L BUN 33 H (9-20) mg/dL Coronavirus (PCR) Detected A (Not Detected) Assessment and Plan Assessment: Acute diastolic CHF with ejection fraction 50-55% acute bilateral leg cellulitis, responded well to antibiotics Hypoxic respiratory failure secondary to above Hypertension persistent call Covid test with no actual infection Prostatic cancer Chronic bilateral leg lymphedema He is a status post cardiac ablation and pacemaker Obese, morbidly. With BMI of 55 Plan: This is a pleasant 75 years old male who presents with acute CHF and pulmonary edema continue with IV Lasix Continue with oxygen as needed to keep saturation above 90% monitor input and output and creatinine/electrolytes Cardiology consult Continue with cefazolin and infectious disease consult We'll do anemia workup Discontinue dexamethasone. Continue with multiple vitamins Labs and medication were reviewed.. Continue same treatment. Continue with symptomatic treatment. Resume home medication. Monitor lytes and vitals. DVT and GI prophylaxis. Further recommendations depends on the clinical course of the patient DVT prophylaxis: On Eliquis GI Prophylaxis: Pepcid PT/OT: Pending Prognosis is guarded
[2021-03-08 17:24] LABS: % Iron Saturation 17.92 (15.00-50.00)
[2021-03-08 17:36] LABS: Ferritin 389.6 ng/mL (22.0-322.0); Folate, Serum 14.3 ng/mL
--- NOTE | 2021-03-09 00:05 | PN ---
PROGRESS NOTE DATE OF SERVICE: 03/08/2021 REASON FOR FOLLOWUP: Bilateral lower extremity cellulitis. INTERVAL HISTORY: Patient is afebrile. The patient is breathing more comfortably. The patient denies having any chest pain. Occasional cough. No abdominal pain. Denies any pain to the lower extremity. PHYSICAL EXAMINATION: Blood pressure is 125/57 with a pulse of 60. Temperature is 97.8. He is 95% on 3 L nasal cannula. General description is an elderly male lying in bed in no distress. Respiratory system: Unlabored breathing, clear to auscultation anteriorly. Heart S1, S2. Regular rate and rhythm. Abdomen soft, no tenderness. Legs are currently wrapped up. Overall swelling has decreased. LABS: Hemoglobin 7.1, white count 8.5, BUN of 10, creatinine 0.88. DIAGNOSTIC IMPRESSION AND PLAN: 1. Patient with bilateral lower extremity cellulitis in this patient admitted to the hospital with fluid overload, patient responded to cefazolin to finish therapy with oral Keflex. 2. Positive Covid test in this patient who already has a history of Covid 19 infection. Clinically doubt acute Covid pneumonia. No need for any specific therapy for the same thing. MMODL / IJN: [id number] / MTDD
[2021-03-09] MEDS: FUROSEMIDE 10 MG/ML 4 ML VIAL IV SCH ×2 (06:17→15:43)
[2021-03-09] MEDS: PANTOPRAZOLE 40 MG TABLET PO SCH ×2 (06:19→15:49)
[2021-03-09 08:40] LABS: Anisocytosis Moderate; HCT 23.9 % (39.0-53.0); HGB 7.5 gm/dL (13.0-17.5); Hypochromasia Marked; MCHC 31.5 g/dL (31.0-37.0); MCV 101.7 fL (80.0-100.0); Macrocytosis Moderate; Mean Platelet Volume 8.8; Platelet Count 142 k/uL (150-450); Poikilocytosis Slight; RBC 2.35 m/uL (4.30-5.90)
[2021-03-09 08:51] LABS: ALT <6 U/L (4-49); AST 26 U/L (17-59); African American GFR (CKD) 89 (>60 ml/min/1.73 sqM); Albumin 3.2 g/dL (3.5-5.0); Alkaline Phosphatase 89 U/L (38-126); Blood Urea Nitrogen 35 mg/dL (9-20); Calcium 10.1 mg/dL (8.4-10.2); Chloride 87 mmol/L (98-107); Glucose 103 mg/dL (74-99); LDH 523 U/L (313-618); Non-African American GFR(CKD) 77 (>60 ml/min/1.73 sqM); Potassium 4.3 mmol/L (3.5-5.1); Sodium 138 mmol/L (137-145); Total Bilirubin 0.4 mg/dL (0.2-1.3); Total Protein 6.2 g/dL (6.3-8.2)
[2021-03-09 08:56] LABS: Anion Gap 4 mmol/L
[2021-03-09 09:11] LABS: Carbon Dioxide 47 mmol/L (22-30)
[2021-03-09] MEDS ORDERED: BACLOFEN 10 MG TAB PO PRN (09:11)
[2021-03-09] MEDS ORDERED: HYDROcodone/APAP 5-325MG 1 EACH TAB PO PRN (09:11)
--- NOTE | 2021-03-09 09:14 | XR ---
EXAMINATION TYPE: XR chest 1V portable DATE OF EXAM: 03/09/2021 COMPARISON: 03/06/2021 HISTORY: Shortness of breath TECHNIQUE: Single frontal view of the chest is obtained. FINDINGS: There are bilateral pleural effusions with cardiomegaly and bibasilar infiltrate. There is a diffuse interstitial pattern. Cardiac device noted. No pneumothorax. Arthropathy of the shoulders . Diffuse osteopenia. IMPRESSION: 1. Diffuse bilateral airspace disease and pleural effusion correlate for pulmonary edema versus diffu se pneumonia. Findings stable.
[2021-03-09] MEDS: ZINC SULFATE 220 MG CAP PO SCH (09:25)
[2021-03-09] MEDS: POTASSIUM CHLORIDE ER 20 MEQ TAB.ER PO SCH (09:25)
[2021-03-09] MEDS: atenoloL 50 MG TAB PO SCH ×2 (09:25→23:00)
[2021-03-09] MEDS: CHOLECALCIFEROL 25 MCG (1000 IU) TABLET PO SCH (09:25)
[2021-03-09] MEDS: APIXABAN 5 MG TAB PO SCH ×2 (09:25→23:00)
[2021-03-09] MEDS: ASCORBIC ACID 500 MG TAB PO SCH (09:25)
[2021-03-09 10:47] LABS: Band Neutrophils % 1 %; Eosinophils # (M) 0.09 k/uL (0-0.7); Lymphocytes # (M) 1.35 k/uL (1.0-4.8); Metamyelocytes # (M) 0.18 k/uL (0); Metamyelocytes % 2 %; Myelocytes # (M) 0.36 k/uL (0); Myelocytes % 4 %; Neutrophils % (M) 69 %; Nucleated Red Blood Cells 1 /100 WBC (0-0); Total Cells Counted 200
[2021-03-09 10:48] LABS: Basophilic Stippling Present
[2021-03-09] MEDS ORDERED: VANCOMYCIN IV PER PHARMACY 1 EACH MISC MISCELLANE PRN (14:55)
[2021-03-09] MEDS ORDERED: VANCOMYCIN 2,500 MG in SODIUM CHLORIDE 0.9% 500 ML 500 ML IVPB SCH (15:30)
[2021-03-09] MEDS: CEFEPIME 2 GM in SODIUM CHLORIDE 0.9% 100 ML IVPB SCH (15:43)
--- NOTE | 2021-03-09 15:47 | XR ---
EXAMINATION TYPE: XR chest 1V portable DATE OF EXAM: 03/09/2021 COMPARISON: 03/09/2021 HISTORY: Shortness of breath FINDINGS: There are bilateral pleural effusions with cardiomegaly and bibasilar infiltrate. There is a diffuse interstitial pattern. Cardiac device noted. No sizable pneumothorax. Patient rotation mildly limits the exam. Arthropathy of the shoulders. IMPRESSION: 1. Early for CHF versus diffuse interstitial pneumonitis. Findings stable.
[2021-03-09 16:56] LABS: ABG Base Excess 23.9 mmol/L; ABG Oxygen Saturation 97.9 % (94-97); ABG PH 7.26 (7.35-7.45); ABG PO2 100 mmHg (83-108); ABG TCO2 55 mmol/L (19-24); Allen Test Performed? Yes
[2021-03-09 17:05] LABS: ABG HCO3 51 mmol/L (21-25); ABG PCO2 115 mmHg (35-45)
--- NOTE | 2021-03-09 17:14 | PN ---
PROGRESS NOTE DATE OF SERVICE: 03/09/2021 REASON FOR FOLLOWUP: 1. Bilateral lower extremity cellulitis. 2. Positive Covid test. INTERVAL HISTORY: Patient is afebrile. The patient is breathing comfortably. Currently on nasal cannula. The patient denies having any chest pain or worsening shortness of breath. No cough. No abdominal pain or pain to the lower extremity. EXAMINATION: Blood pressure 135/74 with a pulse of 70, temperature 97.9. He is 93% on 3 L nasal cannula. General description is an elderly male lying in bed in no distress. Respiratory system: Unlabored breathing with decreased intensity of breath sounds. No wheeze. Heart: S1, S2. Regular rate and rhythm. Abdomen: Soft, no tenderness. Lower extremity swelling persists. Redness has decreased. LAB: Chest x-ray with CHF. DIAGNOSTIC IMPRESSION AND PLAN: 1. Patient with bilateral lower extremity cellulitis in this patient admitted to the hospital with diffuse swelling of the legs concerning for fluid overload and congestive heart failure. Continue cefazolin. 2. Patient with respiratory /interstitial pneumonitis, likely related to his underlying congestive heart failure. The patient NT pro BNP has been more than 3820. Procalcitonin 0.09. Clinically doubt active Covid 19 infection either. Continue diuresis and manage underlying cardiac condition per Cardiology. MMODL / IJN: [id number] / MTDMartha
[2021-03-09] MEDS ORDERED: FUROSEMIDE 10 MG/ML 4 ML VIAL IV STA (17:15)
--- NOTE | 2021-03-09 17:43 | P.PN ---
Subjective Progress Note Date: 03/09/21 Principal diagnosis: Acute hypoxic and hypercapnic respiratory failure Pneumonia; COVID 19 versus bacterial Acute exacerbation CHF Elevated d-dimer/rule out PE Bilateral lower extremity cellulitis 75 his old male with past medical history of hypertension, prostate cancer, bilateral leg lymphedema, status post cardiac ablation and pacemaker Was recently discharged from the hospital 02/09-02/13 for bilateral leg cellulitis of his lymphedema. Recent right lower extremity DVT on [facility] COVID- 19 infection Presents because of dyspnea over the weekend with increased bilateral leg swelling. He lives in a intermediate. At baseline he has some dyspnea with oxygen requirement 2-4 L/m at baseline. At baseline and also patient is nonmobile for a long time, probably many years as he states. He denies any coughing. No abdominal pain or nausea vomiting. No diarrhea. He states that his urine little short T as he describes but he denies dysuria Now he feels much better after he was placed on BiPAP On admission he was hypoxic with oxygen saturation 89% on 60 to her oxygenation nasal cannula. Breathing at 20/m, afebrile Labs showing leukocytosis of 12.9 K. Hemoglobin 8.6 which is close to baseline. Platelets normal. INR is 1.5. BMP and creatinine are unremarkable. Liver enzymes not elevated. Troponin is negative less than 0.012. EKG showing paced rhythm at 68 Chest x-ray: CHF with pulmonary edema favored over diffuse pneumonia Echocardiogram from 01/2021 showing ejection fraction of 50-55% On rounds today patient was found to be minimally responsive; has been placed on BiPAP; we will order stat ABGs, chest x-ray, BNP; Lasix 40 mg IV stat, Decadron 6 mg IV daily first dose stat; start patient on IV cefepime and vancomycin; we will consult pulmonary service; further recommendations once workup is complete Objective - Vital Signs Vital signs: Vital Signs Temp 97.9 F 03/09/21 12:00 Pulse 60 03/09/21 15:50 Resp 16 03/09/21 15:50 BP 165/74 03/09/21 15:50 Pulse Ox 97 03/09/21 15:50 Intake & Output 03/08/21 03/09/21 03/09/21 18:59 06:59 18:59 Intake Total 840 118 375 Output Total 800 250 400 Balance 40 -132 -25 Weight 196.5 kg 195.5 kg Intake: Oral 840 118 375 Output: Urine 800 250 400 Other: Voiding Method Urinal Urinal Urinal - Exam -GENERAL: The patient is alert and oriented x3, not in any acute distress. Well morbidly obese HEENT: Pupils are round and equally reacting to light. EOMI. No scleral icterus. No conjunctival pallor. Normocephalic, atraumatic. No pharyngeal erythema. No thyromegaly. CARDIOVASCULAR: S1 and S2 present. No murmurs, rubs, or gallops. -PULMONARY: Chest is clear to auscultation, Distant heart sounds secondary to obesity ABDOMEN: Soft, nontender, nondistended, normoactive bowel sounds. No palpable organomegaly. MUSCULOSKELETAL: No joint swelling or deformity. -EXTREMITIES: No cyanosis, clubbing,. Bilateral lymphedema, associated with bilateral pelvic and leg edema. Both legs are warm and pink below the knee NEUROLOGICAL: Gross neurological examination did not reveal any focal deficits. SKIN: No rashes. No petechiae - Labs CBC & Chem 7: 03/09/21 07:25 03/09/21 07:25 Labs: Abnormal Lab Results - Last 24 Hours (Table) 03/09/21 03/09/21 03/09/21 Range/Units 07:25 07:25 07:25 RBC 2.35 L (4.30-5.90) m/uL Hgb 7.5 L (13.0-17.5) gm/dL Hct 23.9 L (39.0-53.0) % MCV 101.7 H (80.0-100.0) fL RDW 20.0 H (11.5-15.5) % Plt Count 142 L (150-450) k/uL Metamyelocytes # (Man) 0.18 H (0) k/uL Myelocytes # (Manual) 0.36 H (0) k/uL Nucleated RBCs 1 H (0-0) /100 WBC D-Dimer 1.08 H (<0.60) mg/L FEU ABG pH (7.35-7.45) ABG pCO2 (35-45) mmHg ABG HCO3 (21-25) mmol/L ABG Total CO2 (19-24) mmol/L ABG O2 Saturation (94-97) % Chloride 87 L (98-107) mmol/L Carbon Dioxide 47 H* (22-30) mmol/L BUN 35 H (9-20) mg/dL Glucose 103 H (74-99) mg/dL C-Reactive Protein 2.0 H (<1.0) mg/dL Total Protein 6.2 L (6.3-8.2) g/dL Albumin 3.2 L (3.5-5.0) g/dL 03/09/21 Range/Units 16:50 RBC (4.30-5.90) m/uL Hgb (13.0-17.5) gm/dL Hct (39.0-53.0) % MCV (80.0-100.0) fL RDW (11.5-15.5) % Plt Count (150-450) k/uL Metamyelocytes # (Man) (0) k/uL Myelocytes # (Manual) (0) k/uL Nucleated RBCs (0-0) /100 WBC D-Dimer (<0.60) mg/L FEU ABG pH 7.26 L (7.35-7.45) ABG pCO2 115 H* (35-45) mmHg ABG HCO3 51 H* (21-25) mmol/L ABG Total CO2 55 H (19-24) mmol/L ABG O2 Saturation 97.9 H (94-97) % Chloride (98-107) mmol/L Carbon Dioxide (22-30) mmol/L BUN (9-20) mg/dL Glucose (74-99) mg/dL C-Reactive Protein (<1.0) mg/dL Total Protein (6.3-8.2) g/dL Albumin (3.5-5.0) g/dL Assessment and Plan Assessment: Acute diastolic CHF with ejection fraction 50-55% acute bilateral leg cellulitis, responded well to antibiotics Hypoxic respiratory failure secondary to above Hypertension persistent call Covid test with no actual infection Prostatic cancer Chronic bilateral leg lymphedema He is a status post cardiac ablation and pacemaker Obese, morbidly. With BMI of 55 Plan: This is a pleasant 75 years old male who presents with acute CHF and pulmonary edema continue with IV Lasix Continue with oxygen as needed to keep saturation above 90% monitor input and output and creatinine/electrolytes Cardiology consult Continue with cefazolin and infectious disease consult We'll do anemia workup Discontinue dexamethasone. Continue with multiple vitamins Labs and medication were reviewed.. Continue same treatment. Continue with symptomatic treatment. Resume home medication. Monitor lytes and vitals. DVT and GI prophylaxis. Further recommendations depends on the clinical course of the patient DVT prophylaxis: On Eliquis GI Prophylaxis: Pepcid PT/OT: Pending Prognosis is guarded
[2021-03-09 18:28] LABS: Glucose,Whole Blood 138 mg/dL (75-99)
[2021-03-09 19:40] LABS: ABG Base Excess 23.9 mmol/L; ABG Oxygen Saturation 95.8 % (94-97); ABG PH 7.32 (7.35-7.45); ABG PO2 79 mmHg (83-108); ABG TCO2 53 mmol/L (19-24); Allen Test Performed? Yes
[2021-03-09 19:41] LABS: ABG HCO3 50 mmol/L (21-25); ABG PCO2 98 mmHg (35-45)
[2021-03-09] MEDS ORDERED: NALOXONE 0.4 MG/ML 1 ML VIAL IV PRN (20:18)
[2021-03-10] MEDS: POTASSIUM CHLORIDE ER 20 MEQ TAB.ER PO SCH ×3 (00:06→20:09)
[2021-03-10] MEDS: CEFEPIME 2 GM in SODIUM CHLORIDE 0.9% 100 ML IVPB SCH ×3 (01:12→15:31)
[2021-03-10 05:00] LABS: Anisocytosis Slight; Hypochromasia Marked; MCH 32.4 pg (25.0-35.0); MCHC 32.2 g/dL (31.0-37.0); MCV 100.5 fL (80.0-100.0); Macrocytosis Moderate; Mean Platelet Volume 9.6; Platelet Count 100 k/uL (150-450); Poikilocytosis Moderate; RBC 1.99 m/uL (4.30-5.90); RDW 19.7 % (11.5-15.5)
[2021-03-10 05:09] LABS: HGB 6.4 gm/dL (13.0-17.5)
[2021-03-10 05:24] LABS: Eosinophils # (M) 0.07 k/uL (0-0.7); Lymphocytes # (M) 0.66 k/uL (1.0-4.8); Metamyelocytes # (M) 0.13 k/uL (0); Metamyelocytes % 2 %; Monocytes # (M) 0.79 k/uL (0-1.0); Myelocytes # (M) 0.13 k/uL (0); Myelocytes % 2 %; Neutrophils # (M) 4.82 k/uL (1.3-7.7); Neutrophils % (M) 73 %; Nucleated Red Blood Cells 1 /100 WBC (0-0); Total Cells Counted 200; WBC 6.6 k/uL (3.8-10.6)
[2021-03-10 05:26] LABS: African American GFR (CKD) >90 (>60 ml/min/1.73 sqM); Anisocytosis (M) Present; Basophilic Stippling Present; Blood Urea Nitrogen 36 mg/dL (9-20); Calcium 9.6 mg/dL (8.4-10.2); Chloride 88 mmol/L (98-107); Glucose 89 mg/dL (74-99); Non-African American GFR(CKD) 87 (>60 ml/min/1.73 sqM); Poikilocytosis (M) Present; Polychromasia Present; Potassium 4.3 mmol/L (3.5-5.1); Sodium 135 mmol/L (137-145); Stomatocytes Present
[2021-03-10] MEDS: FUROSEMIDE 10 MG/ML 4 ML VIAL IV SCH ×2 (05:27→15:31)
[2021-03-10 05:34] LABS: Anion Gap 3 mmol/L
[2021-03-10 05:38] LABS: Carbon Dioxide 44 mmol/L (22-30)
[2021-03-10] MEDS: CHOLECALCIFEROL 25 MCG (1000 IU) TABLET PO SCH (08:00)
[2021-03-10] MEDS: PANTOPRAZOLE 40 MG TABLET PO SCH ×2 (08:00→17:09)
[2021-03-10] MEDS: ASCORBIC ACID 500 MG TAB PO SCH (08:00)
[2021-03-10] MEDS: APIXABAN 5 MG TAB PO SCH (08:00)
[2021-03-10] MEDS: ZINC SULFATE 220 MG CAP PO SCH (08:00)
[2021-03-10] MEDS: atenoloL 50 MG TAB PO SCH ×3 (09:09→23:57)
--- NOTE | 2021-03-10 11:14 | XR ---
EXAMINATION TYPE: XR chest 1V DATE OF EXAM: 03/10/2021 COMPARISON: 03/09/2021 INDICATION: Short of breath TECHNIQUE: Single frontal view of the chest is obtained. FINDINGS: The heart size is normal. The pulmonary vasculature is normal. Bibasilar infiltrates are present, greater on the right. This is increasing. Small effusions may be p resent. IMPRESSION: 1. Increasing right lower lobe infiltrate. Correlate for atelectasis and pneumonia. 2. Small bilateral pleural effusions
[2021-03-10] MEDS: VANCOMYCIN 2,500 MG in SODIUM CHLORIDE 0.9% 500 ML 500 ML IVPB SCH ×2 (11:35→21:17)
--- NOTE | 2021-03-10 13:09 | P.CNPUL ---
History of Present Illness Consult date: 03/10/21 Requesting physician: Naga Glaser Reason for consult: other (Acute hypoxic and hypercapnic respiratory failure) Chief complaint: Shortness of breath and increased swelling in lower extremities. History of present illness: This is a 75-year-old white male with history of multiple medical conditions including hypertension, chronic lymphedema of lower extremities, history of artery Ablation and pacemaker implantation, history of right lower extremity deep vein thrombosis, and recent history of COVID-19 infection. Patient was admitted initially on 03/05/2021, and he was mostly admitted with shortness of breath, and bilateral lower extremity swelling. Patient lives at a half-way, and upon admission patient was placed on BiPAP, he was placed on diuretics for presumptive congestive heart failure, and he was seen by many consultants including cardiology and infectious disease who saw the patient for cellulitis of lower extremities. At any rate yesterday on 03/09/2021, patient's clinical condition became worse, patient developed worsening hypoxia and hypercapnia. I was notified about this patient's ABG were in his pO2 was 100 pCO2 115 and pH of 7.26, I recommended titrating the FiO2 down in his BiPAP, I also recommended diuresing the patient, updrafts to be given, and I transfer the patient to the ICU yesterday. Since transfer to the ICU, the patient has been responding well to diuretics, he remains presently on BiPAP, and his BiPAP settings are 12/6/40%, last ABG showed a pO2 of 79 pCO2 of 98 pH of 7.32. His mental status has significantly improved, patient was quite obtunded and less responsive last night but apparently overnight the patient made a significant improvement. His hemoglobin however this morning is 6.4, there is no evidence of any active site of bleeding, he will be receiving a unit of packed RBCs. After reviewing his chest x-ray, I recommended Lasix at 40 mg IV push every 8 hours. Kept him on IV fluid at KVO. Chest x-ray continues to show evidence of pulmonary edema and suspected bilateral pleural effusions right more so than left. His bicarb on the electrolytes today is 44, this is indicative of chronic metabolic compensation for chronic respiratory acidosis. His BNP yesterday was 3820. Patient has been seen by infectious disease, and he is on vancomycin and on cefepime for cellulitis of lower extremities. He is also on Decadron 6 mg daily for recent history of COVID-19 infection, although the findings in the lungs are more or less findings of CHF. Strongly doubt COVID-19 pneumonitis. Review of Systems CONSTITUTIONAL: Generalized weakness and fatigue. HEENT: No recent visual problems or hearing problems. Denied any sore throat. CARDIOVASCULAR: As noted in HPI. PULMONARY: As noted in HPI. GASTROINTESTINAL: No diarrhea, no nausea, no vomiting, no abdominal pain. Normoactive bowel sounds. NEUROLOGICAL: No headaches, no vision or dizziness. HEMATOLOGICAL: Denies any bleeding or petechiae. GENITOURINARY: Denies any burning micturition, frequency, or urgency. MUSCULOSKELETAL/RHEUMATOLOGICAL: Denies any joint pain, swelling, or any muscle pain. ENDOCRINE: Denies any polyuria or polydipsia. Skin: Chronic cellulitis of lower extremities. Past Medical History Past Medical History: Cancer, Hypertension, Skin Disorder Additional Past Medical History / Comment(s): hx prostate cancer, , hx rheumatic fever; lymphedema to bilateral legs. History of Any Multi-Drug Resistant Organisms: None Reported Past Surgical History: Hernia Repair, Tonsillectomy Additional Past Surgical History / Comment(s): pacemaker, heart ablation Past Anesthesia/Blood Transfusion Reactions: No Reported Reaction Past Psychological History: No Psychological Hx Reported Smoking Status: Former smoker Past Alcohol Use History: None Reported Additional Past Alcohol Use History / Comment(s): smoked from teens until 30's; started up again when 61 until 63 Past Drug Use History: None Reported - Past Family History Father Family Medical History: Cancer Mother Family Medical History: Cancer Medications and Allergies Home Medications Medication Instructions Recorded Confirmed Type Potassium Chloride [K-Tab ER] 20 meq PO BID 12/09/14 03/05/21 History Atenolol [Tenormin] 50 mg PO BID 12/31/20 03/05/21 History Multivitamins, Thera [Multivitamin 1 tab PO HS 12/31/20 03/05/21 History (formulary)] Ascorbic Acid [Vitamin C] 1,000 mg PO DAILY tab 01/08/21 03/05/21 Rx Albuterol Inhaler [Ventolin Hfa 2 puff INHALATION RT-QID PRN 02/09/21 03/05/21 History Inhaler] Apixaban [Eliquis] 5 mg PO BID 02/09/21 03/05/21 History Baclofen [Lioresal] 10 mg PO Q6H PRN 02/09/21 03/05/21 History Pantoprazole [Protonix] 40 mg PO BID 02/09/21 03/05/21 History Cholecalciferol [Vitamin D3 (25 25 mcg PO DAILY 03/05/21 03/05/21 History Mcg = 1000 Iu)] Furosemide [Lasix] 80 mg PO BID 03/05/21 03/05/21 History HYDROcodone/APAP 5-325MG [[place] 1 tab PO Q6HR PRN 03/05/21 03/05/21 History 5-325] Allergies Allergy/AdvReac Type Severity Reaction Status Date / Time No Known Allergies Allergy Verified 03/05/21 13:55 Physical Exam Vitals: Vital Signs Temp Pulse Pulse Resp BP BP Pulse Ox 03/10/21 11:10 18 03/10/21 11:00 59 L 16 100/45 99 03/10/21 10:48 98.4 F 60 18 100/45 03/10/21 10:39 97.9 F 03/10/21 10:38 60 18 92/47 03/10/21 10:00 60 20 98/40 100 03/10/21 09:00 60 11 L 99/44 98 03/10/21 08:00 97.3 F L 60 21 105/44 95 03/10/21 07:00 60 17 93/45 97 03/10/21 06:00 60 18 103/46 97 03/10/21 05:00 60 15 104/47 98 03/10/21 04:00 60 15 110/47 98 03/10/21 03:00 60 16 95/43 97 03/10/21 02:00 60 12 94/44 91 L 03/10/21 01:00 60 20 104/45 96 03/10/21 00:00 97.3 F L 60 12 116/48 98 03/09/21 23:00 60 21 101/59 98 03/09/21 22:00 60 16 122/54 93 L 03/09/21 21:00 97.1 F L 62 24 124/51 94 L 03/09/21 20:00 60 14 111/57 97 03/09/21 19:00 60 10 L 113/51 97 03/09/21 18:50 60 17 96 08/06/21 18:40 94.9 F L 60 24 110/57 94 L 03/09/21 18:30 60 25 H 94 L 03/09/21 18:26 26 H 03/09/21 15:50 60 16 165/74 97 Intake and Output 03/09/21 03/10/21 03/10/21 22:59 06:59 14:59 Intake Total 30 681 60 Output Total 575 520 485 Balance -545 161 -425 Intake: IV 30 681 60 0.9 NS 30 80 60 Cefepime 2 gm In Sodium 100 Chloride 0.9% 100 ml @ 25 mls/hr IVPB Q8HR [facility] Rx# :[id number] Vancomycin 2,500 mg In 501 Sodium Chloride 0.9% 500 ml 500 ml @ 167 mls/hr IVPB Q12H [facility] Rx#: [id number] Blood Product 0 Rc As-1 Unit 0 [id number] Output: Urine 575 520 485 Other: Voiding Method Indwelling Catheter Indwelling Catheter Indwelling Catheter GENERAL: Revealed a 75-year-old white male, morbidly obese, on BiPAP, in no distress. HEENT: Pupils are round and equally reacting to light. EOMI. No scleral icterus. No conjunctival pallor. Normocephalic, atraumatic. No pharyngeal erythema. No thyromegaly. CARDIOVASCULAR: Distant S1 and S2 present. No murmurs, rubs, or gallops. -PULMONARY: Symmetrical chest expansion, crackles at the bases, rhonchi and wheezes noted especially on the left side. ABDOMEN: Orbital obese, Soft, nontender, nondistended, normoactive bowel sounds. No palpable organomegaly. MUSCULOSKELETAL: No deformities noted limitation in range of motion.. -EXTREMITIES: No cyanosis, clubbing,. Bilateral lymphedema, associated with bilateral pitting edema NEUROLOGICAL: Alert and oriented 3, no gross focal deficits. SKIN: Skin findings as noted above under extremities. Otherwise unremarkable. Results - Laboratory Findings CBC and BMP: 03/10/21 04:41 03/10/21 04:41 ABG ABG pH 7.32 (7.35-7.45) L 03/09/21 19:37 ABG pCO2 98 mmHg (35-45) H* 03/09/21 19:37 ABG pO2 79 mmHg (83-108) L 03/09/21 19:37 ABG O2 Saturation 95.8 % (94-97) 03/09/21 19:37 PT/INR, D-dimer PT 14.8 sec (9.0-12.0) H 03/05/21 11:42 INR 1.5 (<1.2) H 03/05/21 11:42 D-Dimer 1.08 mg/L FEU (<0.60) H 03/09/21 07:25 Abnormal lab findings: Abnormal Labs 03/05/21 03/05/21 03/05/21 11:42 11:42 11:42 WBC 12.9 H RBC 2.73 L Hgb 8.6 L Hct 26.4 L MCV RDW 18.7 H Plt Count Neutrophils # (Manual) 9.80 H Lymphocytes # (Manual) Monocytes # (Manual) 1.16 H Metamyelocytes # (Man) 0.52 H Myelocytes # (Manual) 0.52 H Nucleated RBCs 1 H PT 14.8 H INR 1.5 H APTT 31.4 H D-Dimer ABG pH ABG pCO2 ABG pO2 ABG HCO3 ABG Total CO2 ABG O2 Saturation Sodium Chloride 89 L Carbon Dioxide 43 H* BUN 24 H Glucose 113 H POC Glucose (mg/dL) Iron Ferritin C-Reactive Protein Total Protein Albumin 3.2 L Procalcitonin Coronavirus (PCR) Crossmatch 03/06/21 03/06/21 03/06/21 07:29 07:29 07:29 WBC 11.1 H RBC 2.39 L Hgb 7.7 L Hct 23.4 L MCV RDW 18.9 H Plt Count Neutrophils # (Manual) 8.88 H Lymphocytes # (Manual) 0.78 L Monocytes # (Manual) Metamyelocytes # (Man) 0.44 H Myelocytes # (Manual) 0.33 H Nucleated RBCs PT INR APTT D-Dimer ABG pH ABG pCO2 ABG pO2 ABG HCO3 ABG Total CO2 ABG O2 Saturation Sodium Chloride 87 L Carbon Dioxide 45 H* BUN 23 H Glucose 110 H POC Glucose (mg/dL) Iron Ferritin C-Reactive Protein Total Protein Albumin Procalcitonin 0.14 H Coronavirus (PCR) Crossmatch 03/06/21 03/06/21 03/07/21 09:30 16:26 07:20 WBC RBC Hgb Hct MCV RDW Plt Count Neutrophils # (Manual) Lymphocytes # (Manual) Monocytes # (Manual) Metamyelocytes # (Man) Myelocytes # (Manual) Nucleated RBCs PT INR APTT D-Dimer ABG pH ABG pCO2 ABG pO2 ABG HCO3 ABG Total CO2 ABG O2 Saturation Sodium Chloride 89 L Carbon Dioxide 43 H* BUN 27 H Glucose 104 H POC Glucose (mg/dL) Iron Ferritin C-Reactive Protein Total Protein Albumin Procalcitonin Coronavirus (PCR) Detected A Detected A Crossmatch 03/08/21 03/08/21 03/08/21 07:48 07:48 07:48 WBC RBC 2.15 L Hgb 7.1 L Hct 21.4 L MCV RDW 19.8 H Plt Count 139 L Neutrophils # (Manual) Lymphocytes # (Manual) 0.94 L Monocytes # (Manual) Metamyelocytes # (Man) 0.34 H Myelocytes # (Manual) 0.43 H Nucleated RBCs PT INR APTT D-Dimer ABG pH ABG pCO2 ABG pO2 ABG HCO3 ABG Total CO2 ABG O2 Saturation Sodium Chloride 88 L Carbon Dioxide 47 H* BUN 33 H Glucose POC Glucose (mg/dL) Iron 55 L Ferritin 389.6 H C-Reactive Protein Total Protein Albumin Procalcitonin Coronavirus (PCR) Crossmatch 03/09/21 03/09/21 03/09/21 07:25 07:25 07:25 WBC RBC 2.35 L Hgb 7.5 L Hct 23.9 L MCV 101.7 H RDW 20.0 H Plt Count 142 L Neutrophils # (Manual) Lymphocytes # (Manual) Monocytes # (Manual) Metamyelocytes # (Man) 0.18 H Myelocytes # (Manual) 0.36 H Nucleated RBCs 1 H PT INR APTT D-Dimer 1.08 H ABG pH ABG pCO2 ABG pO2 ABG HCO3 ABG Total CO2 ABG O2 Saturation Sodium Chloride 87 L Carbon Dioxide 47 H* BUN 35 H Glucose 103 H POC Glucose (mg/dL) Iron Ferritin C-Reactive Protein 2.0 H Total Protein 6.2 L Albumin 3.2 L Procalcitonin Coronavirus (PCR) Crossmatch 03/09/21 03/09/21 03/09/21 16:50 18:27 19:37 WBC RBC Hgb Hct MCV RDW Plt Count Neutrophils # (Manual) Lymphocytes # (Manual) Monocytes # (Manual) Metamyelocytes # (Man) Myelocytes # (Manual) Nucleated RBCs PT INR APTT D-Dimer ABG pH 7.26 L 7.32 L ABG pCO2 115 H* 98 H* ABG pO2 79 L ABG HCO3 51 H* 50 H* ABG Total CO2 55 H 53 H ABG O2 Saturation 97.9 H Sodium Chloride Carbon Dioxide BUN Glucose POC Glucose (mg/dL) 138 H Iron Ferritin C-Reactive Protein Total Protein Albumin Procalcitonin Coronavirus (PCR) Crossmatch 03/10/21 03/10/21 03/10/21 04:41 04:41 05:58 WBC RBC 1.99 L Hgb 6.4 L* Hct 20.0 L MCV 100.5 H RDW 19.7 H Plt Count 100 L Neutrophils # (Manual) Lymphocytes # (Manual) 0.66 L Monocytes # (Manual) Metamyelocytes # (Man) 0.13 H Myelocytes # (Manual) 0.13 H Nucleated RBCs 1 H PT INR APTT D-Dimer ABG pH ABG pCO2 ABG pO2 ABG HCO3 ABG Total CO2 ABG O2 Saturation Sodium 135 L Chloride 88 L Carbon Dioxide 44 H* BUN 36 H Glucose POC Glucose (mg/dL) Iron Ferritin C-Reactive Protein Total Protein Albumin Procalcitonin Coronavirus (PCR) Crossmatch See Detail - Diagnostic Findings Chest x-ray: image reviewed (As noted in HPI.) Assessment and Plan Assessment: Impression: Acute diastolic congestive heart failure Acute hypoxic and hypercapnic respiratory failure secondary to congestive heart failure as noted above, SUSPECT significant component of obesity hypoventilation syndrome, and possibly some component of underlying COPD. Acute cellulitis of lower extremities. This is being addressed by infectious disease on the case. Chronic bilateral lower extremities lymphedema. History of pacemaker implantation and cardiac ablation. This was done for his history of supraventricular tachycardia. Morbid obesity with obesity/hypoventilation syndrome, BMI of 55. History of COVID-19 infection, doubt COVID-19 pneumonitis at this point. Chronic thrombocytopenia. History of prostate cancer. Anemia exact etiology is not clear, could be secondary to GI blood losses, hence we'll continue Protonix. And will transfuse to maintain hemoglobin above 7. Check Hemoccult stools. Recommendation: Continue BiPAP, and titrate FiO2 down maintaining O2 saturation in the low 90s. Continue diuretics. Increase Lasix to 40 mg IV push every 8 hours. Would recommend stopping Decadron. Continue to monitor renal profile. Monitor electrolytes. Initially transitioned from BiPAP to a nasal cannula. Continue updrafts. Continue antibiotics as per ID on the case. Continue GI prophylaxis. Avoid heparin if possible since the patient has a relatively low platelets. Use Venodyne boots and compression stockings. Prognosis remains guarded. We'll continue to follow. Time with Patient: Greater than 30
[2021-03-10] MEDS ORDERED: DEXAMETHASONE SOD PHOSPHATE 10 MG/ML 1 ML VIAL IV SCH (14:49)
--- NOTE | 2021-03-10 15:49 | PN ---
PROGRESS NOTE DATE OF SERVICE: 03/10/2021 REASON FOR FOLLOWUP: 1. Bilateral leg cellulitis. 2. Positive COVID test. INTERVAL HISTORY: The patient did have worsening of his respiratory status and the patient has been transferred to the ICU. The patient is currently on a BiPAP. He is hemodynamically stable. No vomiting, diarrhea or change has been reported by nursing staff. PHYSICAL EXAMINATION: Blood pressure 101/46, pulse of 60, temperature is 97.9, 94% on 40% FiO2. General description is an elderly male lying in bed in no distress. Respiratory system: Unlabored breathing, crackles at the bases bilaterally. Heart S1-S2, regular rate and rhythm. Abdomen soft, no tenderness. Legs with swelling and redness, improved. LABS: Hemoglobin is 6.4, white count 6.6, BUN of 36, creatinine 0.82. DIAGNOSTIC IMPRESSION AND PLAN: Patient with bilateral lower extremity cellulitis. The patient did have evidence of fluid overload concerning for CHF. This patient did show overall improvement on cefazolin, now with worsening of his respiratory status, more likely cardiac related. Underlying pneumonia less likely but not excluded. Clinically doubt COVID-19 infection as the patient did have a positive COVID test on 12/21/3020 and a positive test this admission, more likely the left origin from the test. Antibodies will be requested. Antibiotic has been broadened. We will check urine for Legionella antigen and monitor clinical course closely. MMODL / IJN: [id number] /
--- NOTE | 2021-03-10 17:31 | P.PN ---
Subjective Progress Note Date: 03/10/21 Principal diagnosis: Acute hypoxic and hypercapnic respiratory failure Pneumonia; COVID 19 versus bacterial Acute exacerbation CHF Elevated d-dimer/rule out PE Bilateral lower extremity cellulitis 75 his old male with past medical history of hypertension, prostate cancer, bilateral leg lymphedema, status post cardiac ablation and pacemaker Was recently discharged from the hospital 02/09-02/13 for bilateral leg cellulitis of his lymphedema. Recent right lower extremity DVT on [facility] COVID- 19 infection Presents because of dyspnea over the weekend with increased bilateral leg swelling. He lives in a long-term. At baseline he has some dyspnea with oxygen requirement 2-4 L/m at baseline. At baseline and also patient is nonmobile for a long time, probably many years as he states. He denies any coughing. No abdominal pain or nausea vomiting. No diarrhea. He states that his urine little short T as he describes but he denies dysuria Now he feels much better after he was placed on BiPAP On admission he was hypoxic with oxygen saturation 89% on 60 to her oxygenation nasal cannula. Breathing at 20/m, afebrile Labs showing leukocytosis of 12.9 K. Hemoglobin 8.6 which is close to baseline. Platelets normal. INR is 1.5. BMP and creatinine are unremarkable. Liver enzymes not elevated. Troponin is negative less than 0.012. EKG showing paced rhythm at 68 Chest x-ray: CHF with pulmonary edema favored over diffuse pneumonia Echocardiogram from 01/2021 showing ejection fraction of 50-55% On rounds today patient was found to be minimally responsive; has been placed on BiPAP; we will order stat ABGs, chest x-ray, BNP; Lasix 40 mg IV stat, Decadron 6 mg IV daily first dose stat; start patient on IV cefepime and vancomycin; we will consult pulmonary service; further recommendations once workup is complete 03/10/2021 Patient is seen and evaluated in ICU; patient transferred yesterday due to osmanyi jennifer respiratory status Pulmonary/critical care following and recommending to continue with BiPAP with plans to titrate FiO2 down maintaining O2 saturation in the low 90s Continue diuretics. Increase Lasix to 40 mg IV push every 8 hours; pulmonary on board and recommend stopping Decadron. Continue to monitor renal profile. Monitor electrolytes Objective - Vital Signs Vital signs: Vital Signs Temp 97.3 F L 03/10/21 08:00 Pulse 60 08/07/21 10:00 Resp 20 03/10/21 10:00 BP 98/40 03/10/21 10:00 Pulse Ox 100 03/10/21 10:00 Intake & Output 03/09/21 03/10/21 03/10/21 18:59 06:59 18:59 Intake Total 375 711 40 Output Total 400 1095 400 Balance -83 -848 -447 Intake: IV 711 40 0.9 NS 110 40 Cefepime 2 gm In Sodium 100 Chloride 0.9% 100 ml @ 25 mls/hr IVPB Q8HR [facility] Rx# :[id number] Vancomycin 2,500 mg In 501 Sodium Chloride 0.9% 500 ml 500 ml @ 167 mls/hr IVPB Q12H [facility] Rx#: [id number] Oral 375 Output: Urine 400 1095 400 Other: Voiding Method Urinal Indwelling Catheter Indwelling Catheter - Exam -GENERAL: The patient is evaluated in bed; and seems comfortable - Labs CBC & Chem 7: 03/10/21 04:41 03/10/21 04:41 Labs: Abnormal Lab Results - Last 24 Hours (Table) 03/09/21 03/09/21 03/09/21 Range/Units 07:25 16:50 18:27 RBC (4.30-5.90) m/uL Hgb (13.0-17.5) gm/dL Hct (39.0-53.0) % MCV (80.0-100.0) fL RDW (11.5-15.5) % Plt Count (150-450) k/uL Lymphocytes # (Manual) (1.0-4.8) k/uL Metamyelocytes # (Man) 0.18 H (0) k/uL Myelocytes # (Manual) 0.36 H (0) k/uL Nucleated RBCs 1 H (0-0) /100 WBC ABG pH 7.26 L (7.35-7.45) ABG pCO2 115 H* (35-45) mmHg ABG pO2 (83-108) mmHg ABG HCO3 51 H* (21-25) mmol/L ABG Total CO2 55 H (19-24) mmol/L ABG O2 Saturation 97.9 H (94-97) % Sodium (137-145) mmol/L Chloride (98-107) mmol/L Carbon Dioxide (22-30) mmol/L BUN (9-20) mg/dL POC Glucose (mg/dL) 138 H (75-99) mg/dL Crossmatch 03/09/21 03/10/21 03/10/21 Range/Units 19:37 04:41 04:41 RBC 1.99 L (4.30-5.90) m/uL Hgb 6.4 L* (13.0-17.5) gm/dL Hct 20.0 L (39.0-53.0) % MCV 100.5 H (80.0-100.0) fL RDW 19.7 H (11.5-15.5) % Plt Count 100 L (150-450) k/uL Lymphocytes # (Manual) 0.66 L (1.0-4.8) k/uL Metamyelocytes # (Man) 0.13 H (0) k/uL Myelocytes # (Manual) 0.13 H (0) k/uL Nucleated RBCs 1 H (0-0) /100 WBC ABG pH 7.32 L (7.35-7.45) ABG pCO2 98 H* (35-45) mmHg ABG pO2 79 L (83-108) mmHg ABG HCO3 50 H* (21-25) mmol/L ABG Total CO2 53 H (19-24) mmol/L ABG O2 Saturation (94-97) % Sodium 135 L (137-145) mmol/L Chloride 88 L (98-107) mmol/L Carbon Dioxide 44 H* (22-30) mmol/L BUN 36 H (9-20) mg/dL POC Glucose (mg/dL) (75-99) mg/dL Crossmatch 03/10/21 Range/Units 05:58 RBC (4.30-5.90) m/uL Hgb (13.0-17.5) gm/dL Hct (39.0-53.0) % MCV (80.0-100.0) fL RDW (11.5-15.5) % Plt Count (150-450) k/uL Lymphocytes # (Manual) (1.0-4.8) k/uL Metamyelocytes # (Man) (0) k/uL Myelocytes # (Manual) (0) k/uL Nucleated RBCs (0-0) /100 WBC ABG pH (7.35-7.45) ABG pCO2 (35-45) mmHg ABG pO2 (83-108) mmHg ABG HCO3 (21-25) mmol/L ABG Total CO2 (19-24) mmol/L ABG O2 Saturation (94-97) % Sodium (137-145) mmol/L Chloride (98-107) mmol/L Carbon Dioxide (22-30) mmol/L BUN (9-20) mg/dL POC Glucose (mg/dL) (75-99) mg/dL Crossmatch See Detail Assessment and Plan Assessment: Acute diastolic CHF with ejection fraction 50-55% acute bilateral leg cellulitis, responded well to antibiotics Hypoxic respiratory failure secondary to above Hypertension persistent call Covid test with no actual infection Prostatic cancer Chronic bilateral leg lymphedema He is a status post cardiac ablation and pacemaker Obese, morbidly. With BMI of 55 Plan: This is a pleasant 75 years old male who presents with acute CHF and pulmonary edema continue with IV Lasix Continue with oxygen as needed to keep saturation above 90% monitor input and output and creatinine/electrolytes Cardiology consult Continue with cefazolin and infectious disease consult We'll do anemia workup Discontinue dexamethasone. Continue with multiple vitamins Labs and medication were reviewed.. Continue same treatment. Continue with symptomatic treatment. Resume home medication. Monitor lytes and vitals. DVT and GI prophylaxis. Further recommendations depends on the clinical course of the patient DVT prophylaxis: On Eliquis GI Prophylaxis: Pepcid PT/OT: Pending Prognosis is guarded
[2021-03-11] MEDS: CEFEPIME 2 GM in SODIUM CHLORIDE 0.9% 100 ML IVPB SCH ×4 (00:01→23:40)
[2021-03-11] MEDS: FUROSEMIDE 10 MG/ML 4 ML VIAL IV SCH ×4 (00:02→23:40)
[2021-03-11 06:26] LABS: African American GFR (CKD) >90 (>60 ml/min/1.73 sqM); Blood Urea Nitrogen 35 mg/dL (9-20); Calcium 9.7 mg/dL (8.4-10.2); Chloride 89 mmol/L (98-107); Glucose 86 mg/dL (74-99); Non-African American GFR(CKD) 85 (>60 ml/min/1.73 sqM); Potassium 4.3 mmol/L (3.5-5.1); Sodium 137 mmol/L (137-145)
[2021-03-11 06:28] LABS: Anisocytosis Slight; HCT 23.3 % (39.0-53.0); HGB 7.3 gm/dL (13.0-17.5); Hypochromasia Marked; MCH 31.3 pg (25.0-35.0); MCHC 31.2 g/dL (31.0-37.0); MCV 100.2 fL (80.0-100.0); Macrocytosis Moderate; Poikilocytosis Moderate; RBC 2.32 m/uL (4.30-5.90); RDW 19.7 % (11.5-15.5); WBC 5.9 k/uL (3.8-10.6)
[2021-03-11 06:33] LABS: Anion Gap 2 mmol/L
[2021-03-11 06:41] LABS: Carbon Dioxide 46 mmol/L (22-30)
[2021-03-11 06:43] LABS: Band Neutrophils % 7 %; Metamyelocytes # (M) 0.35 k/uL (0); Metamyelocytes % 6 %; Monocytes # (M) 0.59 k/uL (0-1.0); Myelocytes # (M) 0.12 k/uL (0); Myelocytes % 2 %; Neutrophils % (M) 69 %; Nucleated Red Blood Cells 0 /100 WBC (0-0); Promyelocytes # (M) 0.06 k/uL (0); Promyelocytes % 1 %; Total Cells Counted 200
[2021-03-11 06:44] LABS: Anisocytosis (M) Present; Basophilic Stippling Present; Platelet Count 99 k/uL (150-450); Polychromasia Present
[2021-03-11] MEDS: CHOLECALCIFEROL 25 MCG (1000 IU) TABLET PO SCH (08:31)
[2021-03-11] MEDS: ASCORBIC ACID 500 MG TAB PO SCH (08:31)
[2021-03-11] MEDS: ZINC SULFATE 220 MG CAP PO SCH (08:31)
[2021-03-11] MEDS: PANTOPRAZOLE 40 MG TABLET PO SCH ×2 (08:32→16:27)
[2021-03-11] MEDS: POTASSIUM CHLORIDE ER 20 MEQ TAB.ER PO SCH ×2 (08:33→19:59)
[2021-03-11] MEDS: atenoloL 50 MG TAB PO SCH ×2 (08:39→19:59)
--- NOTE | 2021-03-11 09:35 | XR ---
EXAMINATION TYPE: XR chest 1V DATE OF EXAM: 03/11/2021 COMPARISON: 03/10/2021 INDICATION: Short of breath TECHNIQUE: Single frontal view of the chest is obtained. FINDINGS: The heart size is mildly prominent. The pulmonary vasculature is dominant. These increased lung markings are present greater at the right base. Correlate for congestive heart f ailure. Pneumonia can be considered. IMPRESSION: 1. Clinical correlation recommended for congestive heart failure. Pneumonia could be considered. Foll ow-up is recommended.
--- NOTE | 2021-03-11 10:58 | P.PN ---
Subjective Progress Note Date: 03/11/21 Principal diagnosis: Shortness of breath, increased swelling in lower extremities shortness of breath, lower extremity swelling, cellulitis This is a 75-year-old white male with history of multiple medical conditions including hypertension, chronic lymphedema of lower extremities, history of artery Ablation and pacemaker implantation, history of right lower extremity deep vein thrombosis, and recent history of COVID-19 infection. Patient was admitted initially on 03/05/2021, and he was mostly admitted with shortness of breath, and bilateral lower extremity swelling. Patient lives at a custodial, and upon admission patient was placed on BiPAP, he was placed on diuretics for presumptive congestive heart failure, and he was seen by many consultants including cardiology and infectious disease who saw the patient for cellulitis of lower extremities. At any rate yesterday on 03/09/2021, patient's clinical condition became worse, patient developed worsening hypoxia and hypercapnia. I was notified about this patient's ABG were in his pO2 was 100 pCO2 115 and pH of 7.26, I recommended titrating the FiO2 down in his BiPAP, I also recommended diuresing the patient, updrafts to be given, and I transfer the patient to the ICU yesterday. Since transfer to the ICU, the patient has been responding well to diuretics, he remains presently on BiPAP, and his BiPAP settings are 12/6/40%, last ABG showed a pO2 of 79 pCO2 of 98 pH of 7.32. His mental status has significantly improved, patient was quite obtunded and less responsive last night but apparently overnight the patient made a significant improvement. His hemoglobin however this morning is 6.4, there is no evidence of any active site of bleeding, he will be receiving a unit of packed RBCs. After reviewing his chest x-ray, I recommended Lasix at 40 mg IV push every 8 hours. Kept him on IV fluid at KVO. Chest x-ray continues to show evidence of pulmonary edema and suspected bilateral pleural effusions right more so than left. His bicarb on the electrolytes today is 44, this is indicative of chronic metabolic compensation for chronic respiratory acidosis. His BNP yesterday was 3820. Patient has been seen by infectious disease, and he is on vancomycin and on cefepime for cellulitis of lower extremities. He is also on Decadron 6 mg daily for recent history of COVID-19 infection, although the findings in the lungs are more or less findings of CHF. Strongly doubt COVID-19 pneumonitis. On the 03/11/2001 patient seen in follow-up in intensive care unit, he is awake and alert, oriented 3, breathing much more comfortably today compared to yesterday's exam, he did wear his BiPAP support with pressures of 16 and 6 and FiO2 of 35% overnight, he was switched to nasal cannula this morning at 2 L and his pulse ox is 95-98%, he is afebrile, hemodynamically he is stable, denies any chest discomfort, denies any worsening dyspnea, he is on 0.9 normal saline at 20 ML per hour, no vasoactive drips, hemodynamically he is stable, he is in sinus mechanism, blood pressures 112/48, he's had no acute events overnight, follow-up chest x-ray today shows increased lung markings greater at the right base consistent with acute exacerbation of CHF. Patient is currently on Lasix 40 mg IV every 8 hours. He is in -474 mL fluid balance over the last 24 hours. Still has quite significant edema involving his bilateral lower extremities. He remains on antibiotics in the form of cefepime and vancomycin, ID service is following. Today's labs have been reviewed, his white blood cell count is 5.9, hemoglobin is 7.3, his platelet count is 99, patient was transfused with 1 unit of packed red blood cells, occult stool was positive, patient was on Eliquis 5 mg twice a day on an outpatient basis, related to recent history of DVT in January 2021 and the distal popliteal vein in the right lower extremity. Currently Eliquis is on hold. Patient is status post completed vaccination for COVID-19, and patient did have a COVID pneumonia in December. His COVID-19 PCR test is positive 2 this admission on 03/06/2021, and his Antibody test was also reactive. Pro-calcitonin level was low, proBNP level was 3820. His d-dimer is 1.08. Objective - Vital Signs Vital signs: Vital Signs Temp 98 F 03/11/21 08:00 Pulse 60 03/11/21 08:00 Resp 13 03/11/21 08:00 BP 99/45 03/11/21 08:00 Pulse Ox 95 03/11/21 08:00 Intake & Output 03/10/21 03/11/2121 18:59 06:59 18:59 Intake Total 580 681 Output Total 935 800 Balance -355 -119 Intake: IV 120 681 0.9 NS 120 80 Cefepime 2 gm In Sodium 100 Chloride 0.9% 100 ml @ 25 mls/hr IVPB Q8HR [facility] Rx# :[id number] Vancomycin 2,500 mg In 501 Sodium Chloride 0.9% 500 ml 500 ml @ 167 mls/hr IVPB Q12H [facility] Rx#: [id number] Oral 150 Blood Product 310 Rc As-1 Unit 310 [id number] Output: Urine 935 800 Other: Voiding Method Indwelling Catheter Indwelling Catheter Indwelling Catheter - Exam GENERAL EXAM: Alert, very pleasant, 75-year-old white male, currently on 2 L of oxygen, was on BiPAP overnight with pressures of 16/6 and FiO2 of 35% comfortable in no apparent distress. HEAD: Normocephalic/atraumatic. EYES: Normal reaction of pupils, equal size. Conjunctiva pink, sclera white. NOSE: Clear with pink turbinates. THROAT: No erythema or exudates. NECK: No masses, no JVD, no thyroid enlargement, no adenopathy. CHEST: No chest wall deformity. Symmetrical expansion. LUNGS: Equal air entry with no crackles, wheeze, rhonchi or dullness. CVS: Regular rate and rhythm, normal S1 and S2, no gallops, no murmurs, no rubs ABDOMEN: Soft, nontender. No hepatosplenomegaly, normal bowel sounds, no guarding or rigidity. EXTREMITIES: No clubbing, massive lymphedema of bilateral lower extremities, with cellulitis of left lower extremity which is outlined with a marker no cyanosis, 2+ pulses and upper and lower extremities. MUSCULOSKELETAL: Muscle strength and tone normal. SPINE: No scoliosis or deformity SKIN: No rashes CENTRAL NERVOUS SYSTEM: Alert and oriented -3. No focal deficits, tone is normal in all 4 extremities. PSYCHIATRIC: Alert and oriented -3. Appropriate affect. Intact judgment and insight. - Labs CBC & Chem 7: 03/11/21 05:49 03/11/21 05:49 Labs: Abnormal Lab Results - Last 24 Hours (Table) 03/10/21 03/10/21 03/11/21 Range/Units 04:41 05:58 05:49 RBC (4.30-5.90) m/uL Hgb (13.0-17.5) gm/dL Hct (39.0-53.0) % MCV (80.0-100.0) fL RDW (11.5-15.5) % Plt Count (150-450) k/uL Lymphocytes # (Manual) (1.0-4.8) k/uL Metamyelocytes # (Man) (0) k/uL Myelocytes # (Manual) (0) k/uL Promyelocytes # (Man) (0) k/uL Chloride 89 L (98-107) mmol/L Carbon Dioxide 46 H* (22-30) mmol/L BUN 35 H (9-20) mg/dL SARS-CoV-2 Ab,Total Reactive A (Non-Reactive) Crossmatch See Detail 03/11/21 Range/Units 05:49 RBC 2.32 L (4.30-5.90) m/uL Hgb 7.3 L (13.0-17.5) gm/dL Hct 23.3 L (39.0-53.0) % MCV 100.2 H (80.0-100.0) fL RDW 19.7 H (11.5-15.5) % Plt Count 99 L (150-450) k/uL Lymphocytes # (Manual) 0.30 L (1.0-4.8) k/uL Metamyelocytes # (Man) 0.35 H (0) k/uL Myelocytes # (Manual) 0.12 H (0) k/uL Promyelocytes # (Man) 0.06 H (0) k/uL Chloride (98-107) mmol/L Carbon Dioxide (22-30) mmol/L BUN (9-20) mg/dL SARS-CoV-2 Ab,Total (Non-Reactive) Crossmatch Assessment and Plan Plan: Assessment: #1. Acute hypoxic and hypercapnic respiratory failure secondary to acute exacerbation of congestive heart failure with diastolic dysfunction #2. History of COVID 19 infection, and possibly active COVID-19 infection. Patient had a COVID 19 pneumonia in the mid 2020, patient had 2 positive COVID- 19 PCR tests on 03/06/2021 and reactive COVID-19 antibody #3. Obesity hypoventilation syndrome with chronic hypoxic and hypercapnic respiratory failure and a component of underlying COPD #4. Acute cellulitis of the lower extremities, patient is currently on antibiotics in the form of cefepime and vancomycin #5. Chronic bilateral lower extremities lymphedema #6. Recent history of right lower extremity DVT in January 2021, on Eliquis on an outpatient basis which is currently on hold #7. Acute anemia, possibly related to GI blood loss, patient had a positive occult stool, status post transfusion with 1 unit of packed red blood cells #8. History of pacemaker implantation and cardiac ablation for SVT #9. Morbid obesity with obesity hypoventilation syndrome and BMI of 55 kg/m #10. Chronic thrombocytopenia #11. History of prostate cancer Plan: Continue diuretics Continue antibiotics Overall breathing has improved Was able to come off BiPAP support this morning to 2 L of oxygen Continue using BiPAP as needed and at bedtime Today's chest x-rays and labs have been reviewed Eliquis remains on hold Use Venodyne's and compressive stockings for DVT prophylaxis Continue Protonix Monitor for any sign of bleeding Overall patient is stable me be transferred out of intensive care unit to [facility] care bed I performed a history & physical examination of the patient and discussed their management with my nurse practitioner, Barbara Juarez. I reviewed the nurse practitioner's note and agree with the documented findings and plan of care. Lung sounds are positive for diminished breath sounds throughout the lung ortega. The findings and the impression was discussed with the patient. I attest to the documentation by the nurse practitioner. Time with Patient: Greater than 30
[2021-03-11] MEDS: VANCOMYCIN 2,500 MG in SODIUM CHLORIDE 0.9% 500 ML 500 ML IVPB SCH ×2 (12:17→21:20)
--- NOTE | 2021-03-11 16:39 | P.PN ---
Subjective Progress Note Date: 03/11/21 Principal diagnosis: Acute hypoxic and hypercapnic respiratory failure Pneumonia; COVID 19 versus bacterial Acute exacerbation CHF Elevated d-dimer/rule out PE Bilateral lower extremity cellulitis 75 his old male with past medical history of hypertension, prostate cancer, bilateral leg lymphedema, status post cardiac ablation and pacemaker Was recently discharged from the hospital 02/09-02/13 for bilateral leg cellulitis of his lymphedema. Recent right lower extremity DVT on [facility] COVID- 19 infection Presents because of dyspnea over the weekend with increased bilateral leg swelling. He lives in a [facility]. At baseline he has some dyspnea with oxygen requirement 2-4 L/m at baseline. At baseline and also patient is nonmobile for a long time, probably many years as he states. He denies any coughing. No abdominal pain or nausea vomiting. No diarrhea. He states that his urine little short T as he describes but he denies dysuria Now he feels much better after he was placed on BiPAP On admission he was hypoxic with oxygen saturation 89% on 60 to her oxygenation nasal cannula. Breathing at 20/m, afebrile Labs showing leukocytosis of 12.9 K. Hemoglobin 8.6 which is close to baseline. Platelets normal. INR is 1.5. BMP and creatinine are unremarkable. Liver enzymes not elevated. Troponin is negative less than 0.012. EKG showing paced rhythm at 68 Chest x-ray: CHF with pulmonary edema favored over diffuse pneumonia Echocardiogram from 01/2021 showing ejection fraction of 50-55% On rounds today patient was found to be minimally responsive; has been placed on BiPAP; we will order stat ABGs, chest x-ray, BNP; Lasix 40 mg IV stat, Decadron 6 mg IV daily first dose stat; start patient on IV cefepime and vancomycin; we will consult pulmonary service; further recommendations once workup is complete 03/10/2021 Patient is seen and evaluated in ICU; patient transferred yesterday due to decli jennifer respiratory status Pulmonary/critical care following and recommending to continue with BiPAP with plans to titrate FiO2 down maintaining O2 saturation in the low 90s Continue diuretics. Increase Lasix to 40 mg IV push every 8 hours; pulmonary on board and recommend stopping Decadron. Continue to monitor renal profile. Monitor electrolytes 03/11/2021 Patient is seen and evaluated in follow-up in ICU, he is awake and alert,; patient is more awake and oriented this morning, breathing much more comfortably today. BiPAP support overnight, he was switched to nasal cannula this morning at 2 L and his pulse ox is 95-98%; remains afebrile, blood pressures 112/48 Chest x-ray today shows increased lung markings greater at the right base consistent with acute exacerbation of CHF. Patient is currently on Lasix 40 mg IV every 8 hours. He is in -474 mL fluid balance over the last 24 hours. Still has quite significant edema involving his bilateral lower extremities. He remains on antibiotics in the form of cefepime and vancomycin, ID service is following. Laboratory review shows white blood cell count is 5.9, hemoglobin is 7.3, his platelet count is 99, patient was transfused with 1 unit of packed red blood cells, occult stool was positive, patient was on Eliquis 5 mg twice a day on an outpatient basis, related to recent history of DVT in January 2021 and the distal popliteal vein in the right lower extremity. Currently Eliquis is on hold. Patient is status post completed vaccination for COVID-19, and patient did have a COVID pneumonia in December. His COVID-19 PCR test is positive 2 this admission on 03/06/2021, and his Antibody test was also reactive. Pro-calcitonin level was low, proBNP level was 3820. His d-dimer is 1.08. Patient remains in ICU with plan to continue with diuretics, antibiotics with plans to use BiPAP as needed; anticoagulation remains on hold; continue to monitor for any signs of bleeding Objective - Vital Signs Vital signs: Vital Signs Temp 98 F 03/11/21 08:00 Pulse 60 03/11/21 12:00 Resp 12 03/11/21 12:00 BP 105/45 03/11/21 12:00 Pulse Ox 100 03/11/21 12:00 Intake & Output 03/10/21 03/11/21 03/11/21 18:59 06:59 18:59 Intake Total 580 681 530 Output Total 935 800 550 Balance -355 -119 -20 Intake: IV 120 681 180 0.9 NS 120 80 80 Cefepime 2 gm In Sodium 100 100 Chloride 0.9% 100 ml @ 25 mls/hr IVPB Q8HR [facility] Rx# :[id number] Vancomycin 2,500 mg In 501 Sodium Chloride 0.9% 500 ml 500 ml @ 167 mls/hr IVPB Q12H [facility] Rx#: [id number] Oral 150 350 Blood Product 310 Rc As-1 Unit 310 [id number] Output: Urine 935 800 550 Other: Voiding Method Indwelling Catheter Indwelling Catheter Indwelling Catheter - Exam -GENERAL: The patient is evaluated in bed; and seems comfortable - Labs CBC & Chem 7: 03/11/21 05:49 03/11/21 05:49 Labs: Abnormal Lab Results - Last 24 Hours (Table) 03/10/21 03/10/21 03/11/21 Range/Units 04:41 05:58 05:49 RBC (4.30-5.90) m/uL Hgb (13.0-17.5) gm/dL Hct (39.0-53.0) % MCV (80.0-100.0) fL RDW (11.5-15.5) % Plt Count (150-450) k/uL Lymphocytes # (Manual) (1.0-4.8) k/uL Metamyelocytes # (Man) (0) k/uL Myelocytes # (Manual) (0) k/uL Promyelocytes # (Man) (0) k/uL Chloride 89 L (98-107) mmol/L Carbon Dioxide 46 H* (22-30) mmol/L BUN 35 H (9-20) mg/dL SARS-CoV-2 Ab,Total Reactive A (Non-Reactive) Crossmatch See Detail 03/11/21 Range/Units 05:49 RBC 2.32 L (4.30-5.90) m/uL Hgb 7.3 L (13.0-17.5) gm/dL Hct 23.3 L (39.0-53.0) % MCV 100.2 H (80.0-100.0) fL RDW 19.7 H (11.5-15.5) % Plt Count 99 L (150-450) k/uL Lymphocytes # (Manual) 0.30 L (1.0-4.8) k/uL Metamyelocytes # (Man) 0.35 H (0) k/uL Myelocytes # (Manual) 0.12 H (0) k/uL Promyelocytes # (Man) 0.06 H (0) k/uL Chloride (98-107) mmol/L Carbon Dioxide (22-30) mmol/L BUN (9-20) mg/dL SARS-CoV-2 Ab,Total (Non-Reactive) Crossmatch Assessment and Plan Assessment: Acute diastolic CHF with ejection fraction 50-55% acute bilateral leg cellulitis, responded well to antibiotics Hypoxic respiratory failure secondary to above Hypertension persistent call Covid test with no actual infection Prostatic cancer Chronic bilateral leg lymphedema He is a status post cardiac ablation and pacemaker Obese, morbidly. With BMI of 55 Plan: This is a pleasant 75 years old male who presents with acute CHF and pulmonary edema continue with IV Lasix Continue with oxygen as needed to keep saturation above 90% monitor input and output and creatinine/electrolytes Cardiology consult Continue with cefazolin and infectious disease consult We'll do anemia workup Discontinue dexamethasone. Continue with multiple vitamins Labs and medication were reviewed.. Continue same treatment. Continue with symptomatic treatment. Resume home medication. Monitor lytes and vitals. DVT and GI prophylaxis. Further recommendations depends on the clinical course of the patient DVT prophylaxis: On Eliquis GI Prophylaxis: Pepcid PT/OT: Pending Prognosis is guarded
--- NOTE | 2021-03-11 17:37 | PN ---
PROGRESS NOTE DATE OF SERVICE: 03/11/2021. REASON FOR FOLLOWUP: Lower extremity cellulitis and possible pneumonia. INTERVAL HISTORY: Patient is afebrile. The patient is feeling much better. He is breathing comfortably. The patient denies having any chest pain. Occasional cough. No vomiting. No abdominal pain. No pain to the lower extremity. PHYSICAL EXAMINATION: Blood pressure 105/45, pulse of 60, temperature 98. He is 100% on 2 L nasal cannula. General description is an elderly male lying in bed in no distress. Respiratory system: Unlabored breathing, decreased intensity of breath sounds. No wheeze. Heart: S1, S2. Regular rate and rhythm. Abdomen: Soft. No tenderness. Legs with swelling and redness has improved. LABS: Hemoglobin 7.7, white count of 5.9, covid antibodies are positive. Creatinine 0.87. DIAGNOSTIC IMPRESSION AND PLAN: Patient with shortness of breath, multifactorial, likely fluid overload, underlying pneumonia less likely but not entirely excluded. Clinically doubt Covid 19 infection as the patient did have Covid end of december and did have positive Covid antibodies. Droplet isolation can be discontinued. The patient to continue vancomycin, cefepime. Try to obtain sputum to narrow down antibiotics and continue supportive care. MMODL / IJN: [id number] / MAX
[2021-03-12 05:52] LABS: Anisocytosis Slight; HCT 22.3 % (39.0-53.0); HGB 7.1 gm/dL (13.0-17.5); Hypochromasia Marked; MCH 32.6 pg (25.0-35.0); MCV 101.8 fL (80.0-100.0); Macrocytosis Moderate; Mean Platelet Volume 9.8; Poikilocytosis Slight; RBC 2.19 m/uL (4.30-5.90); RDW 19.6 % (11.5-15.5); WBC 6.5 k/uL (3.8-10.6)
[2021-03-12 05:53] LABS: Platelet Count 87 k/uL (150-450)
[2021-03-12 06:10] LABS: Band Neutrophils % 1 %; Lymphocytes # (M) 1.11 k/uL (1.0-4.8); Metamyelocytes # (M) 0.13 k/uL (0); Metamyelocytes % 2 %; Monocytes # (M) 0.65 k/uL (0-1.0); Myelocytes # (M) 0.07 k/uL (0); Myelocytes % 1 %; Neutrophils % (M) 69 %; Nucleated Red Blood Cells 0 /100 WBC (0-0); Total Cells Counted 200
[2021-03-12 06:11] LABS: Anisocytosis (M) Present; Basophilic Stippling Present; Poikilocytosis (M) Present; Polychromasia Present; Stomatocytes Present
[2021-03-12 06:17] LABS: Potassium 4.2 mmol/L (3.5-5.1)
[2021-03-12 06:18] LABS: Calcium 9.7 mg/dL (8.4-10.2)
[2021-03-12] MEDS: PANTOPRAZOLE 40 MG TABLET PO SCH ×2 (06:36→16:20)
[2021-03-12] MEDS ORDERED: VANCOMYCIN IV PER PHARMACY 1 EACH MISC MISCELLANE PRN (07:07)
[2021-03-12] MEDS ORDERED: VANCOMYCIN TROUGH DUE 1 EACH MISC MISCELLANE ONE (09:00)
--- NOTE | 2021-03-12 09:06 | XR ---
EXAMINATION TYPE: XR chest 1V DATE OF EXAM: 03/12/2021 COMPARISON: 03/11/2021 HISTORY: Shortness of breath TECHNIQUE: Single frontal view of the chest is obtained. FINDINGS: Diffuse interstitial pattern with bilateral infiltrate and pleural effusion. Cardiomegaly and cardiac device noted. No sizable pneumothorax. IMPRESSION: Stable diffuse pleural-parenchymal changes correlate for CHF versus diffuse pneumonia.
[2021-03-12] MEDS: CEFEPIME 2 GM in SODIUM CHLORIDE 0.9% 100 ML IVPB SCH ×2 (10:07→16:20)
[2021-03-12] MEDS: CHOLECALCIFEROL 25 MCG (1000 IU) TABLET PO SCH (10:07)
[2021-03-12] MEDS: ASCORBIC ACID 500 MG TAB PO SCH (10:08)
[2021-03-12] MEDS: FUROSEMIDE 10 MG/ML 4 ML VIAL IV SCH ×2 (10:08→16:20)
[2021-03-12] MEDS: ZINC SULFATE 220 MG CAP PO SCH (10:08)
[2021-03-12] MEDS: POTASSIUM CHLORIDE ER 20 MEQ TAB.ER PO SCH ×2 (10:08→21:22)
[2021-03-12] MEDS: atenoloL 50 MG TAB PO SCH ×2 (10:08→21:22)
--- NOTE | 2021-03-12 10:57 | P.PN ---
Subjective Progress Note Date: 03/12/21 Principal diagnosis: Shortness of breath, increased swelling in lower extremities shortness of breath, lower extremity swelling, cellulitis This is a 75-year-old white male with history of multiple medical conditions including hypertension, chronic lymphedema of lower extremities, history of artery Ablation and pacemaker implantation, history of right lower extremity deep vein thrombosis, and recent history of COVID-19 infection. Patient was admitted initially on 03/05/2021, and he was mostly admitted with shortness of breath, and bilateral lower extremity swelling. [facility] at a [facility], and upon admission patient was placed on BiPAP, he was placed on diuretics for presumptive congestive heart failure, and he was seen by many consultants including cardiology and infectious disease who saw the patient for cellulitis of lower extremities. At any rate yesterday on 03/09/2021, patient's clinical condition became worse, patient developed worsening hypoxia and hypercapnia. I was notified about this patient's ABG were in his pO2 was 100 pCO2 115 and pH of 7.26, I recommended titrating the FiO2 down in his BiPAP, I also recommended diuresing the patient, updrafts to be given, and I transfer the patient to the ICU yesterday. Since transfer to the ICU, the patient has been responding well to diuretics, he remains presently on BiPAP, and his BiPAP settings are 12/6/40%, last ABG showed a pO2 of 79 pCO2 of 98 pH of 7.32. His mental status has significantly improved, patient was quite obtunded and less responsive last night but apparently overnight the patient made a significant improvement. His hemoglobin however this morning is 6.4, there is no evidence of any active site of bleeding, he will be receiving a unit of packed RBCs. After reviewing his chest x-ray, I recommended Lasix at 40 mg IV push every 8 hours. Kept him on IV fluid at KVO. Chest x-ray continues to show evidence of pulmonary edema and suspected bilateral pleural effusions right more so than left. His bicarb on the electrolytes today is 44, this is indicative of chronic metabolic compensation for chronic respiratory acidosis. His BNP yesterday was 3820. Patient has been seen by infectious disease, and he is on vancomycin and on cefepime for cellulitis of lower extremities. He is also on Decadron 6 mg daily for recent history of COVID-19 infection, although the findings in the lungs are more or less findings of CHF. Strongly doubt COVID-19 pneumonitis. On the 03/11/2001 patient seen in follow-up in intensive care unit, he is awake and alert, oriented 3, breathing much more comfortably today compared to yesterday's exam, he did wear his BiPAP support with pressures of 16 and 6 and FiO2 of 35% overnight, he was switched to nasal cannula this morning at 2 L and his pulse ox is 95-98%, he is afebrile, hemodynamically he is stable, denies any chest discomfort, denies any worsening dyspnea, he is on 0.9 normal saline at 20 ML per hour, no vasoactive drips, hemodynamically he is stable, he is in sinus mechanism, blood pressures 112/48, he's had no acute events overnight, follow-up chest x-ray today shows increased lung markings greater at the right base consistent with acute exacerbation of CHF. Patient is currently on Lasix 40 mg IV every 8 hours. He is in -474 mL fluid balance over the last 24 hours. Still has quite significant edema involving his bilateral lower extremities. He remains on antibiotics in the form of cefepime and vancomycin, ID service is following. Today's labs have been reviewed, his white blood cell count is 5.9, hemoglobin is 7.3, his platelet count is 99, patient was transfused with 1 unit of packed red blood cells, occult stool was positive, patient was on Eliquis 5 mg twice a day on an outpatient basis, related to recent history of DVT in January 2021 and the distal popliteal vein in the right lower extremity. Currently Eliquis is on hold. Patient is status post completed vaccination for COVID-19, and patient did have a COVID pneumonia in December. His COVID-19 PCR test is positive 2 this admission on 03/06/2021, and his Antibody test was also reactive. Pro-calcitonin level was low, proBNP level was 3820. His d-dimer is 1.08. On 03/12/2021 patient seen in follow-up in the intensive care unit, he is re sting in bed, she is currently on 2 L of oxygen his pulse ox is 95-100%, he did have a BiPAP on for a few hours last night with pressures of 16/6 and FiO2 of 35%. He seems to be breathing comfortably, in no acute distress, his been afebrile, hemodynamically he is stable, he is on 0.9 normal seen at 20 ML per hour, no other drips. We dynamically stable, in sinus mechanism with a controlled rate, he remains on Lasix to 40 mg every 8 hours, and he is on accommodation of cefepime and vancomycin. His Legionella urine antigen came back negative, patient was found to be positive for COVID 19 EF to positive PCR's, and positive antibody test. However it was felt that patient's presentation, his chest x-ray and labs were more consistent with acute exacerbation of CHF and left lower extremity cellulitis. Oxygenation has actually proved with diuretics. Patient is not on any steroids. His oral anticoagulation remains on hold view of anemia and possibility of GI blood loss. His hemoglobin today 7.1. We will ask GI service to consult. Otherwise patient has had no acute events overnight. Fairly comfortable, no complaints chest discomfort or worsening dyspnea. Objective - Vital Signs Vital signs: Vital Signs Temp 98.3 F 03/12/21 04:00 Pulse 60 03/12/21 04:00 Resp 12 03/12/21 04:00 BP 93/34 03/12/21 04:00 Pulse Ox 95 03/12/21 08:02 Intake & Output 03/11/21 03/12/21 03/12/21 18:59 06:59 18:59 Intake Total 710 1240 Output Total 850 1100 Balance -140 140 Weight 194.8 kg Intake: IV 360 260 0.9 NS 160 160 Cefepime 2 gm In Sodium 200 100 Chloride 0.9% 100 ml @ 25 mls/hr IVPB Q8HR [facility] Rx# :[id number] Intake, IV Titration 500 Amount Vancomycin 2,500 mg In 500 Sodium Chloride 0.9% 500 ml 500 ml @ 167 mls/hr IVPB Q12H [facility] Rx#: [id number] Oral 350 480 Output: Urine 850 1100 Other: Voiding Method Indwelling Catheter Indwelling Catheter - Exam GENERAL EXAM: Alert, very pleasant, 75-year-old white male, currently on 2 L of oxygen, was on BiPAP overnight with pressures of 16/6 and FiO2 of 35% comfortable in no apparent distress. HEAD: Normocephalic/atraumatic. EYES: Normal reaction of pupils, equal size. Conjunctiva pink, sclera white. NOSE: Clear with pink turbinates. THROAT: No erythema or exudates. NECK: No masses, no JVD, no thyroid enlargement, no adenopathy. CHEST: No chest wall deformity. Symmetrical expansion. LUNGS: Equal air entry with no crackles, wheeze, rhonchi or dullness. CVS: Regular rate and rhythm, normal S1 and S2, no gallops, no murmurs, no rubs ABDOMEN: Soft, nontender. No hepatosplenomegaly, normal bowel sounds, no guarding or rigidity. EXTREMITIES: No clubbing, massive lymphedema of bilateral lower extremities, with cellulitis of left lower extremity which is outlined with a marker no cyanosis, 2+ pulses and upper and lower extremities. MUSCULOSKELETAL: Muscle strength and tone normal. SPINE: No scoliosis or deformity SKIN: No rashes CENTRAL NERVOUS SYSTEM: Alert and oriented -3. No focal deficits, tone is normal in all 4 extremities. PSYCHIATRIC: Alert and oriented -3. Appropriate affect. Intact judgment and insight. - Labs CBC & Chem 7: 03/12/21 05:40 03/12/21 05:40 Labs: Abnormal Lab Results - Last 24 Hours (Table) 03/12/21 03/12/21 03/12/21 Range/Units 05:40 05:40 05:40 RBC 2.19 L (4.30-5.90) m/uL Hgb 7.1 L (13.0-17.5) gm/dL Hct 22.3 L (39.0-53.0) % MCV 101.8 H (80.0-100.0) fL RDW 19.6 H (11.5-15.5) % Plt Count 87 L (150-450) k/uL Metamyelocytes # (Man) 0.13 H (0) k/uL Myelocytes # (Manual) 0.07 H (0) k/uL Chloride 90 L (98-107) mmol/L Carbon Dioxide 44 H* (22-30) mmol/L BUN 42 H (9-20) mg/dL Glucose 116 H (74-99) mg/dL Vancomycin Trough 44.7 H* ug/mL Assessment and Plan Plan: Assessment: #1. Acute hypoxic and hypercapnic respiratory failure secondary to acute exacerbation of congestive heart failure with diastolic dysfunction #2. History of COVID 19 infection, and possibly active COVID-19 infection. Patient had a COVID 19 pneumonia in the mid 2020, patient had 2 positive COVID- 19 PCR tests on 03/06/2021 and reactive COVID-19 antibody #3. Obesity hypoventilation syndrome with chronic hypoxic and hypercapnic respiratory failure and a component of underlying COPD #4. Acute cellulitis of the lower extremities, patient is currently on antibiotics in the form of cefepime and vancomycin #5. Chronic bilateral lower extremities lymphedema #6. Recent history of right lower extremity DVT in January 2021, on Eliquis on an outpatient basis which is currently on hold #7. Acute anemia, possibly related to GI blood loss, patient had a positive occult stool, status post transfusion with 1 unit of packed red blood cells #8. History of pacemaker implantation and cardiac ablation for SVT #9. Morbid obesity with obesity hypoventilation syndrome and BMI of 55 kg/m #10. Chronic thrombocytopenia #11. History of prostate cancer Plan: Continue current medical treatment Patient's oxygenation and dyspnea improving with diuretics Continue current dose Lasix 40 mg every 8 hours Continue current antibiotics BiPAP support as needed and at bedtime Consult GI service for evaluation of patient's anemia Eliquis remains on hold for possibility of GI bleeding Continue using SCDs for DVT prophylaxis Continue Protonix Stable to transfer out of intensive care unit to selective care We'll continue to follow I performed a history & physical examination of the patient and discussed their management with my nurse practitioner, Barbara Juarez. I reviewed the nurse practitioner's note and agree with the documented findings and plan of care. Lung sounds are positive for diminished breath sounds throughout the lung ortega. The findings and the impression was discussed with the patient. I attest to the documentation by the nurse practitioner. Time with Patient: Greater than 30
[2021-03-12] MEDS ORDERED: bisacodyL 5 MG TABLET.DR PO STA (12:48)
--- NOTE | 2021-03-12 14:29 | P.CONS ---
History of Present Illness - Reason for Consult Consult date: 03/12/21 anemia, positive occult stool Requesting physician: Barbara Juarez - Chief Complaint Shortness of breath - History of Present Illness Disease 75-year-old white male with a history of multiple medical comorbidities including hypertension, chronic lymphedema of lower extremities, history of cardiac ablation and pacemaker, right lower extremity deep vein thrombosis on [place], and recent history of COVID-19 infection. Patient was admitted on 03/05/2021 for shortness of breath and bilateral lower extremity swelling. The patient was noted to be anemic on admission with a hemoglobin of 8.6 and had a drop in his hemoglobin to 6.4 two days ago and was given 1 unit of PRBC transfusion. The following day his hemoglobin increased to 7.3, today his current labs show WBC 6, hemoglobin 7, hematocrit 22, platelet count 87,000. The patient underwent anemia workup showing iron deficiency anemia, iron 55, TIBC 307, saturation 17, ferritin 389. Currently Eiquis is on hold. Patient denies any signs or symptoms of GI bleed. Denies any previous history of GI bleed. Denies any history of peptic ulcer disease, acid reflux, recent NSAID use, and has had no previous EGD or colonoscopy. Patient denies any black or blood in his stool, abdominal pain, nausea, or vomiting. Review of Systems REVIEW OF SYSTEMS: CARDIOPULMONARY: No chest pain. Dyspnea with exertion. Bilateral lower extremity swelling. Gastrointestinal: No abdominal pain. No nausea or vomiting. No hematemesis, coffee-ground emesis. No rectal bleeding, or melena. GENITOURINARY: No dysuria or hematuria. MUSCULOSKELETAL: Reports normal range of motion., Joint pain. SKIN: No rashes. No jaundice. ENDOCRINE: No chills, fevers. No excessive weight gain or loss. No polydipsia or polyuria. PSYCHIATRIC: Unremarkable. NEUROLOGY: No change in mental status. Denies dizziness, headache. ENT: Vision unremarkable. CONSTITUTIONAL: No recent weight loss. No fever, chills, night sweats. Past Medical History Past Medical History: Cancer, Hypertension, Skin Disorder Additional Past Medical History / Comment(s): hx prostate cancer, , hx rheumatic fever; lymphedema to bilateral legs. History of Any Multi-Drug Resistant Organisms: None Reported Past Surgical History: Hernia Repair, Tonsillectomy Additional Past Surgical History / Comment(s): pacemaker, heart ablation Past Anesthesia/Blood Transfusion Reactions: No Reported Reaction Past Psychological History: No Psychological Hx Reported Smoking Status: Former smoker Past Alcohol Use History: None Reported Additional Past Alcohol Use History / Comment(s): smoked from teens until 30's; started up again when 61 until 63 Past Drug Use History: None Reported - Past Family History Father Family Medical History: Cancer Mother Family Medical History: Cancer Medications and Allergies Home Medications Medication Instructions Recorded Confirmed Type Potassium Chloride [K-Tab ER] 20 meq PO BID 12/09/14 03/05/21 History Atenolol [Tenormin] 50 mg PO BID 12/31/20 03/05/21 History Multivitamins, Thera [Multivitamin 1 tab PO HS 12/31/20 03/05/21 History (formulary)] Ascorbic Acid [Vitamin C] 1,000 mg PO DAILY tab 01/08/21 03/05/21 Rx Albuterol Inhaler [Ventolin Hfa 2 puff INHALATION RT-QID PRN 02/09/21 03/05/21 History Inhaler] Apixaban [Eliquis] 5 mg PO BID 02/09/21 03/05/21 History Baclofen [Lioresal] 10 mg PO Q6H PRN 02/09/21 03/05/21 History Pantoprazole [Protonix] 40 mg PO BID 02/09/21 03/05/21 History Cholecalciferol [Vitamin D3 (25 25 mcg PO DAILY 03/05/21 03/05/21 History Mcg = 1000 Iu)] Furosemide [Lasix] 80 mg PO BID 03/05/21 03/05/21 History HYDROcodone/APAP 5-325MG [[place] 1 tab PO Q6HR PRN 03/05/21 03/05/21 History 5-325] Allergies Allergy/AdvReac Type Severity Reaction Status Date / Time No Known Allergies Allergy Verified 03/05/21 13:55 Physical Exam Vitals: Vital Signs Temp Pulse Resp BP Pulse Ox 03/12/21 08:02 95 03/12/21 04:00 98.3 F 60 12 93/34 100 03/12/21 03:00 60 12 105/46 100 03/12/21 02:00 60 714 H 106/47 96 03/12/21 01:00 60 13 107/44 98 03/12/21 00:02 60 11 L 107/44 98 03/12/21 00:00 98.1 F 60 12 101/42 98 03/11/21 23:00 60 14 97/55 95 03/11/21 22:00 60 13 105/45 98 03/11/21 21:00 60 16 107/45 96 03/11/21 20:00 98.2 F 60 14 108/45 96 03/11/21 19:00 60 03/11/21 18:00 60 13 109/51 98 03/11/21 17:00 60 11 L 101/47 98 03/11/21 16:00 98.9 F 60 14 97/41 100 03/11/21 15:00 60 15 100/42 97 03/11/21 14:00 59 L 15 98/43 97 03/11/21 13:00 60 18 73/49 96 03/11/21 12:00 60 12 105/45 100 03/11/21 11:00 60 19 93/46 99 03/11/21 10:00 60 12 104/47 99 Intake and Output 03/11/21 03/12/21 03/12/21 22:59 06:59 14:59 Intake Total 180 1240 Output Total 300 1100 Balance -120 140 Intake: IV 180 260 0.9 NS 80 160 Cefepime 2 gm In Sodium 100 100 Chloride 0.9% 100 ml @ 25 mls/hr IVPB Q8HR [facility] Rx# :[id number] Intake, IV Titration 500 Amount Vancomycin 2,500 mg In 500 Sodium Chloride 0.9% 500 ml 500 ml @ 167 mls/hr IVPB Q12H [facility] Rx#: [id number] Oral 480 Output: Urine 300 1100 Other: Voiding Method Indwelling Catheter Indwelling Catheter Weight 194.8 kg General appearance: The patient is alert, oriented, appears in no acute distress. HET: Head is normocephalic and atraumatic. Conjunctiva pink. Sclera anicteric. Neck: Supple without lymphadenopathy. Trachea midline. Heart: S1 S2. Regular rate and rhythm. Lungs: Clear to auscultation. Abdomen: Soft, nontender, nondistended with bowel sounds. No guarding or rigidity. Skin: No rashes. No jaundice. Extremities: Normal skin color and turgor. Bilateral lower extremity lymphedema . Neurological: No focal deficits. Alert and oriented 3.. Results CBC & Chem 7: 03/12/21 05:40 03/12/21 05:40 Labs: Abnormal Lab Results - Last 24 Hours (Table) 03/12/21 03/12/21 03/12/21 Range/Units 05:40 05:40 05:40 RBC 2.19 L (4.30-5.90) m/uL Hgb 7.1 L (13.0-17.5) gm/dL Hct 22.3 L (39.0-53.0) % MCV 101.8 H (80.0-100.0) fL RDW 19.6 H (11.5-15.5) % Plt Count 87 L (150-450) k/uL Metamyelocytes # (Man) 0.13 H (0) k/uL Myelocytes # (Manual) 0.07 H (0) k/uL Chloride 90 L (98-107) mmol/L Carbon Dioxide 44 H* (22-30) mmol/L BUN 42 H (9-20) mg/dL Glucose 116 H (74-99) mg/dL Vancomycin Trough 44.7 H* ug/mL Assessment and Plan (1) Anemia Narrative/Plan: 75-year-old who presented to the emergency department approximately one week ago with complaints of shortness of breath and dyspnea with exertion. He has multiple comorbidities. He is noted to have a hemoglobin of 8.6 on admission with a dropped to 6.4 on 03/10/2021. He was given 1 unit of PRBC transfusion. He denies any previous history of anemia, denies any previous history of GI bleed. He has no history of peptic ulcer disease, acid reflux, NSAID use, prior EGD or colonoscopy. He denies any signs or symptoms of GI bleed including blood in his stool or black tarry stools. Iron studies were consistent with mild iron deficiency anemia, patient also had a positive occult stool. Will proceed with EGD and colonoscopy to rule out GI source of blood loss. Other possible etiologies include anemia of chronic disease. On his last admission hematology was consulted and patient was seen for thrombocytopenia and anemia. At that time it was likely noted to be related to his COVID-19 infection. Current Visit: Yes Status: Acute Code(s): D64.9 - ANEMIA, UNSPECIFIED SNOMED Code(s): 831855711 (2) Fecal occult blood test positive Current Visit: Yes Status: Acute Code(s): R19.5 - OTHER FECAL ABNORMALITIES SNOMED Code(s): 79171061 (3) Thrombocytopenia Current Visit: No Status: Chronic Priority: Medium Code(s): D69.6 - THROMBOCYTOPENIA, UNSPECIFIED SNOMED Code(s): 874702635 Plan: 1. Continue symptomatic and supportive care 2. Continue ICU management 3. Daily CBC 4. Clear liquid diet, nothing by mouth after midnight 5. Bowel prep this afternoon 6. Will proceed with EGD and colonoscopy tomorrow, risks and benefits discussed with patient and he is willing to proceed. Thank you for this consultation, we will continue to follow. Dr. Alexandre I agree with the dictator's note, documented as a scribe by Екатерина Johnson.
[2021-03-12] MEDS ORDERED: PEG 3350-NA SULF,BICARB,CL/KCL 4,000 ML BOTTLE PO ONE (15:00)
--- NOTE | 2021-03-12 15:14 | P.PN ---
Subjective Progress Note Date: 03/12/21 Acute hypoxic and hypercapnic respiratory failure Pneumonia; COVID 19 versus bacterial Acute exacerbation CHF Elevated d-dimer/rule out PE Bilateral lower extremity cellulitis 75 his old male with past medical history of hypertension, prostate cancer, bilateral leg lymphedema, status post cardiac ablation and pacemaker Was recently discharged from the hospital 02/09-02/13 for bilateral leg cellulitis of his lymphedema. Recent right lower extremity DVT on [facility] COVID- 19 infection Presents because of dyspnea over the weekend with increased bilateral leg swelling. He lives in a intermediate. At baseline he has some dyspnea with oxygen requirement 2-4 L/m at baseline. At baseline and also patient is nonmobile for a long time, probably many years as he states. He denies any coughing. No abdominal pain or nausea vomiting. No diarrhea. He states that his urine little short T as he describes but he denies dysuria Now he feels much better after he was placed on BiPAP On admission he was hypoxic with oxygen saturation 89% on 60 to her oxygenation nasal cannula. Breathing at 20/m, afebrile Labs showing leukocytosis of 12.9 K. Hemoglobin 8.6 which is close to baseline. Platelets normal. INR is 1.5. BMP and creatinine are unremarkable. Liver enzymes not elevated. Troponin is negative less than 0.012. EKG showing paced rhythm at 68 Chest x-ray: CHF with pulmonary edema favored over diffuse pneumonia Echocardiogram from 01/2021 showing ejection fraction of 50-55% On rounds today patient was found to be minimally responsive; has been placed on BiPAP; we will order stat ABGs, chest x-ray, BNP; Lasix 40 mg IV stat, Decadron 6 mg IV daily first dose stat; start patient on IV cefepime and vancomycin; we will consult pulmonary service; further recommendations once workup is complete 03/10/2021 Patient is seen and evaluated in ICU; patient transferred yesterday due to d eclining respiratory status Pulmonary/critical care following and recommending to continue with BiPAP with plans to titrate FiO2 down maintaining O2 saturation in the low 90s Continue diuretics. Increase Lasix to 40 mg IV push every 8 hours; pulmonary on board and recommend stopping Decadron. Continue to monitor renal profile. Monitor electrolytes 03/11/2021 Patient is seen and evaluated in follow-up in ICU, he is awake and alert,; patient is more awake and oriented this morning, breathing much more comfortably today. BiPAP support overnight, he was switched to nasal cannula this morning at 2 L and his pulse ox is 95-98%; remains afebrile, blood pressures 112/48 Chest x-ray today shows increased lung markings greater at the right base consistent with acute exacerbation of CHF. Patient is currently on Lasix 40 mg IV every 8 hours. He is in -474 mL fluid balance over the last 24 hours. Still has quite significant edema involving his bilateral lower extremities. He remains on antibiotics in the form of cefepime and vancomycin, ID service is following. Laboratory review shows white blood cell count is 5.9, hemoglobin is 7.3, his platelet count is 99, patient was transfused with 1 unit of packed red blood cells, occult stool was positive, patient was on Eliquis 5 mg twice a day on an outpatient basis, related to recent history of DVT in January 2021 and the distal popliteal vein in the right lower extremity. Currently Eliquis is on hold. Patient is status post completed vaccination for COVID-19, and patient did have a COVID pneumonia in December. His COVID-19 PCR test is positive 2 this admission on 03/06/2021, and his Antibody test was also reactive. Pro-calcitonin level was low, proBNP level was 3820. His d-dimer is 1.08. Patient remains in ICU with plan to continue with diuretics, antibiotics with plans to use BiPAP as needed; anticoagulation remains on hold; continue to monitor for any signs of bleeding 03/12/2021 Patient is seen in follow-up continues to be in the ICU sleeping although arousable. Patient is on 2 L via nasal cannula and tolerating well with oxygen saturations of 95-100%. Multiple medical consultations including infectious disease, pulmonary, now GI following as well for anemia with positive blood and has required 1 unit of PRBC transfusion. Hemoglobin today is 7.1. Patient will be placed on clear liquid diet and nothing by mouth at midnight and start the bowel prep with possible EGD colonoscopy in the morning. White blood count within normal limits at 6.5, sodium is 137 with a potassium of 4.2, CO2 elevated at 44, BUN is 42 and creatinine is 0.97. Patient is Covid positive. Legionella was negative. Chest x-ray today shows stable diffuse pleural parenchymal changes to correlate for CHF versus diffuse pneumonia. Patient continues on IV vancomycin along with cefepime and will continue for now. Patient is currently diuresing and maintained on IV Lasix 40 mg every 8 hours. Review of systems: Constitutional: reports of fatigue, with no reports of fever, or chills Cardiovascular: No reports of chest pain or palpitations Respiratory: No reports of shortness of breath or cough GI: No reports of nausea, vomiting : No reports of dysuria or retention, currently has indwelling Tanner catheter Neurovascular: Reports generalized weakness All medications have been reviewed Physical exam: Gen: This is a 75-year-old male asleep although arousable, no acute distress, well-developed, well-nourished, morbidly obese HEENT: Head is atraumatic, normocephalic. Pupils equal, round. Sclerae is anicteric. NECK: Supple. No JVD. No lymphadenopathy. No thyromegaly. LUNGS: Diminished breath sounds with some scattered rhonchi noted. No intercostal retractions. HEART: Regular rate and rhythm. No murmur. ABDOMEN: Soft. Obese. Bowel sounds are present. No masses. No tenderness. EXTREMITIES: No pedal edema. No calf tenderness. Pitting edema +2 noted bilaterally to lower extremities NEUROLOGICAL: Patient is asleep although arousable, alert and oriented x3. Diffusely weak. Assessment and plan: Acute diastolic CHF with ejection fraction 50-55% acute bilateral leg cellulitis Possible acute lower GI bleed Anemia possibly secondary to acute lower GI bleed or possibly anemia of chronic disease Hypoxic respiratory failure secondary to above Hypertension persistent positive Covid test with no actual infection Prostate cancer Chronic bilateral leg lymphedema Chronic thrombocytopenia He is a status post cardiac ablation and pacemaker Morbid obesity with obesity hypoventilation syndrome and a body mass index of 53.7 GI prophylaxis: Protonix DVT prophylaxis: Pharmacological being held for thrombocytopenia No code Plan: Patient currently in the ICU and awaiting stepdown bed and transfer out of the ICU as patient is stable and using BiPAP support as needed and currently maintained on 2 L via nasal cannula. Multiple medical consultations including pulmonary, infectious disease, and now GI following. Patient will start colonoscopy prep with possibility of EGD/colonoscopy in the morning. Hemoglobin is 7.1 today and will monitor closely. Anticoagulation on hold awaiting endoscopic intervention and platelets being monitored as patient has chronic thrombocytopenia. Patient continues on IV antibiotics and will continue with infectious disease following closely. Objective - Vital Signs Vital signs: Vital Signs Temp 98.3 F 03/12/21 04:00 Pulse 60 03/12/21 04:00 Resp 12 03/12/21 04:00 BP 93/34 03/12/21 04:00 Pulse Ox 95 03/12/21 08:02 Intake & Output 03/11/21 03/12/21 03/12/21 18:59 06:59 18:59 Intake Total 710 1240 Output Total 850 1100 Balance -140 140 Weight 194.8 kg Intake: IV 360 260 0.9 NS 160 160 Cefepime 2 gm In Sodium 200 100 Chloride 0.9% 100 ml @ 25 mls/hr IVPB Q8HR [facility] Rx# :[id number] Intake, IV Titration 500 Amount Vancomycin 2,500 mg In 500 Sodium Chloride 0.9% 500 ml 500 ml @ 167 mls/hr IVPB Q12H [facility] Rx#: [id number] Oral 350 480 Output: Urine 850 1100 Other: Voiding Method Indwelling Catheter Indwelling Catheter - Labs CBC & Chem 7: 03/12/21 05:40 03/12/21 05:40 Labs: Abnormal Lab Results - Last 24 Hours (Table) 03/12/21 03/12/21 03/12/21 Range/Units 05:40 05:40 05:40 RBC 2.19 L (4.30-5.90) m/uL Hgb 7.1 L (13.0-17.5) gm/dL Hct 22.3 L (39.0-53.0) % MCV 101.8 H (80.0-100.0) fL RDW 19.6 H (11.5-15.5) % Plt Count 87 L (150-450) k/uL Metamyelocytes # (Man) 0.13 H (0) k/uL Myelocytes # (Manual) 0.07 H (0) k/uL Chloride 90 L (98-107) mmol/L Carbon Dioxide 44 H* (22-30) mmol/L BUN 42 H (9-20) mg/dL Glucose 116 H (74-99) mg/dL Vancomycin Trough 44.7 H* ug/mL
[2021-03-13 03:56] LABS: Anisocytosis Slight; HCT 22.2 % (39.0-53.0); Hypochromasia Marked; MCH 32.1 pg (25.0-35.0); MCHC 31.5 g/dL (31.0-37.0); MCV 102.1 fL (80.0-100.0); Macrocytosis Moderate; Mean Platelet Volume 9.7; Poikilocytosis Slight; RBC 2.17 m/uL (4.30-5.90); RDW 19.1 % (11.5-15.5); WBC 6.6 k/uL (3.8-10.6)
[2021-03-13 03:57] LABS: Calcium 9.3 mg/dL (8.4-10.2)
[2021-03-13 03:59] LABS: Platelet Count 86 k/uL (150-450)
[2021-03-13 04:28] LABS: Band Neutrophils % 9 %; Eosinophils # (M) 0.26 k/uL (0-0.7); Lymphocytes # (M) 1.12 k/uL (1.0-4.8); Metamyelocytes # (M) 0.13 k/uL (0); Metamyelocytes % 2 %; Monocytes # (M) 1.19 k/uL (0-1.0); Myelocytes # (M) 0.13 k/uL (0); Myelocytes % 2 %; Neutrophils % (M) 48 %; Nucleated Red Blood Cells 0 /100 WBC (0-0); Total Cells Counted 200
[2021-03-13 04:29] LABS: Anisocytosis (M) Present; Basophilic Stippling Present; Poikilocytosis (M) Present; Polychromasia Present; Stomatocytes Present
--- NOTE | 2021-03-13 06:49 | P.PN ---
Subjective Progress Note Date: 03/13/21 Principal diagnosis: Coronavirus infection. This is a 75-year-old white male with history of multiple medical conditions including hypertension, chronic lymphedema of lower extremities, history of artery Ablation and pacemaker implantation, history of right lower extremity deep vein thrombosis, and recent history of COVID-19 infection. Patient was admitted initially on 03/05/2021, and he was mostly admitted with shortness of breath, and bilateral lower extremity swelling. [facility] a [facility], and upon admission patient was placed on BiPAP, he was placed on diuretics for presumptive congestive heart failure, and he was seen by many consultants including cardiology and infectious disease who saw the patient for cellulitis of lower extremities. At any rate yesterday on 03/09/2021, patient's clinical condition became worse, patient developed worsening hypoxia and hypercapnia. I was notified about this patient's ABG were in his pO2 was 100 pCO2 115 and pH of 7.26, I recommended titrating the FiO2 down in his BiPAP, I also recommended diuresing the patient, updrafts to be given, and I transfer the patient to the ICU yesterday. Since transfer to the ICU, the patient has been responding well to diuretics, he remains presently on BiPAP, and his BiPAP settings are 12/6/40%, last ABG showed a pO2 of 79 pCO2 of 98 pH of 7.32. His mental status has significantly improved, patient was quite obtunded and less responsive last night but apparently overnight the patient made a significant improvement. His hemoglobin however this morning is 6.4, there is no evidence of any active site of bleeding, he will be receiving a unit of packed RBCs. After reviewing his chest x-ray, I recommended Lasix at 40 mg IV push every 8 hours. Kept him on IV fluid at KVO. Chest x-ray continues to show evidence of pulmonary edema and suspected bilateral pleural effusions right more so than left. His bicarb on the electrolytes today is 44, this is indicative of chronic metabolic compensation for chronic respiratory acidosis. His BNP yesterday was 3820. Patient has been seen by infectious disease, and he is on vancomycin and on cefepime for cellulitis of lower extremities. He is also on Decadron 6 mg daily for recent history of COVID-19 infection, although the findings in the lungs are more or less findings of CHF. Strongly doubt COVID-19 pneumonitis. On the 03/11/2001 patient seen in follow-up in intensive care unit, he is awake and alert, oriented 3, breathing much more comfortably today compared to yesterday's exam, he did wear his BiPAP support with pressures of 16 and 6 and FiO2 of 35% overnight, he was switched to nasal cannula this morning at 2 L and his pulse ox is 95-98%, he is afebrile, hemodynamically he is stable, denies any chest discomfort, denies any worsening dyspnea, he is on 0.9 normal saline at 20 ML per hour, no vasoactive drips, hemodynamically he is stable, he is in sinus mechanism, blood pressures 112/48, he's had no acute events overnight, follow-up chest x-ray today shows increased lung markings greater at the right base consistent with acute exacerbation of CHF. Patient is currently on Lasix 40 mg IV every 8 hours. He is in -474 mL fluid balance over the last 24 hours. Still has quite significant edema involving his bilateral lower extremities. He remains on antibiotics in the form of cefepime and vancomycin, ID service is following. Today's labs have been reviewed, his white blood cell count is 5.9, hemoglobin is 7.3, his platelet count is 99, patient was transfused with 1 unit of packed red blood cells, occult stool was positive, patient was on Eliquis 5 mg twice a day on an outpatient basis, related to recent history of DVT in January 2021 and the distal popliteal vein in the right lower extremity. Currently Eliquis is on hold. Patient is status post completed vaccination for COVID-19, and patient did have a COVID pneumonia in December. His COVID-19 PCR test is positive 2 this admission on 03/06/2021, and his Antibody test was also reactive. Pro-calcitonin level was low, proBNP level was 3820. His d-dimer is 1.08. On 03/12/2021 patient seen in follow-up in the intensive care unit, he is resting in bed, she is currently on 2 L of oxygen his pulse ox is 95-100%, he did have a BiPAP on for a few hours last night with pressures of 16/6 and FiO2 of 35%. He seems to be breathing comfortably, in no acute distress, his been afebrile, hemodynamically he is stable, he is on 0.9 normal seen at 20 ML per hour, no other drips. We dynamically stable, in sinus mechanism with a controlled rate, he remains on Lasix to 40 mg every 8 hours, and he is on accommodation of cefepime and vancomycin. His Legionella urine antigen came back negative, patient was found to be positive for COVID 19 EF to positive PCR's, and positive antibody test. However it was felt that patient's presentation, his chest x-ray and labs were more consistent with acute exacerbation of CHF and left lower extremity cellulitis. Oxygenation has actually proved with diuretics. Patient is not on any steroids. His oral anticoagulation remains on hold view of anemia and possibility of GI blood loss. His hemoglobin today 7.1. We will ask GI service to consult. Otherwise patient has had no acute events overnight. Fairly comfortable, no complaints chest discomfort or worsening dyspnea. Progress note dated 03/13/2021. 75-year-old male again seen in the intensive care unit, room 259. Because of the concern of ongoing GI bleeding, the patient is scheduled for an EGD and colonoscopy today, March 13. The patient had an uneventful night otherwise. The patient remains on O2 2 L by nasal cannula and saline IV at 20 mL an hour. Labs today include a white count 6.6, hemoglobin 7, hematocrit 22.2, and esequiel telet count of 86,000. Sodium 135, potassium 4, chlorides 90, CO2 41, anion gap is 4, BUN 44, creatinine 1.16. No chest x-ray today as yet. Microbiologic studies are negative. The patient remains on cefepime. Objective - Vital Signs Vital signs: Vital Signs Temp 98.5 F 03/13/21 04:00 Pulse 60 03/13/21 04:00 Resp 13 03/13/21 04:00 BP 111/48 03/13/21 04:00 Pulse Ox 96 03/13/21 04:00 Intake & Output 03/12/21 03/12/21 03/13/21 06:59 18:59 06:59 Intake Total 1240 2141 300 Output Total 1100 750 600 Balance 140 1391 -300 Weight 194.8 kg 194.8 kg 199 kg Intake: IV 260 520 300 0.9 Normal Saline @ 20mL/ 160 320 200 hr Cefepime 2 gm In Sodium 100 200 100 Chloride 0.9% 100 ml @ 25 mls/hr IVPB Q8HR [facility] Rx# :[id number] Intake, IV Titration 500 Amount Vancomycin 2,500 mg In 500 Sodium Chloride 0.9% 500 ml 500 ml @ 167 mls/hr IVPB Q12H [facility] Rx#: [id number] Oral 480 1620 Lipid 1 0.9 Normal Saline @ 20mL/ 1 hr Output: Urine 1100 750 600 Other: Voiding Method Indwelling Catheter Indwelling Catheter Indwelling Catheter # Bowel Movements 1 2 - Exam No acute distress, oriented 3. The patient remains on O2 at 2 L. HEENT examination is grossly unremarkable. Neck supple. Full range of motion. No adenopathy thyromegaly or neck vein distention. Cardiovascular examination reveals regular rhythm rate. S1-S2 normal. No S3 or S4. No discernible murmur noted. Heart rate 60 bpm. Lungs reveal scattered inspiratory next or rhonchi. No wheezes or crackles. Saturations are 96% on 2 L. Breath sounds are equal bilaterally. Abdomen soft bowel sounds are heard. No masses or tenderness. Extremities are intact. No cyanosis clubbing or edema. Skin is without rash or lesion. Neurologic examination is brief but nonfocal. - Labs CBC & Chem 7: 03/13/21 03:26 03/13/21 03:26 Labs: Abnormal Lab Results - Last 24 Hours (Table) 03/13/21 03/13/21 Range/Units 03:26 03:26 RBC 2.17 L (4.30-5.90) m/uL Hgb 7.0 L (13.0-17.5) gm/dL Hct 22.2 L (39.0-53.0) % MCV 102.1 H (80.0-100.0) fL RDW 19.1 H (11.5-15.5) % Plt Count 86 L (150-450) k/uL Monocytes # (Manual) 1.19 H (0-1.0) k/uL Metamyelocytes # (Man) 0.13 H (0) k/uL Myelocytes # (Manual) 0.13 H (0) k/uL Sodium 135 L (137-145) mmol/L Chloride 90 L (98-107) mmol/L Carbon Dioxide 41 H* (22-30) mmol/L BUN 44 H (9-20) mg/dL Glucose 100 H (74-99) mg/dL Assessment and Plan Assessment: #1. Acute hypoxic and hypercapnic respiratory failure secondary to acute exacerbation of congestive heart failure with diastolic dysfunction. #2. History of COVID 19 infection, and possibly active COVID-19 infection. Patient had a COVID 19 pneumonia in the mid 2020, patient had 2 positive COVID- 19 PCR tests on 03/06/2021 and reactive COVID-19 antibody. #3. Obesity hypoventilation syndrome with chronic hypoxic and hypercapnic respiratory failure and a component of underlying COPD. #4. Acute cellulitis of the lower extremities, patient is currently on antibiotics in the form of cefepime and vancomycin. #5. Chronic bilateral lower extremities lymphedema. #6. Recent history of right lower extremity DVT in January 2021, on Eliquis on an outpatient basis which is currently on hold. #7. Acute anemia, possibly related to GI blood loss, patient had a positive occult stool, status post transfusion with 1 unit of packed red blood cells, scheduled for an EGD and colonoscopy today. #8. History of pacemaker implantation and cardiac ablation for SVT. #9. Morbid obesity with obesity hypoventilation syndrome and BMI of 55 kg/m. #10. Chronic thrombocytopenia. #11. History of prostate cancer. Plan: Plan dated 03/13/2021. The patient's doing well. The patient could be transferred out of the intensive care unit. The patient is only on 2 L nasal cannula. Saturations are 96%. Hemoglobin down to 7. The patient is scheduled for an EGD and colonoscopy today. We'll continue to follow make recommendations were appropriate. Prognosis is guarded. Time with Patient: Less than 30
[2021-03-13] MEDS: PANTOPRAZOLE 40 MG TABLET PO SCH ×2 (06:55→16:38)
[2021-03-13] MEDS ORDERED: BENZOCAINE/MENTHOL LOZENG 1 EACH LOZENGE MUCOUS MEM PRN (07:10)
--- NOTE | 2021-03-13 08:12 | PN ---
PROGRESS NOTE DATE OF SERVICE: 03/12/2021 REASON FOR FOLLOWUP: 1. Bilateral lower extremity cellulitis. 2. Question of pneumonia. INTERVAL HISTORY: Patient is afebrile. The patient is breathing more comfortably. The patient denies having any chest pain. Minimal cough. No nausea, no vomiting. No abdominal pain or diarrhea. PHYSICAL EXAMINATION: Blood pressure is 107/73, pulse of 60, temperature 98.2. He is 93% on 2 L nasal cannula. General description is an elderly male lying in bed in no distress. Respiratory system: Unlabored breathing, decreased breath sounds in the base. No wheeze. Heart S1, S2. Regular rate and rhythm. Abdomen soft. No tenderness. Leg swelling persists. Redness has improved. LABS: Hemoglobin is 7.1, white count 6.5. BUN of 42, creatinine 0.9. Vanco trough 44.7. DIAGNOSTIC IMPRESSION AND PLAN: Patient with bilateral lower extremity cellulitis that has shown clinical improvement in this patient admitted to the hospital predominantly with congestive heart failure in this patient clinically doubt COVID-19 pneumonia or bacterial pneumonia. We will repeat his procalcitonin level in the morning. Discontinue the vancomycin and no need for droplet isolation. MMODL / IJN: [id number] /
[2021-03-13] MEDS: ASCORBIC ACID 500 MG TAB PO SCH (09:23)
[2021-03-13] MEDS: atenoloL 50 MG TAB PO SCH ×2 (09:23→20:14)
[2021-03-13] MEDS: POTASSIUM CHLORIDE ER 20 MEQ TAB.ER PO SCH ×2 (09:24→20:17)
[2021-03-13] MEDS: CHOLECALCIFEROL 25 MCG (1000 IU) TABLET PO SCH (09:24)
[2021-03-13] MEDS: ZINC SULFATE 220 MG CAP PO SCH (09:24)
[2021-03-13] MEDS: FUROSEMIDE 10 MG/ML 4 ML VIAL IV SCH ×3 (09:25→16:38)
[2021-03-13] MEDS: CEFEPIME 2 GM in SODIUM CHLORIDE 0.9% 100 ML IVPB SCH ×4 (09:25→16:38)
[2021-03-13] MEDS ORDERED: MIDAZOLAM 2 MG/2 ML VIAL ONE (13:35)
[2021-03-13] MEDS ORDERED: KETAMINE 10 MG/ML 20 ML VIAL ONE (13:35)
--- NOTE | 2021-03-13 14:25 | P.PN ---
Subjective Progress Note Date: 03/13/21 Acute hypoxic and hypercapnic respiratory failure Pneumonia; COVID 19 versus bacterial Acute exacerbation CHF Elevated d-dimer/rule out PE Bilateral lower extremity cellulitis 75 his old male with past medical history of hypertension, prostate cancer, bilateral leg lymphedema, status post cardiac ablation and pacemaker Was recently discharged from the hospital 02/09-02/13 for bilateral leg cellulitis of his lymphedema. Recent right lower extremity DVT on [facility] COVID- 19 infection Presents because of dyspnea over the weekend with increased bilateral leg swelling. He lives in a [place] [facility]. At baseline he has some dyspnea with oxygen requirement 2-4 L/m at baseline. At baseline and also patient is nonmobile for a long time, probably many years as he states. He denies any coughing. No abdominal pain or nausea vomiting. No diarrhea. He states that his urine little short T as he describes but he denies dysuria Now he feels much better after he was placed on BiPAP On admission he was hypoxic with oxygen saturation 89% on 60 to her oxygenation nasal cannula. Breathing at 20/m, afebrile Labs showing leukocytosis of 12.9 K. Hemoglobin 8.6 which is close to baseline. Platelets normal. INR is 1.5. BMP and creatinine are unremarkable. Liver enzymes not elevated. Troponin is negative less than 0.012. EKG showing paced rhythm at 68 Chest x-ray: CHF with pulmonary edema favored over diffuse pneumonia Echocardiogram from 01/2021 showing ejection fraction of 50-55% On rounds today patient was found to be minimally responsive; has been placed on BiPAP; we will order stat ABGs, chest x-ray, BNP; Lasix 40 mg IV stat, Decadron 6 mg IV daily first dose stat; start patient on IV cefepime and vancomycin; we will consult pulmonary service; further recommendations once workup is complete 03/10/2021 Patient is seen and evaluated in ICU; patient transferred yesterday due to d eclining respiratory status Pulmonary/critical care following and recommending to continue with BiPAP with plans to titrate FiO2 down maintaining O2 saturation in the low 90s Continue diuretics. Increase Lasix to 40 mg IV push every 8 hours; pulmonary on board and recommend stopping Decadron. Continue to monitor renal profile. Monitor electrolytes 03/11/2021 Patient is seen and evaluated in follow-up in ICU, he is awake and alert,; patient is more awake and oriented this morning, breathing much more comfortably today. BiPAP support overnight, he was switched to nasal cannula this morning at 2 L and his pulse ox is 95-98%; remains afebrile, blood pressures 112/48 Chest x-ray today shows increased lung markings greater at the right base consistent with acute exacerbation of CHF. Patient is currently on Lasix 40 mg IV every 8 hours. He is in -474 mL fluid balance over the last 24 hours. Still has quite significant edema involving his bilateral lower extremities. He remains on antibiotics in the form of cefepime and vancomycin, ID service is following. Laboratory review shows white blood cell count is 5.9, hemoglobin is 7.3, his platelet count is 99, patient was transfused with 1 unit of packed red blood cells, occult stool was positive, patient was on Eliquis 5 mg twice a day on an outpatient basis, related to recent history of DVT in January 2021 and the distal popliteal vein in the right lower extremity. Currently Eliquis is on hold. Patient is status post completed vaccination for COVID-19, and patient did have a COVID pneumonia in December. His COVID-19 PCR test is positive 2 this admission on 03/06/2021, and his Antibody test was also reactive. Pro-calcitonin level was low, proBNP level was 3820. His d-dimer is 1.08. Patient remains in ICU with plan to continue with diuretics, antibiotics with plans to use BiPAP as needed; anticoagulation remains on hold; continue to monitor for any signs of bleeding 03/12/2021 Patient is seen in follow-up continues to be in the ICU sleeping although arousable. Patient is on 2 L via nasal cannula and tolerating well with oxygen saturations of 95-100%. Multiple medical consultations including infectious disease, pulmonary, now GI following as well for anemia with positive blood and has required 1 unit of PRBC transfusion. Hemoglobin today is 7.1. Patient will be placed on clear liquid diet and nothing by mouth at midnight and start the bowel prep with possible EGD colonoscopy in the morning. White blood count within normal limits at 6.5, sodium is 137 with a potassium of 4.2, CO2 elevated at 44, BUN is 42 and creatinine is 0.97. Patient is Covid positive. Legionella was negative. Chest x-ray today shows stable diffuse pleural parenchymal changes to correlate for CHF versus diffuse pneumonia. Patient continues on IV vancomycin along with cefepime and will continue for now. Patient is currently diuresing and maintained on IV Lasix 40 mg every 8 hours. 03/13/2021 Patient is seen this morning with no acute overnight issues. Bowel prep was done and plan is for EGD/colonoscopy today with GI in the afternoon. Patient hemoglobin stable at 7.0 and yesterday was 7.1 and will hold transfusion today. Patient continues on IV antibiotics with infectious disease following closely for acute cellulitis of bilateral lower extremities and will continue with local wound care. Anticoagulant on hold for continued GI bleed and will discuss with GI about resuming once EGD/colonoscopy is complete. Sodium is 135 with a potassium of 4.0 current creatinine 1.16. Patient continues on 2 L via nasal cannula and has been since recent Covid infection. Patient continues on IV L asix 40 mg every 8 and will continue. Review of systems: Constitutional: reports of fatigue, with no reports of fever, or chills Cardiovascular: No reports of chest pain or palpitations Respiratory: No reports of shortness of breath or cough GI: No reports of nausea, vomiting : No reports of dysuria or retention, currently has indwelling Tanner catheter Neurovascular: Reports generalized weakness All medications have been reviewed Physical exam: Gen: This is a 75-year-old male asleep although arousable, alert and oriented 3. no acute distress, well-developed, well-nourished, morbidly obese HEENT: Head is atraumatic, normocephalic. Pupils equal, round. Sclerae is anicteric. NECK: Supple. No JVD. No lymphadenopathy. No thyromegaly. LUNGS: Diminished breath sounds with some scattered rhonchi noted. No intercostal retractions. HEART: Regular rate and rhythm. No murmur. ABDOMEN: Soft. Obese. Bowel sounds are present. No masses. No tenderness. EXTREMITIES: No pedal edema. No calf tenderness. Pitting edema +2 noted bilaterally to lower extremities NEUROLOGICAL: Patient is asleep although arousable, alert and oriented x3. Diffusely weak. Assessment and plan: Acute on chronic diastolic CHF with ejection fraction 50-55% acute bilateral leg cellulitis Possible acute lower GI bleed Anemia possibly secondary to acute lower GI bleed or possibly anemia of chronic disease Hypoxic respiratory failure secondary to above Hypertension persistent positive Covid test with no actual infection Prostate cancer Chronic bilateral leg lymphedema Chronic thrombocytopenia He is a status post cardiac ablation and pacemaker Morbid obesity with obesity hypoventilation syndrome and a body mass index of 53.7 GI prophylaxis: Protonix DVT prophylaxis: Pharmacological being held for thrombocytopenia No code Plan: Patient currently in the ICU and awaiting stepdown bed and transfer out of the ICU as patient is stable and using BiPAP support as needed and currently maintained on 2 L via nasal cannula. Multiple medical consultations including pulmonary, infectious disease, and now GI following. Patient scheduled for EGD/colonoscopy in the morning. Hemoglobin is 7.0 today and will monitor closely. Anticoagulation on hold awaiting endoscopic intervention and platelets being monitored as patient has chronic thrombocytopenia. Patient continues on IV antibiotics and will continue with infectious disease following closely. Will discuss with GI about resuming anticoagulant. Will await EGD colonoscopy report. Objective - Vital Signs Vital signs: Vital Signs Temp 98.5 F 03/13/21 04:00 Pulse 60 03/13/21 08:00 Resp 13 03/13/21 08:00 BP 115/53 03/13/21 08:00 Pulse Ox 95 03/13/21 08:00 Intake & Output 03/12/21 03/13/21 03/13/21 18:59 06:59 18:59 Intake Total 2141 300 Output Total 750 600 Balance 1391 -300 Weight 194.8 kg 199 kg Intake: IV 520 300 0.9 Normal Saline @ 20mL/ 320 200 hr Cefepime 2 gm In Sodium 200 100 Chloride 0.9% 100 ml @ 25 mls/hr IVPB Q8HR [facility] Rx# :[id number] Oral 1620 Lipid 1 0.9 Normal Saline @ 20mL/ 1 hr Output: Urine 750 600 Other: Voiding Method Indwelling Catheter Indwelling Catheter # Bowel Movements 1 2 - Labs CBC & Chem 7: 03/13/21 03:26 03/13/21 03:26 Labs: Abnormal Lab Results - Last 24 Hours (Table) 03/13/21 03/13/21 Range/Units 03:26 03:26 RBC 2.17 L (4.30-5.90) m/uL Hgb 7.0 L (13.0-17.5) gm/dL Hct 22.2 L (39.0-53.0) % MCV 102.1 H (80.0-100.0) fL RDW 19.1 H (11.5-15.5) % Plt Count 86 L (150-450) k/uL Monocytes # (Manual) 1.19 H (0-1.0) k/uL Metamyelocytes # (Man) 0.13 H (0) k/uL Myelocytes # (Manual) 0.13 H (0) k/uL Sodium 135 L (137-145) mmol/L Chloride 90 L (98-107) mmol/L Carbon Dioxide 41 H* (22-30) mmol/L BUN 44 H (9-20) mg/dL Glucose 100 H (74-99) mg/dL
--- NOTE | 2021-03-13 14:46 | P.PCN ---
Date of Procedure: 03/13/21 Description of Procedure: Brief history: 75-year-old white male with a history of multiple medical comorbidities including hypertension, chronic lymphedema of lower extremities, history of cardiac ablation and pacemaker, right lower extremity deep vein thrombosis on Eliquis, and recent history of COVID-19 infection. Patient was admitted on 03/05/2021 for shortness of breath and bilateral lower extremity swelling. The patient was noted to be anemic on admission with a hemoglobin of 8.6 and had a drop in his hemoglobin to 6.4 two days ago and was given 1 unit of PRBC transfusion. The following day his hemoglobin increased to 7.3, today his current labs show WBC 6, hemoglobin 7, hematocrit 22, platelet count 87,000. The patient underwent anemia workup showing iron deficiency anemia, iron 55, TIBC 307, saturation 17, ferritin 389. Currently Eiquis is on hold. Patient denies any signs or symptoms of GI bleed. Denies any previous history of GI bleed. Denies any history of peptic ulcer disease, acid reflux, recent NSAID use, and has had no previous EGD or colonoscopy. Patient denies any black or blood in his stool, abdominal pain, nausea, or vomiting. Procedure performed: Esophagogastroduodenoscopy aborted/failed Colonoscopy Estimated blood loss: Minimal. Preoperative diagnosis: Anemia. Anesthesia: MAC Procedure: After informed consent was obtained from the patient was brought into the endoscopy unit and IV sedation was administered by anesthesia under continuous monitoring. Initially upper endoscopy was attempted however the patient was found to desaturate with only minimal sedation and it was decided to abort the procedure prior to attempting the esophagogastroduodenoscopy for safety issues. At this time the patient continued to remain under minimal sedation. Initial digital rectal examination was normal. Olympus CF 190 video colonoscope was then inserted into the rectum and gradually advanced to the cecum without any difficulty. Careful examination was performed as the scope was gradually being withdrawn. The prep was poor with liquid and semisolid stool throughout the Colon. The cecum, ascending colon, transverse colon, descending colon, sigmoid colon and rectum appeared to see normal however complete visualization of mucosa was severely prohibited by poor prep. Retroflexion was performed in the rectum and no lesions were noted. Patient tolerated the procedure well. Impression: 1. Failed/aborted EGD, patient was unable to tolerate due to respiratory status. 2. Poor prep. No gross lesions or other abnormalities to explain anemia. Recommendations: Findings of this examination were discussed with the patient. Okay to resume diet. Okay to resume medications. Continue to monitor hemoglobin and hematocrit and transfuse as needed. Continue to monitor for any signs or symptoms of GI bleeding. No plans for further endoscopic evaluation at this time given patient's overall status, if patient clinically improves moving forward can consider attempting upper endoscopy to rule out upper GI bleed. Otherwise, would continue to treat medically with PPI therapy and monitor. Defer other medical management the primary team.
--- NOTE | 2021-03-13 22:26 | PN ---
PROGRESS NOTE DATE OF SERVICE: 03/13/2021 REASON FOR FOLLOW UP: Lower extremity cellulitis and pneumonia. INTERVAL HISTORY: The patient is afebrile. The patient is breathing comfortably. The patient denies having chest pain. Occasional cough. No nausea, vomiting, abdominal pain or diarrhea. PHYSICAL EXAMINATION: Blood pressure 102/47, pulse of 68, temperature 98.7. He is 97% on 2 L nasal cannula. General description is an elderly male lying in bed in no distress. Respiratory system: Unlabored breathing, decreased breath sounds at the bases. No wheeze. Heart S1, S2. Regular rate and rhythm. Abdomen soft, no tenderness. Legs with swelling and redness has resolved. LABS: Hemoglobin 7.1, white count 6.6, BUN of 44, creatinine 1.16. DIAGNOSTIC IMPRESSION AND PLAN: Patient with bilateral lower extremity cellulitis and concern for possible pneumonia. Clinically doubt Covid 19 infection and Patient is covered with cefepime that will be continued for now. We will monitor his kidney function closely. Vanco was already discontinued. MMODL / IJN: [id number] / MTDD
[2021-03-14] MEDS: CEFEPIME 2 GM in SODIUM CHLORIDE 0.9% 100 ML IVPB SCH ×4 (00:13→22:49)
[2021-03-14] MEDS: FUROSEMIDE 10 MG/ML 4 ML VIAL IV SCH ×2 (00:14→10:04)
[2021-03-14 04:17] LABS: ALT <6 U/L (4-49); AST 28 U/L (17-59); African American GFR (CKD) 54 (>60 ml/min/1.73 sqM); Albumin 2.7 g/dL (3.5-5.0); Alkaline Phosphatase 71 U/L (38-126); Blood Urea Nitrogen 46 mg/dL (9-20); Calcium 9.7 mg/dL (8.4-10.2); Chloride 91 mmol/L (98-107); Glucose 94 mg/dL (74-99); Non-African American GFR(CKD) 46 (>60 ml/min/1.73 sqM); Potassium 4.3 mmol/L (3.5-5.1); Sodium 137 mmol/L (137-145); Total Bilirubin 0.8 mg/dL (0.2-1.3); Total Protein 5.4 g/dL (6.3-8.2)
[2021-03-14 04:21] LABS: Anisocytosis Slight; HCT 22.4 % (39.0-53.0); Hypochromasia Marked; MCH 31.7 pg (25.0-35.0); MCHC 31.3 g/dL (31.0-37.0); MCV 101.2 fL (80.0-100.0); Macrocytosis Moderate; Mean Platelet Volume 10.3; Poikilocytosis Slight; RBC 2.22 m/uL (4.30-5.90); RDW 18.8 % (11.5-15.5); WBC 5.1 k/uL (3.8-10.6)
[2021-03-14 04:22] LABS: Platelet Count 88 k/uL (150-450)
[2021-03-14 04:23] LABS: Anion Gap 4 mmol/L
[2021-03-14 04:25] LABS: Carbon Dioxide 42 mmol/L (22-30)
[2021-03-14] MEDS: PANTOPRAZOLE 40 MG TABLET PO SCH ×2 (06:47→17:00)
[2021-03-14 08:20] LABS: Band Neutrophils % 2 %; Eosinophils # (M) 0.05 k/uL (0-0.7); Lymphocytes # (M) 0.92 k/uL (1.0-4.8); Metamyelocytes % 2 %; Monocytes # (M) 0.97 k/uL (0-1.0); Myelocytes % 2 %; Neutrophils % (M) 58 %; Nucleated Red Blood Cells 0 /100 WBC (0-0); Total Cells Counted 200
[2021-03-14 08:21] LABS: Basophilic Stippling Present; Polychromasia Present
--- NOTE | 2021-03-14 09:23 | P.PN ---
Subjective Progress Note Date: 03/14/21 Principal diagnosis: Coronavirus infection. This is a 75-year-old white male with history of multiple medical conditions including hypertension, chronic lymphedema of lower extremities, history of artery Ablation and pacemaker implantation, history of right lower extremity deep vein thrombosis, and recent history of COVID-19 infection. Patient was admitted initially on 03/05/2021, and he was mostly admitted with shortness of breath, and bilateral lower extremity swelling. [facility] at a [facility], and upon admission patient was placed on BiPAP, he was placed on diuretics for presumptive congestive heart failure, and he was seen by many consultants including cardiology and infectious disease who saw the patient for cellulitis of lower extremities. At any rate yesterday on 03/09/2021, patient's clinical condition became worse, patient developed worsening hypoxia and hypercapnia. I was notified about this patient's ABG were in his pO2 was 100 pCO2 115 and pH of 7.26, I recommended titrating the FiO2 down in his BiPAP, I also recommended diuresing the patient, updrafts to be given, and I transfer the patient to the ICU yesterday. Since transfer to the ICU, the patient has been responding well to diuretics, he remains presently on BiPAP, and his BiPAP settings are 12/6/40%, last ABG showed a pO2 of 79 pCO2 of 98 pH of 7.32. His mental status has significantly improved, patient was quite obtunded and less responsive last night but apparently overnight the patient made a significant improvement. His hemoglobin however this morning is 6.4, there is no evidence of any active site of bleeding, he will be receiving a unit of packed RBCs. After reviewing his chest x-ray, I recommended Lasix at 40 mg IV push every 8 hours. Kept him on IV fluid at KVO. Chest x-ray continues to show evidence of pulmonary edema and suspected bilateral pleural effusions right more so than left. His bicarb on the electrolytes today is 44, this is indicative of chronic metabolic compensation for chronic respiratory acidosis. His BNP yesterday was 3820. Patient has been seen by infectious disease, and he is on vancomycin and on cefepime for cellulitis of lower extremities. He is also on Decadron 6 mg daily for recent history of COVID-19 infection, although the findings in the lungs are more or less findings of CHF. Strongly doubt COVID-19 pneumonitis. On the 03/11/2001 patient seen in follow-up in intensive care unit, he is awake and alert, oriented 3, breathing much more comfortably today compared to yesterday's exam, he did wear his BiPAP support with pressures of 16 and 6 and FiO2 of 35% overnight, he was switched to nasal cannula this morning at 2 L and his pulse ox is 95-98%, he is afebrile, hemodynamically he is stable, denies any chest discomfort, denies any worsening dyspnea, he is on 0.9 normal saline at 20 ML per hour, no vasoactive drips, hemodynamically he is stable, he is in sinus mechanism, blood pressures 112/48, he's had no acute events overnight, follow-up chest x-ray today shows increased lung markings greater at the right base consistent with acute exacerbation of CHF. Patient is currently on Lasix 40 mg IV every 8 hours. He is in -474 mL fluid balance over the last 24 hours. Still has quite significant edema involving his bilateral lower extremities. He remains on antibiotics in the form of cefepime and vancomycin, ID service is following. Today's labs have been reviewed, his white blood cell count is 5.9, hemoglobin is 7.3, his platelet count is 99, patient was transfused with 1 unit of packed red blood cells, occult stool was positive, patient was on Eliquis 5 mg twice a day on an outpatient basis, related to recent history of DVT in January 2021 and the distal popliteal vein in the right lower extremity. Currently Eliquis is on hold. Patient is status post completed vaccination for COVID-19, and patient did have a COVID pneumonia in December. His COVID-19 PCR test is positive 2 this admission on 03/06/2021, and his Antibody test was also reactive. Pro-calcitonin level was low, proBNP level was 3820. His d-dimer is 1.08. On 03/12/2021 patient seen in follow-up in the intensive care unit, he is resting in bed, she is currently on 2 L of oxygen his pulse ox is 95-100%, he did have a BiPAP on for a few hours last night with pressures of 16/6 and FiO2 of 35%. He seems to be breathing comfortably, in no acute distress, his been afebrile, hemodynamically he is stable, he is on 0.9 normal seen at 20 ML per hour, no other drips. We dynamically stable, in sinus mechanism with a controlled rate, he remains on Lasix to 40 mg every 8 hours, and he is on accommodation of cefepime and vancomycin. His Legionella urine antigen came back negative, patient was found to be positive for COVID 19 EF to positive PCR's, and positive antibody test. However it was felt that patient's presentation, his chest x-ray and labs were more consistent with acute exacerbation of CHF and left lower extremity cellulitis. Oxygenation has actually proved with diuretics. Patient is not on any steroids. His oral anticoagulation remains on hold view of anemia and possibility of GI blood loss. His hemoglobin today 7.1. We will ask GI service to consult. Otherwise patient has had no acute events overnight. Fairly comfortable, no complaints chest discomfort or worsening dyspnea. Progress note dated 03/13/2021. 75-year-old male again seen in the intensive care unit, room 259. Because of the concern of ongoing GI bleeding, the patient is scheduled for an EGD and colonoscopy today, March 13. The patient had an uneventful night otherwise. The patient remains on O2 2 L by nasal cannula and saline IV at 20 mL an hour. Labs today include a white count 6.6, hemoglobin 7, hematocrit 22.2, and esequiel telet count of 86,000. Sodium 135, potassium 4, chlorides 90, CO2 41, anion gap is 4, BUN 44, creatinine 1.16. No chest x-ray today as yet. Microbiologic studies are negative. The patient remains on cefepime. Progress note dated 03/14/2021. 75-year-old male, again seen in the intensive care unit, room 259. The patient remains on 2 L nasal cannula. The patient is on saline at 10 mL an hour. He did not use of BiPAP device last night. The patient did not have the EGD or colonoscopy as planned yesterday. We are going to DC the daily labs. They're unnecessary. The patient can be transferred to the general medical floor. White count 5.1, hemoglobin 7, hematocrit 22.4, and platelet count 88,000. Sodium 137, potassium 4.3, chlorides 91, CO2 42, anion gap 4, BUN 46, creatinine 1.47. No chest x-ray today. Objective - Vital Signs Vital signs: Vital Signs Temp 97.9 F 03/14/21 04:00 Pulse 60 03/14/21 04:00 Resp 15 03/14/21 04:00 BP 109/54 03/14/21 04:00 Pulse Ox 96 03/14/21 04:00 Intake & Output 03/13/21 03/14/21 03/14/21 18:59 06:59 18:59 Intake Total 180 380 Output Total 375 900 Balance -195 -520 Weight 201.4 kg Intake: IV 180 180 0.9 Normal Saline @ 10mL/ 80 80 hr Cefepime 2 gm In Sodium 100 100 Chloride 0.9% 100 ml @ 25 mls/hr IVPB Q8HR [facility] Rx# :[id number] Oral 200 Output: Urine 375 900 Other: Voiding Method Indwelling Catheter Indwelling Catheter # Bowel Movements 1 - Exam No acute distress, oriented 3. The patient remains on O2 at 2 L. Saturations are 96% on the 2 L. HEENT examination is grossly unremarkable. Neck supple. Full range of motion. No adenopathy thyromegaly or neck vein distention. Cardiovascular examination reveals regular rhythm rate. S1-S2 normal. No S3 or S4. No discernible murmur noted. Heart rate 60 bpm. Lungs reveal scattered inspiratory next or rhonchi. No wheezes or crackles. Breath sounds are equal bilaterally. Abdomen soft bowel sounds are heard. No masses or tenderness. Extremities are intact. No cyanosis clubbing or edema. Skin is without rash or lesion. Neurologic examination is brief but nonfocal. - Labs CBC & Chem 7: 03/14/21 03:27 03/14/21 03:27 Labs: Abnormal Lab Results - Last 24 Hours (Table) 03/14/21 03/14/21 Range/Units 03:27 03:27 RBC 2.22 L (4.30-5.90) m/uL Hgb 7.0 L (13.0-17.5) gm/dL Hct 22.4 L (39.0-53.0) % MCV 101.2 H (80.0-100.0) fL RDW 18.8 H (11.5-15.5) % Plt Count 88 L (150-450) k/uL Lymphocytes # (Manual) 0.92 L (1.0-4.8) k/uL Metamyelocytes # (Man) 0.10 H (0) k/uL Myelocytes # (Manual) 0.10 H (0) k/uL Chloride 91 L (98-107) mmol/L Carbon Dioxide 42 H* (22-30) mmol/L BUN 46 H (9-20) mg/dL Creatinine 1.47 H (0.66-1.25) mg/dL Total Protein 5.4 L (6.3-8.2) g/dL Albumin 2.7 L (3.5-5.0) g/dL Assessment and Plan Assessment: #1. Acute hypoxic and hypercapnic respiratory failure secondary to acute exacerbation of congestive heart failure with diastolic dysfunction. #2. History of COVID 19 infection, and possibly active COVID-19 infection. Patient had a COVID 19 pneumonia in the mid 2020, patient had 2 positive COVID- 19 PCR tests on 03/06/2021 and reactive COVID-19 antibody. #3. Obesity hypoventilation syndrome with chronic hypoxic and hypercapnic respiratory failure and a component of underlying COPD. #4. Acute cellulitis of the lower extremities, patient is currently on anti biotics in the form of cefepime and vancomycin. #5. Chronic bilateral lower extremities lymphedema. #6. Recent history of right lower extremity DVT in January 2021, on Eliquis on an outpatient basis which is currently on hold. #7. Acute anemia, possibly related to GI blood loss, patient had a positive occult stool, status post transfusion with 1 unit of packed red blood cells, scheduled for an EGD and colonoscopy today. #8. History of pacemaker implantation and cardiac ablation for SVT. #9. Morbid obesity with obesity hypoventilation syndrome and BMI of 55 kg/m. #10. Chronic thrombocytopenia. #11. History of prostate cancer. Plan: Plan dated 03/13/2021. The patient's doing well. The patient could be transferred out of the intensive care unit. The patient is only on 2 L nasal cannula. Saturations are 96%. Hemoglobin down to 7. The patient is scheduled for an EGD and colonoscopy today. We'll continue to follow make recommendations were appropriate. Progn osis is guarded. Plan dated 03/14/2021. The patient's daily labs will be discontinued. Also, he does not need a daily chest x-ray. The patient can be transferred to the general medical floor. Cli nically, the patient is very stable. Saturations are in the mid to high 90s on 2 L. The patient did not require the BiPAP last night. The patient did not have the EGD and colonoscopy as planned, as apparently the bowel prep was not adequate. Time with Patient: Less than 30
[2021-03-14] MEDS: ZINC SULFATE 220 MG CAP PO SCH (10:04)
[2021-03-14] MEDS: POTASSIUM CHLORIDE ER 20 MEQ TAB.ER PO SCH ×2 (10:04→21:00)
[2021-03-14] MEDS: ASCORBIC ACID 500 MG TAB PO SCH (10:04)
[2021-03-14] MEDS: CHOLECALCIFEROL 25 MCG (1000 IU) TABLET PO SCH (10:05)
[2021-03-14] MEDS: atenoloL 50 MG TAB PO SCH ×2 (10:05→21:00)
--- NOTE | 2021-03-14 13:59 | PN ---
PROGRESS NOTE DATE OF SERVICE: 03/14/2021 REASON FOR FOLLOWUP: Lower extremity cellulitis and pneumonia. INTERVAL HISTORY: Patient is afebrile. The patient is breathing comfortably. The patient denies having any chest pain. Minimal cough. No vomiting. No abdominal pain or diarrhea. PHYSICAL EXAMINATION: Blood pressure is 111/49 with a pulse of 60, temperature of 98. He is 98% on 2 L nasal cannula. General description is an elderly male lying in bed in no distress. Respiratory system: Unlabored breathing, clear to auscultation anteriorly. Heart S1, S2. Regular rate and rhythm. Abdomen soft, no tenderness. Legs did have swelling. No redness or drainage. LABS: Hemoglobin is 10, white count 5.1. BUN of 46, creatinine 1.47. DIAGNOSTIC IMPRESSION AND PLAN: Patient with bilateral lower extremity cellulitis in this patient who seemed to have worsening of his respiratory status, possible fluid related underlying pneumonia not entirely excluded. Doing well on cefepime to continue for now. Kidney function slightly worsening. Monitor closely because of Vanco trough and continue supportive care. MMODL / IJN: [id number] /
--- NOTE | 2021-03-14 14:53 | P.PN ---
Subjective Progress Note Date: 03/14/21 Principal diagnosis: anemia the patient was seen and examined lying in bed in the ICU. He is status post attempted EGD and colonoscopy yesterday. Colonoscopy revealed no active bleeding or old blood noted. EGD had to be aborted due to patient's respiratory status. He denies any abdominal pain, nausea, vomiting or blood per rectum. No bowel movement today. Hemoglobin is stable at 7.0 with no evidence of GI bleed. Should has been downgraded to medical floor and is awaiting transfer. Objective - Vital Signs Vital signs: Vital Signs Temp 98 F 03/14/21 08:00 Pulse 60 03/14/21 08:00 Resp 27 H 03/14/21 08:00 BP 111/49 03/14/21 08:00 Pulse Ox 98 03/14/21 08:00 Intake & Output 03/13/21 03/14/21 03/14/21 18:59 06:59 18:59 Intake Total 180 380 Output Total 375 900 Balance -195 -520 Weight 201.4 kg Intake: IV 180 180 0.9 Normal Saline @ 10mL/ 80 80 hr Cefepime 2 gm In Sodium 100 100 Chloride 0.9% 100 ml @ 25 mls/hr IVPB Q8HR [facility] Rx# :[id number] Oral 200 Output: Urine 375 900 Other: Voiding Method Indwelling Catheter Indwelling Catheter Indwelling Catheter # Bowel Movements 1 - Exam General appearance: The patient is alert, oriented, appears in no acute distress. morbidly obese HET: Head is normocephalic and atraumatic. Conjunctiva pink. Sclera anicteric. Neck: Supple without lymphadenopathy. Abdomen: Soft, nontender, nondistended with bowel sounds. No guarding or rigidity. Extremities: Normal skin color and turgor. No pedal edema Skin: No rashes, no jaundice Neurological: No focal deficits. Alert and oriented 3. - Labs CBC & Chem 7: 03/14/21 03:27 03/14/21 03:27 Labs: Abnormal Lab Results - Last 24 Hours (Table) 03/14/21 03/14/21 Range/Units 03:27 03:27 RBC 2.22 L (4.30-5.90) m/uL Hgb 7.0 L (13.0-17.5) gm/dL Hct 22.4 L (39.0-53.0) % MCV 101.2 H (80.0-100.0) fL RDW 18.8 H (11.5-15.5) % Plt Count 88 L (150-450) k/uL Lymphocytes # (Manual) 0.92 L (1.0-4.8) k/uL Metamyelocytes # (Man) 0.10 H (0) k/uL Myelocytes # (Manual) 0.10 H (0) k/uL Chloride 91 L (98-107) mmol/L Carbon Dioxide 42 H* (22-30) mmol/L BUN 46 H (9-20) mg/dL Creatinine 1.47 H (0.66-1.25) mg/dL Total Protein 5.4 L (6.3-8.2) g/dL Albumin 2.7 L (3.5-5.0) g/dL Assessment and Plan (1) Anemia Narrative/Plan: 75-year-old who presented to the emergency department approximately one week ago with complaints of shortness of breath and dyspnea with exertion. He has multiple comorbidities. He is noted to have a hemoglobin of 8.6 on admission with a dropped to 6.4 on 03/10/2021. He was given 1 unit of PRBC transfusion. He denies any previous history of anemia, denies any previous history of GI bleed. He has no history of peptic ulcer disease, acid reflux, NSAID use, prior EGD or colonoscopy. He denies any signs or symptoms of GI bleed including blood in his stool or black tarry stools. Iron studies were consistent with mild iron deficiency anemia, patient also had a positive occult stool. Will proceed with EGD and colonoscopy to rule out GI source of blood loss. Other possible etiologies include anemia of chronic disease. On his last admission hematology was consulted and patient was seen for thrombocytopenia and anemia. At that time it was likely noted to be related to his COVID-19 infection. Current Visit: Yes Status: Acute Code(s): D64.9 - ANEMIA, UNSPECIFIED SNOMED Code(s): 464300759 (2) Fecal occult blood test positive Current Visit: Yes Status: Acute Code(s): R19.5 - OTHER FECAL ABNORMALITIES SNOMED Code(s): 06872072 (3) Thrombocytopenia Current Visit: No Status: Chronic Priority: Medium Code(s): D69.6 - THROMBOCYTOPENIA, UNSPECIFIED SNOMED Code(s): 647727410 Plan: 1. Continue symptomatic and supportive care 2. Continue medical management 3. diet as tolerated 4. EGD/colonoscopy done yesterday. EGD aborted due to declining respiratory s tatus. No evidence of bleed seen on colonoscopy. 5. Patient will need outpatient monitoring by PCP for anemia. 6. Patient may follow up with GI outpatient once medically stable for repeat EGD if needed. Thank you for this consultation, we will sign off at this time. Dr. Alexandre I agree with the dictator's note, documented as a scribe by Екатерина Johnson.
--- NOTE | 2021-03-14 15:12 | P.PN ---
Subjective Progress Note Date: 03/14/21 Acute hypoxic and hypercapnic respiratory failure Pneumonia; COVID 19 versus bacterial Acute exacerbation CHF Elevated d-dimer/rule out PE Bilateral lower extremity cellulitis 75 his old male with past medical history of hypertension, prostate cancer, bilateral leg lymphedema, status post cardiac ablation and pacemaker Was recently discharged from the hospital 02/09-02/13 for bilateral leg cellulitis of his lymphedema. Recent right lower extremity DVT on [facility] COVID- 19 infection Presents because of dyspnea over the weekend with increased bilateral leg swelling. He lives in a detention. At baseline he has some dyspnea with oxygen requirement 2-4 L/m at baseline. At baseline and also patient is nonmobile for a long time, probably many years as he states. He denies any coughing. No abdominal pain or nausea vomiting. No diarrhea. He states that his urine little short T as he describes but he denies dysuria Now he feels much better after he was placed on BiPAP On admission he was hypoxic with oxygen saturation 89% on 60 to her oxygenation nasal cannula. Breathing at 20/m, afebrile Labs showing leukocytosis of 12.9 K. Hemoglobin 8.6 which is close to baseline. Platelets normal. INR is 1.5. BMP and creatinine are unremarkable. Liver enzymes not elevated. Troponin is negative less than 0.012. EKG showing paced rhythm at 68 Chest x-ray: CHF with pulmonary edema favored over diffuse pneumonia Echocardiogram from 01/2021 showing ejection fraction of 50-55% On rounds today patient was found to be minimally responsive; has been placed on BiPAP; we will order stat ABGs, chest x-ray, BNP; Lasix 40 mg IV stat, Decadron 6 mg IV daily first dose stat; start patient on IV cefepime and vancomycin; we will consult pulmonary service; further recommendations once workup is complete 03/10/2021 Patient is seen and evaluated in ICU; patient transferred yesterday due to d eclining respiratory status Pulmonary/critical care following and recommending to continue with BiPAP with plans to titrate FiO2 down maintaining O2 saturation in the low 90s Continue diuretics. Increase Lasix to 40 mg IV push every 8 hours; pulmonary on board and recommend stopping Decadron. Continue to monitor renal profile. Monitor electrolytes 03/11/2021 Patient is seen and evaluated in follow-up in ICU, he is awake and alert,; patient is more awake and oriented this morning, breathing much more comfortably today. BiPAP support overnight, he was switched to nasal cannula this morning at 2 L and his pulse ox is 95-98%; remains afebrile, blood pressures 112/48 Chest x-ray today shows increased lung markings greater at the right base consistent with acute exacerbation of CHF. Patient is currently on Lasix 40 mg IV every 8 hours. He is in -474 mL fluid balance over the last 24 hours. Still has quite significant edema involving his bilateral lower extremities. He remains on antibiotics in the form of cefepime and vancomycin, ID service is following. Laboratory review shows white blood cell count is 5.9, hemoglobin is 7.3, his platelet count is 99, patient was transfused with 1 unit of packed red blood cells, occult stool was positive, patient was on Eliquis 5 mg twice a day on an outpatient basis, related to recent history of DVT in January 2021 and the distal popliteal vein in the right lower extremity. Currently Eliquis is on hold. Patient is status post completed vaccination for COVID-19, and patient did have a COVID pneumonia in December. His COVID-19 PCR test is positive 2 this admission on 03/06/2021, and his Antibody test was also reactive. Pro-calcitonin level was low, proBNP level was 3820. His d-dimer is 1.08. Patient remains in ICU with plan to continue with diuretics, antibiotics with plans to use BiPAP as needed; anticoagulation remains on hold; continue to monitor for any signs of bleeding 03/12/2021 Patient is seen in follow-up continues to be in the ICU sleeping although arousable. Patient is on 2 L via nasal cannula and tolerating well with oxygen saturations of 95-100%. Multiple medical consultations including infectious disease, pulmonary, now GI following as well for anemia with positive blood and has required 1 unit of PRBC transfusion. Hemoglobin today is 7.1. Patient will be placed on clear liquid diet and nothing by mouth at midnight and start the bowel prep with possible EGD colonoscopy in the morning. White blood count within normal limits at 6.5, sodium is 137 with a potassium of 4.2, CO2 elevated at 44, BUN is 42 and creatinine is 0.97. Patient is Covid positive. Legionella was negative. Chest x-ray today shows stable diffuse pleural parenchymal changes to correlate for CHF versus diffuse pneumonia. Patient continues on IV vancomycin along with cefepime and will continue for now. Patient is currently diuresing and maintained on IV Lasix 40 mg every 8 hours. 03/13/2021 Patient is seen this morning with no acute overnight issues. Bowel prep was done and plan is for EGD/colonoscopy today with GI in the afternoon. Patient hemoglobin stable at 7.0 and yesterday was 7.1 and will hold transfusion today. Patient continues on IV antibiotics with infectious disease following closely for acute cellulitis of bilateral lower extremities and will continue with local wound care. Anticoagulant on hold for continued GI bleed and will discuss with GI about resuming once EGD/colonoscopy is complete. Sodium is 135 with a potassium of 4.0 current creatinine 1.16. Patient continues on 2 L via nasal cannula and has been since recent Covid infection. Patient continues on IV L asix 40 mg every 8 and will continue. 03/14/2021 Patient is seen this morning doing relatively well. Hemoglobin is stable at 7 and will give 1 unit of PRBC and repeat CBC tomorrow. Patient had attempted EGD with colonoscopy although EGD was aborted due to worsening respiratory status and poor bowel prep on colonoscopy although was able to visualize no active bleeding noted. Patient continues on IV antibiotic and the form of cefepime and vancomycin with infectious disease following. Creatinine worsened today at 1.47 and will hold Lasix for now and repeat labs. Sodium is 137 with a potassium 4.3. White blood count is stable at 5.1 and again hemoglobin is 7.0. Patient will need outpatient follow-up with GI once more stable for repeat EGD as needed. Patient currently sitting up comfortably on 2 L of oxygen via nasal cannula. Patient denies any abdominal pain or discomfort. Social work also following as [facility] once discharged. Review of systems: Constitutional: No reports of fatigue, with no reports of fever, or chills Cardiovascular: No reports of chest pain or palpitations Respiratory: No reports of shortness of breath or cough GI: No reports of nausea, vomiting : No reports of dysuria or retention, currently has indwelling Tanner catheter Neurovascular: Reports generalized weakness All medications have been reviewed Physical exam: Gen: This is a 75-year-old male awake, alert and oriented 3. no acute distress, well-developed, well-nourished, morbidly obese HEENT: Head is atraumatic, normocephalic. Pupils equal, round. Sclerae is anicteric. NECK: Supple. No JVD. No lymphadenopathy. No thyromegaly. LUNGS: Diminished breath sounds with some scattered rhonchi noted. No intercostal retractions. HEART: Regular rate and rhythm. No murmur. ABDOMEN: Soft. Obese. Bowel sounds are present. No masses. No tenderness. EXTREMITIES: Extensive pedal edema and poor nail care noted. No calf tenderness. Pitting edema +2 noted bilaterally to lower extremities NEUROLOGICAL: Patient is awake, alert and oriented x3. Diffusely weak. Assessment and plan: Acute on chronic diastolic CHF with ejection fraction 50-55% Acute kidney injury possible prerenal azotemia, possibly secondary to vancomycin or IV Lasix. We'll discontinue IV Lasix and repeat labs acute bilateral leg cellulitis Possible acute lower GI bleed, colonoscopy was attempted with poor bowel prep and no active bleeding noted, EGD aborted due to worsening respiratory status during the procedure Anemia possibly secondary to acute lower GI bleed or possibly anemia of chronic disease Hypoxic respiratory failure secondary to above Hypertension persistent positive Covid test with no actual infection Prostate cancer Chronic bilateral leg lymphedema Chronic thrombocytopenia status post cardiac ablation and pacemaker Morbid obesity with obesity hypoventilation syndrome and a body mass index of 53.7 GI prophylaxis: Protonix DVT prophylaxis: Pharmacological being held for thrombocytopenia No code Plan: Patient currently in the ICU and awaiting stepdown bed and transfer out of the ICU as patient is stable and currently maintained on 2 L via nasal cannula. Multiple medical consultations including pulmonary, infectious disease, and now GI following. EGD/colonoscopy was not successful given respiratory status and poor bowel prep although no active bleeding noted by colonoscopy. Hemoglobin is 7 today and will give 1 unit of PRBC and repeat CBC. IV Lasix discontinued as patient's creatinine is going up possibly secondary to Vanco or continued IV Lasix. Patient continued on IV antibiotics and will discuss with infectious disease about discharge antibiotic recommendations. Patient will be going to [facility] in [place] upon discharge with social work following and possibly in 24-48 hours. Possibly resuming Eliquis as there is no evidence of GI bleed noted. Possible discharge to [facility] in 24-48 hours. Objective - Vital Signs Vital signs: Vital Signs Temp 97.9 F 03/14/21 04:00 Pulse 60 08/11/21 04:00 Resp 15 03/14/21 04:00 BP 109/54 03/14/21 04:00 Pulse Ox 96 03/14/21 04:00 Intake & Output 03/13/21 03/14/21 03/14/21 18:59 06:59 18:59 Intake Total 180 380 Output Total 375 900 Balance -195 -520 Weight 201.4 kg Intake: IV 180 180 0.9 Normal Saline @ 10mL/ 80 80 hr Cefepime 2 gm In Sodium 100 100 Chloride 0.9% 100 ml @ 25 mls/hr IVPB Q8HR [facility] Rx# :[id number] Oral 200 Output: Urine 375 900 Other: Voiding Method Indwelling Catheter Indwelling Catheter # Bowel Movements 1 - Labs CBC & Chem 7: 03/14/21 03:27 03/14/21 03:27 Labs: Abnormal Lab Results - Last 24 Hours (Table) 03/14/21 03/14/21 Range/Units 03:27 03:27 RBC 2.22 L (4.30-5.90) m/uL Hgb 7.0 L (13.0-17.5) gm/dL Hct 22.4 L (39.0-53.0) % MCV 101.2 H (80.0-100.0) fL RDW 18.8 H (11.5-15.5) % Chloride 91 L (98-107) mmol/L Carbon Dioxide 42 H* (22-30) mmol/L BUN 46 H (9-20) mg/dL Creatinine 1.47 H (0.66-1.25) mg/dL Total Protein 5.4 L (6.3-8.2) g/dL Albumin 2.7 L (3.5-5.0) g/dL
[2021-03-15 06:48] LABS: Anisocytosis Slight; HCT 23.8 % (39.0-53.0); HGB 7.7 gm/dL (13.0-17.5); Hypochromasia Marked; MCH 31.9 pg (25.0-35.0); MCHC 32.4 g/dL (31.0-37.0); MCV 98.6 fL (80.0-100.0); Macrocytosis Moderate; Mean Platelet Volume 10.1; Poikilocytosis Moderate; RBC 2.42 m/uL (4.30-5.90); RDW 19.4 % (11.5-15.5); WBC 5.3 k/uL (3.8-10.6)
[2021-03-15 06:54] LABS: Platelet Count 82 k/uL (150-450)
[2021-03-15 07:04] LABS: Band Neutrophils % 1 %; Basophilic Stippling Present; Eosinophils # (M) 0.05 k/uL (0-0.7); Lymphocytes # (M) 0.69 k/uL (1.0-4.8); Metamyelocytes # (M) 0.11 k/uL (0); Metamyelocytes % 2 %; Monocytes # (M) 0.69 k/uL (0-1.0); Myelocytes # (M) 0.05 k/uL (0); Myelocytes % 1 %; Neutrophils % (M) 69 %; Nucleated Red Blood Cells 0 /100 WBC (0-0); Polychromasia Present; Stomatocytes Present; Total Cells Counted 100
[2021-03-15 07:12] LABS: Calcium 9.8 mg/dL (8.4-10.2); Potassium 4.9 mmol/L (3.5-5.1)
[2021-03-15] MEDS: atenoloL 50 MG TAB PO SCH (08:50)
[2021-03-15] MEDS: ZINC SULFATE 220 MG CAP PO SCH (08:50)
[2021-03-15] MEDS: POTASSIUM CHLORIDE ER 20 MEQ TAB.ER PO SCH ×2 (08:50→20:19)
[2021-03-15] MEDS: CHOLECALCIFEROL 25 MCG (1000 IU) TABLET PO SCH (08:50)
[2021-03-15] MEDS: PANTOPRAZOLE 40 MG TABLET PO SCH ×2 (08:50→17:36)
[2021-03-15] MEDS: CEFEPIME 2 GM in SODIUM CHLORIDE 0.9% 100 ML IVPB SCH ×2 (08:50→16:50)
[2021-03-15] MEDS: ASCORBIC ACID 500 MG TAB PO SCH (08:50)
--- NOTE | 2021-03-15 10:40 | P.PN ---
Subjective Progress Note Date: 03/15/21 Principal diagnosis: Coronavirus infection. This is a 75-year-old white male with history of multiple medical conditions including hypertension, chronic lymphedema of lower extremities, history of artery Ablation and pacemaker implantation, history of right lower extremity deep vein thrombosis, and recent history of COVID-19 infection. Patient was admitted initially on 03/05/2021, and he was mostly admitted with shortness of breath, and bilateral lower extremity swelling. Patient lives at a care home, and upon admission patient was placed on BiPAP, he was placed on diuretics for presumptive congestive heart failure, and he was seen by many consultants including cardiology and infectious disease who saw the patient for cellulitis of lower extremities. At any rate yesterday on 03/09/2021, patient's clinical condition became worse, patient developed worsening hypoxia and hypercapnia. I was notified about this patient's ABG were in his pO2 was 100 pCO2 115 and pH of 7.26, I recommended titrating the FiO2 down in his BiPAP, I also recommended diuresing the patient, updrafts to be given, and I transfer the patient to the ICU yesterday. Since transfer to the ICU, the patient has been responding well to diuretics, he remains presently on BiPAP, and his BiPAP settings are 12/6/40%, last ABG showed a pO2 of 79 pCO2 of 98 pH of 7.32. His mental status has significantly improved, patient was quite obtunded and less responsive last night but apparently overnight the patient made a significant improvement. His hemoglobin however this morning is 6.4, there is no evidence of any active site of bleeding, he will be receiving a unit of packed RBCs. After reviewing his chest x-ray, I recommended Lasix at 40 mg IV push every 8 hours. Kept him on IV fluid at KVO. Chest x-ray continues to show evidence of pulmonary edema and suspected bilateral pleural effusions right more so than left. His bicarb on the electrolytes today is 44, this is indicative of chronic metabolic compensation for chronic respiratory acidosis. His BNP yesterday was 3820. Patient has been seen by infectious disease, and he is on vancomycin and on cefepime for cellulitis of lower extremities. He is also on Decadron 6 mg daily for recent history of COVID-19 infection, although the findings in the lungs are more or less findings of CHF. Strongly doubt COVID-19 pneumonitis. On the 03/11/2001 patient seen in follow-up in intensive care unit, he is awake and alert, oriented 3, breathing much more comfortably today compared to yesterday's exam, he did wear his BiPAP support with pressures of 16 and 6 and FiO2 of 35% overnight, he was switched to nasal cannula this morning at 2 L and his pulse ox is 95-98%, he is afebrile, hemodynamically he is stable, denies any chest discomfort, denies any worsening dyspnea, he is on 0.9 normal saline at 20 ML per hour, no vasoactive drips, hemodynamically he is stable, he is in sinus mechanism, blood pressures 112/48, he's had no acute events overnight, follow-up chest x-ray today shows increased lung markings greater at the right base consistent with acute exacerbation of CHF. Patient is currently on Lasix 40 mg IV every 8 hours. He is in -474 mL fluid balance over the last 24 hours. Still has quite significant edema involving his bilateral lower extremities. He remains on antibiotics in the form of cefepime and vancomycin, ID service is following. Today's labs have been reviewed, his white blood cell count is 5.9, hemoglobin is 7.3, his platelet count is 99, patient was transfused with 1 unit of packed red blood cells, occult stool was positive, patient was on Eliquis 5 mg twice a day on an outpatient basis, related to recent history of DVT in January 2021 and the distal popliteal vein in the right lower extremity. Currently Eliquis is on hold. Patient is status post completed vaccination for COVID-19, and patient did have a COVID pneumonia in December. His COVID-19 PCR test is positive 2 this admission on 03/06/2021, and his Antibody test was also reactive. Pro-calcitonin level was low, proBNP level was 3820. His d-dimer is 1.08. On 03/12/2021 patient seen in follow-up in the intensive care unit, he is resting in bed, she is currently on 2 L of oxygen his pulse ox is 95-100%, he did have a BiPAP on for a few hours last night with pressures of 16/6 and FiO2 of 35%. He seems to be breathing comfortably, in no acute distress, his been afebrile, hemodynamically he is stable, he is on 0.9 normal seen at 20 ML per hour, no other drips. We dynamically stable, in sinus mechanism with a controlled rate, he remains on Lasix to 40 mg every 8 hours, and he is on accommodation of cefepime and vancomycin. His Legionella urine antigen came back negative, patient was found to be positive for COVID 19 EF to positive PCR's, and positive antibody test. However it was felt that patient's presentation, his chest x-ray and labs were more consistent with acute exacerbation of CHF and left lower extremity cellulitis. Oxygenation has actually proved with diuretics. Patient is not on any steroids. His oral anticoagulation remains on hold view of anemia and possibility of GI blood loss. His hemoglobin today 7.1. We will ask GI service to consult. Otherwise patient has had no acute events overnight. Fairly comfortable, no complaints chest discomfort or worsening dyspnea. Progress note dated 03/13/2021. 75-year-old male again seen in the intensive care unit, room 259. Because of the concern of ongoing GI bleeding, the patient is scheduled for an EGD and colonoscopy today, March 13. The patient had an uneventful night otherwise. The patient remains on O2 2 L by nasal cannula and saline IV at 20 mL an hour. Labs today include a white count 6.6, hemoglobin 7, hematocrit 22.2, and esequiel telet count of 86,000. Sodium 135, potassium 4, chlorides 90, CO2 41, anion gap is 4, BUN 44, creatinine 1.16. No chest x-ray today as yet. Microbiologic studies are negative. The patient remains on cefepime. Progress note dated 03/14/2021. 75-year-old male, again seen in the intensive care unit, room 259. The patient remains on 2 L nasal cannula. The patient is on saline at 10 mL an hour. He did not use of BiPAP device last night. The patient did not have the EGD or colonoscopy as planned yesterday. We are going to DC the daily labs. They're unnecessary. The patient can be transferred to the general medical floor. White count 5.1, hemoglobin 7, hematocrit 22.4, and platelet count 88,000. Sodium 137, potassium 4.3, chlorides 91, CO2 42, anion gap 4, BUN 46, creatinine 1.47. No chest x-ray today. Progress note dated 03/15/2021. 75-year-old male, who was seen in the intensive care unit yesterday, and room 259. Currently, he is now on the floor, in room 478. Currently, he's feeling well. He is on a couple liters of oxygen. White count 5.3, hemoglobin 7.7, hematocrit 23.8, and platelet count 82,000. Sodium 137, potassium 4.9, chlorides 91, CO2 be 2, anion gap 4, BUN 53, and creatinine 1.91. No chest x- ray today. Saturations are 92-94%. Blood pressure 120/61. Mean blood pressure is 80, respiratory rate 18, heart rate 60, and temperature 97.4 degrees. Objective - Vital Signs Vital signs: Vital Signs Temp 97.4 F L 03/15/21 03:55 Pulse 60 03/15/21 03:55 Resp 18 03/15/21 03:55 BP 120/61 03/15/21 03:55 Pulse Ox 92 L 03/15/21 03:55 Intake & Output 03/14/21 03/15/21 03/15/21 18:59 06:59 18:59 Intake Total 60 1010 Output Total 450 300 Balance -390 710 Weight 210.5 kg Intake: IV 60 100 0.9 Normal Saline @ 10mL/ 60 hr Cefepime 2 gm In Sodium 100 Chloride 0.9% 100 ml @ 25 mls/hr IVPB Q8HR [facility] Rx# :[id number] Oral 600 Blood Product 0 310 Rc As-1 Unit 0 310 [id number] Output: Urine 450 300 Other: Voiding Method Indwelling Catheter Indwelling Catheter Indwelling Catheter # Voids 1 - Exam No acute distress, oriented 3. The patient remains on O2 at 2 L. Saturations are 94% on the 2 L. HEENT examination is grossly unremarkable. Neck supple. Full range of motion. No adenopathy thyromegaly or neck vein distention. Cardiovascular examination reveals regular rhythm rate. S1-S2 normal. No S3 or S4. No discernible murmur noted. Heart rate 61 bpm. Lungs reveal scattered inspiratory next or rhonchi. No wheezes or crackles. Breath sounds are equal bilaterally. Abdomen soft bowel sounds are heard. No masses or tenderness. Extremities are intact. No cyanosis clubbing or edema. Skin is without rash or lesion. Neurologic examination is brief but nonfocal. - Labs CBC & Chem 7: 03/15/21 06:21 03/15/21 06:21 Labs: Abnormal Lab Results - Last 24 Hours (Table) 03/14/21 03/15/21 03/15/21 Range/Units 15:32 06:21 06:21 RBC 2.42 L (4.30-5.90) m/uL Hgb 7.7 L (13.0-17.5) gm/dL Hct 23.8 L (39.0-53.0) % RDW 19.4 H (11.5-15.5) % Plt Count 82 L (150-450) k/uL Lymphocytes # (Manual) 0.69 L (1.0-4.8) k/uL Metamyelocytes # (Man) 0.11 H (0) k/uL Myelocytes # (Manual) 0.05 H (0) k/uL Chloride 91 L (98-107) mmol/L Carbon Dioxide 42 H* (22-30) mmol/L BUN 53 H (9-20) mg/dL Creatinine 1.91 H (0.66-1.25) mg/dL Crossmatch See Detail Assessment and Plan Assessment: #1. Acute hypoxic and hypercapnic respiratory failure secondary to acute exacerbation of congestive heart failure with diastolic dysfunction. #2. History of COVID 19 infection, and possibly active COVID-19 infection. Patient had a COVID 19 pneumonia in the mid 2020, patient had 2 positive COVID- 19 PCR tests on 03/06/2021 and reactive COVID-19 antibody. #3. Obesity hypoventilation syndrome with chronic hypoxic and hypercapnic respiratory failure and a component of underlying COPD. #4. Acute cellulitis of the lower extremities, patient is currently on antibiot ics in the form of cefepime and vancomycin. #5. Chronic bilateral lower extremities lymphedema. #6. Recent history of right lower extremity DVT in January 2021, on Eliquis on an outpatient basis which is currently on hold. #7. Acute anemia, possibly related to GI blood loss, patient had a positive occult stool, status post transfusion with 1 unit of packed red blood cells, scheduled for an EGD and colonoscopy today. #8. History of pacemaker implantation and cardiac ablation for SVT. #9. Morbid obesity with obesity hypoventilation syndrome and BMI of 55 kg/m. #10. Chronic thrombocytopenia. #11. History of prostate cancer. Plan: Plan dated 03/13/2021. The patient's doing well. The patient could be transferred out of the intensive care unit. The patient is only on 2 L nasal cannula. Saturations are 96%. Hemoglobin down to 7. The patient is scheduled for an EGD and colonoscopy today. We'll continue to follow make recommendations were appropriate. Prognosis is guarded. Plan dated 03/14/2021. The patient's daily labs will be discontinued. Also, he does not need a daily chest x-ray. The patient can be transferred to the general medical floor. Clinically, the patient is very stable. Saturations are in the mid to high 90s on 2 L. The patient did not require the BiPAP last night. The patient did not have the EGD and colonoscopy as planned, as apparently the bowel prep was not adequate. Plan dated 03/15/2021. The patient was moved out of the intensive care unit yesterday. Currently, I notice worsening renal function. We'll look at his medications closely. From the pulmonary standpoint, he is doing well. He is down to 2 L nasal cannula. Saturations are excellent. Additional recommendations and suggestions are forthcoming. Prognosis is guarded. The patient remains on cefepime and vancomycin as per infectious diseases. Microbiology is currently pending or negative. We will see the patient when necessary moving forward. Time with Patient: Less than 30
[2021-03-15 13:12] VITALS: BMI 58.0
--- NOTE | 2021-03-15 15:12 | CONS ---
CONSULTATION REASON FOR CONSULT: Renal failure. HISTORY OF PRESENT ILLNESS: The patient is a 75-year-old male who was initially admitted to the hospital on 03/05/2021 with increased lower extremity edema, shortness of breath and acute diastolic congestive heart failure. The patient has been diuresed. He had been on BiPAP and in the ICU and was eventually transferred out of the ICU. There was concern for GI bleed for which patient had EGD done on 03/13/2021 which actually could not be done secondary to his respiratory status. Serum creatinine had been about 0.8-1.1 mg/dL and recently increased from 1.47 on 03/14 to 1.9 on 03/15/2021. His Tanner catheter was discontinued yesterday and it appears that patient did not have much urine output overnight. He is morbidly obese and was also treated for significant lower extremity cellulitis with antibiotics. Patient had been on vancomycin. I do see a vancomycin level of 44.7 on 03/12/2021, repeat level 33 on 03/13/2021. Patient is currently off of vancomycin. Blood pressure has been on the lower side with systolic around 106-120 mmHg with initial blood pressure 99-96 mmHg on admission. PAST MEDICAL HISTORY: Significant for hypertension, skin disorder, obesity, prostatic cancer, lymphedema, cellulitis lower extremities. PAST SURGICAL HISTORY: Hernia repair, tonsillectomy, pacemaker placement, cardiac ablation. SOCIAL HISTORY: Patient is a former smoker. No history of drug abuse or alcohol abuse. MEDICATIONS: Medications prior to admission included potassium, atenolol, vitamin C, Eliquis, Protonix, baclofen, vitamin D, Lasix, [place]. ALLERGIES: None. EXAMINATION: Patient is currently comfortable, awake, he is not in any acute distress. Blood pressure was 120/61, heart rate 60 per minute. He is afebrile. Examination of the heart, decreased breath sounds at bases. Abdomen is morbidly obese. Exam of lower extremities shows significant edema, chronic skin changes, significant scaling of the skin noted bilaterally. [employer] exam grossly intact. LAB: Show sodium 137, potassium 4.9, chloride 91, CO2 is 42, BUN 53, creatinine 1.9, hemoglobin 7.7, white cell count 5.3. ASSESSMENT: 1. Acute kidney injury secondary to vancomycin toxicity as well as cardiorenal. Serum creatinine actually only increased in the last two days. The patient has not received any IV contrast. This is most likely related to vancomycin toxicity. There is also concern for urine retention. A bladder scan will be done again and Tanner catheter will be placed if the patient has significant urine retention. Blood pressure is currently staying above 100 mmHg systolic. The patient is maintained on Tenormin. His heart rate is in the 60s. I will decrease the Tenormin to 25 mg b.i.d. from 50 mg b.i.d. and allow slightly higher perfusion pressures. 2. Metabolic alkalosis associated with underlying chronic obstructive sleep apnea and chronic hypoventilation as well as recent diuresis. CO2 is stable. 3. Acute exacerbation of congestive heart failure with diastolic heart failure. 4. Acute hypoxic respiratory failure, currently improved. Patient is off BiPAP. 5. Anemia associated with gastrointestinal bleed. EGD could not be performed secondary to respiratory status. PLAN: Continue off nephrotoxic medications. Decrease Tenormin. Repeat labs in a.m. Insert Tanner catheter if significant urine retention is present. Thank you for this consultation. We will continue to follow the patient with you during his hospitalization. MMODL / IJN: [id number] /
--- NOTE | 2021-03-15 16:13 | PN ---
PROGRESS NOTE DATE OF SERVICE: 03/15/2021. REASON FOR FOLLOWUP: Lower extremity cellulitis and pneumonia. INTERVAL HISTORY: The patient is afebrile. Patient is breathing comfortably. Denies having any chest pain. No shortness of breath. Occasional cough. No abdominal pain or pain to the lower extremity. EXAMINATION: Blood pressure 106/58, pulse of 60, temperature 97.9. He is 98% on 4 L nasal cannula. General description is an elderly male lying in bed in no distress. Respiratory system: Unlabored breathing, decreased breath sounds in the base, with no wheeze. Heart S1, S2. Regular rate and rhythm. Abdomen soft, no tenderness. LABS: Hemoglobin 7.4, white count of 5.3, BUN of 53, creatinine is 1.91. DIAGNOSTIC IMPRESSION AND PLAN: Patient with bilateral lower extremity cellulitis. Admitted to hospital with concern for possible pneumonia. Patient has shown overall improvement. Finish therapy with oral Augmentin and close outpatient followup. MMODL / IJN: [id number] /
--- NOTE | 2021-03-15 17:03 | P.PN ---
Subjective Progress Note Date: 03/15/21 Acute hypoxic and hypercapnic respiratory failure Pneumonia; COVID 19 versus bacterial Acute exacerbation CHF Elevated d-dimer/rule out PE Bilateral lower extremity cellulitis 75 his old male with past medical history of hypertension, prostate cancer, bilateral leg lymphedema, status post cardiac ablation and pacemaker Was recently discharged from the hospital 02/09-02/13 for bilateral leg cellulitis of his lymphedema. Recent right lower extremity DVT on [facility] COVID- 19 infection Presents because of dyspnea over the weekend with increased bilateral leg swelling. He lives in a care home. At baseline he has some dyspnea with oxygen requirement 2-4 L/m at baseline. At baseline and also patient is nonmobile for a long time, probably many years as he states. He denies any coughing. No abdominal pain or nausea vomiting. No diarrhea. He states that his urine little short T as he describes but he denies dysuria Now he feels much better after he was placed on BiPAP On admission he was hypoxic with oxygen saturation 89% on 60 to her oxygenation nasal cannula. Breathing at 20/m, afebrile Labs showing leukocytosis of 12.9 K. Hemoglobin 8.6 which is close to baseline. Platelets normal. INR is 1.5. BMP and creatinine are unremarkable. Liver enzymes not elevated. Troponin is negative less than 0.012. EKG showing paced rhythm at 68 Chest x-ray: CHF with pulmonary edema favored over diffuse pneumonia Echocardiogram from 01/2021 showing ejection fraction of 50-55% On rounds today patient was found to be minimally responsive; has been placed on BiPAP; we will order stat ABGs, chest x-ray, BNP; Lasix 40 mg IV stat, Decadron 6 mg IV daily first dose stat; start patient on IV cefepime and vancomycin; we will consult pulmonary service; further recommendations once workup is complete 03/10/2021 Patient is seen and evaluated in ICU; patient transferred yesterday due to d eclining respiratory status Pulmonary/critical care following and recommending to continue with BiPAP with plans to titrate FiO2 down maintaining O2 saturation in the low 90s Continue diuretics. Increase Lasix to 40 mg IV push every 8 hours; pulmonary on board and recommend stopping Decadron. Continue to monitor renal profile. Monitor electrolytes 03/11/2021 Patient is seen and evaluated in follow-up in ICU, he is awake and alert,; patient is more awake and oriented this morning, breathing much more comfortably today. BiPAP support overnight, he was switched to nasal cannula this morning at 2 L and his pulse ox is 95-98%; remains afebrile, blood pressures 112/48 Chest x-ray today shows increased lung markings greater at the right base consistent with acute exacerbation of CHF. Patient is currently on Lasix 40 mg IV every 8 hours. He is in -474 mL fluid balance over the last 24 hours. Still has quite significant edema involving his bilateral lower extremities. He remains on antibiotics in the form of cefepime and vancomycin, ID service is following. Laboratory review shows white blood cell count is 5.9, hemoglobin is 7.3, his platelet count is 99, patient was transfused with 1 unit of packed red blood cells, occult stool was positive, patient was on Eliquis 5 mg twice a day on an outpatient basis, related to recent history of DVT in January 2021 and the distal popliteal vein in the right lower extremity. Currently Eliquis is on hold. Patient is status post completed vaccination for COVID-19, and patient did have a COVID pneumonia in December. His COVID-19 PCR test is positive 2 this admission on 03/06/2021, and his Antibody test was also reactive. Pro-calcitonin level was low, proBNP level was 3820. His d-dimer is 1.08. Patient remains in ICU with plan to continue with diuretics, antibiotics with plans to use BiPAP as needed; anticoagulation remains on hold; continue to monitor for any signs of bleeding 03/12/2021 Patient is seen in follow-up continues to be in the ICU sleeping although arousable. Patient is on 2 L via nasal cannula and tolerating well with oxygen saturations of 95-100%. Multiple medical consultations including infectious disease, pulmonary, now GI following as well for anemia with positive blood and has required 1 unit of PRBC transfusion. Hemoglobin today is 7.1. Patient will be placed on clear liquid diet and nothing by mouth at midnight and start the bowel prep with possible EGD colonoscopy in the morning. White blood count within normal limits at 6.5, sodium is 137 with a potassium of 4.2, CO2 elevated at 44, BUN is 42 and creatinine is 0.97. Patient is Covid positive. Legionella was negative. Chest x-ray today shows stable diffuse pleural parenchymal changes to correlate for CHF versus diffuse pneumonia. Patient continues on IV vancomycin along with cefepime and will continue for now. Patient is currently diuresing and maintained on IV Lasix 40 mg every 8 hours. 03/13/2021 Patient is seen this morning with no acute overnight issues. Bowel prep was done and plan is for EGD/colonoscopy today with GI in the afternoon. Patient hemoglobin stable at 7.0 and yesterday was 7.1 and will hold transfusion today. Patient continues on IV antibiotics with infectious disease following closely for acute cellulitis of bilateral lower extremities and will continue with local wound care. Anticoagulant on hold for continued GI bleed and will discuss with GI about resuming once EGD/colonoscopy is complete. Sodium is 135 with a potassium of 4.0 current creatinine 1.16. Patient continues on 2 L via nasal cannula and has been since recent Covid infection. Patient continues on IV L asix 40 mg every 8 and will continue. 03/14/2021 Patient is seen this morning doing relatively well. Hemoglobin is stable at 7 and will give 1 unit of PRBC and repeat CBC tomorrow. Patient had attempted EGD with colonoscopy although EGD was aborted due to worsening respiratory status and poor bowel prep on colonoscopy although was able to visualize no active bleeding noted. Patient continues on IV antibiotic and the form of cefepime and vancomycin with infectious disease following. Creatinine worsened today at 1.47 and will hold Lasix for now and repeat labs. Sodium is 137 with a potassium 4.3. White blood count is stable at 5.1 and again hemoglobin is 7.0. Patient will need outpatient follow-up with GI once more stable for repeat EGD as needed. Patient currently sitting up comfortably on 2 L of oxygen via nasal cannula. Patient denies any abdominal pain or discomfort. Social work also following as patient will be going to [employer] once discharged. 03/15/2021 Patient is seen this morning in follow-up and currently working with physical therapy and sitting at the bedside requiring maximum assistance he is extremely weak and has been mostly bedbound over the last few months. Patient's creatinine continued to worsen at 1.91 today with a BUN of 53 and have consulted nephrology. Lasix is on hold and vancomycin has been discontinued. Factious disease is following and patient is maintained on IV cefepime. Patient did receive 1 unit of PRBCs yesterday hemoglobin is stable at 7.7 with no further bleeding noted. Anticoagulation was on hold and will resume and monitor closely for any signs of bleeding. Review of systems: Constitutional: No reports of fatigue, with no reports of fever, or chills Cardiovascular: No reports of chest pain or palpitations Respiratory: No reports of shortness of breath or cough GI: No reports of nausea, vomiting : No reports of dysuria or retention, currently has indwelling Tanner catheter Neurovascular: Reports generalized weakness All medications have been reviewed Physical exam: Gen: This is a 75-year-old male awake, alert and oriented 3. no acute distress, well-developed, well-nourished, morbidly obese HEENT: Head is atraumatic, normocephalic. Pupils equal, round. Sclerae is anicteric. NECK: Supple. No JVD. No lymphadenopathy. No thyromegaly. LUNGS: Diminished breath sounds with some scattered rhonchi noted. No intercostal retractions. HEART: Regular rate and rhythm. No murmur. ABDOMEN: Soft. Obese. Bowel sounds are present. No masses. No tenderness. EXTREMITIES: Extensive pedal edema and poor nail care noted. No calf tenderness. Pitting edema +2 noted bilaterally to lower extremities NEUROLOGICAL: Patient is awake, alert and oriented x3. Diffusely weak. Assessment and plan: Acute on chronic diastolic CHF with ejection fraction 50-55% Acute kidney injury possible prerenal azotemia, possibly secondary to vancomycin or IV Lasix. We'll discontinue IV Lasix and repeat labs, creatinine continued to worsen and consulted nephrology and vancomycin has been discontinued acute bilateral leg cellulitis Possible acute lower GI bleed, colonoscopy was attempted with poor bowel prep and no active bleeding noted, EGD aborted due to worsening respiratory status during the procedure Anemia possibly secondary to acute lower GI bleed or possibly anemia of chronic disease Hypoxic respiratory failure secondary to above Hypertension persistent positive Covid test with no actual infection Prostate cancer Chronic bilateral leg lymphedema Chronic thrombocytopenia status post cardiac ablation and pacemaker Morbid obesity with obesity hypoventilation syndrome and a body mass index of 53.7 GI prophylaxis: Protonix DVT prophylaxis: will resume eliquis once cleared by nephrology No code Plan: Patient has been transitioned to the [facility] floor and being closely monitored. Patient continues on 2 L via nasal cannula which is his baseline. Patient's creatinine continued to worsen and have consulted nephrology and IV Lasix was discontinued. Possibility of vancomycin toxicity and infectious disease following and will discontinue vancomycin and patient is maintained on cefepime. Will likely transition to oral antibiotics on discharge. Will repeat labs and continue to monitor closely. Tenormin also decreased in dosage by nephrology. Okay per GI to resume Eliquis and will resume and closely monitor for any signs of bleeding. Patient did receive 1 unit of PRBCs yesterday and hemoglobin is stable at 7.7. Social work is following closely as plan is for return to [facility] once stabilized and discharge. Will repeat labs with possible discharge in 24-48 hours. Objective - Vital Signs Vital signs: Vital Signs Temp 97.4 F L 03/15/21 03:55 Pulse 60 03/15/21 03:55 Resp 18 03/15/21 03:55 BP 120/61 03/15/21 03:55 Pulse Ox 92 L 03/15/21 03:55 Intake & Output 03/14/21 03/15/21 03/15/21 18:59 06:59 18:59 Intake Total 60 1010 Output Total 450 300 Balance -390 710 Weight 210.5 kg Intake: IV 60 100 0.9 Normal Saline @ 10mL/ 60 hr Cefepime 2 gm In Sodium 100 Chloride 0.9% 100 ml @ 25 mls/hr IVPB Q8HR [facility] Rx# :[id number] Oral 600 Blood Product 0 310 Rc As-1 Unit 0 310 [id number] Output: Urine 450 300 Other: Voiding Method Indwelling Catheter Indwelling Catheter Indwelling Catheter # Voids 1 - Labs CBC & Chem 7: 03/15/21 06:21 03/15/21 06:21 Labs: Abnormal Lab Results - Last 24 Hours (Table) 03/14/21 03/15/21 03/15/21 Range/Units 15:32 06:21 06:21 RBC 2.42 L (4.30-5.90) m/uL Hgb 7.7 L (13.0-17.5) gm/dL Hct 23.8 L (39.0-53.0) % RDW 19.4 H (11.5-15.5) % Plt Count 82 L (150-450) k/uL Lymphocytes # (Manual) 0.69 L (1.0-4.8) k/uL Metamyelocytes # (Man) 0.11 H (0) k/uL Myelocytes # (Manual) 0.05 H (0) k/uL Chloride 91 L (98-107) mmol/L Carbon Dioxide 42 H* (22-30) mmol/L BUN 53 H (9-20) mg/dL Creatinine 1.91 H (0.66-1.25) mg/dL Crossmatch See Detail
[2021-03-15] MEDS: atenoloL 25 MG TAB PO SCH (20:18)
[2021-03-16] MEDS: CEFEPIME 2 GM in SODIUM CHLORIDE 0.9% 100 ML IVPB SCH ×2 (03:41→16:44)
--- NOTE | 2021-03-16 07:31 | XR ---
EXAMINATION TYPE: XR chest 1V portable DATE OF EXAM: 03/16/2021 COMPARISON: 03/12/2021 INDICATION: Covid TECHNIQUE: Single frontal view of the chest is obtained. FINDINGS: The heart size is upper limits of normal. The pulmonary vasculature is prominent. Diffuse increased lung markings are present. Small right pleural effusion is likely present. Left ple ural effusion is suspected silhouetting the diaphragm. Findings are nonspecific but can be compatible with atypical pneumonia IMPRESSION: 1. Diffuse increased infiltrates with small pleural effusions. Findings can be compatible with atypic al pneumonia
[2021-03-16 07:55] LABS: Glucose,Whole Blood 93 mg/dL (75-99)
[2021-03-16 08:02] LABS: ABG Base Excess 19.2 mmol/L; ABG PO2 60 mmHg (83-108); ABG TCO2 46 mmol/L (19-24); Allen Test Performed? Yes
[2021-03-16 08:06] LABS: ABG HCO3 44 mmol/L (21-25); ABG PCO2 72 mmHg (35-45)
--- NOTE | 2021-03-16 08:18 | P.EN ---
I responded to a rapid response team on patient this morning called by nursing staff secondary to altered mental status and concerns about left-sided weakness. Upon arrival to the room, patient was awake and alert. He was confused. He was mumbling occasionally but answering some questions. He was repetitively saying his daughter's name. Patient was afebrile and hemodynamically stable. Blood glucose was 96. We requested a code stroke to be called. NIH score of 19. Stat computed tomography scan of the head without contrast ordered. In the meantime an arterial blood gas showed a chronic compensated hypercapnic respiratory failure with mild hypoxemia. Patient was on 2 L of oxygen satting in the low 90s that was increased to 3 L. Lab work also ordered including CBC, CMP, and lactic acid for this morning. Nursing staff advised to notify attending physician.
--- NOTE | 2021-03-16 08:46 | CT ---
EXAMINATION TYPE: CODE STROKE: CT brain wo contr DATE OF EXAM: 03/16/2021 COMPARISON: None HISTORY: 75-year-old male neurologic deficit, Code stroke TECHNIQUE: Examination was done in axial plane without intravenous contrast. Coronal and sagittal r econstructions performed. CT DLP: 1309.4 mGycm Automated exposure control for dose reduction was used. FINDINGS: There is no evidence of acute intracranial hemorrhage, acute ischemic changes, mass, mass-effect, or extra-axial fluid collection. There is no effacement of cerebral sulci or basal subarachnoid cister ns. Mild ventricular prominence likely due to central cerebral atrophy. There is no midline shift. G ray-white matter distinction is preserved. Trace mucosal thickening ethmoid air cells. Mastoid air cells and pneumatized. Orbits and globes are intact. Cerumen within the bilateral external auditory canals. IMPRESSION: Mild central cerebral atrophy. No acute intracranial abnormality seen.
[2021-03-16] MEDS ORDERED: ASPIRIN 81 MG PO STA (08:50)
[2021-03-16 08:54] LABS: ALT 6 U/L (4-49); AST 29 U/L (17-59); African American GFR (CKD) 32 (>60 ml/min/1.73 sqM); Albumin 3.2 g/dL (3.5-5.0); Albumin/Globulin Ratio 1.1; Alkaline Phosphatase 82 U/L (38-126); Blood Urea Nitrogen 61 mg/dL (9-20); Calcium 10.2 mg/dL (8.4-10.2); Chloride 91 mmol/L (98-107); Globulin 2.8 g/dL; Glucose 92 mg/dL (74-99); Non-African American GFR(CKD) 28 (>60 ml/min/1.73 sqM); Potassium 5.3 mmol/L (3.5-5.1); Sodium 136 mmol/L (137-145); Total Bilirubin 0.7 mg/dL (0.2-1.3)
[2021-03-16 09:01] LABS: Anion Gap 6 mmol/L
[2021-03-16 09:09] LABS: Carbon Dioxide 39 mmol/L (22-30)
[2021-03-16 09:15] LABS: Anisocytosis Slight; HGB 7.9 gm/dL (13.0-17.5); Hypochromasia Marked; MCH 31.3 pg (25.0-35.0); MCHC 31.8 g/dL (31.0-37.0); MCV 98.2 fL (80.0-100.0); Macrocytosis Slight; Mean Platelet Volume 10.5; Poikilocytosis Slight; RBC 2.54 m/uL (4.30-5.90); RDW 18.8 % (11.5-15.5); WBC 5.7 k/uL (3.8-10.6)
[2021-03-16 09:20] LABS: Platelet Count 77 k/uL (150-450)
[2021-03-16] MEDS ORDERED: APIXABAN 2.5 MG TABLET PO SCH (09:45)
[2021-03-16] MEDS ORDERED: DEXTROSE 50% SYRINGE 50 ML IVP STA (09:55)
[2021-03-16] MEDS ORDERED: INSULIN REGULAR 100 UNIT/ML VIAL (IV) IV ONE (09:56)
[2021-03-16 10:09] LABS: Eosinophils # (M) 0.06 k/uL (0-0.7); Lymphocytes # (M) 0.97 k/uL (1.0-4.8); Metamyelocytes # (M) 0.06 k/uL (0); Metamyelocytes % 1 %; Monocytes # (M) 0.97 k/uL (0-1.0); Myelocytes # (M) 0.06 k/uL (0); Myelocytes % 1 %; Neutrophils # (M) 3.71 k/uL (1.3-7.7); Neutrophils % (M) 65 %; Nucleated Red Blood Cells 0 /100 WBC (0-0); Promyelocytes # (M) 0.06 k/uL (0); Promyelocytes % 1 %; Total Cells Counted 200
[2021-03-16 10:14] LABS: Basophilic Stippling Present; Stomatocytes Present
[2021-03-16] MEDS: atenoloL 25 MG TAB PO SCH ×2 (10:57→20:52)
--- NOTE | 2021-03-16 10:59 | US ---
EXAMINATION TYPE: US carotid duplex BILAT DATE OF EXAM: 03/16/2021 COMPARISON: CLINICAL HISTORY: code stroke. Morbidly obese. Poor historian. Code stroke. Very limited exam due to patient body habitus and patient breathing pattern EXAM MEASUREMENTS: RIGHT: Peak Systolic Velocity (PSV) cm/sec ----- Right CCA: 72.9 ----- Right ICA: 114.6 ----- Right ECA: 127.4 ICA/CCA ratio: 1.6 RIGHT: End Diastole cm/sec ----- Right CCA: 11.6 ----- Right ICA: 24.7 ----- Right ECA: 19.2 LEFT: Peak Systolic Velocity (PSV) cm/sec ----- Left CCA: 85.4 ----- Left ICA: 121.0 ----- Left ECA: 100.0 ICA/CCA ratio: 1.4 LEFT: End Diastole cm/sec ----- Left CCA: 24.1 ----- Left ICA: 30.5 ----- Left ECA: 12.8 VERTEBRALS (direction of flow): Right Vertebral: Antegrade Left Vertebral: Antegrade Rhythm: Normal Bilateral wall thickening. No elevated velocities. Limited plaque seen in left CCA and bulb. IMPRESSION: 1. Atheromatous plaquing without significant flow-limiting stenosis NASCET criteria was used in interpretation of this exam? Criteria for Assigning % of Stenosis / Diameter reduction (Estimation based on the indirect measurements of the internal carotid artery velocities (ICA PSV). 1. Normal (no stenosis)=ICA PSV < 125 cm/s: ratio < 2.0: ICA EDV<40 cm/s. 2. Less than 50% stenosis=ICA PSV < 125 cm/s: ratio < 2.0: ICA EDV<40 cm/s. 3. 50 to 69% stenosis=ICA PSV of 125 to 230 cm/s: ration 2.0 ? 4.0: ICA EDV 40-100 cm/s. 4. Greater than 70% stenosis to near occlusion= ICA PSV > 230 cm/s: ratio > 4.0: ICA EDV > 100 cm/s. 5. Near occlusion= ICA PSV velocities may be low or undetectable: variable ratio and ICA EDV. 6. Total occlusion=unable to detect flow.
[2021-03-16] MEDS: HEPARIN SODIUM,PORCINE/PF 5,000 UNIT/0.5 ML SYRINGE SQ SCH ×2 (11:05→16:43)
[2021-03-16] MEDS: CHOLECALCIFEROL 25 MCG (1000 IU) TABLET PO SCH (11:05)
[2021-03-16] MEDS: PANTOPRAZOLE 40 MG TABLET PO SCH ×2 (11:05→16:44)
[2021-03-16] MEDS: ASCORBIC ACID 500 MG TAB PO SCH (11:05)
[2021-03-16] MEDS: ZINC SULFATE 220 MG CAP PO SCH (11:05)
[2021-03-16] MEDS: POTASSIUM CHLORIDE ER 20 MEQ TAB.ER PO SCH (11:09)
--- NOTE | 2021-03-16 11:34 | P.CNNES ---
History of Present Illness Consult date: 03/16/21 Requesting physician: Gray Mae Reason for Consult: Stroke code History of Present Illness: Patient is a 75-year-old male who came to the hospital on 03/05/2021, complaining of difficulty breathing. Patient has history of congestive heart failure. Patient was diagnosed with Covid-19 on 03/06/2021. Patient has multiple medical issues as per impression list. Stroke code was activated this morning at around 8 AM, for acute onset of aphasia. Patient last known well was at around 5 AM, when the nurse saw him and he was speaking normally. at around 8 AM patient was not able to speak, was aphasic. No obvious lateralizing symptoms were otherwise noted involving the extremities. Patient underwent computed tomography scan of the head which was normal. Stroke code was activated. NIH stroke scale was reported as 19. Stroke neurologist Dr. Francis recommended CTA of head and neck. Patient has acute renal failure, therefore CTA was contraindicated. MRI of the brain could not be performed because of presence of pacemaker. Patient was given aspirin 81 mg. I came to see patient, patient appears much better as per examination below, with NIH stroke scale only 2. Patient's most recent blood tests shows WBC 5.7 hemoglobin 7.9, platelets 82. Patient's ABG shows pH 7.4, pCO2 72, pO2 60, and saturation 92%. Patient's sodium 136 potassium 5.3, BUN 61, creatinine 2.24. Patient's BUN and creatinine were 53 and 1.91 respectively yesterday. Hepatic panel normal. Last vancomycin level is 33.0. Chest x-ray showed diffuse increased infiltrates with small pleural effusion. Findings can be compatible with atypical pneumonia. CT head showed mild central cerebral atrophy. No acute intracranial abnormality. No hyperdensity in the MCA. Patient's 2-D echo from 01/02/2021 showed normal left- ventricular size. Moderate concentric LVH. EF is low normal between 50-55%. Patient's lower extremity Doppler from 01/03/2021 showed acute DVT in the mid to distal popliteal vein to the proximal calf veins of the right lower extremity. No evidence of deep venous thrombosis in the left lower extremity. Patient is morbidly obese, has lymphedema involving bilateral lower feet. Patient has a bandage gauze wrapped around his left forearm and hand with some serosanguineous fluid oozing. Review of Systems ROS unobtainable: due to mental status Past Medical History Past Medical History: Cancer, Hypertension, Skin Disorder Additional Past Medical History / Comment(s): hx prostate cancer, , hx rheumatic fever; lymphedema to bilateral legs. History of Any Multi-Drug Resistant Organisms: None Reported Past Surgical History: Hernia Repair, Tonsillectomy Additional Past Surgical History / Comment(s): pacemaker, heart ablation Past Anesthesia/Blood Transfusion Reactions: No Reported Reaction Past Psychological History: No Psychological Hx Reported Smoking Status: Former smoker Past Alcohol Use History: None Reported Additional Past Alcohol Use History / Comment(s): smoked from teens until 30's; started up again when 61 until 63 Past Drug Use History: None Reported - Past Family History Father Family Medical History: Cancer Mother Family Medical History: Cancer Medications and Allergies Home Medications Medication Instructions Recorded Confirmed Type Potassium Chloride [K-Tab ER] 20 meq PO BID 12/09/14 03/05/21 History Atenolol [Tenormin] 50 mg PO BID 12/31/20 03/05/21 History Multivitamins, Thera [Multivitamin 1 tab PO HS 12/31/20 03/05/21 History (formulary)] Ascorbic Acid [Vitamin C] 1,000 mg PO DAILY tab 01/08/21 03/05/21 Rx Albuterol Inhaler [Ventolin Hfa 2 puff INHALATION RT-QID PRN 02/09/21 03/05/21 History Inhaler] Apixaban [Eliquis] 5 mg PO BID 02/09/21 03/05/21 History Baclofen [Lioresal] 10 mg PO Q6H PRN 02/09/21 03/05/21 History Pantoprazole [Protonix] 40 mg PO BID 02/09/21 03/05/21 History Cholecalciferol [Vitamin D3 (25 25 mcg PO DAILY 03/05/21 03/05/21 History Mcg = 1000 Iu)] Furosemide [Lasix] 80 mg PO BID 03/05/21 03/05/21 History HYDROcodone/APAP 5-325MG [Dewitt 1 tab PO Q6HR PRN 03/05/21 03/05/21 History 5-325] Allergies Allergy/AdvReac Type Severity Reaction Status Date / Time No Known Allergies Allergy Verified 03/05/21 13:55 Physical Examination - Vital Signs Vital Signs: Vital Signs Temp Pulse Pulse Resp BP Pulse Ox 03/16/21 02:00 98.2 F 60 13 116/65 96 03/15/21 20:00 97.5 F L 60 18 159/77 97 03/15/21 19:40 60 60 18 03/15/21 17:32 97.8 F 65 20 109/63 98 03/15/21 14:57 98.3 F 59 L 18 112/69 97 Intake and Output 03/15/21 03/16/21 03/16/21 22:59 06:59 14:59 Intake Total 600 200 Output Total 275 Balance 325 200 Intake: Oral 600 200 Output: Urine 275 Other: Voiding Method Indwelling Catheter # Voids 2 Patient is an elderly male, who is in mild respiratory distress, tachypneic, appears slightly encephalopathic, restless.. Patient is alert awake, knows his age 75 and that it is March. Patient followed commands as below. Patient sometimes able to speak certain sentences, but then appears a phasic. Patient could not name objects like "stick for a pen". He could not name fingers, ear or eyeglasses. He was able to repeat with some difficulty. Sometimes he would speak sentences clearly. Attention, concentration and fund of knowledge is limited. On cranial examination, pupils are round and reacting to light, visual ortega are full on confrontation, with no neglect on double simultaneous stimulation. His extraocular muscles are intact with no nystagmus. Face is symmetric, tongue protrudes to the midline. Palatal elevation and sensation normal, hearing and s houlder shrug normal, facial sensation normal. On muscle strength testing, there is no pronator drift. Patient has some myoclonic jerks/asterixis noted. Patient's biceps, triceps and theatre professor appears equal. Patient's legs are extremely heavy with severe lymphedema bilaterally. Patient was able to move the legs equally. Able to lift off the bed about 5-10 equally. No obvious focality. Deep tendon reflexes are almost absent and plantars are downgoing. Sensory to touch is equal with no neglect on the double simultaneous stimulation. Cerebellar function showed no ataxia for [id number] testing. Tone and bulk of muscles normal. Gait not checked. On general examination, there is no carotid bruit or murmur, S1-S2 audible. Abdomen is soft nontender. Chest is clear. Patient has severe peripheral edema. Results - Laboratory Findings CBC and BMP: 03/16/21 08:28 03/16/21 08:28 Abnormal Lab Findings: Abnormal Labs 03/05/21 03/05/21 03/05/21 11:42 11:42 11:42 WBC 12.9 H RBC 2.73 L Hgb 8.6 L Hct 26.4 L MCV RDW 18.7 H Plt Count Neutrophils # (Manual) 9.80 H Lymphocytes # (Manual) Monocytes # (Manual) 1.16 H Metamyelocytes # (Man) 0.52 H Myelocytes # (Manual) 0.52 H Promyelocytes # (Man) Nucleated RBCs 1 H PT 14.8 H INR 1.5 H APTT 31.4 H D-Dimer ABG pH ABG pCO2 ABG pO2 ABG HCO3 ABG Total CO2 ABG O2 Saturation Sodium Potassium Chloride 89 L Carbon Dioxide 43 H* BUN 24 H Creatinine Glucose 113 H POC Glucose (mg/dL) Iron Ferritin C-Reactive Protein Total Protein Albumin 3.2 L Procalcitonin Vancomycin Trough Coronavirus (PCR) SARS-CoV-2 Ab,Total Crossmatch 03/06/21 03/06/21 03/06/21 07:29 07:29 07:29 WBC 11.1 H RBC 2.39 L Hgb 7.7 L Hct 23.4 L MCV RDW 18.9 H Plt Count Neutrophils # (Manual) 8.88 H Lymphocytes # (Manual) 0.78 L Monocytes # (Manual) Metamyelocytes # (Man) 0.44 H Myelocytes # (Manual) 0.33 H Promyelocytes # (Man) Nucleated RBCs PT INR APTT D-Dimer ABG pH ABG pCO2 ABG pO2 ABG HCO3 ABG Total CO2 ABG O2 Saturation Sodium Potassium Chloride 87 L Carbon Dioxide 45 H* BUN 23 H Creatinine Glucose 110 H POC Glucose (mg/dL) Iron Ferritin C-Reactive Protein Total Protein Albumin Procalcitonin 0.14 H Vancomycin Trough Coronavirus (PCR) SARS-CoV-2 Ab,Total Crossmatch 03/06/21 03/06/21 03/07/21 09:30 16:26 07:20 WBC RBC Hgb Hct MCV RDW Plt Count Neutrophils # (Manual) Lymphocytes # (Manual) Monocytes # (Manual) Metamyelocytes # (Man) Myelocytes # (Manual) Promyelocytes # (Man) Nucleated RBCs PT INR APTT D-Dimer ABG pH ABG pCO2 ABG pO2 ABG HCO3 ABG Total CO2 ABG O2 Saturation Sodium Potassium Chloride 89 L Carbon Dioxide 43 H* BUN 27 H Creatinine Glucose 104 H POC Glucose (mg/dL) Iron Ferritin C-Reactive Protein Total Protein Albumin Procalcitonin Vancomycin Trough Coronavirus (PCR) Detected A Detected A SARS-CoV-2 Ab,Total Crossmatch 03/08/21 03/08/21 03/08/21 07:48 07:48 07:48 WBC RBC 2.15 L Hgb 7.1 L Hct 21.4 L MCV RDW 19.8 H Plt Count 139 L Neutrophils # (Manual) Lymphocytes # (Manual) 0.94 L Monocytes # (Manual) Metamyelocytes # (Man) 0.34 H Myelocytes # (Manual) 0.43 H Promyelocytes # (Man) Nucleated RBCs PT INR APTT D-Dimer ABG pH ABG pCO2 ABG pO2 ABG HCO3 ABG Total CO2 ABG O2 Saturation Sodium Potassium Chloride 88 L Carbon Dioxide 47 H* BUN 33 H Creatinine Glucose POC Glucose (mg/dL) Iron 55 L Ferritin 389.6 H C-Reactive Protein Total Protein Albumin Procalcitonin Vancomycin Trough Coronavirus (PCR) SARS-CoV-2 Ab,Total Crossmatch 03/09/21 03/09/21 03/09/21 07:25 07:25 07:25 WBC RBC 2.35 L Hgb 7.5 L Hct 23.9 L MCV 101.7 H RDW 20.0 H Plt Count 142 L Neutrophils # (Manual) Lymphocytes # (Manual) Monocytes # (Manual) Metamyelocytes # (Man) 0.18 H Myelocytes # (Manual) 0.36 H Promyelocytes # (Man) Nucleated RBCs 1 H PT INR APTT D-Dimer 1.08 H ABG pH ABG pCO2 ABG pO2 ABG HCO3 ABG Total CO2 ABG O2 Saturation Sodium Potassium Chloride 87 L Carbon Dioxide 47 H* BUN 35 H Creatinine Glucose 103 H POC Glucose (mg/dL) Iron Ferritin C-Reactive Protein 2.0 H Total Protein 6.2 L Albumin 3.2 L Procalcitonin Vancomycin Trough Coronavirus (PCR) SARS-CoV-2 Ab,Total Crossmatch 03/09/21 03/09/2103/09/21 16:50 18:27 19:37 WBC RBC Hgb Hct MCV RDW Plt Count Neutrophils # (Manual) Lymphocytes # (Manual) Monocytes # (Manual) Metamyelocytes # (Man) Myelocytes # (Manual) Promyelocytes # (Man) Nucleated RBCs PT INR APTT D-Dimer ABG pH 7.26 L 7.32 L ABG pCO2 115 H* 98 H* ABG pO2 79 L ABG HCO3 51 H* 50 H* ABG Total CO2 55 H 53 H ABG O2 Saturation 97.9 H Sodium Potassium Chloride Carbon Dioxide BUN Creatinine Glucose POC Glucose (mg/dL) 138 H Iron Ferritin C-Reactive Protein Total Protein Albumin Procalcitonin Vancomycin Trough Coronavirus (PCR) SARS-CoV-2 Ab,Total Crossmatch 03/10/21 03/10/21 03/10/21 04:41 04:41 04:41 WBC RBC 1.99 L Hgb 6.4 L* Hct 20.0 L MCV 100.5 H RDW 19.7 H Plt Count 100 L Neutrophils # (Manual) Lymphocytes # (Manual) 0.66 L Monocytes # (Manual) Metamyelocytes # (Man) 0.13 H Myelocytes # (Manual) 0.13 H Promyelocytes # (Man) Nucleated RBCs 1 H PT INR APTT D-Dimer ABG pH ABG pCO2 ABG pO2 ABG HCO3 ABG Total CO2 ABG O2 Saturation Sodium 135 L Potassium Chloride 88 L Carbon Dioxide 44 H* BUN 36 H Creatinine Glucose POC Glucose (mg/dL) Iron Ferritin C-Reactive Protein Total Protein Albumin Procalcitonin Vancomycin Trough Coronavirus (PCR) SARS-CoV-2 Ab,Total Reactive A Crossmatch 03/10/21 03/11/21 03/11/21 05:58 05:49 05:49 WBC RBC 2.32 L Hgb 7.3 L Hct 23.3 L MCV 100.2 H RDW 19.7 H Plt Count 99 L Neutrophils # (Manual) Lymphocytes # (Manual) 0.30 L Monocytes # (Manual) Metamyelocytes # (Man) 0.35 H Myelocytes # (Manual) 0.12 H Promyelocytes # (Man) 0.06 H Nucleated RBCs PT INR APTT D-Dimer ABG pH ABG pCO2 ABG pO2 ABG HCO3 ABG Total CO2 ABG O2 Saturation Sodium Potassium Chloride 89 L Carbon Dioxide 46 H* BUN 35 H Creatinine Glucose POC Glucose (mg/dL) Iron Ferritin C-Reactive Protein Total Protein Albumin Procalcitonin Vancomycin Trough Coronavirus (PCR) SARS-CoV-2 Ab,Total Crossmatch See Detail 03/12/21 03/12/21 03/12/21 05:40 05:40 05:40 WBC RBC 2.19 L Hgb 7.1 L Hct 22.3 L MCV 101.8 H RDW 19.6 H Plt Count 87 L Neutrophils # (Manual) Lymphocytes # (Manual) Monocytes # (Manual) Metamyelocytes # (Man) 0.13 H Myelocytes # (Manual) 0.07 H Promyelocytes # (Man) Nucleated RBCs PT INR APTT D-Dimer ABG pH ABG pCO2 ABG pO2 ABG HCO3 ABG Total CO2 ABG O2 Saturation Sodium Potassium Chloride 90 L Carbon Dioxide 44 H* BUN 42 H Creatinine Glucose 116 H POC Glucose (mg/dL) Iron Ferritin C-Reactive Protein Total Protein Albumin Procalcitonin Vancomycin Trough 44.7 H* Coronavirus (PCR) SARS-CoV-2 Ab,Total Crossmatch 03/13/21 03/13/21 03/14/21 03:26 03:26 03:27 WBC RBC 2.17 L 2.22 L Hgb 7.0 L 7.0 L Hct 22.2 L 22.4 L MCV 102.1 H 101.2 H RDW 19.1 H 18.8 H Plt Count 86 L 88 L Neutrophils # (Manual) Lymphocytes # (Manual) 0.92 L Monocytes # (Manual) 1.19 H Metamyelocytes # (Man) 0.13 H 0.10 H Myelocytes # (Manual) 0.13 H 0.10 H Promyelocytes # (Man) Nucleated RBCs PT INR APTT D-Dimer ABG pH ABG pCO2 ABG pO2 ABG HCO3 ABG Total CO2 ABG O2 Saturation Sodium 135 L Potassium Chloride 90 L Carbon Dioxide 41 H* BUN 44 H Creatinine Glucose 100 H POC Glucose (mg/dL) Iron Ferritin C-Reactive Protein Total Protein Albumin Procalcitonin Vancomycin Trough Coronavirus (PCR) SARS-CoV-2 Ab,Total Crossmatch 03/14/21 03/14/21 03/15/21 03:27 15:32 06:21 WBC RBC 2.42 L Hgb 7.7 L Hct 23.8 L MCV RDW 19.4 H Plt Count 82 L Neutrophils # (Manual) Lymphocytes # (Manual) 0.69 L Monocytes # (Manual) Metamyelocytes # (Man) 0.11 H Myelocytes # (Manual) 0.05 H Promyelocytes # (Man) Nucleated RBCs PT INR APTT D-Dimer ABG pH ABG pCO2 ABG pO2 ABG HCO3 ABG Total CO2 ABG O2 Saturation Sodium Potassium Chloride 91 L Carbon Dioxide 42 H* BUN 46 H Creatinine 1.47 H Glucose POC Glucose (mg/dL) Iron Ferritin C-Reactive Protein Total Protein 5.4 L Albumin 2.7 L Procalcitonin Vancomycin Trough Coronavirus (PCR) SARS-CoV-2 Ab,Total Crossmatch See Detail 03/15/21 03/16/21 03/16/21 06:21 07:59 08:28 WBC RBC Hgb Hct MCV RDW Plt Count Neutrophils # (Manual) Lymphocytes # (Manual) Monocytes # (Manual) Metamyelocytes # (Man) Myelocytes # (Manual) Promyelocytes # (Man) Nucleated RBCs PT INR APTT D-Dimer ABG pH ABG pCO2 72 H* ABG pO2 60 L ABG HCO3 44 H* ABG Total CO2 46 H ABG O2 Saturation 92.0 L Sodium 136 L Potassium 5.3 H Chloride 91 L 91 L Carbon Dioxide 42 H* 39 H BUN 53 H 61 H Creatinine 1.91 H 2.24 H Glucose POC Glucose (mg/dL) Iron Ferritin C-Reactive Protein Total Protein 6.0 L Albumin 3.2 L Procalcitonin Vancomycin Trough Coronavirus (PCR) SARS-CoV-2 Ab,Total Crossmatch Assessment and Plan Assessment: * Acute onset of aphasia, rule out CVA versus acute metabolic encephalopathy. Patient's NIH stroke scale is 2, mainly accounting for aphasia. Rest of the examination is nonfocal. Patient's legs are extremely heavy, not able to lift off the bed, likely baseline (not to be given any points in NIH stroke scale). * Acute Covid-19 infection. * Acute renal failure * Anemia * Thrombocytopenia * Hypercapnia pCO2 of 74. * Respiratory failure * Electrolyte imbalance, hyponatremia, hyperkalemia. * Morbid obesity * History of right leg DVT in on 01/03/2021. * Bilateral lower extremity lymphedema. Plan: * Patient underwent stat carotid Doppler which was negative for any stenosis or occlusion. * Aspirin 81 mg has been started (I would avoid dual antiplatelets because of significant thrombocytopenia). * Patient cannot have MRI because of pacemaker. * CTA of head and neck cannot be performed because of acute renal failure, which is actually worsening at this time. * 2-D echo from 01/02/2021 showed normal left-ventricular size. Moderate concentric LVH. EF is low normal between 50-55%. * EEG rule out epileptiform activity, encephalopathy. * Treatment of other metabolic/medical conditions as per IM and other specialties. * We will follow. Time with Patient: Greater than 30
--- NOTE | 2021-03-16 14:53 | PN ---
PROGRESS NOTE Patient is seen for followup for acute kidney injury. This morning patient had a CODE STROKE. A CT angiogram could not be done, as his serum creatinine continues to increase. It is at 2.24 mg/dL today. The patient has been voiding; 24-hour urine output is on the lower side, documented at 750 mL. Patient was initially hospitalized and was treated for volume overload. He also has underlying Covid pneumonia. Diuretics were eventually discontinued when renal function was starting to worsen. Patient was also maintained on vancomycin and his vancomycin level was elevated at 33 on 03/13/2021. PHYSICAL EXAMINATION: On examination today, patient is awake, comfortable. Blood pressure is 116/65, heart rate 60 per minute. He is afebrile. Mentation appears to be at baseline. Abdomen is morbidly obese. Examination of lower extremities shows chronic skin changes with chronic edema. LABS: Labs show sodium 136, potassium 5.3, chloride 91. CO2 is 39, BUN 61, creatinine 2.24, hemoglobin 7.9 g/dL. ASSESSMENT: 1. Acute kidney injury, acute tubular necrosis. Urine output currently on the lower side. Renal function continues to worsen. Definitely a component of vancomycin toxicity is also present. Vancomycin currently discontinued. No other nephrotoxic agents on board. Blood pressure is slightly on the lower side. If it remains further decreased, we can add midodrine. The Tenormin will be held. No other antihypertensive medications on board. Another etiology for the ATN is also underlying COVID infection. 2. Mild hyperkalemia. Hold off on the potassium supplementation. Etiology is acute kidney injury. 3. Metabolic alkalosis associated with obstructive sleep apnea as well as recent diuresis. 4. Anemia. No active bleeding noted at this point. PLAN: Continue to avoid nephrotoxic agents. Monitor urine output accurately. Hold Tenormin. Add midodrine if blood pressure remains below 110 mmHg systolic. Repeat labs in a.m. MMODL / IJN: [id number] /
--- NOTE | 2021-03-16 15:57 | P.PN ---
Subjective Progress Note Date: 03/16/21 Acute hypoxic and hypercapnic respiratory failure Pneumonia; COVID 19 versus bacterial Acute exacerbation CHF Elevated d-dimer/rule out PE Bilateral lower extremity cellulitis 75 his old male with past medical history of hypertension, prostate cancer, bilateral leg lymphedema, status post cardiac ablation and pacemaker Was recently discharged from the hospital 02/09-02/13 for bilateral leg cellulitis of his lymphedema. Recent right lower extremity DVT on [facility] COVID- 19 infection Presents because of dyspnea over the weekend with increased bilateral leg swelling. He lives in a senior care. At baseline he has some dyspnea with oxygen requirement 2-4 L/m at baseline. At baseline and also patient is nonmobile for a long time, probably many years as he states. He denies any coughing. No abdominal pain or nausea vomiting. No diarrhea. He states that his urine little short T as he describes but he denies dysuria Now he feels much better after he was placed on BiPAP On admission he was hypoxic with oxygen saturation 89% on 60 to her oxygenation nasal cannula. Breathing at 20/m, afebrile Labs showing leukocytosis of 12.9 K. Hemoglobin 8.6 which is close to baseline. Platelets normal. INR is 1.5. BMP and creatinine are unremarkable. Liver enzymes not elevated. Troponin is negative less than 0.012. EKG showing paced rhythm at 68 Chest x-ray: CHF with pulmonary edema favored over diffuse pneumonia Echocardiogram from 01/2021 showing ejection fraction of 50-55% On rounds today patient was found to be minimally responsive; has been placed on BiPAP; we will order stat ABGs, chest x-ray, BNP; Lasix 40 mg IV stat, Decadron 6 mg IV daily first dose stat; start patient on IV cefepime and vancomycin; we will consult pulmonary service; further recommendations once workup is complete 03/10/2021 Patient is seen and evaluated in ICU; patient transferred yesterday due to d eclining respiratory status Pulmonary/critical care following and recommending to continue with BiPAP with plans to titrate FiO2 down maintaining O2 saturation in the low 90s Continue diuretics. Increase Lasix to 40 mg IV push every 8 hours; pulmonary on board and recommend stopping Decadron. Continue to monitor renal profile. Monitor electrolytes 03/11/2021 Patient is seen and evaluated in follow-up in ICU, he is awake and alert,; patient is more awake and oriented this morning, breathing much more comfortably today. BiPAP support overnight, he was switched to nasal cannula this morning at 2 L and his pulse ox is 95-98%; remains afebrile, blood pressures 112/48 Chest x-ray today shows increased lung markings greater at the right base consistent with acute exacerbation of CHF. Patient is currently on Lasix 40 mg IV every 8 hours. He is in -474 mL fluid balance over the last 24 hours. Still has quite significant edema involving his bilateral lower extremities. He remains on antibiotics in the form of cefepime and vancomycin, ID service is following. Laboratory review shows white blood cell count is 5.9, hemoglobin is 7.3, his platelet count is 99, patient was transfused with 1 unit of packed red blood cells, occult stool was positive, patient was on Eliquis 5 mg twice a day on an outpatient basis, related to recent history of DVT in January 2021 and the distal popliteal vein in the right lower extremity. Currently Eliquis is on hold. Patient is status post completed vaccination for COVID-19, and patient did have a COVID pneumonia in December. His COVID-19 PCR test is positive 2 this admission on 03/06/2021, and his Antibody test was also reactive. Pro-calcitonin level was low, proBNP level was 3820. His d-dimer is 1.08. Patient remains in ICU with plan to continue with diuretics, antibiotics with plans to use BiPAP as needed; anticoagulation remains on hold; continue to monitor for any signs of bleeding 03/12/2021 Patient is seen in follow-up continues to be in the ICU sleeping although arousable. Patient is on 2 L via nasal cannula and tolerating well with oxygen saturations of 95-100%. Multiple medical consultations including infectious disease, pulmonary, now GI following as well for anemia with positive blood and has required 1 unit of PRBC transfusion. Hemoglobin today is 7.1. Patient will be placed on clear liquid diet and nothing by mouth at midnight and start the bowel prep with possible EGD colonoscopy in the morning. White blood count within normal limits at 6.5, sodium is 137 with a potassium of 4.2, CO2 elevated at 44, BUN is 42 and creatinine is 0.97. Patient is Covid positive. Legionella was negative. Chest x-ray today shows stable diffuse pleural parenchymal changes to correlate for CHF versus diffuse pneumonia. Patient continues on IV vancomycin along with cefepime and will continue for now. Patient is currently diuresing and maintained on IV Lasix 40 mg every 8 hours. 03/13/2021 Patient is seen this morning with no acute overnight issues. Bowel prep was done and plan is for EGD/colonoscopy today with GI in the afternoon. Patient hemoglobin stable at 7.0 and yesterday was 7.1 and will hold transfusion today. Patient continues on IV antibiotics with infectious disease following closely for acute cellulitis of bilateral lower extremities and will continue with local wound care. Anticoagulant on hold for continued GI bleed and will discuss with GI about resuming once EGD/colonoscopy is complete. Sodium is 135 with a potassium of 4.0 current creatinine 1.16. Patient continues on 2 L via nasal cannula and has been since recent Covid infection. Patient continues on IV L asix 40 mg every 8 and will continue. 03/14/2021 Patient is seen this morning doing relatively well. Hemoglobin is stable at 7 and will give 1 unit of PRBC and repeat CBC tomorrow. Patient had attempted EGD with colonoscopy although EGD was aborted due to worsening respiratory status and poor bowel prep on colonoscopy although was able to visualize no active bleeding noted. Patient continues on IV antibiotic and the form of cefepime and vancomycin with infectious disease following. Creatinine worsened today at 1.47 and will hold Lasix for now and repeat labs. Sodium is 137 with a potassium 4.3. White blood count is stable at 5.1 and again hemoglobin is 7.0. Patient will need outpatient follow-up with GI once more stable for repeat EGD as needed. Patient currently sitting up comfortably on 2 L of oxygen via nasal cannula. Patient denies any abdominal pain or discomfort. Social work also following as patient will be going to [facility] once discharged. 03/15/2021 Patient is seen this morning in follow-up and currently working with physical therapy and sitting at the bedside requiring maximum assistance he is extremely weak and has been mostly bedbound over the last few months. Patient's creatinine continued to worsen at 1.91 today with a BUN of 53 and have consulted nephrology. Lasix is on hold and vancomycin has been discontinued. Factious disease is following and patient is maintained on IV cefepime. Patient did receive 1 unit of PRBCs yesterday hemoglobin is stable at 7.7 with no further bleeding noted. Anticoagulation was on hold and will resume and monitor closely for any signs of bleeding. 03/16/2021 Patient is seen and evaluated in follow-up this morning and recently had an ateam called on him for altered mental status and code stroke was initiated and patient underwent CT of the brain which showed mild central cerebral atrophy with no acute intracranial abnormality seen. Ultimately MRI was ordered although patient has a pacemaker and unable to have MRIs done. Neurology was consulted and pending. Kidney functions continue to be worsening and nephrology is following. Patient continues on subcutaneous heparin as anticoagulation was on hold due to GI bleed. Hemoglobin is 7.9 this morning with no active bleeding noted. White blood count is normal at 5.7. ABG was done showing pCO2 of 72 pO2 is 60 and bicarbonate 44. Sodium is 136 with a potassium of 5.3 and current creatinine is 2.24. Will give an amp of D50 along with regular insulin to correct the potassium and will repeat labs. Patient mentation improved shortly after the event although patient continued to still be confused. Most likely metabolic encephalopathy related to worsening respiratory status and increased worsening kidney functions. Patient also underwent carotid Doppler showing atheromatous plaquing without significant flow-limiting stenosis. Patient being started on baby aspirin and CTA unable to be performed given renal failure and neurology ordering EEG for further studies. Chest x-ray showed diffused increased infiltrates with small pleural effusions and findings can be compatible with atypical pneumonia and infectious disease is following. Pulmonary following as needed. Review of systems: Unable to obtain given patient's confusional state All medications have been reviewed Physical exam: Gen: This is a 75-year-old male awake, alert and oriented 2. no acute distress, well-developed, well-nourished, morbidly obese HEENT: Head is atraumatic, normocephalic. Pupils equal, round. Sclerae is anicteric. NECK: Supple. No JVD. No lymphadenopathy. No thyromegaly. LUNGS: Diminished breath sounds with some scattered rhonchi noted. Tachypneic. No intercostal retractions. HEART: Regular rate and rhythm. No murmur. ABDOMEN: Soft. Obese. Bowel sounds are present. No masses. No tenderness. EXTREMITIES: Extensive pedal edema and poor nail care noted. No calf tenderness. Pitting edema +2 noted bilaterally to lower extremities NEUROLOGICAL: Patient is awake, alert and oriented x3. Diffusely weak. Assessment and plan: Acute on chronic diastolic CHF with ejection fraction 50-55% Altered mental status most likely secondary to metabolic encephalopathy or possible CVA although suspicion for CVA as low and patient does have hypercapnia and worsening kidney functions Acute kidney injury possible prerenal azotemia, possibly secondary to vancomycin or IV Lasix. We'll discontinue IV Lasix and repeat labs, creatinine continued to worsen and nephrology following and vancomycin has been discontinued Hyperkalemia acute bilateral leg cellulitis Possible acute lower GI bleed, colonoscopy was attempted with poor bowel prep and no active bleeding noted, EGD aborted due to worsening respiratory status during the procedure Anemia possibly secondary to acute lower GI bleed or possibly anemia of chronic disease Hypoxic respiratory failure secondary to above Hypertension persistent positive Covid test with no actual infection Prostate cancer Chronic bilateral leg lymphedema Chronic thrombocytopenia status post cardiac ablation and pacemaker Morbid obesity with obesity hypoventilation syndrome and a body mass index of 53.7 GI prophylaxis: Protonix DVT prophylaxis: will resume eliquis once cleared by nephrology and continue with heparin subcutaneous for now No code Plan: Recommend continue with current medication and management. Patient had an acute event of altered mental status most likely related to metabolic encephalopathy although code stroke was called and CVA being ruled out. Patient does have hyperkalemia of 5.3 and will correct and repeat labs. Patient's kidney fun ctions continue to worsen and nephrology is following. Pulmonary along with infectious disease are also following. Patient mentation somewhat improved although patient continues to be intermittently confused per nursing staff. Patient denies any chest pain, shortness of breath, or lightheadedness. On exam patient is more tacvhypneic and currently on 4 L where he was requiring 2 L. Patient was hypercapnic on ABG and pulmonary made aware. Patient will continue on subcutaneous heparin given his worsening kidney functions and thrombocytopenia. Neurology now following and appreciate input and recommendations. Will repeat labs and continue to monitor closely. Continue With neuro checks. Social work is following closely as plan is for return to [facility] once stabilized and discharged. Prognosis is guarded. Objective - Vital Signs Vital signs: Vital Signs Temp 98.2 F 03/16/21 02:00 Pulse 60 03/16/21 02:00 Resp 13 03/16/21 02:00 BP 116/65 08/13/21 02:00 Pulse Ox 96 03/16/21 02:00 Intake & Output 03/15/21 03/16/21 03/16/21 18:59 06:59 18:59 Intake Total 800 Output Total 275 Balance -275 800 Weight 210.5 kg Intake: Oral 800 Output: Urine 275 Other: Voiding Method Indwelling Catheter Indwelling Catheter # Voids 2 - Labs CBC & Chem 7: 03/16/21 08:28 03/16/21 08:28 Labs: Abnormal Lab Results - Last 24 Hours (Table) 03/16/21 03/16/21 03/16/21 Range/Units 07:59 08:28 08:28 RBC 2.54 L (4.30-5.90) m/uL Hgb 7.9 L (13.0-17.5) gm/dL Hct 25.0 L (39.0-53.0) % RDW 18.8 H (11.5-15.5) % ABG pCO2 72 H* (35-45) mmHg ABG pO2 60 L (83-108) mmHg ABG HCO3 44 H* (21-25) mmol/L ABG Total CO2 46 H (19-24) mmol/L ABG O2 Saturation 92.0 L (94-97) % Sodium 136 L (137-145) mmol/L Potassium 5.3 H (3.5-5.1) mmol/L Chloride 91 L (98-107) mmol/L Carbon Dioxide 39 H (22-30) mmol/L BUN 61 H (9-20) mg/dL Creatinine 2.24 H (0.66-1.25) mg/dL Total Protein 6.0 L (6.3-8.2) g/dL Albumin 3.2 L (3.5-5.0) g/dL
--- NOTE | 2021-03-16 16:24 | EEG ---
ELECTROENCEPHALOGRAM REPORT DATE OF SERVICE: 03/16/2021. PREAMBLE: This is a 75-year-old male, with altered mental status, and aphasia. Rule out CVA, rule out focal seizures. EEG FINDINGS: 21 channel routine EEG recording in a patient utilizing 10/20 international system with referential and bipolar montages. The background consists of a well-developed, poorly regulated, mixed frequencies of 4 hertz theta, mixed with some 2-3 hertz delta slowing in bihemispheric region. Background does not seem to be reactive to eye opening and closing. Photic stimulation was not performed. Different stages of sleep were not seen. No focal or generalized epileptiform activity was seen. IMPRESSION: This is an abnormal EEG due to background slowing of at least moderate degree. This is suggestive of generalized cerebral dysfunction as can be seen with toxic metabolic encephalopathy or due to diffuse structural brain abnormality. No epileptiform activity was seen. MMODL / IJN: [id number] /
--- NOTE | 2021-03-16 18:27 | PN ---
PROGRESS NOTE DATE OF SERVICE: 03/16/2021. REASON FOR FOLLOW UP: Pneumonia and lower extremity cellulitis. INTERVAL HISTORY: Patient is afebrile. did have an this morning and was unable to speak, has been causing for the current problem. The patient was able to communicate with me normal. He denies having any headache. No weakness. No chest pain, shortness of breath or cough. No abdominal pain. No diarrhea. PHYSICAL EXAMINATION: Blood pressure 118/80 with a pulse of 73, temperature 97.7. He is 93% on 2 L nasal cannula. General description is an elderly male lying in bed in no distress. Respiratory system: Unlabored breathing, clear to auscultation anteriorly. Heart S1, S2. Regular rate and rhythm. Abdomen soft, no tenderness. Legs are currently some swelling but no redness or drainage. LABS: Hemoglobin 10.1, white count of 5.7. BUN of 61, creatinine is 2.24. DIAGNOSTIC IMPRESSION AND PLAN: Patient with bilateral lower extremity cellulitis with fluid overload. Possible component of pneumonia. The patient is covered with cefepime to continue for now while monitoring clinical course closely. Continue supportive care. MMODL / IJN: [id number] /
[2021-03-17] MEDS: HEPARIN SODIUM,PORCINE/PF 5,000 UNIT/0.5 ML SYRINGE SQ SCH ×2 (00:12→08:29)
[2021-03-17] MEDS: CEFEPIME 2 GM in SODIUM CHLORIDE 0.9% 100 ML IVPB SCH (03:30)
[2021-03-17 04:40] LABS: Glucose,Whole Blood 138 mg/dL (75-99)
[2021-03-17 04:48] LABS: ABG Base Excess 13.9 mmol/L; ABG Oxygen Saturation 98.5 % (94-97); ABG PH 7.21 (7.35-7.45); ABG PO2 112 mmHg (83-108); ABG TCO2 45 mmol/L (19-24); Allen Test Performed? Yes
[2021-03-17 04:51] LABS: Anisocytosis Slight; HCT 29.6 % (39.0-53.0); HGB 9.2 gm/dL (13.0-17.5); Hypochromasia Marked; MCH 31.5 pg (25.0-35.0); MCHC 31.2 g/dL (31.0-37.0); MCV 101.2 fL (80.0-100.0); Macrocytosis Moderate; Mean Platelet Volume 9.3; Platelet Count 112 k/uL (150-450); Poikilocytosis Slight; RBC 2.92 m/uL (4.30-5.90); WBC 11.5 k/uL (3.8-10.6)
[2021-03-17 05:03] LABS: ABG PCO2 106 mmHg (35-45)
[2021-03-17 05:04] LABS: ABG HCO3 42 mmol/L (21-25)
--- NOTE | 2021-03-17 05:04 | XR ---
EXAMINATION TYPE: XR chest 1V DATE OF EXAM: 03/17/2021 COMPARISON: 03/16/2021 HISTORY: Respiratory distress TECHNIQUE: Single view FINDINGS: There is pulmonary airspace edema. Heart is enlarged. There is left axillary pacemaker. IMPRESSION: Moderately severe pulmonary edema is worse than exam yesterday and consistent with conges tive heart failure or RDS.
--- NOTE | 2021-03-17 05:04 | P.EN ---
A team note Activated at 4:15 am. Arrived on the scene shortly after. Discussed the case with the RN and reviewed the chart. Patient has had a prolonged hospitalization and was admitted for respiratory failure with a PMH of obesity hypoventilation syndrome was noted to have altered mental status and labored breathing. Upon arrival at the scene, the patient was getting Ambu bag-ed and the patient's RN was on the phone with the family discussing his CODE STATUS. As per the on the phone, she does not believe that the patient wanted to be kept alive artificially including any form of life-support. The RN discussed the possibility of worsening respiratory status and , to which the noted to keep him on BiPAP until she arrived at the scene as per the RN. Subsequently called the spouse (Leah via telphone) myself who again re-iterated that he is to be a No-Code and that not to intubate. The patient was obtunded and unable to answer questions. Vital signs on the scene BP 130/69, and SpO2 96% on BiPAP, and pulse 60. General: Non-toxic, in mild respiratory distress, appears stated age, severely obese HEENT: NC/AT, anicteric sclerae, PERRLA Cardiovascular: S1/S2 wnl, no murmurs, rubs, or gallops Lungs: very poor air entry gibson, no accessory muscle use Abdominal: Soft, non-tender, non-distended, no guarding, rebound, or rigidity Skin: Warm, dry Extremities: No edema or contractures Neuro: Unable to assess, patient not following directions Assessment/Plan Altered mental status, may be due to hypercapnic respiratory failure -Continue with BiPAP -Labs ordered -Obtain ABG -Primary team notified -[employer] Supervisor notified -F/u CXR Total time spent providing critical care for this patient: Greater than 30 minutes
[2021-03-17 05:07] LABS: ALT 8 U/L (4-49); AST 34 U/L (17-59); African American GFR (CKD) 28 (>60 ml/min/1.73 sqM); Albumin 3.5 g/dL (3.5-5.0); Albumin/Globulin Ratio 1.2; Alkaline Phosphatase 93 U/L (38-126); Anion Gap 6 mmol/L; Blood Urea Nitrogen 63 mg/dL (9-20); Calcium 10.4 mg/dL (8.4-10.2); Carbon Dioxide 39 mmol/L (22-30); Chloride 92 mmol/L (98-107); Glucose 122 mg/dL (74-99); Non-African American GFR(CKD) 24 (>60 ml/min/1.73 sqM); Sodium 137 mmol/L (137-145); Total Bilirubin 0.9 mg/dL (0.2-1.3); Total Protein 6.5 g/dL (6.3-8.2)
[2021-03-17 05:22] LABS: Band Neutrophils % 6 %; Basophilic Stippling Present; Lymphocytes # (M) 3.34 k/uL (1.0-4.8); Metamyelocytes # (M) 0.46 k/uL (0); Metamyelocytes % 4 %; Monocytes # (M) 0.69 k/uL (0-1.0); Myelocytes # (M) 0.12 k/uL (0); Myelocytes % 1 %; Neutrophils % (M) 54 %; Nucleated Red Blood Cells 0 /100 WBC (0-0); Polychromasia Present; Total Cells Counted 100
[2021-03-17 05:23] LABS: Stomatocytes Present
[2021-03-17] MEDS ORDERED: DEXTROSE 50% SYRINGE 50 ML IVP STA (06:35)
[2021-03-17] MEDS ORDERED: INSULIN REGULAR 100 UNIT/ML VIAL (IV) IV ONE (06:36)
[2021-03-17] MEDS ORDERED: SODIUM BICARB 8.4% 50 ML SYR (1 MEQ/ML) IV STA (06:37)
[2021-03-17] MEDS ORDERED: FUROSEMIDE 10 MG/ML 4 ML VIAL IV STA (06:50)
[2021-03-17] MEDS: ASCORBIC ACID 500 MG TAB PO SCH (08:30)
[2021-03-17] MEDS: atenoloL 25 MG TAB PO SCH ×2 (08:30→20:10)
[2021-03-17] MEDS: ZINC SULFATE 220 MG CAP PO SCH (08:30)
[2021-03-17] MEDS: CHOLECALCIFEROL 25 MCG (1000 IU) TABLET PO SCH (08:30)
[2021-03-17] MEDS: PANTOPRAZOLE 40 MG TABLET PO SCH (08:30)
[2021-03-17] MEDS ORDERED: ASPIRIN 81 MG PO SCH (09:00)
--- NOTE | 2021-03-17 10:25 | P.PN ---
Subjective Patient is seen in follow-up for acute kidney injury. Renal function worsening. 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 Has a Tanner catheter. Nonoliguric. Potassium was high this morning and was medically treated. Family at bedside. Vital signs are stable. General: The patient appeared well nourished and normally developed. HEENT: On BiPAP. LUNGS: Breath sounds decreased. HEART: Rate and Rhythm are regular. ABDOMEN: Soft, obese. EXTREMITITES: 2+ edema. Objective - Vital Signs Vital signs: Vital Signs Temp 96.7 F L 03/17/21 09:46 Pulse 60 03/17/21 09:46 Resp 18 03/17/21 02:00 BP 111/69 03/17/21 09:46 Pulse Ox 97 03/17/21 09:46 Intake & Output 03/16/21 03/17/21 03/17/21 18:59 06:59 18:59 Output Total 50 200 Balance -50 -200 Output: Urine 50 200 Other: Voiding Method Urinal Indwelling Catheter - Labs CBC & Chem 7: 03/17/21 04:45 03/17/21 04:45 Labs: Abnormal Lab Results - Last 24 Hours (Table) 03/17/21 03/17/21 03/17/21 Range/Units 04:28 04:45 04:45 WBC 11.5 H (3.8-10.6) k/uL RBC 2.92 L (4.30-5.90) m/uL Hgb 9.2 L (13.0-17.5) gm/dL Hct 29.6 L (39.0-53.0) % MCV 101.2 H (80.0-100.0) fL RDW 18.0 H (11.5-15.5) % Plt Count 112 L (150-450) k/uL Metamyelocytes # (Man) 0.46 H (0) k/uL Myelocytes # (Manual) 0.12 H (0) k/uL ABG pH (7.35-7.45) ABG pCO2 (35-45) mmHg ABG pO2 (83-108) mmHg ABG HCO3 (21-25) mmol/L ABG Total CO2 (19-24) mmol/L ABG O2 Saturation (94-97) % Potassium 6.0 H (3.5-5.1) mmol/L Chloride 92 L (98-107) mmol/L Carbon Dioxide 39 H (22-30) mmol/L BUN 63 H (9-20) mg/dL Creatinine 2.55 H (0.66-1.25) mg/dL Glucose 122 H (74-99) mg/dL POC Glucose (mg/dL) 138 H (75-99) mg/dL Calcium 10.4 H (8.4-10.2) mg/dL 03/17/21 Range/Units 04:45 WBC (3.8-10.6) k/uL RBC (4.30-5.90) m/uL Hgb (13.0-17.5) gm/dL Hct (39.0-53.0) % MCV (80.0-100.0) fL RDW (11.5-15.5) % Plt Count (150-450) k/uL Metamyelocytes # (Man) (0) k/uL Myelocytes # (Manual) (0) k/uL ABG pH 7.21 L (7.35-7.45) ABG pCO2 106 H* (35-45) mmHg ABG pO2 112 H (83-108) mmHg ABG HCO3 42 H* (21-25) mmol/L ABG Total CO2 45 H (19-24) mmol/L ABG O2 Saturation 98.5 H (94-97) % Potassium (3.5-5.1) mmol/L Chloride (98-107) mmol/L Carbon Dioxide (22-30) mmol/L BUN (9-20) mg/dL Creatinine (0.66-1.25) mg/dL Glucose (74-99) mg/dL POC Glucose (mg/dL) (75-99) mg/dL Calcium (8.4-10.2) mg/dL Assessment and Plan Plan: Assessment: 1. Acute kidney injury secondary to ATN secondary to COVID-19 infection, cardiorenal syndrome and vancomycin toxicity. Creatinine 2.55 today. Baseline creatinine near 1. 2. Acute hypercapnic respiratory failure currently on BiPAP. 3. Hyperkalemia secondary to acute kidney injury. 4. COVID-19 infection currently on BiPAP. 5. Hypercalcemia secondary to vitamin D supplementation. 6. GI bleed. Hemoglobin stable. EGD not done due to respiratory distress. GI following. 7. Volume overload. Plan: Add IV Lasix 40 mg twice daily. Repeat potassium level pending. Strict is and os. Avoid nephrotoxins. Hospice to be discussed with family today. Hold vitamin D supplementation due to hypercalcemia.
[2021-03-17] MEDS ORDERED: ARTIFICIAL TEARS-HYPROMELLOSE DROPS 15 ML BTL BOTH EYES PRN (13:23)
[2021-03-17] MEDS ORDERED: polyethylene glycoL 3350 17 GM POWD.PACK PO PRN (13:23)
[2021-03-17] MEDS ORDERED: MORPHINE SULFATE 2 MG/ML SYRINGE IV PRN (13:23)
[2021-03-17] MEDS ORDERED: LORazepam 2 MG/ML INJ IV PRN (13:23)
[2021-03-17] MEDS ORDERED: DOCUSATE 100 MG CAP PO PRN (13:23)
[2021-03-17] MEDS ORDERED: MORPHINE SULFATE 4 MG/ML SYRINGE IV PRN (13:23)
[2021-03-17] MEDS ORDERED: ONDANSETRON 4 MG/2 ML VIAL IVP PRN (13:23)
[2021-03-17] MEDS ORDERED: DRY MOUTH SPRAY 44.3 SPRAY/44.3 ML SPRAY MUCOUS MEM PRN (13:23)
--- NOTE | 2021-03-17 13:25 | P.PN ---
Subjective Acute hypoxic and hypercapnic respiratory failure Pneumonia; COVID 19 versus bacterial Acute exacerbation CHF Elevated d-dimer/rule out PE Bilateral lower extremity cellulitis 75 his old male with past medical history of hypertension, prostate cancer, bilateral leg lymphedema, status post cardiac ablation and pacemaker Was recently discharged from the hospital 02/09-02/13 for bilateral leg cellulitis of his lymphedema. Recent right lower extremity DVT on [facility] COVID- 19 infection Presents because of dyspnea over the weekend with increased bilateral leg swelling. He lives in a correction. At baseline he has some dyspnea with oxy gen requirement 2-4 L/m at baseline. At baseline and also patient is nonmobile for a long time, probably many years as he states. He denies any coughing. No abdominal pain or nausea vomiting. No diarrhea. He states that his urine little short T as he describes but he denies dysuria Now he feels much better after he was placed on BiPAP On admission he was hypoxic with oxygen saturation 89% on 60 to her oxygenation nasal cannula. Breathing at 20/m, afebrile Labs showing leukocytosis of 12.9 K. Hemoglobin 8.6 which is close to baseline. Platelets normal. INR is 1.5. BMP and creatinine are unremarkable. Liver enzymes not elevated. Troponin is negative less than 0.012. EKG showing paced rhythm at 68 Chest x-ray: CHF with pulmonary edema favored over diffuse pneumonia Echocardiogram from 01/2021 showing ejection fraction of 50-55% On rounds today patient was found to be minimally responsive; has been placed on BiPAP; we will order stat ABGs, chest x-ray, BNP; Lasix 40 mg IV stat, Decadron 6 mg IV daily first dose stat; start patient on IV cefepime and vancomycin; we will consult pulmonary service; further recommendations once workup is complete 03/10/2021 Patient is seen and evaluated in ICU; patient transferred yesterday due to declining respiratory status Pulmonary/critical care following and recommending to continue with BiPAP with plans to titrate FiO2 down maintaining O2 saturation in the low 90s Continue diuretics. Increase Lasix to 40 mg IV push every 8 hours; pulmonary on board and recommend stopping Decadron. Continue to monitor renal profile. Monitor electrolytes 03/11/2021 Patient is seen and evaluated in follow-up in ICU, he is awake and alert,; patient is more awake and oriented this morning, breathing much more comfortably today. BiPAP support overnight, he was switched to nasal cannula this morning at 2 L and his pulse ox is 95-98%; remains afebrile, blood pressures 112/48 Chest x-ray today shows increased lung markings greater at the right base consistent with acute exacerbation of CHF. Patient is currently on Lasix 40 mg IV every 8 hours. He is in -474 mL fluid balance over the last 24 hours. Still has quite significant edema involving his bilateral lower extremities. He remains on antibiotics in the form of cefepime and vancomycin, ID service is following. Laboratory review shows white blood cell count is 5.9, hemoglobin is 7.3, his platelet count is 99, patient was transfused with 1 unit of packed red blood cells, occult stool was positive, patient was on Eliquis 5 mg twice a day on an outpatient basis, related to recent history of DVT in January 2021 and the distal popliteal vein in the right lower extremity. Currently Eliquis is on hold. Patient is status post completed vaccination for COVID-19, and patient did have a COVID pneumonia in December. His COVID-19 PCR test is positive 2 this admission on 03/06/2021, and his Antibody test was also reactive. Pro-calcitonin level was low, proBNP level was 3820. His d-dimer is 1.08. Patient remains in ICU with plan to continue with diuretics, antibiotics with plans to use BiPAP as needed; anticoagulation remains on hold; continue to monitor for any signs of bleeding 03/12/2021 Patient is seen in follow-up continues to be in the ICU sleeping although arousable. Patient is on 2 L via nasal cannula and tolerating well with oxygen saturations of 95-100%. Multiple medical consultations including infectious disease, pulmonary, now GI following as well for anemia with positive blood and has required 1 unit of PRBC transfusion. Hemoglobin today is 7.1. Patient will be placed on clear liquid diet and nothing by mouth at midnight and start the bowel prep with possible EGD colonoscopy in the morning. White blood count within normal limits at 6.5, sodium is 137 with a potassium of 4.2, CO2 elevated at 44, BUN is 42 and creatinine is 0.97. Patient is Covid positive. Legionella was negative. Chest x-ray today shows stable diffuse pleural parenchymal changes to correlate for CHF versus diffuse pneumonia. Patient continues on IV vancomycin along with cefepime and will continue for now. Patient is currently diuresing and maintained on IV Lasix 40 mg every 8 hours. 03/13/2021 Patient is seen this morning with no acute overnight issues. Bowel prep was done and plan is for EGD/colonoscopy today with GI in the afternoon. Patient hemoglobin stable at 7.0 and yesterday was 7.1 and will hold transfusion today. Patient continues on IV antibiotics with infectious disease following closely for acute cellulitis of bilateral lower extremities and will continue with local wound care. Anticoagulant on hold for continued GI bleed and will discuss with GI about resuming once EGD/colonoscopy is complete. Sodium is 135 with a potassium of 4.0 current creatinine 1.16. Patient continues on 2 L via nasal cannula and has been since recent Covid infection. Patient continues on IV Lasix 40 mg every 8 and will continue. 03/14/2021 Patient is seen this morning doing relatively well. Hemoglobin is stable at 7 and will give 1 unit of PRBC and repeat CBC tomorrow. Patient had attempted EGD with colonoscopy although EGD was aborted due to worsening respiratory status and poor bowel prep on colonoscopy although was able to visualize no active bleeding noted. Patient continues on IV antibiotic and the form of cefepime and vancomycin with infectious disease following. Creatinine worsened today at 1.47 and will hold Lasix for now and repeat labs. Sodium is 137 with a potassium 4.3. White blood count is stable at 5.1 and again hemoglobin is 7.0. Patient will need outpatient follow-up with GI once more stable for repeat EGD as needed. Patient currently sitting up comfortably on 2 L of oxygen via nasal cannula. Patient denies any abdominal pain or discomfort. Social work also following as patient will be going to [employer] [facility] once discharged. 03/15/2021 Patient is seen this morning in follow-up and currently working with physical therapy and sitting at the bedside requiring maximum assistance he is extremely weak and has been mostly bedbound over the last few months. Patient's creatinine continued to worsen at 1.91 today with a BUN of 53 and have consulted nephrology. Lasix is on hold and vancomycin has been discontinued. Factious disease is following and patient is maintained on IV cefepime. Patient did receive 1 unit of PRBCs yesterday hemoglobin is stable at 7.7 with no further bleeding noted. Anticoagulation was on hold and will resume and monitor closely for any signs of bleeding. 03/16/2021 Patient is seen and evaluated in follow-up this morning and recently had an ateam called on him for altered mental status and code stroke was initiated and patient underwent CT of the brain which showed mild central cerebral atrophy with no acute intracranial abnormality seen. Ultimately MRI was ordered although patient has a pacemaker and unable to have MRIs done. Neurology was consulted and pending. Kidney functions continue to be worsening and nephrology is following. Patient continues on subcutaneous heparin as anticoagulation was on hold due to GI bleed. Hemoglobin is 7.9 this morning with no active bleeding noted. White blood count is normal at 5.7. ABG was done showing pCO2 of 72 pO2 is 60 and bicarbonate 44. Sodium is 136 with a potassium of 5.3 and current creatinine is 2.24. Will give an amp of D50 along with regular insulin to correct the potassium and will repeat labs. Patient mentation improved shortly after the event although patient continued to still be confused. Most likely metabolic encephalopathy related to worsening respiratory status and increased worsening kidney functions. Patient also underwent carotid Doppler showing atheromatous plaquing without significant flow-limiting stenosis. Patient being started on baby aspirin and CTA unable to be performed given renal failure and neurology ordering EEG for further studies. Chest x-ray showed diffused increased infiltrates with small pleural effusions and findings can be compati ble with atypical pneumonia and infectious disease is following. Pulmonary following as needed. 03/17/2021 Patient's overall condition at continue to get worse and patient is a presently on BiPAP. Patient is severely encephalopathic secondary to uremia and elevated pCO2 patient is drowsy falls be to sleep. Although patient is able to understand. Had a lengthy discussion with the family today regarding overall goals of care. Considering his heart failure multiple hospitalizations nonimprovement in his overall clinical condition along with present acute renal failure with superimposed to restrictive lung disease, nonimprovement in spite of aggressive measures, discussed the hospice family is agreeable with hospice hospice services will be consulted patient will be started on comfort measures. Patient is hyperkalemic discussed with the family no further testing or interventions as per family wishes. Review of systems: Unable to obtain given patient's confusional state All medications have been reviewed Physical exam: Gen: This is a 75-year-old male awake, alert and oriented 2. no acute distress, well-developed, well-nourished, morbidly obese HEENT: Head is atraumatic, normocephalic. Pupils equal, round. Sclerae is anicteric. NECK: Supple. No JVD. No lymphadenopathy. No thyromegaly. LUNGS: Diminished breath sounds with some scattered rhonchi noted. Tachypneic. No intercostal retractions. HEART: Regular rate and rhythm. No murmur. ABDOMEN: Soft. Obese. Bowel sounds are present. No masses. No tenderness. EXTREMITIES: Extensive pedal edema and poor nail care noted. No calf tenderness. Pitting edema +2 noted bilaterally to lower extremities NEUROLOGICAL: Patient is awake, alert and oriented x3. Diffusely weak. Assessment and plan: Acute on chronic diastolic CHF with ejection fraction 50-55% with acute exacerbation Altered mental status most likely secondary to severe metabolic encephalopathy from uremia and hypercapnia. Patient is presently on BiPAP with ABG showing pCO2 of 102 -Obesity with possible obesity hypoventilation syndrome with a CO2 retention Acute kidney injury possible acute tubular necrosis from vancomycin. We'll discontinue IV Lasix and repeat labs, creatinine continued to worsen and nephrology following and vancomycin has been discontinued Hyperkalemia acute bilateral leg cellulitis Possible acute lower GI bleed, colonoscopy was attempted with poor bowel prep and no active bleeding noted, EGD aborted due to worsening respiratory status during the procedure Anemia possibly secondary to acute lower GI bleed or possibly anemia of chronic disease Hypoxic respiratory failure secondary to above Hypertension persistent positive Covid test with no actual infection Prostate cancer Chronic bilateral leg lymphedema Chronic thrombocytopenia status post cardiac ablation and pacemaker Morbid obesity with obesity hypoventilation syndrome and a body mass index of 53.7 GI prophylaxis: Protonix DVT prophylaxis: will resume eliquis once cleared by nephrology and continue with heparin subcutaneous for now No code Plan: Discussed at length with the family plan is to comfort measures hospice. Objective - Vital Signs Vital signs: Vital Signs Temp 96.7 F L 03/17/21 09:46 Pulse 60 03/17/21 09:46 Resp 18 03/17/21 08:00 BP 111/69 03/17/21 09:46 Pulse Ox 97 03/17/21 09:46 Intake & Output 03/16/21 03/17/21 03/17/21 18:59 06:59 18:59 Output Total 50 200 Balance -50 -200 Output: Urine 50 200 Other: Voiding Method Urinal Indwelling Catheter Indwelling Catheter - Labs CBC & Chem 7: 03/17/21 04:45 03/17/21 04:45 Labs: Abnormal Lab Results - Last 24 Hours (Table) 03/17/21 03/17/21 03/17/21 Range/Units 04:28 04:45 04:45 WBC 11.5 H (3.8-10.6) k/uL RBC 2.92 L (4.30-5.90) m/uL Hgb 9.2 L (13.0-17.5) gm/dL Hct 29.6 L (39.0-53.0) % MCV 101.2 H (80.0-100.0) fL RDW 18.0 H (11.5-15.5) % Plt Count 112 L (150-450) k/uL Metamyelocytes # (Man) 0.46 H (0) k/uL Myelocytes # (Manual) 0.12 H (0) k/uL ABG pH (7.35-7.45) ABG pCO2 (35-45) mmHg ABG pO2 (83-108) mmHg ABG HCO3 (21-25) mmol/L ABG Total CO2 (19-24) mmol/L ABG O2 Saturation (94-97) % Potassium 6.0 H (3.5-5.1) mmol/L Chloride 92 L (98-107) mmol/L Carbon Dioxide 39 H (22-30) mmol/L BUN 63 H (9-20) mg/dL Creatinine 2.55 H (0.66-1.25) mg/dL Glucose 122 H (74-99) mg/dL POC Glucose (mg/dL) 138 H (75-99) mg/dL Calcium 10.4 H (8.4-10.2) mg/dL 03/17/21 Range/Units 04:45 WBC (3.8-10.6) k/uL RBC (4.30-5.90) m/uL Hgb (13.0-17.5) gm/dL Hct (39.0-53.0) % MCV (80.0-100.0) fL RDW (11.5-15.5) % Plt Count (150-450) k/uL Metamyelocytes # (Man) (0) k/uL Myelocytes # (Manual) (0) k/uL ABG pH 7.21 L (7.35-7.45) ABG pCO2 106 H* (35-45) mmHg ABG pO2 112 H (83-108) mmHg ABG HCO3 42 H* (21-25) mmol/L ABG Total CO2 45 H (19-24) mmol/L ABG O2 Saturation 98.5 H (94-97) % Potassium (3.5-5.1) mmol/L Chloride (98-107) mmol/L Carbon Dioxide (22-30) mmol/L BUN (9-20) mg/dL Creatinine (0.66-1.25) mg/dL Glucose (74-99) mg/dL POC Glucose (mg/dL) (75-99) mg/dL Calcium (8.4-10.2) mg/dL
[2021-03-17] MEDS ORDERED: MORPHINE SULFATE (100 MG/2 ML) 100 MG in SODIUM CHLORIDE 0.9% 100 ML IV SCH (13:30)
[2021-03-17] MEDS ORDERED: SCOPOLAMINE 1.5MG/72HR PATCH TRANSDERM SCH (14:00)
[2021-03-17 14:11] VITALS: RESP 20
[2021-03-17 18:29] VITALS: BP 102/62; PULSE 60; TEMP 95.8
[2021-03-17] MEDS ORDERED: FUROSEMIDE 10 MG/ML 4 ML VIAL IV SCH (21:00)
--- NOTE | 2021-03-18 11:46 | P.DS ---
Providers Date of admission: 03/05/21 13:40 Expected date of discharge: 03/17/21 Attending physician: Tamar Niño Consults: 03/05/21 13:40 Consult Physician Routine Consulting Provider: [facility] Consult Reason/Comments: Pulmonary edema, pleural effusion Do you want consulting provider notified?: Yes 03/06/21 10:11 Consult Physician Urgent Consulting Provider: Hansel Guzman Consult Reason/Comments: cellultitis vs pna Do you want consulting provider notified?: Yes 03/09/21 14:50 Consult Physician Stat Consulting Provider: [facility] Consult Reason/Comments: increasing shortness of breath, pna/ covid Do you want consulting provider notified?: Yes 03/15/21 09:29 Consult Physician Stat Consulting Provider: Trena Lewis Consult Reason/Comments: worsening creatinine Do you want consulting provider notified?: Yes 03/16/21 08:56 Consult Physician Urgent Consulting Provider: Jeimy Muller Consult Reason/Comments: code stroke Do you want consulting provider notified?: Yes Primary care physician: Uriah Tsang Hospital Course: Patient was admitted for altered mental status, toxic encephalopathy secondary to possible pneumonia and patient being treated for healthcare associated pneumonia patient was on broad-spectrum antibiotics patient ended up going into renal failure secondary to vancomycin patient progressively got worse and pat ient the had hypercapnic respiratory failure requiring BiPAP. Patient had multiple hospital physicians in the past after discussion with the family patient was made comfort care patient was started on comfort measures. Patient yesterday. Please refer to my progress note from yesterday for further details please refer to nursing documentation for exact time of . Plan - Discharge Summary Discharge Rx Participant: Yes New Discharge Prescriptions: No Action Potassium Chloride [K-Tab ER] 20 meq PO BID Apixaban [Eliquis] 5 mg PO BID Baclofen [Lioresal] 10 mg PO Q6H PRN PRN Reason: Muscle Spasm Furosemide [Lasix] 80 mg PO BID Atenolol [Tenormin] 50 mg PO BID Multivitamins, Thera [Multivitamin (formulary)] 1 tab PO HS Ascorbic Acid [Vitamin C] 1,000 mg PO DAILY tab Albuterol Inhaler [Ventolin Hfa Inhaler] 2 puff INHALATION RT-QID PRN PRN Reason: Shortness Of Breath Pantoprazole [Protonix] 40 mg PO BID Cholecalciferol [Vitamin D3 (25 Mcg = 1000 Iu)] 25 mcg PO DAILY HYDROcodone/APAP 5-325MG [Upson 5-325] 1 tab PO Q6HR PRN PRN Reason: Pain Discharge Medication List Potassium Chloride [K-Tab ER] 20 meq PO BID 12/09/14 [History] Atenolol [Tenormin] 50 mg PO BID 12/31/20 [History] Multivitamins, Thera [Multivitamin (formulary)] 1 tab PO HS 12/31/20 [History] Ascorbic Acid [Vitamin C] 1,000 mg PO DAILY tab 01/08/21 [Rx] Albuterol Inhaler [Ventolin Hfa Inhaler] 2 puff INHALATION RT-QID PRN 02/09/21 [History] Apixaban [Eliquis] 5 mg PO BID 02/09/21 [History] Baclofen [Lioresal] 10 mg PO Q6H PRN 02/09/21 [History] Pantoprazole [Protonix] 40 mg PO BID 02/09/21 [History] Cholecalciferol [Vitamin D3 (25 Mcg = 1000 Iu)] 25 mcg PO DAILY 03/05/21 [History] Furosemide [Lasix] 80 mg PO BID 03/05/21 [History] HYDROcodone/APAP 5-325MG [Upson 5-325] 1 tab PO Q6HR PRN 03/05/21 [History] Discharge Disposition: - Preliminary Cause of Preliminary Cause of : Pneumonia
--- NOTE | 2021-03-21 13:30 | CDI ---
Documentation Clarification Form Date: 03/21/2021 01:04:21 PM From: Laureen Eric CCS, CCDS Admit Date: 03/05/2021 01:40:00 PM Patient Name: Wilton Cooper Visit Number: [id number] Discharge Date: 03/17/2021 11:00:00 PM ATTENTION: The Clinical Documentation Specialists (CDI) and [facility] Coding Staff appreciate your assistance in clarifying documentation. Please respond to the clarification below the line at the bottom and electronically sign. The CDI & [facility] Coding staff will review the response and follow-up if needed. Please note: Queries are made part of the Legal Health Record. If you have any questions, please contact the author of this message via ITS. Dr. Tamar Niño: Per the 03/05 History & Physical, the patient has a history of COVID 19. Per the 03/06 Cardiology Consult, the patient had COVID 19 Pneumonia in December (2020).His COVID test is pending. He was vaccinated in November 2020. Per the 03/07 Infectious Disease Progress Note 03/07: Clinically not behaving as COVID Pneumonia and in the 03/08 Progress Note: Clinically doubt acute COVID Pneumonia. Per the 03/09 Attending Physician Progress Notes and subsequent Progress Notes: Pneumonia; COVID 19 vs Bacterial. Per the 03/10 Pulmonary Consult: History of COVID 19 infection, doubt COVID 19 pneumonitis at this point. Per the 03/13 Attending Physician Progress Note: Persistent positive COVID test with no actual infection Additional clarification regarding the type of Pneumonia & COVID status is requested. History/Risk Factors Per the 03/05 History & Physical: Prostate Cancer, Hypertension, Rheumatic Fever, Lymphedema to Bilateral Legs, Former Smoker. Clinical Indicators: Presented to the ED on 03/05 via EMS with SOB. History of CHF. ED Clinical Impression: Pulmonary Edema, Pleural Effusion 03/18 Discharge Summary: Admitted for Altered Mental Status, Toxic Encephalopathy second to possible Pneumonia & treated for Healthcare Associated on broad- spectrum antibiotics, went into Renal Failure secondary to Vancomycin, had Hypercapnic Respiratory Failure requiring BiPAP, made comfort care by his family & (03/17/2021). Preliminary Cause of : Pneumonia 03/05 VS: T 98.1, P 60, R 20 (SOB), BP 110/48, PO 89 6Lnc - 50% BiPAP, BMI: 58.0 03/05 LAB: WBC 12.9, Hgb 8.6, Hct 26.4, Neut 9.80, CO2 43, Cl 89 No cultures done. 03/06 COVID: Positive x2. 03/10 SARS-CoV-2 Ab: Reactive A 03/05 CXR: CHF with pulmonary edema favored over diffuse pneumonia. 03/06 CXR: Correlate for CHF otherwise consider pneumonia 03/10 CXR: Increasing RLL Infiltrate. Correlate for atelectasis and pneumonia. 03/16 CXR: Findings can be compatible with atypical pneumonia. Treatment 03/05: O2 6Lnc - 50% BiPAP, IV Lasix 80 mg x1, INH Ventolin prn, IV Lasix 40 mg q8H. 03/06: IV Cefazolin, IV Azithromycin, IV Lasix, IV Decadron, po Orazinc 03/09: IV Vancomycin 03/15: IV Cefepime Please clarify the following diagnosis(es) and specify if Present on Admission: [ ] COVID-19 Pneumonia [ x ] Bacterial Pneumonia, specify suspected organism: Unknown [ ] Healthcare Associate Pneumonia [ ] Other Pneumonia, please specify: [ ] Other, please specify: [ ] Unable to determine (Template Last Revised: October 2020) MTDD
== END 2021-03-17 23:00 | disposition expired | DRG 291 ==
LOC: EC 11:06 → 3SCARD 13:40 → 2SICU 03-09 18:10 → 4SSUR 03-14 22:30
PROVIDERS: ADMIT Internal Medicine; ATTEND Internal Medicine
PROC: 5A09457 Assistance with Respiratory Ventilation, 24-96 Consecutive Hours, Continuous Positive Airway Pressure (ICD-10-PCS; 2021-03-09)
PROC: 30233N1 Transfusion of Nonautologous Red Blood Cells into Peripheral Vein, Percutaneous Approach (ICD-10-PCS; 2021-03-10)
PROC: 0DJD8ZZ Inspection of Lower Intestinal Tract, Via Natural or Artificial Opening Endoscopic (ICD-10-PCS; principal; 2021-03-13 12:30)
PROC: 5A0935A Assistance with Respiratory Ventilation, Less than 24 Consecutive Hours, High Flow/Velocity Cannula (ICD-10-PCS; 2021-03-16)
DX: I11.0 Hypertensive heart disease with heart failure (principal); N17.0 Acute kidney failure with tubular necrosis; J96.21 Acute and chronic respiratory failure with hypoxia; J96.22 Acute and chronic respiratory failure with hypercapnia; J12.82 Pneumonia due to coronavirus disease 2019; G93.41 Metabolic encephalopathy; J15.9 Unspecified bacterial pneumonia; E66.2 Morbid (severe) obesity with alveolar hypoventilation; Z68.43 Body mass index [BMI] 50.0-59.9, adult; L03.115 Cellulitis of right lower limb; L03.116 Cellulitis of left lower limb; E87.4 Mixed disorder of acid-base balance; K92.2 Gastrointestinal hemorrhage, unspecified; R47.01 Aphasia; E87.1 Hypo-osmolality and hyponatremia; J44.0 Chronic obstructive pulmonary disease with (acute) lower respiratory infection; L97.909 Non-pressure chronic ulcer of unspecified part of unspecified lower leg with unspecified severity; I50.33 Acute on chronic diastolic (congestive) heart failure; Z51.5 Encounter for palliative care; Z66 Do not resuscitate; Z79.01 Long term (current) use of anticoagulants; Z86.16 Personal history of COVID-19; Z87.891 Personal history of nicotine dependence; Z86.718 Personal history of other venous thrombosis and embolism; I89.0 Lymphedema, not elsewhere classified; Z95.0 Presence of cardiac pacemaker; D69.6 Thrombocytopenia, unspecified; D50.9 Iron deficiency anemia, unspecified; T36.8X5A Adverse effect of other systemic antibiotics, initial encounter; R29.719 NIHSS score 19; E87.5 Hyperkalemia; Z53.09 Procedure and treatment not carried out because of other contraindication; D63.1 Anemia in chronic kidney disease; E83.52 Hypercalcemia; J84.89 Other specified interstitial pulmonary diseases; Z79.899 Other long term (current) drug therapy; Y95 Nosocomial condition; C61 Malignant neoplasm of prostate
CPT/HCPCS: 36415; 36600; 43235; 45378; 70450; 71045; 71046; 80048; 80053; 80202; 81003; 82272; 82607; 82728; 82746; 82805; 83540; 83550; 83605; 83615; 83735; 83880; 84145; 84484; 85025; 85379; 85610; 85730; 86140; 86769; 86850; 86900; 86901; 86920; 87449; 87635; 93005; 93880; 94660; 94760; 95816; 96374; 99285